=== PATIENT | male | born 1960 | race Caucasian/White ===

== ENCOUNTER 2020-09-29 11:00 | Outpatient (RCR) | payer OTHER, SELFPAY ==
--- NOTE | 2020-08-01 13:35 | HP.PTEVAL_ITS ---
Patient's Visit Information MARY LUCAS is a 60 year old M referred to Physical Therapy by Dr. Behzad Valencia MD with a diagnosis of UNILTAERLA PRIMARY OSTEOARTHRITIS LEFT HIP,BURSITIS,LOW BACK PAIN. Date of Evaluation: 08/01/20 Physical Therapist: Jose Antonio Pak, PT, Cert MDT, OCS - Visit Plan Frequency: 2x /Week Duration: 4 Weeks Plan: PT INTERVENTIONS TO INCLUDE AQUATIC THERAPY WITH LUMBAR AND HIP ROM DLS AND LE FLEXABLITY AND STRENGTHENING - Subjective This 60 y/o male presents to physical therapy with hip bursitis,OA and back pain. Patient has has hip an back pain many years. Patient seen orthopedic DR x- rays showed DJD . Patient tried PT on land for IT BAND . Location bilateral hip pain L> R nad symmtrical lumbar. Aggraveting standing ,siting . Alleviating rest for hips. Aggraveting factors for back is the same sitting and lifting/bending. No MEDS. Denies paratheisa/tingling .Coughing/sneezing-. Patient pain affect sleeping. Patient has some pain pain with stairs ,squatting ,kneeling . Patient pain affects ADLS and housework tasks. Symptoms affects QOL.Patient return in September possible injection. SOCAIL: . VOCATION: retired - Pain Bilateral Hip Pain Intensity (Out of 10): 7 Pain Intensity Range: 10 Bilateral Back Pain Intensity (Out of 10): 7 Pain Intensity Range: 10 - Objective POSTURE: mild posture. GAIT: reciprocal pattern. PALAPTION: Bilateral I -T Band. NEURO: intact. PROM HIP: ER 20 degrees,IR 45 degrees ,hip flexion 110 degrres. MMT: Quads/hams/hip flexion 4/5,abduction 4-/5,ankle 4/5. LUMBAR ROM: flexion min loss ,extension mod loss with pain,side glide s min/mod loss. FLEXABILITY: HAMS MOD TIGHT - Goals Goal 1:: Patient to be I with Aquatic Therapy Goal Time Frame: 4-6 Weeks Goal 2:: Patient to decrease pain bilateral lateral hip and LBP by 50% or > to improve function Goal Time Frame: 4-6 Weeks Goal 3:: Patient to improve hip and lumbar ROM for function of recovery Goal Time Frame: 4-6 Weeks Goal 4:: Patient to improve LFES score by 5 points or > to improve function. Goal Time Frame: 4-6 Weeks - Rehabilitation Potential Physical Therapy Diagnosis: This patient has symmtrical low back pain and lateral upper hip pain with decrease lumbar ROM especially hip along with hip ROM deficits with pain with functional activities difficulty with sitting ,squatting and stairs Rehabilitation Potential: Good - Anticipated Interventions Patient/Client Instruction: Educate patient on: Condition, Plan of Care For the Purpose of:: To decrease pain, To increase ROM, To improve muscle performance and motor function, To improve ability to perform ADL's, To increase tolerance to activity/condition/position, To improve performance and independence with ADL's, To improve ability of physical actions for home/community/work/leisure, To improve gait and locomotor functions, To improve health of tissue, To decrease soft tissue restriction, To increase flexibility/ROM, To improve health and function, To improve ability to perform tasks related to life management Therapeutic Exercise to Include: Strength training, Body mechanics, Postural training, Flexibilty training, In an aquatic setting, Dynamic Lumbar Stabilization For the Purpose of:: To decrease pain, To increase ROM, To improve muscle performance and motor function, To increase tolerance to activity/condition/position, To improve ability of physical actions for home/community/work/leisure, To improve health of tissue, To decrease soft tissue restriction, To reduce risk of recurrence, To improve health and function, To improve ability to perform tasks related to life management Thank you for the opportunity to evaluate your patient. For Medicare and Medicare HMO plans, please review the plan of care and approve it. It will need to be FAXED BACK to us at [phone] for Medicare purposes. For Medicare only, by signing this I certify the plan of care. Please let me know if there are questions or concerns regarding this plan of care. Physician Signature: Date:
--- NOTE | 2020-09-29 11:20 | HP.PTDCSUM ---
It has been my pleasure to treat MARY LUCAS referred by Dr. Behzad Valencia MD, with the diagnosis of UNILTAERLA PRIMARY OSTEOARTHRITIS LEFT HIP,BURSITIS,LOW BACK PAIN for a total of 15 visit(s). Discharge Date: 09/29/20 Please see the following information for a summary of their discharge status. Subjective: Patient is ready to be d/c able to sleep and perform most functional activities, Bilateral Hip Pain Intensity (Out of 10): 2 Bilateral Back Pain Intensity (Out of 10): 0 % Improvement: 60 Objective/Function: POSTURE: mild foward posture. GAIT: reciprocal pattern. FLEXBLITY: HAMS /PIRIFORMIS MILD TIGHT. LUMBAR ROM: flexion WFL ,extension min loss. MMT: quads/hams 4/5,hip flexion 4-/5,ankle 4/5 Goal 1:: Patient to be I with Aquatic Therapy Goal Progress: Goal Met Goal 2:: Patient to decrease pain bilateral lateral hip and LBP by 50% or > to improve function Goal Progress: Goal Met Goal 3:: Patient to improve hip and lumbar ROM for function of recovery Goal Progress: Goal Met Goal 4:: Patient to improve LFES score by 5 points or > to improve function. Goal Progress: Goal Met Goal Progress: Progressing Plan: D/C TO HEP Discharge Comments: D/C HEP If there are questions or concerns regarding this patient's physical therapy, please feel free to call me at [phone]. Thank you for the referral of this patient. Sincerely, Jose Antonio Pak, PT, Cert MDT, OCS
== END 2020-09-29 14:22 | disposition home or self-care (01) ==
LOC: PT 11:00
PROVIDERS: PCP Family Medicine; Referring Provider Specialist; Visit Provider Specialist
DX: M16.12 Unilateral primary osteoarthritis, left hip (principal); M70.62 Trochanteric bursitis, left hip; M54.5 Low back pain
CPT/HCPCS: 97113; 97162; 97530

== ENCOUNTER 2024-03-10 10:30 | Outpatient (RCR) | payer MEDICARE, OTHER, SELFPAY ==
--- NOTE | 2023-09-23 13:02 | HP.PTEVAL ---
Patient's Visit Information Visit Information Visit Information: MARY LUCAS is a 63 year old M referred to Physical Therapy by ISAÍAS HANSEN with a diagnosis of S/P BACK SURGERY PER EVAL 09/02/23. Date of Evaluation: 09/23/23 Physical Therapist: Sofi Kirk, PT, Cert MDT Visit Plan Frequency: 2-3x /Week Duration: 4-6 Weeks Plan: Brace on with PT until ok'd by surgeon. No lifting > 10 lbs. Neutral Spine Core Stability Exercises and Sarai LE Hip Flexor, Hip Rotator, Hamstring and Calf Stretching to help reduce stress to the Lumbar Spine with all Daily Activities. Sarai LE Strengthening. Instruction in Proper Posture Control, Body Mechanics, and Appropriate Activity Modifications. HEP Instruction. Re-check with PT in 3 weeks for progression to trunk ROM if ok''d by surgeon. 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 SOME LIFTING, PUSHING, PULLING AND TWISTING BUT NOT A LOT. Present symptoms: R BUTTOCK, POST THIGH AND R LATERAL LOWER LEG PAIN. SARAI FOOT/TOE NUMBNESS. NO L LE PAIN. DENIES SARAI LE NUMBNESS AND TINGLING EXCEPT NUMBENSS IN THE FEET. NO LOW BACK PAIN EXCEPT WHEN BRACE DIGS IN DURING SITTING. Present since: ABOUT A YEAR AGO Pain Scale: WORST 4/10, LEAST 1/10 Currently: 1/10 Is it getting better, worse or staying the same: STAYING THE SAME Commenced as a result of: NO APPARENT REASON Symptoms at onset: LLE NUMBNESS Worse: LEANING BACK SITTING CAUSES BRACE TO DIG INTO BACK BUT NOT IF SITTING UP STRAIGHT, LAYING DOWN TO GO TO BED AT NIGHT - FEELS TIGHTNESS IN R LEG - BACK OF THIGH, R LEG AND R FOOT. SITTING TOO LONG. STIFF IN THE MORNINGS. Better: ICE PACK ON BUTTOCK AND HAMSTRING AREA, IBUPROFEN AND acetaminophen and meloxicam. THE DAY PROGRESSES. Disturbed sleep: YES - NOT SLEEPING WELL. SLEPT FROM 10PM TO 2AM THEN UP AND DOWN LAST NIGHT. Previous history/Previous treatment: PAIN FOR ABOUT A YEAR BEFORE SURGERY. TRIED A CAUDAL INJECTION IN APR 2023 WITH TEMPORARY BENEFIT. NO PT. NO CHIROPRACTIC. CONSULT WITH DR. HOLMAN APR 2023 THEN TRIED CAUDAL. ALSO CONSULT WITH DR. ALTAMIRANO - [facility]. ALL 3 SURGEONS RECOMMENDED SURGERSY. Treatment this episode: DR. TAMRA CRAIG - 09/02/23: SARAI POST LAMINECTOMIES L2, L3, L4, L5. DIRECT EXITING AND TRAVERSING NERVE DECOMPRESSION SARAI L2, L4, L5 NERVE ROOTS. POSTEROLATERAL FUSION L3 THROUGH L5. SARAI FIXATION AND L3 THROUGH L5. Coughing/sneezing/straining: NEGATIVE FOR INCREASED PAIN. Gait: PATIENT REPORTS HE CURRENTLY JUST FEELS A LITTLE UNSTEADY BUT NOT BAD. NOT BACK TO NORMAL BUT A LOT BETTER THAN HE WAS BEFORE SURGERY. USING A CANE JUST WHEN HE GOES OUTSIDE THE HOUSE. NOT USING AD IN THE HOUSE. USING A WALKER UNTIL ABOUT A WK AGO. Bowel or Bladder Dysfunction: NO Accidents: NO RESIDUAL DEFICITS PER PATIENT. Unexplained weight loss: NO Imaging: FOLLOW UP IMAGING LAST VISIT LOOKED GOOD PER PATIENT REPORT. PMH/Recent major surgery: HTN, HIGH CHOLESTEROL. CURRENT PHYSICIAN RESTRICTIONS: NO BENDING, LIFTING (>10 LBS) OR TWISTING. BACK BRACE AT ALL TIMES UNTIL FOLLOW UP NOVEMBER 2023. BONE STIMULATOR 2 HRS A DAY. STEPS: ONE AT A TIME IN THE MORNING AND STEP OVER STEP IN THE AFTERNOON. ONE HR UP AND DOWN. Objective Objective: Sitting/Standing Posture: REDUCED LORDOSIS. PPT. INCREASED TRUNK FLEXION. NO RELEVANT Active Correction of posture: BETTER Other Observations: INDEP GAIT INTO PT WITH INCREASED TRUNK FLEXION, STRAIGHT CANE, GOOD SEQUENCING, NO LOB, SLOW CADANCE AND NOT VERY DEPENDENT ON CANE. UE DEPENDENT TO TRANSFER FROM SIT TO STAND. Sensory deficit: SARAI LE LIGHT TOUCH SENSATION GROSSLY INTACT AND SYMMETRICAL ROM deficit: VERY TIGHT SARAI LE HIP FLEXORS AND ROTATORS, HS'S AND CALVES. CURRENTLY USING AIDS FOR LE DRESSING. Motor deficit: SARAI LE'S GROSSLY 5/5 EXCEPT HIPS 4-/5 Dural Signs: NEGATIVE SARAI LE'S. Lumbar mvmt loss: NT Core strength: POOR Palpation: INCISIONS - PATIENT REPORTS JENNIFER WERE REMOVED A WK AGO AND HE HAS NOT HAD ANY TROUBLE. INCISION LOOKS GOOD WITHOUT ANY OPEN AREAS OR SIGNS OF INFECTION. Balance/Special Test Scores Oswestry Low Back Score: 19 Goals Goal 1:: PATIENT WILL BE INDEP WITH GAIT ON LEVEL SURFACES AND UP AND DOWN STEPS RECIP WITH ONE HR WITHOUT AD WITHOUT LIMITATION. Goal Time Frame: 8-12 Weeks Goal 2:: PATIENT WILL COMPLETE 10 STANDS IN 30 SECS TO WITHOUT UE ASSIST TO DEMONSTRATE GOOD FUNCTIONAL LE STRENGTH. Goal Time Frame: 8-12 Weeks Goal 3:: PATIENT WILL HAVE IMPROVED LE FUNCTIONAL ROM TO EASE ADL'S. Goal Time Frame: 8-12 Weeks Goal 4:: PATIENT WILL HAVE LUMBAR FLEXION ROM WFL TO EASE ADL'S (WHEN ALLOWED BY PHYSICIAN). Goal Time Frame: 8-12 Weeks Goal 5:: PATIENT WILL HAVE IMPROVED TRUNK FLEXIBILILTY TO ALLOW FOR NEUTRAL POSTURE AND HAVE THE STRENGTH TO MAINTAIN NEUTRAL SPINE THROUGHOUT PT SESSION. Goal Time Frame: 8-12 Weeks Goal 6:: PATIENT WILL BE INDEP WITH A HEP FOR CONTINUED IMPROVEMENT ONCE FORMAL PHYSICAL THERAPY CONCLUDES. Goal Time Frame: 8-12 Weeks Rehabilitation Potential Physical Therapy Diagnosis: THIS PATIENT PRESENTS TO PT S/P BACK SURGERY WITH HYPOMOBILITY, CORE WEAKNESS, C/O R LE PAIN AND SARAI FOOT NUMBNESS. Rehabilitation Potential: Good Anticipated Interventions Patient/Client Instruction: Educate patient on: Condition, Plan of Care and Risk Factors For the Purpose of:: To improve self management Therapeutic Exercise to Include: Strength training, Body mechanics, Postural training, Flexibilty training, Neuromotor development and Dynamic Lumbar Stabilization For the Purpose of:: To decrease pain, To improve muscle performance and motor function, To increase tolerance to activity/condition/position, To improve ability of physical actions for home/community/work/leisure, To improve gait and locomotor functions and To increase flexibility/ROM Text: Thank you for the opportunity to evaluate your patient. For Medicare and Medicare HMO plans, please review the plan of care and approve it. It will need to be FAXED BACK to us at [phone] for Medicare purposes. For Medicare only, by signing this I certify the plan of care. Please let me know if there are questions or concerns regarding this plan of care. Physician Signature: Date:
--- NOTE | 2023-10-14 18:24 | HP.PTREVAL ---
Re-Evaluation Intro: ISAÍAS HANSEN, It has been my pleasure to treat MARY LUCAS over the last 10 visits for S/P BACK SURGERY PER EVAL 09/02/23. Please see the progress note below for an update on the physical therapy plan of care! Subjective Subjective: PATIENT REPORTS NEAR FALL LAST NIGHT WHEN GETTING UP TO GO TO THE BATHROOM DURING THE NIGHT. HAD HIS CANE WITH HIM AND TWISTED. PATIENT REPORTS 20% IMPROVEMENT IN HIS CORE STRENGTH AND LEG STRENGTH SINCE STARTING PT. I WAS ABOUT 70% BETTER (10/02/22) BEFORE I HAD THAT BACKSLIDE. I DON'T KNOW WHAT HAPPEND THERE. PATIENT REPORTS HE FEELS LIKE HE IS STARTING TO RECOVER FROM THAT BACKSLIDE. STATES HE IS STILL TAKING gabapentin. STATES HE ICED HIS FEET BEFORE BED LAST NIGHT AND THAT HELPED BUT FOOT PAIN STILL WOKE HIM UP ABOUT 4 AM. I REALLY DON'T HAVE MUCH PAIN IN MY LEGS ANY MORE ITS JUST IN MY FEET SO IT SEEMS LIKE IT IS SLOWLY GETTING BETTER. Objective Objective/Function: PATIENT WAS SEEN TODAY FOR RE-ASSESSMENT OF PROGRESS TOWARD THE SET PT GOALS AND THE NEED FOR FURTHER PHYSICAL THERAPY VS READINESS FOR DISCHARGE. THIS PATIENT AMBULATES INTO PT TODAY WITH A STRAIGHT CANE WITH UNSTEADY GAIT. CONTACT GUARD GIVEN FOR SAFETY. HE IS LEANING HEAVILY ON HIS CANE AND STOPPED TO REST SEVERAL TIMES ON HIS WAY BACK TO THE TREATMENT ROOM (ABOUT [address]). [address] IN AND OUT OF PT TODAY HE CAUGHT HIS TOES DURING SWING PHASE OF GAIT A FEW TIMES BUT REGAINED BALANCE INDEP'LY. HE IS DEMO'ING INCREASED LE WEAKNESS AND SCORED WORSE ON FUNCTIONAL SCREEN DESPITE SUBJECTIVE REPORTS ABOVE. HE HAS 3-/5 DORSIFLEXION STRENGTH SARAI TODAY. THIS PT RECOMMENDS WALKER FOR SAFETY AND PATIENT REPORTS HE HAS ACTUALLY STARTED USING HIS WALKER AT NIGHT AGAIN BUT WAS NOT USING IT SATURDAY NIGHT WHEN HE HAD THE NEAR FALL. THIS PT ALSO RECOMMENDS PATIENT CALL HIS SURGEON ABOUT INCREASED DIFFICULTY WITH GAIT AND INCREASED LE WEAKNESS AND SCHEDULE FOLLOW UP VISIT PRIOR TO GOING ON VACATION. IN ADDITION THIS PT RECOMMENDS CONTINUED USE OF BACK BRACE UNTIL SEEING SURGEON. PATIENT AGREEABLE WITH ALL RECOMMENDATIONS. OTHER STRENGTH TESTING EOB: L quad: 41.3# R quad: 48.6# L hip flexion: 39.8# R hip flexion: 27.2# THIS PT WALKED PATIENT TO HOSPITAL TRANSPORTATION VAN POST SESSION. PATIENT GOT INTO VAN INDEP'LY. Plan Plan Plan: HOLD PT DUE TO PATIENT GOING ON VACATION. RECHECK BY PT UPON RETURN FROM VACATION. Balance/Gait/Functional tests Balance/Special Test Scores Oswestry Low Back Score: 23 Goals Goals Goal 1:: PATIENT WILL BE INDEP WITH GAIT ON LEVEL SURFACES AND UP AND DOWN STEPS RECIP WITH ONE HR WITHOUT AD WITHOUT LIMITATION. Goal Time Frame: 8-12 Weeks Goal Progress: Not Progressing Goal 2:: PATIENT WILL COMPLETE 10 STANDS IN 30 SECS TO WITHOUT UE ASSIST TO DEMONSTRATE GOOD FUNCTIONAL LE STRENGTH. Goal Time Frame: 8-12 Weeks Goal Progress: NT Goal 3:: PATIENT WILL HAVE IMPROVED LE FUNCTIONAL ROM TO EASE ADL'S. Goal Time Frame: 8-12 Weeks Goal Progress: Not Progressing Goal 4:: PATIENT WILL HAVE LUMBAR FLEXION ROM WFL TO EASE ADL'S (WHEN ALLOWED BY PHYSICIAN). Goal Time Frame: 8-12 Weeks Goal Progress: NT Goal 5:: PATIENT WILL HAVE IMPROVED TRUNK FLEXIBILILTY TO ALLOW FOR NEUTRAL POSTURE AND HAVE THE STRENGTH TO MAINTAIN NEUTRAL SPINE THROUGHOUT PT SESSION. Goal Time Frame: 8-12 Weeks Goal Progress: Not Progressing Goal 6:: PATIENT WILL BE INDEP WITH A HEP FOR CONTINUED IMPROVEMENT ONCE FORMAL PHYSICAL THERAPY CONCLUDES. Goal Time Frame: 8-12 Weeks Anticipated Interventions Anticipated Interventions Patient/Client Instruction: Educate patient on: Condition, Plan of Care and Risk Factors For the Purpose of:: To improve self management Therapeutic Exercise to Include: Strength training, Body mechanics, Postural training, Flexibilty training, Neuromotor development and Dynamic Lumbar Stabilization For the Purpose of:: To decrease pain, To improve muscle performance and motor function, To increase tolerance to activity/condition/position, To improve ability of physical actions for home/community/work/leisure, To improve gait and locomotor functions and To increase flexibility/ROM Re-Evaluation Ending Re-evaluation ending: Please do not hesitate to contact me at [phone] by phone or if you have questions or concerns regarding this new plan of care! Sincerely, Sofi Kirk, PT, Cert MDT
--- NOTE | 2023-10-30 14:31 | HP.PTREVAL_ITS ---
Re-Evaluation Intro: ISAÍAS HANSEN, It has been my pleasure to treat MARY LUCAS over the last 11 visits for S/P BACK SURGERY PER EVAL 09/02/23. Please see the progress note below for an update on the physical therapy plan of care! Subjective Subjective: PATIENT REPORTS HE SAW DR. CRAIG 10/16 AND HAD X-RAYS DONE. X-RAYS LOOKED GOOD. MRI ORDERED AND HE IS HAVING THAT DONE LATER TODAY. HE REPORTS THEY CHECKED HIS FEET FOR DROP FOOT AND THEY TOLD HIM HE DOES NOT HAVE IT. HE STATES THEY TOLD HIM IT COULD TAKE A YEAR FOR HIM TO RECOVER AND GET HIS FEELING BACK IN HIS FEET. HE REPORTS HIS LEFT FOOT IS BETTER THAN HIS RIGHT. PATIENT REPORTS HE TOLD DR. CRAIG HE WAS TAKING TIME OFF FROM THERAPY FOR VACATION BUT HE ENDED UP NOT GOING. HE REPORTS HIS CHILDREN ENDED UP COMING UP HERE TO SEE HE AND HIS INSTEAD. PATIENT REPORTS HE AND HIS FAMILY WERE CONCERNED ABOUT HIM BEING ABLE TO DRIVE THAT FAR SO THEY STAYED HOME. HE ALSO REPORTS DR. CRAIG TOLD HIM TO RESUME THERAPY AFTER VACATION WITHOUT THE BRACE. PATIENT REPORTS DR. CRAIG DID NOT GIVE HIM ANY RESTRICTIONS. Objective Objective/Function: STRENGTH TESTING EOB: R hip flexion: 32.3#, L 35.4# R knee ext: 33.4#, L 31.8# R knee flex: 24.7#, L 31.2# R ankle dorsiflex 3-/5, L 3/5 (dorsiflexion fatigues quickly with repetition). THIS PATIENT AMBULATES INDEP'LY INTO PT TODAY WITH A FWW. HE WALKS WITH DECREASED CADANCE, DECREASED SARAI STRIDE LENGTH AND MILD SARAI HIP HIKING DURING SWING PHASES OF GAIT. NO LOB. HE REPORTS HE FEELS SAFER WITH THE WALKER. HIS IS HAVING TKR TOMORROW AND WILL NEED THE WALKER TOMORROW SO HE WILL BE US ING A ROLLATOR. THIS WALKER IS SET TOO LOW. PATIENT WAS TAUGHT HOW TO PROPERLY SET WALKER HEIGHT SO HE CAN SET ROLLATOR PROPERLY TOO. ENCOURAGED PATIENT TO CONTINUE TO USE WALKER UNTIL HE CAN GET STRONGER AGAIN. HE REPORTS HE REALLY HASN'T FELT THE SAME SINCE GETTING HIS COVID VACCINE. Sitting/Standing Posture: REDUCED LORDOSIS. PPT. INCREASED TRUNK FLEXION. ROM deficit: VERY TIGHT SARAI LE HIP FLEXORS AND ROTATORS, HS'S AND CALVES. Dural Signs: NEGATIVE SARAI LE'S. Lumbar mvmt loss: NT Core strength: POOR PATIENT APPEARS TO BE A GOOD CANDIDATE TO RESUME PT. PATIENT IS AGREEABLE AND REPORTS DR. CRAIG KNOWS HE WAS GOING TO TAKE A BREAK FROM PT FOR VACATION BUT DOESN'T KNOW HE ENDED UP NOT GOING. MRI PENDING TODAY. Plan Plan Plan: CHECK ON MRI RESULTS RESUME PT 3X'S A WK X 8-12 WKS. FOCUS ON CORE AND LE STRENGTHENING INCLUDING ANKLES. GAIT AND BALANCE TRAINING. RESTORE TRUNK AND LE FLEXIBILITY. POSTURE TRAINING. HEP INSTRUCTION Balance/Gait/Functional tests Balance/Special Test Scores Oswestry Low Back Score: 23 Goals Goals Goal 1:: PATIENT WILL BE INDEP WITH GAIT ON LEVEL SURFACES AND UP AND DOWN STEPS RECIP WITH ONE HR WITHOUT AD WITHOUT LIMITATION. Goal Time Frame: 8-12 Weeks Goal Progress: Not Progressing Goal 2:: PATIENT WILL COMPLETE 10 STANDS IN 30 SECS WITHOUT UE ASSIST TO DEMONSTRATE GOOD FUNCTIONAL LE STRENGTH. Goal Time Frame: 8-12 Weeks Goal Progress: NT Goal 3:: PATIENT WILL HAVE IMPROVED LE FUNCTIONAL ROM TO EASE ADL'S. Goal Time Frame: 8-12 Weeks Goal Progress: Not Progressing Goal 4:: PATIENT WILL HAVE LUMBAR FLEXION ROM WFL TO EASE ADL'S (WHEN ALLOWED BY PHYSICIAN). Goal Time Frame: 8-12 Weeks Goal Progress: NT Goal 5:: PATIENT WILL HAVE IMPROVED TRUNK FLEXIBILILTY TO ALLOW FOR NEUTRAL POSTURE AND HAVE THE STRENGTH TO MAINTAIN NEUTRAL SPINE THROUGHOUT PT SESSION. Goal Time Frame: 8-12 Weeks Goal Progress: Not Progressing Goal 6:: PATIENT WILL BE INDEP WITH A HEP FOR CONTINUED IMPROVEMENT ONCE FORMAL PHYSICAL THERAPY CONCLUDES. Goal Time Frame: 8-12 Weeks Anticipated Interventions Anticipated Interventions Patient/Client Instruction: Educate patient on: Condition, Plan of Care and Risk Factors For the Purpose of:: To improve self management Therapeutic Exercise to Include: Strength training, Body mechanics, Postural training, Flexibilty training, Neuromotor development and Dynamic Lumbar Stabilization For the Purpose of:: To decrease pain, To improve muscle performance and motor function, To increase tolerance to activity/condition/position, To improve ability of physical actions for home/community/work/leisure, To improve gait and locomotor functions and To increase flexibility/ROM Re-Evaluation Ending Re-evaluation ending: Please do not hesitate to contact me at [phone] by phone or if you have questions or concerns regarding this new plan of care! Sincerely, Sofi Kirk, PT, Cert MDT
--- NOTE | 2023-11-27 14:30 | HP.PTREVAL_ITS ---
Re-Evaluation Intro: ISAÍAS HANSEN, It has been my pleasure to treat MARY LUCAS over the last 21 visits for S/P BACK SURGERY PER EVAL 09/02/23. Please see the progress note below for an update on the physical therapy plan of care! Subjective Subjective: PATIENT REPORTS HE CAN ACTUALLY TAKE SOME STEPS AT HOME NOW WITHOUT USING THE WALKER. SOMETIMES I WEAKER THAN OTHERS AND IT DOESN'T TAKE MUCH TO WEAR ME OUT THOUGH. IT IS ALL BECAUSE OF MY FEET. MY FEET ARE THE BIG PROBLEM. PATIENT REPORTS DR. CRAIG TOLD HIM IT COULD TAKE HIS FEET A YEAR TO RECOVER. HE STATES HIS FEET HURT ALL THE TIME BUT HE ALWAYS FEELS BETTER WHEN HE IS DONE WITH THERAPY - FEELS STRONGER. MOSTLY JUST PAIN IN HIS FEET BUT SOME LBP LAST NIGHT TOO. PATIENT REPORTS HE TALKED TO DR. TEMPLETON OFFICE RECENTLY ABOUT MEDICATION AND THEY TOLD HIM 12/01/23 WHEN HE IS 3 MO PO HE CAN TAKE OTC IBUPROFEN FOR INFLAMMATION. Objective Objective/Function: PATIENT WAS SEEN TODAY FOR RE-ASSESSMENT OF PROGRESS TOWARD THE SET PT GOALS AND THE NEED FOR FURTHER PHYSICAL THERAPY VS READINESS FOR DISCHARGE. This patient is making slow progress with some strengthening with PT. He has been unable to wean out of back brace or off of Rollator yet. He would like to decrease to 2x's a wk with PT and is willing to do more work at home between warren'ts. This PT is agreeable. UPON EXAM TODAY: Objective/Function: STRENGTH TESTING EOB: R hip flexion: 32.3#, L 35.4# R knee ext: 38.2#, L 38.3# R knee flex: 24.6#, L 31.1# R ankle dorsiflex 5.4 LBS, L 5.6 LBS R ankle plantarflex 15.5 lbs, L 15.4 lbs THIS PATIENT AMBULATES INDEP'LY INTO PT TODAY WITH A rollator. HE WALKS WITH DECREASED CADANCE, DECREASED SARAI STRIDE LENGTH AND MILD SARAI HIP HIKING DURING SWING PHASES OF GAIT. NO LOB. TUG TIME - 20.26 SEC WITH ROLLATOR Sitting/Standing Posture: REDUCED LORDOSIS. PPT. INCREASED TRUNK FLEXION. ROM deficit: VERY TIGHT SARAI LE HIP FLEXORS AND ROTATORS, HS'S AND CALVES. Dural Signs: NEGATIVE SARAI LE'S. Lumbar mvmt loss: NT. Still wearing back brace. Core strength: POOR 30 SEC STS: 7 WITH ONE UE ASSIST Plan Plan Plan: PT 2X'S A WK X 6-8 WKS. FOCUS ON CORE AND LE STRENGTHENING INCLUDING ANKLES. GAIT AND BALANCE TRAINING. RESTORE TRUNK AND LE FLEXIBILITY. POSTURE TRAINING. HEP INSTRUCTION Balance/Gait/Functional tests Balance/Special Test Scores Oswestry Low Back Score: 21 Goals Goals Goal 1:: PATIENT WILL BE INDEP WITH GAIT ON LEVEL SURFACES AND UP AND DOWN STEPS RECIP WITH ONE HR WITHOUT AD WITHOUT LIMITATION. Goal Time Frame: 8-12 Weeks Goal Progress: Not Progressing Goal 2:: PATIENT WILL COMPLETE 10 STANDS IN 30 SECS WITHOUT UE ASSIST TO DEMONSTRATE GOOD FUNCTIONAL LE STRENGTH. Goal Time Frame: 8-12 Weeks Goal Progress: Progressing Goal 3:: PATIENT WILL HAVE IMPROVED LE FUNCTIONAL ROM TO EASE ADL'S. Goal Time Frame: 8-12 Weeks Goal Progress: Progressing Goal 4:: PATIENT WILL HAVE LUMBAR FLEXION ROM WFL TO EASE ADL'S (WHEN ALLOWED BY PHYSICIAN). Goal Time Frame: 8-12 Weeks Goal Progress: NT Goal 5:: PATIENT WILL HAVE IMPROVED TRUNK FLEXIBILILTY TO ALLOW FOR NEUTRAL POSTURE AND HAVE THE STRENGTH TO MAINTAIN NEUTRAL SPINE THROUGHOUT PT SESSION. Goal Time Frame: 8-12 Weeks Goal Progress: Not Progressing Goal 6:: PATIENT WILL BE INDEP WITH A HEP FOR CONTINUED IMPROVEMENT ONCE FORMAL PHYSICAL THERAPY CONCLUDES. Goal Time Frame: 8-12 Weeks Goal Progress: Progressing Anticipated Interventions Anticipated Interventions Patient/Client Instruction: Educate patient on: Condition, Plan of Care and Risk Factors For the Purpose of:: To improve self management Therapeutic Exercise to Include: Strength training, Body mechanics, Postural tra ining, Flexibilty training, Neuromotor development and Dynamic Lumbar Stabilization For the Purpose of:: To decrease pain, To improve muscle performance and motor function, To increase tolerance to activity/condition/position, To improve ability of physical actions for home/community/work/leisure, To improve gait and locomotor functions and To increase flexibility/ROM Re-Evaluation Ending Re-evaluation ending: Please do not hesitate to contact me at [phone] by phone or if you have questions or concerns regarding this new plan of care! Sincerely, Sofi Kirk, PT, Cert MDT
--- NOTE | 2023-12-27 13:47 | HP.PTREVAL_ITS ---
Re-Evaluation Intro: ISAÍAS HANSEN, It has been my pleasure to treat MARY LUCAS over the last 29 visits for S/P BACK SURGERY PER EVAL 09/02/23. Please see the progress note below for an update on the physical therapy plan of care! Subjective Subjective: HAD FOLLOW UP WITH PA AT [facility] LAST Saturday12/17/23. HE REPORTS THE WARREN'T WAS ACTUALLY AN ERROR AND HIS HAD SOME QUESTIONS FOR THEM BUT HE CAN'T REMEMBER WHAT THEY WERE. HE REPORTS SHE IS BEING MORE IMPATIENT THAN HE IS WITH IS PROGRESS. HE STATES HE IS UNDER THE IMPRESSION THAT IT COULD TAKE A YEAR FOR HIS NERVES TO COME BACK SO HE IS TRYING TO BE PATIENT. PATIENT REPORTS HE FEELS LIKE HE IS MAKING SLOW PROGRESS - I CAN ACTUALLY TAKE SOME STEPS ACROSS THE ROOM WITHOUT A WALKER OR ANYTHING BUT I'M WEARY ABOUT IT. PATIENT REPORTS HE FEELS LIKE HIS STRENGTH AND COORDINATION IS IMPROVING BUT NOT HIS FOOT PAIN. RARELY WEARS BACK BRACE NOW. PATIENT DENIES HAVING ANY PHYSICIAN RESTRICTIONS. PATIENT REPORTS HE IS STILL TAKING meloxicam. REPORTS HE DECREASED HIS GABAPENTIN FROM 3 TIMES A DAY TO ONCE A DAY. PATIENT REPORTS HIS BLOOD PRESSURE WAS ELEVATED WHICH ISN'T UNUSUAL FOR HIM DUE TO ANXIETY WHEN SEEING DOCTORS BUT IT WAS UNUSUALLY HIGH. Objective Objective/Function: Patient is still showing signs of slow progress with PT with strengthening but testing was limited today due to dizziness and needing to be assessed for high blood pressure which he has an warren't for today. He has been able to wean out of the back brace almost completely since last re- check but not off of the Rollator yet. He is unsafe with gait without the rollator. He reports compliance with home exercises between therapy sessions if he has more than one day off between therapy sessions. HE AMBULATES INDEP'LY INTO PT TODAY WITH his rollator. HE WALKS WITH DECREASED CADANCE, DECREASED SARAI STRIDE LENGTH but no hip hiking and no toe catching or leg dragging as has been seen intermittently in past. TUG TIME - 20.25 SEC WITH ROLLATOR (patient with increased pause time upon rising from sitting due to dizziness). Sitting/Standing Posture: SCOLIOTIC POSTURE WITH REDUCED LORDOSIS. PPT. INCREASED TRUNK FLEXION. ROM deficit: VERY TIGHT SARAI LE HIP FLEXORS AND ROTATORS, HS'S AND CALVES. Lumbar mvmt loss: FLEX - MOD - C/O INCREASED FOOT PAIN AND PULLING IN CALVES - NW EXT - MARCO RSG - MARCO - PRODUCES LBP - NW LSG - MOD Core strength: POOR 30 SEC STS: - NT DUE TO DIZZINESS PROVOKED WITH ONE ATTEMPT. PATIENT HAS WARREN'T TO GET HIS BLOOD PRESSURE ASSESSED TODAY AFTER PT. Plan Plan Plan: CONTINUE PT 2X'S A WK X 6-8 WKS. FOCUS ON CORE AND LE STRENGTHENING INCLUDING ANKLES. GAIT AND BALANCE TRAINING. RESTORE TRUNK AND LE FLEXIBILITY. POSTURE TRAINING. HEP INSTRUCTION Balance/Gait/Functional tests Balance/Special Test Scores Oswestry Low Back Score: 21 Goals Goals Goal 1:: New Goal: PATIENT WILL BE ABLE TO ASCEND AND DESCEND STEPS ONE AT A TIME WITH TWO HR'S SAFELY. Goal Time Frame: 8-12 Weeks Goal Progress: Not Progressing Goal 2:: PATIENT WILL COMPLETE 10 STANDS IN 30 SECS WITHOUT UE ASSIST TO DEMONSTRATE GOOD FUNCTIONAL LE STRENGTH. Goal Time Frame: 8-12 Weeks Goal Progress: Not assessed Goal 3:: PATIENT WILL HAVE IMPROVED LE FUNCTIONAL ROM TO EASE ADL'S. Goal Time Frame: 8-12 Weeks Goal Progress: Not Progressing Goal 4:: PATIENT WILL HAVE LUMBAR FLEXION ROM WFL TO EASE ADL'S (WHEN ALLOWED BY PHYSICIAN). Goal Time Frame: 8-12 Weeks Goal Progress: NT Goal 5:: New Goal: PATIENT WILL COMPLETE TUG IN < 15 SECS WITH ROLLATOR TO DEMONSTRATE IMPROVED GAIT STABILITY Goal Time Frame: 8-12 Weeks Goal Progress: Not Progressing Goal 6:: PATIENT WILL BE INDEP WITH A HEP FOR CONTINUED IMPROVEMENT ONCE FORMAL PHYSICAL THERAPY CONCLUDES. Goal Time Frame: 8-12 Weeks Goal Progress: Progressing Anticipated Interventions Anticipated Interventions Patient/Client Instruction: Educate patient on: Condition, Plan of Care and Risk Factors For the Purpose of:: To improve self management Therapeutic Exercise to Include: Strength training, Body mechanics, Postural training, Flexibilty training, Neuromotor development and Dynamic Lumbar Stabilization For the Purpose of:: To decrease pain, To improve muscle performance and motor function, To increase tolerance to activity/condition/position, To improve ability of physical actions for home/community/work/leisure, To improve gait and locomotor functions and To increase flexibility/ROM Re-Evaluation Ending Re-evaluation ending: Please do not hesitate to contact me at [phone] by phone or if you have questions or concerns regarding this new plan of care! Sincerely, Sofi Kirk, PT, Cert MDT
--- NOTE | 2024-01-24 15:56 | HP.PTREVAL_ITS ---
Re-Evaluation Intro: ISAÍAS HANSEN, It has been my pleasure to treat MARY LUCAS over the last 36 visits for S/P BACK SURGERY PER EVAL 09/02/23. Please see the progress note below for an update on the physical therapy plan of care! Subjective Subjective: WENT TO SEE NEUROLOGIST YESTERDAY IN [facility]. 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 ALSO SARAI AFO'S ORDERED. FOLLOW UP PENDING APR 28 2024. BLOODWORK ORDERED TOO. CALLED DR. LEUNG (PCP) SATURDAY AFTER LAST PT VISIT ABOUT HIGH BP AND THEY DOUBLE HIS MEDICATION. UPON ARRIVAL TODAY HE REPORTS DECREASED dizziness and less dizziness over-all. HE REPORTS HE HAS TAKEN HIS BP 2 TIMES ALREADY TODAY AND IT WAS 140/94 and 170/99. GOING OUT OF TOWN FOR A WEEK. GOING TO SON'S IN [place]. PATIENT STATES THAT DESPITE HIS DIZZINESS HE IS FEELING A LITTLE STRONGER THAN LAST RE-CHECK AND STARTING TO USE HIS CANE MORE AT HOME THE LAST 2 WEEKS (THE 4 POST ONE) ESPECIALLY WITHOUT HIS SHOES ON). BUT IT SURE WOULD BE NICE TO HAVE SOME FEELING IN THE BOTTOM OF MY FEET. STATES FOR SOME REASON HE FEELS A LITTLE MORE SECURE ON CARPET WITHOUT HIS SHOES ON. DENIES ANY FALLS. STATES HE EVEN GOES OUT ON LEVEL SURFACES SOMETIMES SHORT DISTANCE WITH HIS CANE. Objective Objective/Function: BP beginning of session 143/90 mmHg BP after TUG Test 145/84 mmHg BP post session 140/83 mmHg Patient is still showing signs of slow progress with PT but progress has been limited by his high blood pressure more so recently. He reports being strong enough to ambulate more with his cane vs walker now but he is unsafe without walker/rollator. He reports compliance with HEP. HE AMBULATES INDEP'LY INTO PT TODAY WITH his rollator. HE WALKS WITH DECREASED CADANCE, DECREASED SARAI STRIDE LENGTH but no hip hiking and no toe catching or leg dragging as has been seen intermittently in past. He is wearing sandals today and reports feeling steadier in them vs shoes. TUG TIME - 17.06 SEC WITH ROLLATOR (patient with minimal pause time upon rising from sitting today vs last re-check when he was having more dizziness). Sitting/Standing Posture: SCOLIOTIC POSTURE WITH REDUCED LORDOSIS. PPT. INCREASED TRUNK FLEXION. ROM deficit: VERY TIGHT SARAI LE HIP FLEXORS AND ROTATORS, HS'S AND CALVES. Lumbar mvmt loss: FLEX - MOD - c/o hamstring tightness - NW EXT - MARCO - Produces LBP - NW RSG - MARCO - PRODUCES LBP - NW LSG - MOD - produces LBP - NW Core strength: POOR - but has weaned out of back brace. 30 SEC STS: - 7 with one UE assist. Unable to rise from sitting without UE assist and maintain balance. MMT not specifically performed today but L plantar flexion strength observed greater than R. Sarai ankle dorsiflexion weakness also evident no more than 3/5. Plan Plan Plan: HOLD PT PENDING PHYSICIAN RE-ASSESSMENT AFTER PATIENT RETURNS FROM VACATION. Balance/Gait/Functional tests Balance/Special Test Scores Oswestry Low Back Score: 12 Goals Goals Goal 1:: New Goal: PATIENT WILL BE ABLE TO ASCEND AND DESCEND STEPS ONE AT A TIME WITH TWO HR'S SAFELY. Goal Time Frame: 8-12 Weeks Goal Progress: Goal Met Goal 2:: PATIENT WILL COMPLETE 10 STANDS IN 30 SECS WITHOUT UE ASSIST TO DEMONSTRATE GOOD FUNCTIONAL LE STRENGTH. Goal Time Frame: 8-12 Weeks Goal Progress: STAYING THE SAME (11/27/23) Goal 3:: PATIENT WILL HAVE IMPROVED LE FUNCTIONAL ROM TO EASE ADL'S. Goal Time Frame: 8-12 Weeks Goal Progress: Not Progressing Goal 4:: PATIENT WILL HAVE LUMBAR FLEXION ROM WFL TO EASE ADL'S (WHEN ALLOWED BY PHYSICIAN). Goal Time Frame: 8-12 Weeks Goal Progress: Progressing Goal 5:: New Goal: PATIENT WILL COMPLETE TUG IN < 15 SECS WITH ROLLATOR TO DEMONSTRATE IMPROVED GAIT STABILITY Goal Time Frame: 8-12 Weeks Goal Progress: Progressing Goal 6:: PATIENT WILL BE INDEP WITH A HEP FOR CONTINUED IMPROVEMENT ONCE FORMAL PHYSICAL THERAPY CONCLUDES. Goal Time Frame: 8-12 Weeks Goal Progress: Progressing Anticipated Interventions Anticipated Interventions Patient/Client Instruction: Educate patient on: Condition, Plan of Care and Risk Factors For the Purpose of:: To improve self management Therapeutic Exercise to Include: Strength training, Body mechanics, Postural training, Flexibilty training, Neuromotor development and Dynamic Lumbar Stabilization For the Purpose of:: To decrease pain, To improve muscle performance and motor function, To increase tolerance to activity/condition/position, To improve ability of physical actions for home/community/work/leisure, To improve gait and locomotor functions and To increase flexibility/ROM Re-Evaluation Ending Re-evaluation ending: Please do not hesitate to contact me at [phone] by phone or if you have questions or concerns regarding this new plan of care! Sincerely, Sofi Kirk, PT, Cert MDT
--- NOTE | 2024-02-25 14:10 | HP.PTREVAL_ITS ---
Re-Evaluation Intro: ISAÍAS HANSEN, It has been my pleasure to treat MARY LUCAS over the last 38 visits for S/P BACK SURGERY PER EVAL 09/02/23. Please see the progress note below for an update on the physical therapy plan of care! Subjective Subjective: PATIENT REPORTS HIS BLOOD PRESSURE HAS BEEN BETTER. DENIES DIZZINESS. BLOOD PRESSURE BEFORE PT TODAY 130/89 AT HOME. FOLLOW UP PENDING WITH DR. LEUNG 02/26/24. WENT TO [employer] FOR AFO FITTING AND THEY RECOMMENDED SARAI AFO'S VS JUST ONE AFO SO ARE REQUESTING TO MAKE THEM OUT OF A LESS BULKY MATERIAL. PATIENT AWAITING CALL BACK FOR FITTING. PATIENT REPORTS HE HAS RESUMED HOME EX'S WITH 7 LB WEIGHTS FOR HIS LEGS IN SITTING AND STANDING. ALSO DOING STS'S AND STEP UPS. PATIENT REPORTS HIS FOOT PAIN IS ACTUALLY GETTING BETTER BUT HIS BIGGEST PROBLEM SEEMS TO BE HIS ANKLE WEAKNESS - THEY ROLL WHEN HE IS WALKING IN HIS YARD WITH HIS ROLLATOR. DENIES ANY FALLS IN THE HOUSE OR OUTSIDE. STATES HE HASN'T BEEN REAL ACTIVE TODAY AND THAT IS PROBABLY WHY HIS FEET DON'T HURT. THE MORE ACTIVE HE IS THE MORE HIS FEET HURT. DENEIS ANY FALLS. WALKING WITHOUT ANY AD IN HOUSE AND NOT HOLDING ON TO ANYTHING. USING CANE OUTSIDE OF HOME AND SOMETIMES ROLLATOR. AD AT NIGHT IN HOME THOUGH. Objective Objective/Function: THIS PATIENT PRESENTS TO PT TODAY WITH INCREASED SARAI LE STRENGTH INCLUDING HIS ANKLES, STEADIER GAIT AND MORE CONTROLLED BLOOD PRESSURE HOWEVER WE WERE NOT ABLE TO COMPLETE BALANCE TESTING DUE TO HIS BLOOD PRESSURE ELEVATING AFTER STRENGTH TESTING. HI TUG TIME DID NOT IMPROVE FROM LAST RE-CHECK BUT 30 SEC STS TEST IMPROVED FROM 7 TO 12. HE ALSO HAS GROSSLY 3+/5 SARAI ANKLE DORSIFLEXION STRENGTH NOW. Lumbar mvmt loss: FLEX - MOD - c/o hamstring tightness - NW EXT - MARCO - Produces CENTRAL LBP - NW RSG - MARCO - PRODUCES R LBP - NW LSG - MOD - NE TUG TIME - 17.15 SEC WITH ROLLATOR. 30 SEC STS: - 12 with one UE assist. Almost but able to rise from sitting without UE assist and maintain balance today. Strength: Measure in Average Peak Force Pounds: Hip Flex: R 39.5, L 24.4 Knee Ext: R 42.9, L 40.9 Knee Flex: R 33.8, L 33.7 Sarai Ankle plantar flex grossly 4-/5, inv 3+/5, eversion 2/5. BP IN CLINIC AFTER SUBJECTIVE 154/90 151/88 AFTER TUG TEST 152/91 AFTER STS TEST 158/101 AFTER STRENGTH TESTING WHICH WAS LAST THING DONE. 157/96 UPON DEPARTURE. Plan Plan Plan: *NO PT IF BP NUMBERS ARE >175/95 OR < 100/60* RESUME PT 2X'S A WK X 4-6 WKS CHECK BLOOD PRESSURE PRIOR TO BEFORE, DURING AND AFTER EA SESSION. START NEXT SESSION WORKING ON GAIT TRAINING IN CLINIC WITH GAIT BELT W/CANE IN OR OUT OF PARALLEL BARS AND ASSESS FOR SAFETY OUT OF CLINIC IF DESIRED BY PATIENT. CORE AND LE STRENGTHENING INCLUDING ANKLES. GAIT AND BALANCE TRAINING. RESTORE TRUNK AND LE FLEXIBILITY. POSTURE TRAINING. HEP INSTRUCTION Balance/Gait/Functional tests Balance/Special Test Scores Oswestry Low Back Score: 19 Goals Goals Goal 1:: New Goal: PATIENT WILL BE ABLE TO ASCEND AND DESCEND STEPS ONE AT A TIME WITH TWO HR'S SAFELY. Goal Time Frame: 8-12 Weeks Goal Progress: Goal Met Goal 2:: PATIENT WILL COMPLETE 10 STANDS IN 30 SECS WITHOUT UE ASSIST TO DEMONSTRATE GOOD FUNCTIONAL LE STRENGTH. Goal Time Frame: 8-12 Weeks Goal Progress: Progressing Goal 3:: PATIENT WILL HAVE IMPROVED LE FUNCTIONAL ROM TO EASE ADL'S. Goal Time Frame: 8-12 Weeks Goal Progress: Progressing Goal 4:: PATIENT WILL HAVE LUMBAR FLEXION ROM WFL TO EASE ADL'S (WHEN ALLOWED BY PHYSICIAN). Goal Time Frame: 8-12 Weeks Goal Progress: Progressing Goal 5:: New Goal: PATIENT WILL COMPLETE TUG IN < 15 SECS WITH ROLLATOR TO DEMONSTRATE IMPROVED GAIT STABILITY Goal Time Frame: 8-12 Weeks Goal Progress: Progressing Goal 6:: PATIENT WILL BE INDEP WITH A HEP FOR CONTINUED IMPROVEMENT ONCE FORMAL PHYSICAL THERAPY CONCLUDES. Goal Time Frame: 8-12 Weeks Goal Progress: Progressing Anticipated Interventions Anticipated Interventions Patient/Client Instruction: Educate patient on: Condition, Plan of Care and Risk Factors For the Purpose of:: To improve self management Therapeutic Exercise to Include: Strength training, Body mechanics, Postural training, Flexibilty training, Neuromotor development and Dynamic Lumbar Stabilization For the Purpose of:: To decrease pain, To improve muscle performance and motor function, To increase tolerance to activity/condition/position, To improve ability of physical actions for home/community/work/leisure, To improve gait and locomotor functions and To increase flexibility/ROM Re-Evaluation Ending Re-evaluation ending: Please do not hesitate to contact me at [phone] by phone or if you have questions or concerns regarding this new plan of care! Sincerely, Sofi Kirk, PT, Cert MDT
== END 2024-03-10 19:00 | disposition home or self-care (01) ==
LOC: PT 10:30
PROVIDERS: PCP Family Medicine
DX: M48.00 Spinal stenosis, site unspecified (principal)
CPT/HCPCS: 97110; 97162; 97164; 97530

== ENCOUNTER 2024-04-21 10:00 | Outpatient (RCR) | payer MEDICARE, OTHER, SELFPAY ==
--- NOTE | 2024-03-26 10:34 | HP.PTREVAL_ITS ---
Re-Evaluation Intro: Alyse Carlos, MIGUELINA-C, It has been my pleasure to treat MARY LUCAS over the last 47 visits for S/P Back surgery Per [facility] 09/02/23. Please see the progress note below for an update on the physical therapy plan of care! Subjective Subjective: PATIENT REPORTS HE IS DEFINATELY GETTING STRONGER. PATIENT REPORTS HIS BLOOD PRESSURE HAS BEEN GOOD. FOLLOW UP WITH PCP PENDING IN ABOUT A WEEK. DENIES HAVING ANY FALLS SINCE ABOUT SEPTEMBER 2023 (CAN'T REMEMBER WHEN LAST FALL WAS FOR SURE). ONLY USING ROLLATOR IN GRASS NOW. NO AD IN HOUSE WHEN DOESN'T HAVE TO WEAR SHOES. CANE IN COMMUNITY. ONLY USING ROLLATOR IF IN HIS GR[place]. STATES HE IS ANSWERING THE QUESTIONNAIRE FOR FOOT PAIN - STATES HE DOESN'T REALLY HAVE MUCH BACK PAIN AND BACK PAIN IS NOT LIMITING HIM. STILL HAS NOT HAD FITTING FOR AFO'S BECAUSE ANNIE SAID THEY ARE WAITING ON MED [employer] APPROVAL. PATIENT REPORTS THE PAIN IN HIS FEET IS DIFFERENT NOW. STATES HE THINKS IT IS BECAUSE THEY ARE WAKING UP AND GETTING STRONGER/SORE AND HE HAS SOME LOWER LEG SORENESS TOO. THE LEG AND FOOT SORENESS COMES AND GOES WITH ACTIVITY. ICING HELPS. FEELS THERAPY IS HELPING HIM GET STRONGER AND WOULD LIKE TO CONTINUE. PATIENTS GOAL IS TO BE ABLE TO WALK WITHOUT AD. Objective Objective/Function: PATIENT HAS MET SEVERAL GOALS BUT CONTINUES TO HAVE ABNORMAL GAIT. HIS GAIT IS LIMITED IN TIME/DISTANCE BY C/O FOOT PAIN. HE CONTINUES TO HAVE ANKLE WEAKNESS AND HAS NOT RECEIVED AFO'S YET. FGA SCORE INDICATES HE IS STILL UNSAFE WITHOUT AD AND HIS GOAL IS TO BE ABLE TO WALK WITHOUT AD. HE IS A GOOD CANDIDATE TO CONTINUE PT BASED ON PROGRESS MADE AND ROOM FOR FURHTER IMPROVEMENT AND HE WOULD LIKE TO CONTINUE. HIS BLOOD PRESSUE HAS BEEN LESS OF A LIMITING FACTOR LATELY BUT TODAY IT BECAME ELEVATED AFTER THE FGA AND WE STOPPED PT AT THIS POINT. BP prior to session: 131/71 BP after FGA: 167/99 BP post-session: 141/81 Stairs: 1 flight reciprocal with single handrail on 03/20/24 (1 at a time goal with 2 HR) 30s STS: 20 reps - no hands/standard chair on 03/18/24 (10 rep goal) TU.57 standard cane, CGA on 03/18/24 (<15s goal) 6 MWT: 268 meters with SPC on 03/20/24 (47% normative range) FGA: 17 (New Goal - 22) Plan Plan Plan: *NO PT IF BP NUMBERS ARE >175/95 OR < 100/60 (PER PCP)* CONT PT 2X'S A WK X 4-6 WKS CHECK BLOOD PRESSURE PRIOR TO BEFORE, DURING AND AFTER EA SESSION. CORE AND LE STRENGTHENING INCLUDING ANKLES. GAIT AND BALANCE TRAINING WITH GAIT BELT WITH CONTACT GUARD AND/OR ASSISTIVE DEVICE. ADD GAIT TRAINING WITH VERTICAL AND HORIZONTAL HEAD TURNS, STEPPING OVER OBJECTS, PIVOTING AND NARROW BASE OF SUPPORT/tandem WALKING. RESTORE TRUNK AND LE FLEXIBILITY. POSTURE TRAINING. HEP INSTRUCTION Balance/Gait/Functional tests Balance/Special Test Scores Functional Gait Assessment Score: 17 % Disability: 43.3400 Oswestry Low Back Score: 13 TUG Test Time Seconds: 8.57 Tug Test: <10 sec.=free mobile 30 Second Chair Rise Test Seconds: 20 6 Minute Walk Test: 268 meters / 881 feet =47% of normative range Goals Goals Goal 1:: PATIENT WILL BE ABLE TO ASCEND AND DESCEND STEPS ONE AT A TIME WITH TWO HR'S SAFELY. Goal Time Frame: Goal Time Frame: 8- Wee Goal Progress: Goal Met Goal 2:: PATIENT WILL COMPLETE 10 STANDS IN 30 SECS WITHOUT UE ASSIST TO DEMONSTRATE GOOD FUNCTIONAL LE STRENGTH. Goal Time Frame: Goal Time Frame: 8-12 Wee Goal Progress: Goal Met Goal 3:: PATIENT WILL HAVE IMPROVED LE FUNCTIONAL ROM TO EASE ADL'S. Goal Time Frame: Goal Time Frame: 8-12 Wee Goal Progress: Progressing Goal 4:: PATIENT WILL HAVE LUMBAR FLEXION ROM WFL TO EASE ADL'S (WHEN ALLOWED BY PHYSICIAN). Goal Time Frame: Goal Time Frame: 8- Wee Goal Progress: NT this date Goal 5:: PATIENT WILL COMPLETE TUG IN < 15 SECS WITH ROLLATOR TO DEMONSTRATE IMPROVED GAIT STABILITY - Goal Met New Goal - FGA score of 22 or higher Goal Time Frame: Goal Time Frame: 8-12 Wee Goal Progress: Goal Met Goal 6:: PATIENT WILL BE INDEP WITH A HEP FOR CONTINUED IMPROVEMENT ONCE FORMAL PHYSICAL THERAPY CONCLUDES. Goal Time Frame: Goal Time Frame: 8-12 Wee Goal Progress: Progressing Anticipated Interventions Re-Evaluation Ending Re-evaluation ending: Please do not hesitate to contact me at [phone] by phone or if you have questions or concerns regarding this new plan of care! Sincerely, Sofi Kirk, PT, Cert MDT
== END 2024-04-21 19:00 | disposition home or self-care (01) ==
LOC: PT 10:00
PROVIDERS: PCP Family Medicine; Referring Provider Nurse Practitioner; Visit Provider Nurse Practitioner
DX: M48.00 Spinal stenosis, site unspecified (principal)
CPT/HCPCS: 97110; 97530

== ENCOUNTER 2024-05-01 08:30 | Outpatient (RCR) | payer MEDICARE, OTHER, SELFPAY | END 2024-05-01 19:00 | disposition home or self-care (01) | LOC: PT 08:30 | PROVIDERS: PCP Family Medicine; Referring Provider Nurse Practitioner; Visit Provider Nurse Practitioner | DX: M48.00 Spinal stenosis, site unspecified (principal) | CPT/HCPCS: 97110 ==

== ENCOUNTER 2025-07-20 05:39 | Emergency (ER) | payer MEDICARE, OTHER, SELFPAY ==
[2025-07-20 05:40] VITALS: BP 155/88; PULSE 101; RESP 17; TEMP 36.6; O2SAT 97; BMI 30.7
--- NOTE | 2025-07-20 05:56 | EKG12_ITS ---
Test Reason : DYSRHYTHMIA Blood Pressure : */* mmHG Vent. Rate : 98 BPM Atrial Rate : 98 BPM P-R Int : 178 ms QRS Dur : 98 ms QT Int : 346 ms P-R-T Axes : 60 -4 20 degrees QTcB Int : 441 ms Normal sinus rhythm Normal ECG Confirmed by Koko Hernandes ([id number]), senior editor PATRICA SELF ([id number]) on 07/23/2025 8:21:03 AM Referred By: MANUEL Confirmed By: Koko Hernandes
--- NOTE | 2025-07-20 05:58 | EDS_ITS ---
HPI History of Present Illness Chief Complaint: Palpitations Informant: patient Narrative Narrative: Patient is a 65-year-old male presenting with palpitations. - Reports palpitations off and on for approximately one week, with episodes being brief until last night when they were constant throughout the night. - Describes the sensation as a racing heart, with a pulse of 120 bpm noted on his watch this morning. - Denies chest pain or dyspnea. - Experiences lightheadedness at times but denies syncope. - No known cardiac or pulmonary issues other than abdominal aortic aneurysm. - Reports a mild left frontal headache currently, with similar headaches over t he past few days. - Onset of sore throat yesterday morning; took Cold-Eeze. - Denies significant congestion. - Describes intermittent sharp pains in bilateral mid-abdomen, which are brief and resolve quickly. - Denies leg swelling or pain or hx of DVT. - Suspects inadequate hydration during a long car trip yesterday (8 hours driving, 12 hours total on the road). PFSH [facility] Home Medications ?Medication ?Instructions ?Recorded ?Last Taken ?Type atorvastatin 40 mg tablet 40 mg PO QODAY cholesterol 1 09/20/24 Unknown History epinephrine 0.3 mg/0.3 mL 0.3 ml subcut PRN PRN anaphy laxis 07/20/25 Unknown History injection, auto-injector hydrochlorothiazide 12.5 mg capsule 12.5 mg PO DAILY 1 09/20/24 Unknown History lisinopril 20 mg tablet 40 mg PO DAILY 07/20/25 Unkn own History multivitamin (Daily Multi-Vitamin 1 tab PO DAILY 07/20 Unknown History tablet) tumeric 07/20/25 Unknown History Allergy/AdvReac Type Severity Reaction Status Date / Time bee venom protein (honey AdvReac Intermediate Anaphylaxis Verified 07/20/25 05:44 bee) (bees) Social History Smoking Status: Never smoker ROS ROS ED Constitutional Constitutional ED: Denies chills or fever(s) Eyes Eyes: Denies change in vision or diplopia ENT ENT ED: Reports sinus pressure and sore throat; Denies ear pain or rhinorrhea Cardiovascular Cardiovascular: Reports lightheadedness, palpitations and racing heartbeat; Denies chest pain, orthopnea or syncope Respiratory/Chest Respiratory/Chest: Reports cough; Denies dyspnea or orthopnea Gastrointestinal Gastrointestinal: Reports abdominal pain; Denies diarrhea, nausea or vomiting Genitourinary Genitourinary ED: Denies dysuria or hematuria Musculoskeletal Musculoskeletal: Denies back pain or neck pain Integumentary Denies abscess or rash Neurologic Neurologic: Reports headache(s); Denies paresthesias or weakness Psychiatric Psychiatric: Denies anxiety or suicidal thoughts EXAM Physical Exam Const Vital Signs: 07/20/25 05:40 07/20/25 05:46 07/20/25 05:59 Temperature 97.9 F Temperature Source Temporal Pulse Rate 101 H Respiratory Rate 17 Respiratory Effort Normal Blood Pressure 155/88 H Blood Pressure Mean 110 Pulse Ox 97 Oxygen Delivery Method Room Air 07/20/25 06:39 07/20/25 07:00 07/20/25 08:07 Temperature Temperature Source Pulse Rate 88 84 82 Respiratory Rate 16 18 19 H Respiratory Effort Blood Pressure 87/69 L 102/73 126/80 H Blood Pressure Mean 75 82 95 Pulse Ox 98 95 98 Oxygen Delivery Method Room Air Room Air Room Air Positive well nourished and well developed General Appearance ED: well developed and NAD HEENT Reports moist mucous membranes normocephalic and atraumatic Eyes PERRL and EOMs intact bilaterally Neck full ROM and supple Resp normal respiratory effort and clear to auscultation bilaterally Cardio regular rate, regular rhythm and no murmurs Rate: Negative for tachycardic GI non-tender and non-distended Auscultation: normoactive bowel sounds Palpation: soft Back/Spine no CVA tenderness General Back: other FROM Extremity normal to inspection Extremity Narrative: No calf tenderness no palpable cords General Extremety ED: Negative for edema, pulses abnormal or tenderness General Extremity: Negative for edema or pulses abnormal Neuro oriented x3, CN's II-XII intact bilaterally and no sensory deficits noted Sensorium / Orientation: awake and alert Motor Exam: strength 5/5 throughout Psych Psych Narrative: A little anxious otherwise normal mental status Skin no rashes or lesions noted and no wounds MDM MDM MDM Narrative Medical decision making narrative: Assessment: The patient is a 65-year-old male with PMH of aortic aneurysm presenting for one week of intermittent palpitations that became persistent overnight, associated with mild frontal headache and occasional light-headedness without chest pain or dyspnea. Initial ED vitals are normal and he is now asymptomatic with heart rate in the 70s. EKG is completely normal. D-dimer is normal, making pulmonary embolism unlikely. Initial troponin is 51; repeat level is pending to rule out acute coronary syndrome. One-view chest X-ray is normal. Creatinine is mildly elevated at 1.25, consistent with baseline renal insufficiency. Given normal rhythm strip, normal EKG, and absence of dysrh ythmias on monitor thus far, anxiety or paroxysmal supraventricular dysrhythmia (SVT/AFib) remains possible; ACS less likely given flat cardiac enzymes. Plan: - Continuous cardiac telemetry while in ED - Patient and significant other counseled on results, possible anxiety etiology, and need for outpatient rhythm evaluation - Anticipate discharge home with outpatient follow-up if serial troponins remain negative Diagnostics: - EKG: normal sinus rhythm, no ectopy or ischemic changes. Independently interpreted by me, Jasper Alexander. - Labs: D-dimer normal; CBC normal; Creatinine 1.25 mg/dL; Troponin 51 ng/L initial, 2nd is 57 -- flat, likely elevated due to renal insufficiency - Imagin-view chest X-ray ? normal; radiology concurred Reevaluations: - Re-evaluation: patient comfortable, heart rate 70s, denies palpitations; discussing possibility of anxiety as trigger per pt Portions of this note were generated using voice recognition software ([employer]). I have reviewed the contents and every effort has been made to ensure accuracy; however, inadvertent errors in grammar, spelling, punctuation, or word choice may occur, that were not noted before signing the document and should not alter the intended clinical meaning. Lab Data Attestation: I reviewed the patient's lab results. Labs: Laboratory Results - last 24 hr 07/20/25 05:49 WBC 6.0 RBC 4.75 Hgb 14.2 Hct 42.1 MCV 88.6 MCH 29.9 MCHC 33.7 RDW Std Deviation 42.5 RDW Coeff of Shaquille 13.0 Plt Count 291 MPV 9.1 Immature Gran % (Auto) 0.300 Neut % (Auto) 74.7 H Lymph % (Auto) 11.2 L [place] % (Auto) 12.6 H Eos % (Auto) 0.5 Baso % (Auto) 0.7 Absolute Neuts (auto) 4.5 Absolute Lymphs (auto) 0.67 L Nucleated RBC % 0 D-Dimer Quant (PE/DVT) 0.33 Sodium 136 Potassium 3.8 Chloride 98 Carbon Dioxide 25.1 Anion Gap 13 BUN 12 Creatinine 1.25 H Estim Creat Clear Calc 73.08 Est GFR (MDRD) Non-Af 63 BUN/Creatinine Ratio 9.4 L Glucose 157 H Calcium 9.5 Troponin T High Sens 51 H Radiography Diagnostic Testing: Clinical Impression(s) from Imaging Studies Chest X-Ray 07/20/25 06:18 IMPRESSION: No evidence of acute cardiopulmonary abnormality. Reading Location: [facility] Rhythm Strip Rhythm Strip: Sinus Rhythm Rate: 95 Ectopy: None EKG Initial EKG: Attestation: I personally reviewed and interpreted this EKG as follows: Interpretation: Sinus Rhythm and No Acute Injury Pattern Comments: Nml axis & intervals; nml EKG Discharge Plan Triage Chief Complaint: Palpitations ED Provider: Jasper Alexander Dx/Rx/DC Orders Clinical Impression: Intermittent palpitations, Renal insufficiency Instructions: ED Heart Palpitations Prescriptions: No Action lisinopril 20 mg tablet 40 mg PO DAILY atorvastatin 40 mg tablet 40 mg PO QODAY hydrochlorothiazide 12.5 mg capsule 12.5 mg PO DAILY epinephrine 0.3 mg/0.3 mL auto-injector 0.3 ml subcut PRN PRN (Reason: anaphylaxis) tumeric multivitamin [Daily Multi-Vitamin] Tablet 1 tab PO DAILY Primary Care Provider: Prabhjot Calloway Referrals: Prabhjot Calloway MD [Primary Care Provider, Family Practice] - As soon as possible Print Language: Cymraes Disposition Disposition: Home, Self Care
[2025-07-20 06:03] LABS: Hematocrit 42.1 % (40-54); Hemoglobin 14.2 g/dL (13.0-16.5); Immature Granulocytes Count 0.020 X10^3/uL (0.0-0.0); Mean Corp Hgb Conc 33.7 g/dL (32-36); Mean Corpuscular Volume 88.6 fL (80-94); Mean Platelet Vol. 9.1 fl (6.2-12.0); NRBC Flagged by Analyzer 0 % (0-5); Platelet Count 291 K/mm3 (150-450); RBC Distribution Width CV 13.0 % (11.6-14.6); RBC Distribution Width SD 42.5 fl (35.1-43.9); Red Blood Count 4.75 M/mm3 (4.6-6.2); White Blood Count 6.0 K/mm3 (4.4-11.0)
--- NOTE | 2025-07-20 06:18 | RAD_ITS ---
PROCEDURE: CHEST 1 VIEW (PORTABLE) 07/20/2025 REASON FOR EXAM: COUGH TECHNIQUE: Frontal view of the chest. COMPARISON: None. FINDINGS: The lungs are adequately aerated bilaterally without pleural effusion, pneumothorax, or focal airspace disease. Atheromatous changes of the aorta without cardiomegaly. Degenerative changes of bilateral shoulders. RAD/Chest 1 View (Portable) IMPRESSION: No evidence of acute cardiopulmonary abnormality. Reading Location: [id number]
[2025-07-20 06:21] LABS: D-Dimer Quantitative (DVT/PE) 0.33 FEU/ug/m (0.27-0.49)
--- OUTSIDE RECORDS SUMMARY | 2025-07-20 06:36 | XMS RPT_ITS | CCD ---
Author Organization [facility] Care Team Providers Care Retail Advertising Executive Name Role Phone Shaheen QUALITY SPECIALIST.PAINT MIXER, GENESIS, Uday Primary Care Provider Prabhjot Leung MD Primary Care Provider Prabhjot Leung MD Primary Care Provider Prabhjot Leung MD Primary Care Provider Prabhjot Leung MD Primary Care Provider Prabhjot Leung Primary Care Unavailable SANDRA CASTLE Attending Unavailable SANDRA CASTLE Referring Unavailable Alyse Carlos Attending Unavailable Alyse Carlos Referring Unavailable Prabhjot Leung Primary Care Unavailable Terrance, Alyse Referring Unavailable Prabhjot Leung Primary Care Unavailable Alyse Carlos Attending Unavailable Ladarius QUALITY SPECIALIST.Aundrea SAVAGE Unavailable Micaela Martin PA-C Unavailable Prabhjot Leung MD Primary Care Provider Ladarius QUALITY SPECIALIST.Aundrea SAVAGE Unavailable Micaela Martin PA-C Unavailable Knoble QUALITY SPECIALIST.Aundrea SAVAGE Unavailable Micaela Martin PA-C Unavailable PRABHJOT LEUNG Referring Unavailable PRABHJOT LEUNG Primary Care Unavailable PRABHJOT LEUNG Referring Unavailable PRABHJOT LEUNG Primary Care Unavailable GUILHERME SHERWOOD Attending Unavailable PRABHJOT LEUNG Primary Care Unavailable MICAELA MARTIN Referring Unavailable PRABHJOT LEUNG Primary Care Unavailable MICAELA MARTIN Referring Unavailable PRABHJOT LEUNG Primary Care Unavailable MADHU, PRABHJOT A Attending Unavailable MADHU, PRABHJOT A Referring Unavailable MADHU, PRABHJOT A Primary Care Unavailable WALE MCKEON Attending Unavailable MADHU, PRABHJOT A Primary Care Unavailable WALE MCKEON Attending Unavailable MADHU, PRABHJOT A Referring Unavailable MADHU, PRABHJOT A Primary Care Unavailable MADHU, PRABHJOT A Referring Unavailable MADHU, PRABHJOT A Primary Care Unavailable MADHU, PRABHJOT A Referring Unavailable MADHU, PRABHJOT A Primary Care Unavailable WALE MCKEON Attending Unavailable MADHU, PRABHJOT A Referring Unavailable MADHU, PRABHJOT A Primary Care Unavailable MADHU, PRABHJOT A Referring Unavailable MADHU, PRABHJOT A Primary Care Unavailable MADHU, PRABHJOT A Referring Unavailable MADHU, PRABHJOT A Primary Care Unavailable MADHU, PRABHJOT A Attending Unavailable MADHU, PRABHJOT A Primary Care Unavailable MADHU, PRABHJOT A Referring Unavailable MADHU, PRABHJOT A Primary Care Unavailable MICAELA MARTIN Attending Unavailable Allergies Allergy Classification Reported Allergen(s) Allergy Type Date of Onset Reaction(s) Facility (7 sources) bee [Other] Propensity to adverse reactions 6 Anaphylaxis [facility] Work Phone: (20 sources) Venom-Honey Bee; Translations: [VENOM-HONEY BEE] Drug Allergy 4 Anaphylaxis [facility] Work Phone: (20 sources) Covid Url38-87(12up)( Raxt)(Pf); Translations: [COVID JGV13-67(12UP)( RAXT)(PF)] Drug Intolerance 4 Other: See Comments [facility] Work Phone: (20 sources) Influenza Virus Vaccines; Translations: [INFLUENZA VIRUS VACCINES] Propensity to adverse reactions to drug 4 Other: See Comments [facility] Medications Current Medications Medication Drug Class(es) Dates Sig (Normalized) Sig (Original) atorvastatin 40 mg oral tablet (20 sources) HMG-CoA Reductase Inhibitor Start: 11-29-2021 End: 10-12-2025 take 1 tablet by mouth every other day for hyperlipidemia atorvastatin (LIPITOR) 40 mg tablet Take 1 tablet by mouth every other day. For cholesterol. 90 tablet 1 10/12/2024 10/12/2025 Active Start: 09-17-2020 End: 11-29-2021 take 1 tablet by mouth once daily for hyperlipidemia atorvastatin (LIPITOR) 40 mg tablet Indications: Hyperlipidemia LDL goal Take 1 tablet by mouth once daily. For cholesterol. 90 tablet 3 09/17/2020 11/29/2021 Discontinued Comment on above: Take 1 tablet by mago th once daily. For cholesterol. Take 1 tablet by mago th every other day. For cholesterol. [id number] 0.3 ml EPINEPHrine 1 mg/ml auto-injector (20 sources) alpha-Adrenergic Agonist, beta-Adrenergic Agonist, Catecholamine Start : 11-29 End: 10-12 EPINEPHrine (EPIPEN) 0.3 mg/0.3 mL auto-injector Inject 0.3 mL subcutaneously as needed. 2 Each 1 10/12/2024 Active Comment on above: Inject 0.3 mL subcut aneously as needed. hydroCHLOROthiazide 12.5 mg oral capsule (20 sources) Thiazide Diuretic Start : 04-29 End: 04-10 take 1 capsule by mouth once daily hydroCHLOROthiazide 12.5 mg capsule Take 1 capsule by mouth once daily. 90 capsule 1 10/12/2024 04/10/2025 Active Start: 02-10-2024 End: 04-29-2024 take 1 tablet by mouth once daily hydroCHLOROthiazide 25 mg tablet Take 1 tablet by mouth once daily. 90 tablet 1 02/10/2024 04/29/2024 Discontinued (Changing Therapy/Dosage Form) lisinopril 20 mg oral tablet (20 sources) Angiotensin Converting Enzyme Inhibitor Start: 04-29-2024 End: 04-10-2025 take 1 tablet by mouth once daily lisinopril (ZESTRIL) 20 mg tablet Take 1 tablet by mouth once daily. 90 tablet 1 10/12/2024 04/10/2025 Active Start: 01-22-2024 End: 04-29-2024 take 1 tablet by mouth twice daily lisinopril (ZESTRIL) 40 mg tablet Indications: Essential hypertension, benign Take 1 tablet by mouth two times a day. 180 tablet 1 01/22/2024 04/29/2024 Discontinued (Changing Therapy/Dosage Form) Start: 12-27-2023 End: 01-22-2024 take 1 tablet by mouth once daily lisinopril (ZESTRIL) 40 mg tablet Indications: Essential hypertension, benign Take 1 tablet by mouth once daily. 90 tablet 1 12/27/2023 01/22/2024 Discontinued Start: 08-16-2023 End: 12-27-2023 take 1 tablet by mouth once daily lisinopril (ZESTRIL) 20 mg tablet Indications: Essential hypertension, benign Take 1 tablet by mouth once daily. 90 tablet 1 08/16/2023 12/27/2023 Discontinued Start: 04-02-2023 take 1 tablet by mago th once daily lisinopril (ZESTRIL) 10 mg tablet Indications: Essential hypertension, benign Take 1 tablet by mouth once daily. 90 tablet 1 04/02/2023 Active Start: 09-17-2020 End: 04-02-2023 take 1 tablet by mouth once daily lisinopril (ZESTRIL) 10 mg tablet Indications: Essential hypertension, benign Take 1 tablet by mouth once daily. 90 tablet 1 10/11/2022 04/02/2023 Discontinued Comment on above: Take 1 tablet by mago th once daily. meloxicam 7.5 mg oral tablet (20 sources) Nonsteroidal Anti-inflammatory Drug Start : 09-17 End: 10-12 meloxicam (MOBIC) 7.5 mg tablet Take 7.5 mg by mouth as needed. 09/17/2023 10/12/2024 Discontinued (Discontinued by Patient) Comment on above: Take 7.5 mg by mouth as needed. methylPREDNISolone (4 sources) Corticosteroid Start : 12-26 End: 01-01 methylPREDNISolone (MEDROL, AKASH,) 4 mg Dose-Pack Follow dosing instructions, take with food. 21 tablet 0 12/27/2023 01/02/2024 Active oxyCODONE hydrochloride 5 mg oral tablet (9 sources) Opioid Agonist Start : 09-02 End: 01-19 take 1 tablet by mouth every six hours as needed for pain oxyCODONE IR (ROXICODONE) 5 mg immediate release tablet TAKE 1 TABLET BY MOUTH EVERY 6 HOURS NEEDED FOR PAIN. FOR 7 DAYS 0 09/02/2023 01/20/2024 Discontinued (Course of therapy completed) Comment on above: TAKE 1 TABLET BY MAGO TH EVERY 6 HOURS NEEDED FOR PAIN. FOR 7 DAYS sildenafil 50 mg oral tablet (7 sources) Phosphodiesterase 5 Inhibitor Start : 11-25 End: 04-02 take 1 tablet by mouth every hour, then take 1 tablet by mouth every twenty-four hours sildenafil (VIAGRA) 50 mg tablet Indications: ED (erectile dysfunction) of organic origin Take 1 tablet by mouth 1 hour prior to sexual activity. No more than 1 tablet per 24 hours 12 tablet 1 11/25/2020 04/02/2023 Discontinued Comment on above: [facility]. No more than 1 tablet per 24 hours turmeric root extract 500 mg cap (7 sources) End: 04-02 take 1 capsule by mouth once daily turmeric root extract 500 mg cap Take 500 mg by mouth once daily. 0 04/02/2023 Discontinued take 1 capsule by mouth once sheyla ly turmeric root extract 500 mg cap Take 500 mg by mouth once daily. 0 Active Comment on above: Take 500 mg by mouth once daily. Completed/Discontinued Medications Medication Drug Class(es) Dates Sig (Normalized) Sig (Original) enteric contrast (will be provided with radiology test) (1 source) Start: 03-11-2025 End: 03-11-2025 take 1 dose by mouth once, then take 1 dose by mouth once enteric contrast (will be provided with radiology test) Take 1 each by mouth one time only for [address] ABD/PEL WO Routine order Administer, As Directed One Time Only, via Oral, Rectal, both Oral and Rectal, Enteric Tube, Stoma or Indwelling Catheter, Enteric Contrast as designated per enteric contrast guidelines 1 each 03/11/2025 03/11/2025 gabapentin 300 mg oral capsule (16 sources) Anti-epileptic Agent Start: 10-02-2023 End: 02-26-2024 take 1 capsule by mouth once daily gabapentin (NEURONTIN) 300 mg capsule Take 300 mg by mouth once daily. 0 10/02/2023 02/26/2024 Discontinued (Discontinued by Patient) Start: 10-02-2023 take 1 capsule by mo [facility] twice daily gabapentin (NEURONTIN) 300 mg capsule Take 300 mg by mouth two times a day. 0 10/02/2023 Active Comment on above: Take 300 mg by mouth two times a day. ibuprofen 200 mg oral tablet (10 sources) Nonsteroidal Anti-inflammatory Drug End: 03-07-202 4 take 1 tablet by mouth every six hours as needed ibuprofen 200 mg tablet Take 200 mg by mouth every 6 hours as needed. 0 10/03/2023 Discontinued Comment on above: Take 200 mg by mouth every 6 hours as needed. Magnesium (20 sources) End: 4 take 1 tablet by mouth once daily Magnesium 250 mg tab Take 250 mg by mouth. Take one tablet daily 0 02/26/2024 Discontinued take 1 tablet by mouth once kvng y Magnesium 250 mg tab Take 250 mg by mouth. Take one tablet daily 0 Active Comment on above: Take 250 mg by mouth . Take one tablet daily meclizine hydrochloride 25 mg oral tablet (5 sources) Antiemetic Start: 11-30-19 End: 10-12-19 take 1 tablet by mouth three times daily as needed for dizziness meclizine (ANTIVERT) 25 mg tab Indications: BPPV (benign paroxysmal positional vertigo), unspecified laterality Take 1 tablet by mouth three times daily as needed (dizziness). 30 tablet 1 11/29/2021 10/11/2022 Discontinued (Course of therapy completed) Comment on above: Take 1 tablet by mago th three times daily as needed (dizziness). Problems Active Problems Problem Classification Problem Date Documented Date Episodic/Chronic Abdominal pain (11 sources) Right lower quadrant pain; Translations: [Left flank pain] Onset: 03-11-2025 03-12-2025 Episodic Aortic; peripheral; and visceral artery aneurysms (20 sources) Abdominal aortic ectasia; Translations: [Abdominal aortic ectasia] Onset: 11-18-2023 11-18-2023 Chronic Disorders of lipid metabolism (20 sources) Hyperlipidemia; Translations: [Hyperlipidemia, unspecified] Onset: 11-28-2015 Chronic Essential hypertension (20 sources) Benign essential hypertension; Translations: [Essential (primary) hypertension] Onset: 06-01-2013 Chronic Genitourinary congenital anomalies (2 sources) Multiple renal cysts; Translations: [Congenital multiple renal cysts] Onset: 08-16-2023 08-30-2023 Chronic Genitourinary symptoms and ill-defined conditions (3 sources) Increased frequency of urination; Translations: [Frequency of micturition] Onset: 03-11-2025 03-11-2025 Episodic Hyperplasia of prostate (20 sources) Benign prostatic hyperplasia; Translations: [Benign prostatic hyperplasia without lower urinary tract symptoms] Onset: 02-15-2010 Chronic Malaise and fatigue (1 source) Asthenia; Translations: [Weakness] 12-30-2023 Episodic Occlusion or stenosis of precerebral arteries (20 sources) Bilateral stenosis of carotid arteries; Translations: [Occlusion and stenosis of bilateral carotid arteries] Onset: 04-19-2022 Chronic Other male genital disorders (20 sources) Secondary erectile dysfunction; Translations: [Male erectile dysfunction, unspecified] Onset: 02-24-2021 Chronic Other nervous system disorders (20 sources) Bilateral peripheral neuropathy of lower limbs; Translations: [Unspecified mononeuropathy of bilateral lower limbs] Onset: 01-17-2024 12-27-2023 Chronic Other nervous system disorders (1 source) Other chronic pain; Translations: [Chronic pain of left ankle] Onset: 10-27-2024 Chronic Other nervous system disorders (1 source) Skin sensation disturbance; Translations: [Other disturbances of skin sensation] 12-30-2023 Episodic Other nervous system disorders (1 source) Finding related to ability to move; Translations: [Other abnormalities of gait and mobility] 12-30-2023 Episodic Other non-traumatic joint disorders (3 sources) Acute ankle pain; Translations: [Pain in left ankle and joints of left foot] 10-12-2024 Episodic Other screening for suspected conditions (not mental disorders or infectious disease) (20 sources) Patient encounter status; Translations: [Encounter for screening for malignant neoplasm of colon] Onset: 04-13-2010 04-13-2010 Episodic Past or Other Problems Problem Classification Problem Date Documented Da te Episodic/Chronic Acquired foot deformities (20 sources) Bilateral foot drop; Translations: [Foot drop, right foot] Onset: 01-17-2024 12-27-2023 Episodic Administrative/social admission (20 sources) Advance directive discussed with patient; Translations: [Other specified counseling] Onset: 10-03-2023 10-03-2023 Episodic Conditions associated with dizziness or vertigo (20 sources) Benign paroxysmal positional vertigo; Translations: [Benign paroxysmal vertigo, unspecified ear] Onset: 04-05-2022 Episodic Hemorrhoids (20 sources) Internal hemorrhoids; Translations: [Other hemorrhoids] Onset: 04-13-2010 Resolved: 01-31-2015 01-31-2015 Episodic Immunizations and screening for infectious disease (1 source) Encounter for immunization; Translations: [Encounter for immunization] Onset: 10-12-2024 Episodic Other and unspecified benign neoplasm (20 sources) Benign neoplasm of rectum and anal canal; Translations: [Benign neoplasm of rectum] Onset: 04-13-2010 04-13-2010 Episodic Other diseases of kidney and ureters (20 sources) Cyst of kidney; Translations: [Cyst of kidney, acquired] Onset: 08-16-2023 09-01-2023 Episodic Other male genital disorders (20 sources) Disorder of prostate; Translations: [Disorder of prostate, unspecified] Onset: 04-05-2022 Episodic Other male genital disorders (1 source) Disorder of prostate, unspecified; Translations: [Prostate disorder] Onset: 04-05-2022 Episodic Other non-traumatic joint disorders (16 sources) Chronic ankle pain; Translations: [Pain in left ankle and joints of left foot] Onset: 10-27-2024 10-27-2024 Episodic Other non-traumatic joint disorders (2 sources) Pain in left ankle and joints of left foot; Translations: [Chronic pain of left ankle] Onset: 10-27-2024 Episodic Residual codes; unclassified (20 sources) Active living will ; Translations: [Other specified health status] Onset: 10-03-2023 10-03-2023 Episodic Screening and history of mental health and substance abuse codes (20 sources) Ex-smoker; Translations: [Personal history of nicotine dependence] Onset: 04-05-2022 04-05-2022 Episodic Spondylosis; intervertebral disc disorders; other back problems (20 sources) Chronic low back pain; Translations: [Chronic midline low back pain without sciatica] Onset: 08-16-2023 08-16-2023 Episodic Results Test Name Value Interpretation Reference Range Facility [facility] 04-15-2025 CNOV Office Visit (FAMPWS ) -- MARY LUCAS ([id number]) 1960 M Date Time Provider Department 04/15/25 8:00 AM MICAELA MARTIN During your visit today, we recorded the following information about you: Temperature Pulse Respiration Blood pressure 97.8 degrees 79/minute 18/minute 100/68 Weight 105.2 kg Micaela Martin PA-C 04/15/2025 10:23 AM Signed Chief Complaint Patient presents with: 6 Month Exam HPI Mary Lucas is a 65 year old male who presents here today for Chronic Medical Conditions.. Patient with hx of HTN, hyperlipidemia, and those as below. Cough: - Acute onset cough x2 days. - Ruthann reports improvement today compared to initial onset. - Cough is worse in the morning, with associated phlegm production and mild sore throat. - Denies nocturnal cough. - Denies associated dyspnea, wheezing, or chest pain. Elevated Liver Enzymes: - Recent labs showed slightly elevated liver enzyme, which has been borderline in the past. - Recent abdominal CT for kidney evaluation showed no liver abnormalities. 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 - Symptoms included inability to walk and fluctuating blood pressure. - Neurologist Dr. Lopez evaluated and released Ruthann after symptoms improved. - Denies undergoing a spinal tap for definitive diagnosis. - Reports ongoing foot pain, worse with overexertion, and improved when walking without shoes. Hyperlipidemia: - Recent labs show well-controlled cholesterol levels. Hypertension: - History of elevated blood pressure, previously managed with Lisinopril 80 mg. - Currently taking Lisinopril 20 mg. Past medical history, appointments, medications, allergies reviewed. Previous Medical History PAST MEDICAL HISTORY Diagnosis Date Advance directive discussed with patient 10/03/2023 Discussed 09/2023: Needs to bring in copies. 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 Benign prostatic hyperplasia with urinary frequency 02/15/2010 Benign prostatic hyperplasia without lower urinary tract symptoms 02/15/2010 Bilateral carotid artery stenosis 04/19/2022 US 03/2022: 20-40 b/l Bilateral renal cysts 08/16/2023 US 08/2023: benign BPV (benign positional vertigo) Chronic midline low back pain without sciatica 08/16/2023 Ectatic abdominal aorta 11/18/2023 US 10/2023: Repeat in a year ED (erectile dysfunction) of organic origin 02/24/2021 Essential hypertension, benign 06/01/2013 Ex-smoker 04/05/2022 Hyperlipidemia, mixed 11/28/2015 Lumbar radiculopathy 08/16/2023 Neuropathy of both feet 01/17/2024 Spinal stenosis of lumbar region with neurogenic claudication 08/16/2023 Well adult exam 10/11/2022 Last done 10/11/2022 Previous Surgical History PAST SURGICAL HISTORY Procedure Laterality Date COLONOSCOPY FLX DX W/COLLJ SPEC WHEN PFRMD 04/13/2010 Colonoscopy COLONOSCOPY FLX DX W/COLLJ SPEC WHEN PFRMD 01/01/2020 Colonoscopy EGD 11/2004 removal FB (apple aspiration) EXCISION HYDROCELE UNILATERAL 08/2003 left PAST SURGICAL HISTORY OF 09/02/2023 bilateral laminectomy L2-L5 with decompression fusion with autogenous graft and fixation. per Dr. 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 Influenza Virus Vac* Other: See Comments Has a Hx Meg Morrellpatricia withCOVID Venom-Honey Bee Anaphylaxis Current Medications Current Outpatient Medications on File Prior to Visit Medication Sig atorvastatin (LIPITOR) 40 mg tablet Take 1 tablet by mouth every other day. For cholesterol. EPINEPHrine (EPIPEN) 0.3 mg/0.3 mL auto-injector Inject 0.3 mL subcutaneously as needed. hydroCHLOROthiazide 12.5 mg capsule Take 1 capsule by mouth once daily. lisinopril (ZESTRIL) 20 mg tablet Take 1 tablet by mouth once daily. No current facility-administered medications on file prior to visit. Social History SOCIAL HISTORY[1] Review of Symptoms REVIEW OF SYSTEMS Constitutional: (-) weight loss, (-) fever, (-) fatigue, (-) weakness Ears/Nose/Mouth/Throat: (+) sore throat Neck: (-) neck mass Cardiovascular: (-) chest pain, (-) leg swelling Respiratory: (+) cough, (+) sputum production, (-) wheezing, (-) shortness of breath Musculoskeletal: (+) foot pain SEE HPI EXAM: BP 100/68 (BP Site: Left Arm, BP Position: Sitting, BP Cuff Size: Large Adult) Pulse 79 Temp 36.6 ?C (97.8 ?F) Resp 18 (more content not included)... Normal [facility] Hepatic function 2000 panelo n 04-09-2025 Albumin [Mass/Vol] 4.3 g/dL Normal 3.9-4.9 [facility] Comment on above: Order Comment: Speci men Type: BLOOD SPECIMENOrdering Facility: [facility] Address: [address] [place] [address] Performed By: #### 2 4331-1, 09678-8 ####[facility] LABCLIA [id number] [place] [address] [place] ALP [Catalytic activity/Vol] 57 U/L Normal 38-113 [facility] Comment on above: Order Comment: Speci men Type: BLOOD SPECIMENOrdering Facility: [facility] Address: [address] [place] [address] Performed By: #### 2 4331-1, 09705-5 ####[facility] LABCLIA [id number] [address] [place] ALT [Catalytic activity/Vol] 32 U/L Normal 10-54 [facility] Comment on above: Order Comment: Speci men Type: BLOOD SPECIMENOrdering Facility: [facility] Address: [address] [place] [address] Performed By: #### 2 4331-1, 11812-9 ####[facility] LABCLIA [id number] [place] [address] [place] AST [Catalytic activity/Vol] 45 U/L High 14-40 [facility] Comment on above: Order Comment: Speci men Type: BLOOD SPECIMENOrdering Facility: [facility] Address: [address] [place] [address] Performed By: #### 2 4331-1, 24772-6 ####[facility] LABCLIA [id number] [address] [address] [place] Bilirubin [Mass/Vol] 0.6 mg/dL Normal 0.2-1.3 [facility] Comment on above: Order Comment: Speci men Type: BLOOD SPECIMENOrdering Facility: [facility] Address: [address] [place] [address] Performed By: #### 2 4331-1, 05934-5 ####[facility] LABCLIA [id number] [address] [address] [place] Bilirubin.conjugate d [Mass/Vol] 0.2 mg/dL Normal <0.3 [facility] Comment on above: Order Comment: Speci men Type: BLOOD SPECIMENOrdering Facility: [facility] Address: [address] [place] [address] Performed By: #### 2 4331-1, 68556-0 ####[facility] LABCLIA [id number] [place] [id number] [place] Protein [Mass/Vol] 7.0 g/dL Normal 6.3-8.0 [facility] Comment on above: Order Comment: Speci men Type: BLOOD SPECIMENOrdering Facility: [facility] Address: [address] [place] [address] Performed By: #### 2 4331-1, 97755-0 ####[facility] LABCLIA [id number] [address] [address] [place] Lipid 1996 panelon 5 Cholesterol [Mass/Vol] 144 mg/dL Normal <200 [facility] Comment on above: Order Comment: Speci men Type: BLOOD SPECIMENOrdering Facility: [facility] Address: [address] [place] [address] Result Comment: <200 mg/dL, Desirable 200-239 mg/dL, Borderline high >239 mg/dL, High Performed By: #### 2 433-1, 04489-0 ####[facility] LABCLIA [id number] [address] Cholesterol in HDL [Mass/Vol] 42 mg/dL Normal >39 [facility] Comment on above: Order Comment: Speci men Type: BLOOD SPECIMENOrdering Facility: [facility] Address: [address] [place] [address] Result Comment: 40-5 9 mg/dL, Acceptable >59 mg/dL, High: Negative risk factor for coronary heart disease <40 mg/dL, Low: Positive risk factor for coronary heart disease Performed By: #### 2 4331-1, 22992-3 ####[facility] LABCLIA [id number] [address] Cholesterol in LDL [Mass/Vol] 86 mg/dL Normal <100 [facility] Comment on above: Order Comment: Speci men Type: BLOOD SPECIMENOrdering Facility: [facility] Address: [address] [place] [address] Result Comment: <100 mg/dL, Optimal 100-129 mg/dL, Near optimal/above optimal 130-159 mg/dL, Borderline high 160-189 mg/dL, High >189 mg/dL, Very high Secondary prevention optimal LDL Cholesterol levels are recommended to be <70 mg/dL LDL cholesterol is calculated using the Barreto-NIH equation. Performed By: #### 2 4331-1, 91451-2 ####[facility] LABIA [id number] [address] Cholesterol in LDL/Cholesterol in HDL [Mass ratio] 2.05 {ratio} Normal <2.54 [facility] Comment on above: Order Comment: Speci men Type: BLOOD SPECIMENOrdering Facility: [facility] Address: [address] [place] [address] Result Comment: Jennifer kumari: 1. National Cholesterol Education Program ATP III Guideline At-A-Glance Quick Desk Reference: National Heart, Lung, and Blood [place]. National Institutes of Health. 2001: NIH Publication No. 01-3305. 2. An International Atherosclerosis Society position paper: global recommendations for the management of dyslipidemia: executive summary, Atherosclerosis. 2014: 232(2):410-413. Performed By: #### 2 4331-1, 33375-4 ####[facility] LABCLIA [id number] [facility] [address] [place] [address] [place] Cholesterol in VLDL [Mass/Vol] 13 mg/dL Normal <30 [facility] Comment on above: Order Comment: Alyi men Type: BLOOD SPECIMENOrdering Facility: [facility] Address: [address] [place] [address] Performed By: #### 2 4331-1, 61735-4 ####[facility] LABCLIA [id number] [address] [place] [address] [place] Cholesterol non HDL [Mass/Vol] 102 mg/dL Normal <130 [facility] Comment on above: Order Comment: Jenaro miller Type: BLOOD SPECIMENOrdering Facility: [facility] Address: [address] [place] [address] Result Comment: <130 mg/dL, Optimal 130-159 mg/dL, Near optimal/above optimal 160-189 mg/dL, Borderline high 190-219 mg/dL, High >219 mg/dL, Very high Secondary prevention optimal non HDL Cholesterol levels are recommended to be <100 mg/dL Performed By: #### 2 4331-1, 39025-8 ####[facility] LABCLIA [id number] [facility] [address] [place] [address] [place] Cholesterol.total/C holesterol in HDL [Mass ratio] 3.43 {ratio} Normal <5.10 [facility] Comment on above: Order Comment: Alyi men Type: BLOOD SPECIMENOrdering Facility: [facility] Address: [address] [id number] Performed By: #### 2 4331-1, 18455-4 ####[facility] LABCLIA [id number] [facility] [address] [place] [address] [place] FASTING TIME 11 hrs Normal [facility] Comment on above: Order Comment: Speci men Type: BLOOD SPECIMENOrdering Facility: [facility] Address: [address] [place] [address] Performed By: #### 2 4331-1, 27473-3 ####[facility] LABCLIA [id number] [place] [address] [place] Triglyceride [Mass/Vol] 86 mg/dL Normal <150 [facility] Comment on above: Order Comment: Speci men Type: BLOOD SPECIMENOrdering Facility: [facility] Address: [address] [place] [address] Result Comment: <150 mg/dL, Normal 150-199 mg/dL, Borderline high 200-499 mg/dL, High >499 mg/dL, Very high Performed By: #### 2 4331-1, 76416-9 ####[facility] LABCLIA [id number] [address] [place] ABD/PEL WO IVCONon 2024 CT ABD/PEL WO IVCON * * *Final Report* * * DATE OF EXAM: Mar 12 2025 2:39PM [facility] 0531 - CT ABD/PEL WO IVCON / PROCEDURE REASON: Right lower quadrant abdominal pain * * * * Physician Interpretation * * * * EXAMINATION: CT ABDOMEN AND PELVIS WITHOUT IV CONTRAST CLINICAL HISTORY: Right lower quadrant and left flank pain. TECHNIQUE: Non-IV contrast imaging of the abdomen and pelvis was performed using standard technique, scanning from just above the dome of the diaphragm to the symphysis pubis. Unenhanced imaging is limited for the evaluation of some intra-abdominal and pelvic pathology. MQ: CTAPWO_3 Contrast: IV: None Oral: 25 ml of Omnipaque 240 CT Radiation dose: Integrated Dose-length product (DLP) for this visit = 834.98 mGy*cm. CT Dose Reduction Employed: Automated exposure control(AEC) and iterative recon COMPARISON: 11/15/2017. RESULT: Abdomen / Pelvis: Liver: Unremarkable unenhanced liver. Biliary: No biliary ductal dilation. No obvious cholelithiasis. The gallbladder is decompressed. Spleen: No splenomegaly. Pancreas: Unremarkable. Adrenals: No mass. Kidneys: No renal calculus identified. No hydronephrosis or hydroureter. Probable small hyperdense cyst in the lateral midportion of the right kidney. Additional isodense 1 cm cortical lesion in the midportion of the left kidney. GI Tract: Mild gastric distention without obstructing lesion identified. No small bowel or colonic distention. No bowel wall thickening. The appendix is located in the right lateral abdomen. No obvious evidence of appendicitis is appreciated. Lymph Nodes: No lymphadenopathy. Mesentery/peritoneum: No ascites. Retroperitoneum: No mass. Vasculature: Relatively mild generalized atherosclerosis. Pelvis: No mass or ascites. Mild, nonfocal wall thickening of the urinary bladder with mildly enlarged prostate. Bones/Soft Tissues: Postoperative and degenerative changes in the lumbar spine. Degenerative changes of sacroiliac joints. Lower thorax: Lung bases are largely clear. Localizer images: No additional findings. IMPRESSION: No clear evidence of appendicitis. No urinary tract calculus identified. No evidence of urinary tract obstruction. Other findings as noted in the body of the report. Rn Care Manager: RETA Transcribe Date/Time: Mar 12 2025 3:06P Dictated by : LOWELL MARTINEZ MD This examination was interpreted and the report reviewed and electronically signed by: LOWELL MARTINEZ MD on Mar 12 2025 3:12PM EST [id number] Normal [facility] CT Abdomen and Pelvis WO con traston 03-12-2025 IMPRESSION: No clear evidence of appendicitis. No urinary tract calculus identified. No evidence of urinary tract obstruction. Other findings as noted in the body of the report. Rn Care Manager: Wedding Spot Transcribe Date/Time: Mar 12 2025 3:06P Dictated by : LOWELL MARTINEZ MD This examination was interpreted and the report reviewed and electronically signed by: LOWELL MARTINEZ MD on Mar 12 2025 3:12PM EST [facility] * * *Final Report* * * DATE OF EXAM: Mar 12 2025 2:39PM [facility] 0531 - CT ABD/PEL WO IVCON / PROCEDURE REASON: Right lower quadrant abdominal pain * * * * Physician Interpretation * * * * EXAMINATION: CT ABDOMEN AND PELVIS WITHOUT IV CONTRAST CLINICAL HISTORY: Right lower quadrant and left flank pain. TECHNIQUE: Non-IV contrast imaging of the abdomen and pelvis was performed using standard technique, scanning from just above the dome of the diaphragm to the symphysis pubis. Unenhanced imaging is limited for the evaluation of some intra-abdominal and pelvic pathology. MQ: CTAPWO_3 Contrast: IV: None Oral: 25 ml of Omnipaque 240 CT Radiation dose: Integrated Dose-length product (DLP) for this visit = 834.98 mGy*cm. CT Dose Reduction Employed: Automated exposure control(AEC) and iterative recon COMPARISON: 11/15/2017. RESULT: Abdomen / Pelvis: Liver: Unremarkable unenhanced liver. Biliary: No biliary ductal dilation. No obvious cholelithiasis. The gallbladder is decompressed. Spleen: No splenomegaly. Pancreas: Unremarkable. Adrenals: No mass. Kidneys: No renal calculus identified. No hydronephrosis or hydroureter. Probable small hyperdense cyst in the lateral midportion of the right kidney. Additional isodense 1 cm cortical lesion in the midportion of the left kidney. GI Tract: Mild gastric distention without obstructing lesion identified. No small bowel or colonic distention. No bowel wall thickening. The appendix is located in the right lateral abdomen. No obvious evidence of appendicitis is appreciated. Lymph Nodes: No lymphadenopathy. Mesentery/peritoneum: No ascites. Retroperitoneum: No mass. Vasculature: Relatively mild generalized atherosclerosis. Pelvis: No mass or ascites. Mild, nonfocal wall thickening of the urinary bladder with mildly enlarged prostate. Bones/Soft Tissues: Postoperative and degenerative changes in the lumbar spine. Degenerative changes of sacroiliac joints. Lower thorax: Lung bases are largely clear. Localizer images: No additional findings. [facility] Provider, [facility] - 03/12/2025 * * *Final Report* * * DATE OF EXAM: Mar 12 2025 2:39PM [facility] 0531 - CT ABD/PEL WO IVCON / PROCEDURE REASON: Right lower quadrant abdominal pain * * * * Physician Interpretation * * * * EXAMINATION: CT ABDOMEN AND PELVIS WITHOUT IV CONTRAST CLINICAL HISTORY: Right lower quadrant and left flank pain. TECHNIQUE: Non-IV contrast imaging of the abdomen and pelvis was performed using standard technique, scanning from just above the dome of the diaphragm to the symphysis pubis. Unenhanced imaging is limited for the evaluation of some intra-abdominal and pelvic pathology. MQ: CTAPWO_3 Contrast: IV: None Oral: 25 ml of Omnipaque 240 CT Radiation dose: Integrated Dose-length product (DLP) for this visit = 834.98 mGy*cm. CT Dose Reduction Employed: Automated exposure control(AEC) and iterative recon COMPARISON: 11/15/2017. RESULT: Abdomen / Pelvis: Liver: Unremarkable unenhanced liver. Biliary: No biliary ductal dilation. No obvious cholelithiasis. The gallbladder is decompressed. Spleen: No splenomegaly. Pancreas: Unremarkable. Adrenals: No mass. Kidneys: No renal calculus identified. No hydronephrosis or hydroureter. Probable small hyperdense cyst in the lateral midportion of the right kidney. Additional isodense 1 cm cortical lesion in the midportion of the left kidney. GI Tract: Mild gastric distention without obstructing lesion identified. No small bowel or colonic distention. No bowel wall thickening. The appendix is located in the right lateral abdomen. No obvious evidence of appendicitis is appreciated. Lymph Nodes: No lymphadenopathy. Mesentery/peritoneum: No ascites. Retroperitoneum: No mass. Vasculature: Relatively mild generalized atherosclerosis. Pelvis: No mass or ascites. Mild, nonfocal wall thickening of the urinary bladder with mildly enlarged prostate. Bones/Soft Tissues: Postoperative and degenerative changes in the lumbar spine. Degenerative changes of sacroiliac joints. Lower thorax: Lung bases are largely clear. Localizer images: No additional findings. IMPRESSION IMPRESSION: No clear evidence of appendicitis. No urinary tract calculus identified. No evidence of urinary tract obstruction. Other findings as noted in the body of the report. Rn Care Manager: PSCB Transcribe Date/Time: Mar 12 2025 3:06P Dictated by : LOWELL MARTINEZ MD This examination was interpreted and the report reviewed and electronically signed by: LOWELL MARTINEZ MD on Mar 12 2025 3:12PM EST [facility] Radiology Study observation (narrative) [facility] CT Abdomen and Pelvis WO con trastOrdered By: Ccf Provider on 03-12-2025 [facility] CNOVon 03-11-2025 CNOV Office Visit (FAMPWS ) -- MARY LUCAS ([id number]) 1960 M Date Time Provider Department 03/11/25 8:40 AM PRABHJOT LEUNG During your visit today, we recorded the following information about you: Pulse Respiration Blood pressure Weight 64/minute 16/minute 114/78 104.8 kg Prabhjot Leung MD 03/12/2025 12:47 PM Signed Chief Complaint Patient presents with: Low Back Pain Abdominal Pain HPI Mary Lucas is a 65 year old male who presents here today for an acute visit. Patient here today with c/o intermittent left low sided back pain for the past 3-4 days. Pain rated a 3-4/10 and described as sharp. Today pt reports back is fine at this time. Intermittent abdominal pain that moves around, but located currently around his navel area but radiates to his back and RLQ. Initially pain was in the left lower back and into the LLQ. The pain in the LLQ has resolved. Now mainly having what he calls spasms of to the right of th umbilicus. Today pt states pain has not been too bad, mainly having muscle spasms. Pain rated a 0/10, when worse a 2/10 and described as aching, spasms, twitching, and cramping. Occasional nausea with laying down at times. Patient denies any nausea, vomiting, diarrhea, fever, shortness of breath, or chest pain. Patient believes this could have something to do with his prostate, may need to see Urology. Hx of enlarged prostate, has frequency, and sometimes a weak flow. Ruthann Lucas is a 65-year-old male presenting with left lower abdominal pain and muscle spasms. Ruthann reports experiencing left lower abdominal pain and muscle spasms since Saturday, following lawn work performed in the mid-morning on a warm day. The pain was initially localized to the left lower abdomen but has since subsided and is now described as muscle spasms in the right abdomen near the umbilicus. He denies current left lower back pain. He has not tried any treatments for the pain. He denies a history of nephrolithiasis and reports adequate hydration, noting that his urine is usually light-colored. He denies nausea, emesis, diarrhea, fever, dyspnea, or chest pain. He has noticed a slight decrease in appetite but denies weight loss. He has not been diagnosed with diverticulosis and still has his appendix. Ruthann also reports increased urinary frequency and a slightly weakened urinary stream, particularly at night, waking 2-3 times to urinate. He denies dysuria or hematuria. He is not currently on any medications for prostate symptoms and has not tried any wdyz-man-fcmvbfz treatments. His prostate labs have been within normal limits. Past medical history, appointments, medications, allergies reviewed. Previous Medical History PAST MEDICAL HISTORY Diagnosis Date Advance directive discussed with patient 10/03/2023 Discussed 09/2023: Needs to bring in copies. 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 Benign prostatic hyperplasia with urinary frequency 02/15/2010 Benign prostatic hyperplasia without lower urinary tract symptoms 02/15/2010 Bilateral carotid artery stenosis 04/19/2022 US 03/2022: 20-40 b/l Bilateral renal cysts 08/16/2023 US 08/2023: benign BPV (benign positional vertigo) Chronic midline low back pain without sciatica 08/16/2023 Ectatic abdominal aorta 11/18/2023 US 10/2023: Repeat in a year ED (erectile dysfunction) of organic origin 02/24/2021 Essential hypertension, benign 06/01/2013 Ex-smoker 04/05/2022 Hyperlipidemia, mixed 11/28/2015 Lumbar radiculopathy 08/16/2023 Neuropathy of both feet 01/17/2024 Spinal stenosis of lumbar region with neurogenic claudication 08/16/2023 Well adult exam 10/11/2022 Last done 10/11/2022 Previous Surgical History PAST SURGICAL HISTORY Procedure Laterality Date COLONOSCOPY FLX DX W/COLLJ SPEC WHEN PFRMD 04/13/2010 Colonoscopy COLONOSCOPY FLX DX W/COLLJ SPEC WHEN PFRMD 01/01/2020 Colonoscopy EGD 11/2004 removal FB (apple aspiration) EXCISION HYDROCELE UNILATERAL 08/2003 left PAST SURGICAL HISTORY OF 09/02/2023 bilateral laminectomy L2-L5 with decompression fusion with autogenous graft and fixation. per Dr. 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 Influenza Virus Vac* Other: See Comments Has a Hx Meg Peterson withCOVID Venom-Honey Bee Anaphylaxis Current Medications Current Outpatient Medications on File Prior to Visit Medication Sig atorvastat (more content not included)... Normal [facility] UA DIP, URINE (POC)on 2024 BILIRUBIN UA (POCT) Negative Negative [facility] CLARITY UA (POCT) Clear [facility] COLOR UA (POCT) Yellow [facility] GLUCOSE UA (POCT) Negative Negative mg/dL [facility] Hemoglobin Ql (U) Negative Negative [facility] KETONE UA (POCT) Negative Negative mg/dL [facility] LEUKOCYTES UA (POCT) Negative Negative [facility] NITRITE UA (POCT) Negative Negative [facility] PH UA (POCT) 6.0 4.5 - 8.0 [facility] Protein Ql (U) Negative Negative mg/dL [facility] SPECIFIC GRAVITY UA (POCT) 1.010 1.005 - 1.030 [facility] UROBILINOGEN UA (POCT) 0.2 Normal E.U./dL [facility] Location:[address], [place], [place], [id number] [place] [address] POINT OF CARE [facility] Medardo 03-08-2025 CNPN Telephone (MIRZAWS) -- MARY LUCAS ([id number]) 1960 M Date Time Provider Department 03/08/25 PRABHJOT LEUNG During your visit today, we recorded the following information about you: Kathie Valderrama, GAYLE 03/08/2025 3:59 PM Signed Pt called in and reports he has been having low left back pain that a 3-4/10 sharp pain that comes and goes. Pt reports abdominal pain that moves right now it's around his belly button and maybe a little above and radiates to his back, 4/10 aching that comes and goes. Pt states he will get spasms and twitching along with cramping in his stomach at times. Pt reports he has been having these issues the last 3-4 days. Pt denies N/V/D, fever, Shortness of Breath, or chest pain. Pt reports sometimes when he lays down he may get a little nausea sometimes. Pt was thinking it may have have something to do with his prostate and he may need to see Urology. He states he has had an enlarged prostate, he has frequency and sometimes has a weak flow. Pt scheduled with Dr Leung on 03/11/25. Could you please moved his labs up so he can get them before he sees Dr Leung. Please call Pt once labs have been released earlier. GAYLE Benson Jeffrey A, MD 03/08/2025 8:05 PM Signed Kathie in the future do not move a patient's routine follow up to address a new issue. Leave the routine appt where it is. To do a routine appt and a new issue in 20 min is impossible. Also I'm not convinced this is a prostate issue. It may be his appendix. I will wait to see him to see what labs are needed. Kathie I want you to call him and make him aware that you need to reschedule the routine appt in Mar with Micaela since it will still be needed. Kathie Valderrama RN 03/09/2025 8:30 AM Signed Pt rescheduled for 6 month f/u with Micaela. 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 INFLUENZA VIRUS VACCINES 02/26/2024 14 - Other: See Comments Comments: Has a Hx Meg Peterson withCOVID VENOM-HONEY BEE 08/16/2023 10 - Anaphylaxis Date Reviewed: 10/12/2024 Reviewed by: Prabhjot Leung MD - Fully Assessed Reason for Visit: Patient Update [1234] Appointment [186] Orders [681] Prescriptions as of 03/09/2025 - atorvastatin (LIPITOR) 40 mg tablet Take 1 tablet by mouth every other day. For cholesterol. - EPINEPHrine (EPIPEN) 0.3 mg/0.3 mL auto-injector Inject 0.3 mL subcutaneously as needed. - hydroCHLOROthiazide 12.5 mg capsule Take 1 capsule by mouth once daily. - lisinopril (ZESTRIL) 20 mg tablet Take 1 tablet by mouth once daily. Problem List As Of Date 03/08/2025 Noted Resolved Benign prostatic hyperplasia without lower urin*02/15/2010 Special Screening for Malignant Neoplasms, [place]*04/13/2010 Internal hemorrhoids without mention of complic*04/13/2010 01/31/2015 Benign neoplasm of rectum and anal canal [D12.8*04/13/2010 Essential hypertension, benign [I10] 06/01/2013 Hyperlipidemia, mixed [E78.2] 11/28/2015 ED (erectile dysfunction) of organic origin [N5*02/24/2021 BPV (benign positional vertigo) [H81.10] 04/05/2022 Ex-smoker [Z87.891] 04/05/2022 Prostate disorder [N42.9] 04/05/2022 Bilateral carotid artery stenosis [I65.23] 04/19/2022 Encounter for Medicare annual wellness exam [Z0*10/11/2022 Chronic midline low back pain without sciatica *08/16/2023 Lumbar radiculopathy [M54.16] 08/16/2023 Spinal stenosis of lumbar region with neurogeni*08/16/2023 Bilateral renal cysts [N28.1] 08/16/[address] [Z78.9] 10/03/2023 Advance directive discussed with patient [Z71.8*10/03/2023 Ectatic abdominal aorta [I77.811] 11/18/2023 Bilateral foot-drop [M21.371, M21.372] 01/17/2024 Neuropathy of both feet [G57.93] 01/17/2024 Chronic pain of left ankle [M25.572, G89.29] 10/27/2024 Encounter Status:Closed by KATHIE VALDERRAMA on 03/09/25 Normal [facility] US ABD AORTAon 11-27-2024 US ABD AORTA * * *Final Report* * * DATE OF EXAM: Nov 27 2024 10:30AM U 1075 - US ABD AORTA / PROCEDURE REASON: Ectatic abdominal aorta (HCC) * * * * Physician Interpretation * * * * EXAM TITLE: US ABD AORTA DATE: 11/27/2024 COMPARISON: 11/18/2023 CLINICAL INDICATION/HISTORY: Ectatic aorta TECHNIQUE: Sonographic interrogation of the abdominal aorta. Grayscale and Doppler evaluation performed. Images stored in a permanent archive. FINDINGS: No significant change when comparing to the study of one year ago. The proximal abdominal aorta measures 3.1 x 2.9 cm in AP and transverse dimensions. The midportion of the aorta measure 2.4 x 2.6 cm. The distal aorta measures 2.1 x 2.2 cm. The right common iliac artery measures 1.6 x 1.4 cm while the left common iliac artery measures 1.8 x 1.7 cm. Mild atherosclerotic changes. IMPRESSION: No change from prior. Proximal aortic ectasia. No focal aneurysm. Rn Care Manager: PSCMarjorie Transcribe Date/Time: Nov 29 2024 7:58A Dictated by : CRISSY BENOIT MD This examination was interpreted and the report reviewed and electronically signed by: CRISSY BENOIT MD on Nov 29 2024 8:00AM EST [id number] Normal [facility] US CAROTID ARTERIES SAAD VAS LABon 11-27-2024 US CAROTID ARTERIES SAAD VAS LAB Non-Invasive Vascular Laboratory [facility] Carotid Duplex Bilateral/Complete Date of service/time: 11/27/2024 10:29:04 AM Name: MR. RUTHANN Hoffman NOLT Date of : 1960 Age: 64 years Gender: M Clinical Indication Dizziness. TECHNIQUE -------- A carotid duplex ultrasound examination was performed, including grayscale imaging and color Doppler and spectral Doppler examination of the below mentioned arteries. FINDINGS -------- RIGHT SIDE Common carotid artery: Proximal: PSV: 84 cm/s. EDV: 16 cm/s. Mid: PSV: 94 cm/s. EDV: 28 cm/s. Distal: PSV: 106 cm/s. EDV: 35 cm/s. Internal carotid artery: Origin: PSV: 96 cm/s. EDV: 23 cm/s. Proximal: PSV: 60 cm/s. EDV: 20 cm/s. Mid: PSV: 72 cm/s. EDV: 33 cm/s. Distal: PSV: 77 cm/s. EDV: 36 cm/s. Mild heterogeneous plaque from origin to proximal. ICA/CCA Ratio: 0.9 External carotid artery: Proximal: PSV: 73 cm/s. EDV: 15 cm/s. Subclavian artery: Proximal: PSV: 111 cm/s. EDV: 0 cm/s. Vertebral artery: PSV: 32 cm/s. EDV: 12 cm/s. LEFT SIDE Common carotid artery: Proximal: PSV: 105 cm/s. EDV: 24 cm/s. Mid: PSV: 108 cm/s. EDV: 33 cm/s. Distal: PSV: 83 cm/s. EDV: 20 cm/s. Internal carotid artery: Origin: PSV: 85 cm/s. EDV: 21 cm/s. Proximal: PSV: 85 cm/s. EDV: 25 cm/s. Mid: PSV: 84 cm/s. EDV: 31 cm/s. Distal: PSV: 91 cm/s. EDV: 36 cm/s. Mild heterogeneous plaque at origin. ICA/CCA Ratio: 1.0 External carotid artery: Proximal: PSV: 92 cm/s. EDV: 15 cm/s. Subclavian artery: Proximal: PSV: 85 cm/s. EDV: 0 cm/s. Vertebral artery: PSV: 35 cm/s. EDV: 14 cm/s. IMPRESSION Please note: the new carotid interpretation criteria are used as recommended by [employer]. RIGHT SIDE Common carotid artery: Patent. Internal carotid artery: <50% stenosis consistent with mild carotid artery disease. External carotid artery: Patent. Vertebral artery: Patent and antegrade flow noted. Innominate artery: Not visualized. LEFT SIDE Common carotid artery: Patent. Internal carotid artery: <50% stenosis consistent with mild carotid artery disease. External carotid artery: Patent. Vertebral artery: Patent and antegrade flow noted. Technologist: Yarelis Calderon BA, RVT Ordering physician: PRABHJOT LEUNG Interpreting physician: Zayra Harrington MD Final CC [facility] [facility] Image : [id number] See Link below for Image Normal [facility] CNTHERAPYon 11-24-2024 CNTHERAPY OT/PT/Speech Visit ( PTWS) -- MARY LUCAS ([id number]) 1960 M Date Time Provider Department 11/24/24 10:45 AM WALE MCKEON Date Time Provider Department Center 11/24/2024 10:45 AM [id number], BRENT PTAMARIS Krause Reason for Visit: Physical Therapy [503] PT Discharge [752] Primary Visit Diagnosis:Chronic pain of left ankle [M25.572, G89.29] Allergies As of Date: 11/24/2024 Noted Allergy Reaction COVID TWP41-23(12UP)(RAXT)(PF) 02/06/2024 14 - Other: See Comments Comments: 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 INFLUENZA VIRUS VACCINES 02/26/2024 14 - Other: See Comments Comments: Has a Hx Meg Peterson withCOVID VENOM-HONEY BEE 08/16/2023 10 - Anaphylaxis Date Reviewed: 10/12/2024 Reviewed by: Prabhjot Leung MD - Fully Assessed Prescriptions as of 11/24/2024 - atorvastatin (LIPITOR) 40 mg tablet Take 1 tablet by mouth every other day. For cholesterol. - EPINEPHrine (EPIPEN) 0.3 mg/0.3 mL auto-injector Inject 0.3 mL subcutaneously as needed. - hydroCHLOROthiazide 12.5 mg capsule Take 1 capsule by mouth once daily. - lisinopril (ZESTRIL) 20 mg tablet Take 1 tablet by mouth once daily. 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 INFLUENZA VIRUS VACCINES 02/26/2024 14 - Other: See Comments Comments: Has a Hx Meg Peterson withCOVID VENOM-HONEY BEE 08/16/2023 10 - Anaphylaxis Date Reviewed: 10/12/2024 Reviewed by: Prabhjot Leung MD - Fully Assessed Prescriptions as of 11/20/2024 - atorvastatin (LIPITOR) 40 mg tablet Take 1 tablet by mouth every other day. For cholesterol. - EPINEPHrine (EPIPEN) 0.3 mg/0.3 mL auto-injector Inject 0.3 mL subcutaneously as needed. - hydroCHLOROthiazide 12.5 mg capsule Take 1 capsule by mouth once daily. - lisinopril (ZESTRIL) 20 mg tablet Take 1 tablet by mouth once daily. 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 INFLUENZA VIRUS VACCINES 02/26/2024 14 - Other: See Comments Comments: Has a Hx Meg Peterson withCOVID VENOM-HONEY BEE 08/16/2023 10 - Anaphylaxis Date Reviewed: 10/12/2024 Reviewed by: Prabhjot Leung MD - Fully Assessed Prescriptions as of 11/13/2024 - atorvastatin (LIPITOR) 40 mg tablet Take 1 tablet by mouth every other day. For cholesterol. - EPINEPHrine (EPIPEN) 0.3 mg/0.3 mL auto-injector Inject 0.3 mL subcutaneously as needed. - hydroCHLOROthiazide 12.5 mg capsule Take 1 capsule by mouth once daily. - lisinopril (ZESTRIL) 20 mg tablet Take 1 tablet by mouth once daily. 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 INFLUENZA VIRUS VACCINES 02/26/2024 14 - Other: See Comments Comments: Has a Hx Meg Peterson withCOVID VENOM-HONEY BEE 08/16/2023 10 - Anaphylaxis Date Reviewed: 10/12/2024 Reviewed by: Prabhjot Leung MD - Fully Assessed Prescriptions as of 11/06/2024 - atorvastatin (LIPITOR) 40 mg tablet Take 1 tablet by mouth every other day. For cholesterol. - EPINEPHrine (EPIPEN) 0.3 mg/0.3 mL auto-injector Inject 0.3 mL subcutaneously as needed. - hydroCHLOROthiazide 12.5 mg capsule Take 1 capsule by mouth once daily. - lisinopril (ZESTRIL) 20 mg tablet Take 1 tablet by mouth once daily. Supervisor Wet Room: Addendum Therapy (PT/OT/Speech/Resp) ID: [id number] 11/06/2024 2:50 PM Author: WALE MCKEON Signed by WALE MCKEON PT on 11/06/2024 at 2:50 PM * * * This document replaces document [id number] * * * Document text: Program_ID:[id number] Access Code: [email or web address] URL: [email or web address]://[employer]/ Date: 11-06-2024 Prepared By: Wale Mckeon Program Notes Exercises - Long Sitting Calf Stretch with Strap - 2-3 x daily - 7 x weekly - sets - 3 reps - Seated Ankle Alphabet - 2-3 x daily - 7 x weekly - sets - 1 reps - Standing Single Leg Stance with Counter Support - 2-3 x daily - 7 x weekly - sets - 3 reps - Long Sitting Ankle Plantar Flexion with Resistance - 2 x daily - 7 x weekly - 2 sets - 10 reps - Long Sitting Ankle Dorsiflexion with Anchored Resistance - 2 x daily - 7 x weekly - 2 sets - 10 reps - Long Sitting Ankle Eversion with Resistance - 2 x daily - 7 x weekly - 2 sets - 10 reps - Long Sitting Ankle Inversion with Resistance - 2 x daily - 7 x weekly - 2 sets - 10 reps Normal [facility] THERAPY NTon 11-06-2024 THERAPY NT HNO ID: [id number] Author: WALE MCKEON, PT Service: ? Author Type: Physical Therapist Type: Therapy (PT/OT/Speech/Resp) Filed: 11/06/2024 14:50 Note Text: Program_ID:[id number] Access Code: [email or web address] URL: [email or web address]/ Date: 11-06-2024 Prepared By: Wale Mckeon Program Notes Exercises - Long Sitting Calf Stretch with Strap - 2-3 x daily - 7 x weekly - sets - 3 reps - Seated Ankle Alphabet - 2-3 x daily - 7 x weekly - sets - 1 reps - Standing Single Leg Stance with Counter Support - 2-3 x daily - 7 x weekly - sets - 3 reps - Long Sitting Ankle Plantar Flexion with Resistance - 2 x daily - 7 x weekly - 2 sets - 10 reps - Long Sitting Ankle Dorsiflexion with Anchored Resistance - 2 x daily - 7 x weekly - 2 sets - 10 reps - Long Sitting Ankle Eversion with Resistance - 2 x daily - 7 x weekly - 2 sets - 10 reps - Long Sitting Ankle Inversion with Resistance - 2 x daily - 7 x weekly - 2 sets - 10 reps Normal [facility] [id number] 10-27-2024 [id number] HNO ID: [id number] Author: WALE MCKEON PT Service: ? Author Type: Physical Therapist Type: [id number] Filed: 10/27/2024 14:17 Note Text: [facility] Physical Therapy Plan of Care Certification Patient Name: Mary Lucas : 1960 [facility] #: [id number] Date: 10/27/2024 To: Prabhjot Leung MD From Therapist: Wale Mckeon PT RE: Patient Certification/ Recertification Your review, approval and electronic signature are required in order to comply with Payor: MEDICARE / Plan: MEDICARE A AND B / Product Type: Medicare / regulations. The identified Physical Therapy PLAN OF CARE for the patient is as follows: M25.572, G89.29 Chronic pain of left ankle (primary encounter diagnosis) M25.572 Acute left ankle pain PLAN OF CARE: Assessment: Mary Lucas presents with chief complaint of L ankle weakness and resulting functional limitations that interferes with walking in the community (walking on uneven surfaces, lateral movements) . The patient presents with impairments in ADL's, balance, coordination, independence in exercise, overall function, range of motion, strength, and symptom management. PROMIS? (Patient-Reported Outcomes Measurement Information System) scores were reviewed and identified as within normal limits. Prognosis for therapy is Excellent due to: current objective clinical presentation, good overall health status, good support system/ coping skills, positive past response to therapy. The patient will benefit from skilled therapy services to meet the goals established for this plan of care as noted below. Goals for Episode of Care: established 10/27/24 [place] in home exercise program. Patient will decrease pain to 0/10 with functional activities to allow patient to improve ambulation on uneven surfaces. Patient will increase active ROM of L ankle to WFL, symmetrical and symptom-free to allow pt to to improve performance of ADLs. Patient will demonstrate increase in L LE/ankle strength to 5/5 during manual muscle testing in order to improve function for outdoor ambulation on uneven surfaces. Perform all walking and lateral movements with decreased report of symptoms/pain in 6 weeks. Patient Goals: strengthen L ankle, walk on uneven surfaces for vacation in November 2024 Time Frame for Goals and Treatment : 12/08/24 Planned Interventions, Frequency, and Duration: Current Frequency: 2x/week Duration: 6 weeks Total Number of Visits Planned: 12 Planned Treatment Interventions: Therapeutic exercise (84963), Neuromuscular re-education (44736), Manual therapy (23861), Therapeutic activities (46462), Self-detention management (97922), Patient/Family/Caregiver Education PLAN FOR NEXT VISIT: Review, correct and progress HEP to tolerance. Continue with therex with emphasis on ROM, strength, proprioception and function of L ankle. 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 Patient demonstrates good understanding of plan of care and treatment. The above goals and plan of care were discussed and agreed upon by patient/family. For further details regarding this patient refer to the Physical Therapy electronically documented visit dated 10/27/2024. Provider Attestation I have reviewed the treatment plan for Mary Lucas, [facility]# [id number] for the period of 10/27/24 -- 12/08/24, established on 10/27/2024. Signature certifies the need for therapy services. Normal [facility] CNTHERAPYon 10-27-2024 CNTHERAPY OT/PT/Speech Visit ( PTWS) -- MARY LUCAS ([id number]) 1960 M Date Time Provider Department 10/27/24 10:00 AM WALE MCKEON PTWS Date Time Provider Department Center 10/27/2024 10:00 AM [id number], BRENT PTWS Jakob Krause Reason for Visit: PT Eval [747] Physical Therapy [503] Primary Visit Diagnosis:Chronic pain of left ankle [M25.572, G89.29] Other Visit Diagnosis:Acute left ankle pain [M25.572] Allergies As of Date: 10/27/2024 Noted Allergy Reaction COVID YUZ35-56(12UP)(RAXT)(PF) 02/06/2024 14 - Other: See Comments Comments: 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 INFLUENZA VIRUS VACCINES 02/26/2024 14 - Other: See Comments Comments: Has a Hx Meg Peterson withCOVID VENOM-HONEY BEE 08/16/2023 10 - Anaphylaxis Date Reviewed: 10/12/2024 Reviewed by: Prabhjot Leung MD - Fully Assessed Prescriptions as of 10/27/2024 - atorvastatin (LIPITOR) 40 mg tablet Take 1 tablet by mouth every other day. For cholesterol. - EPINEPHrine (EPIPEN) 0.3 mg/0.3 mL auto-injector Inject 0.3 mL subcutaneously as needed. - hydroCHLOROthiazide 12.5 mg capsule Take 1 capsule by mouth once daily. - lisinopril (ZESTRIL) 20 mg tablet Take 1 tablet by mouth once daily. Supervisor Wet Room: Addendum Therapy (PT/OT/Speech/Resp) ID: [id number] 10/27/2024 10:45 AM Author: WALE MCKEON Signed by WALE MCKEON PT on 10/27/2024 at 10:45 AM * * * This document replaces document [id number] * * * Document text: Program_ID:[id number] Access Code: [email or web address] URL: [email or web address] [employer]/ Date: 10-27-2024 Prepared By: Wale Mckeon Program Notes Exercises - Long Sitting Calf Stretch with Strap - 2-3 x daily - 7 x weekly - sets - 3 reps - Seated Ankle Alphabet - 2-3 x daily - 7 x weekly - sets - 1 reps - Standing Single Leg Stance with Counter Support - 2-3 x daily - 7 x weekly - sets - 3 reps Normal [facility] THERAPY NTon 10-27-2024 THERAPY NT HNO ID: [id number] Author: WALE MCKEON PT Service: ? Author Type: Physical Therapist Type: Therapy (PT/OT/Speech/Resp) Filed: 10/27/2024 10:45 Note Text: Program_ID:[id number] Access Code: [email or web address] URL: [email or web address] [employer]/ Date: 10-27-2024 Prepared By: Wale Mckeon Program Notes Exercises - Long Sitting Calf Stretch with Strap - 2-3 x daily - 7 x weekly - sets - 3 reps - Seated Ankle Alphabet - 2-3 x daily - 7 x weekly - sets - 1 reps - Standing Single Leg Stance with Counter Support - 2-3 x daily - 7 x weekly - sets - 3 reps Normal [facility] CNOVon 10-12-2024 CNOV Office Visit (FAMPWS ) -- MARY LUCAS ([id number]) 1960 M Date Time Provider Department 10/12/24 8:00 AM PRABHJOT LEUNG FAMPWS During your visit today, we recorded the following information about you: Pulse Respiration Blood pressure Weight 76/minute 18/minute 118/76 107.5 kg Height 1.854 m Prabhjot Leung MD 10/12/2024 2:08 PM Addendum Mary Lucas is a 64 year old male here for a Medicare wellness visit. Medicare Health Risk Assessment General Health Very good Exercise: Minutes/Day 30 min Exercise: Days/Week 5 days Alcohol: Daily Use 2-3 times a week Alcohol: Drinks/Day 1 or 2 Alcohol: 6 or more drinks Never Feel off balance No Concerns: Teeth/Dentures No Concerns: Sexual function No Troubled by feelings None of the above Frequency: Eating healthy diet Nearly every day ADLs requiring help None of the above Safety precautions in home/vehicle Yes Smoke, vape, chews tobacco No Difficulty hearing No Difficulty seeing No Current Providers Specialists: I have reviewed specialist-related care of the patient in the medical record. Current care team: Patient Care Team: Prabhjot Leung MD as PCP - General (Family Medicine) Aundrea Durand APRN.PAINT MIXER as [employer] (Family Medicine) Micaela Martin PA-C as [employer] (Family Medicine) optho Medical/Family history review Reviewed and updated problem list, medical/surgical/family/so cial history, medications, and allergies. Opioid use review Opioid Medications (last 90 days) No data to display Anxiety/Depression screening PHQ-2 Score: 0 (Lower risk for depression) YON-2 Score: 0 (Lower risk for anxiety) Recommendation: no further intervention at this time Cognitive screening Cognitive screening reviewed and No further action needed (score 3-5). Functional Observation Was the patient's Timed Up AND Go test unsteady or >= 12 seconds? No Advance Care Planning Surrogate decision maker and/or advance care plan documented Measurements BP 118/76 Pulse 76 Resp 18 Ht 185.4 cm (6' 1) Wt 107.5 kg (237 lb) BMI 31.27 kg/m? Vision Screening: Follows with optometry/ophthalmology Assessment/Plan Medicare annual wellness visit, subsequent (Z00.00) - Counseled on healthy diet and regular exercise - Fall avoidance information provided - Personalized prevention plan provided See below Chief Complaint Patient presents with: Medicare Wellness Exam HPI Mary Lucas is a 64 year old male who presents here today for Chronic Medical Conditions. and Medicare Annual Visit. Patient with hx of HTN, hyperlipidemia, and those as below. Last 6 Encounter Wt Readings: Date: Wt: 04/06/2024 106.6 kg (235 lb) 02/26/2024 106.1 kg (234 lb) 01/23/2024 107.1 kg (236 lb 1.8 oz) 01/17/2024 106.6 kg (235 lb) 12/27/2023 106.1 kg (234 lb) 10/03/2023 105.2 kg (232 lb) Patient sees Neurology for bilateral foot drop last visit 04/2024 Past medical history, appointments, medications, allergies reviewed. Previous Medical History PAST MEDICAL HISTORY Diagnosis Date Advance directive discussed with patient 10/03/2023 Discussed 09/2023: Needs to bring in copies. 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 Benign prostatic hyperplasia without lower urinary tract symptoms 02/15/2010 Bilateral carotid artery stenosis 04/19/2022 US 03/2022: 20-40 b/l Bilateral renal cysts 08/16/2023 US 08/2023: benign BPV (benign positional vertigo) Chronic midline low back pain without sciatica 08/16/2023 Ectatic abdominal aorta (HCC) 11/18/2023 US 10/2023: Repeat in a year ED (erectile dysfunction) of organic origin 02/24/2021 Essential hypertension, benign 06/01/2013 Ex-smoker 04/05/2022 Hyperlipidemia, mixed 11/28/2015 Lumbar radiculopathy 08/16/2023 Spinal stenosis of lumbar region with neurogenic claudication 08/16/2023 Well adult exam 10/11/2022 Last done 10/11/2022 Previous Surgical History PAST SURGICAL HISTORY Procedure Laterality Date COLONOSCOPY FLX DX W/COLLJ SPEC WHEN PFRMD 04/13/2010 Colonoscopy COLONOSCOPY FLX DX W/COLLJ SPEC WHEN PFRMD 01/01/2020 Colonoscopy EGD 11/2004 removal FB (apple aspiration) EXCISION HYDROCELE UNILATERAL 08/2003 left PAST SURGICAL HISTORY OF 09/02/2023 bilateral laminectomy L2-L5 with decompression fusion with autogenous graft and fixation. per Dr. 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 Influen (more content not included)... Normal [facility] CBC W Auto Differential pane l (Bld)on 10-05-2024 Basophils (Bld) [#/Vol] 0.05 10*3/uL Normal <0.11 [facility] Comment on above: Order Comment: Speci men Type: BLOOD SPECIMENOrdering Facility: [facility] Address: [address] [place] [address] Performed By: #### 5 7021-8 ####[facility] LABCLIA [id number] [place] [address] [place] Basophils/100 WBC (Bld) 0.9 % Normal [facility] Comment on above: Order Comment: Speci men Type: BLOOD SPECIMENOrdering Facility: [facility] Address: [address] [place] [address] Performed By: #### 5 7021-8 ####[facility] LABCLIA [id number] [place] [address] [place] Differential cell count method Nom (Bld) Auto Normal [facility] Comment on above: Order Comment: Speci men Type: BLOOD SPECIMENOrdering Facility: [facility] Address: [address] [place] [address] Performed By: #### 5 7021-8 ####[facility] LABCLIA [id number] [place] [address] [place] Eosinophils (Bld) [#/Vol] 0.16 10*3/uL Normal <0.46 [facility] Comment on above: Order Comment: Speci men Type: BLOOD SPECIMENOrdering Facility: [facility] Address: [address] [place] [address] Performed By: #### 5 7021-8 ####[facility] LABCLIA [id number] [address] [place] [address] [place] Eosinophils/100 WBC (Bld) 2.9 % Normal [facility] Comment on above: Order Comment: Speci men Type: BLOOD SPECIMENOrdering Facility: [facility] Address: [address] [place] [address] Performed By: #### 5 7021-8 ####[facility] LABCLIA [id number] [address], [place] [address] [place] Erythrocyte distribution width (RBC) [Ratio] 13.8 % Normal 11.5-15.0 [facility] Comment on above: Order Comment: Speci men Type: BLOOD SPECIMENOrdering Facility: [facility] Address: [address] [place] [address] Performed By: #### 5 7021-8 ####[facility] LABCLIA [id number] [address], [place] [address] [place] Hematocrit (Bld) [Volume fraction] 39.9 % Normal 39.0-51.0 [facility] Comment on above: Order Comment: Speci men Type: BLOOD SPECIMENOrdering Facility: [facility] Address: [address] [place] [address] Performed By: #### 5 7021-8 ####[facility] LABCLIA [id number] [address], [facility] [place] Hemoglobin (Bld) [Mass/Vol] 13.4 g/dL Normal 13.0-17.0 [facility] Comment on above: Order Comment: Speci men Type: BLOOD SPECIMENOrdering Facility: [facility] Address: [address] [place] [address] Performed By: #### 5 7021-8 ####[facility] LABCLIA [id number] [facility] [address], [facility]95 [place] Immature granulocytes (Bld) [#/Vol] 10*3/uL Normal <0.10 [facility] Comment on above: Order Comment: Speci men Type: BLOOD SPECIMENOrdering Facility: [facility] Address: [address] [place] [address] Performed By: #### 5 7021-8 ####[facility] LABCLIA [id number] [place] [address] [place] Immature granulocytes/100 WBC (Bld) 0.2 % Normal [facility] Comment on above: Order Comment: Speci men Type: BLOOD SPECIMENOrdering Facility: [facility] Address: [address] [place] [address] Performed By: #### 5 7021-8 ####[facility] LABCLIA [id number] [place] [address] [place] Lymphocytes (Bld) [#/Vol] 1.91 10*3/uL Normal 1.00-4.00 [facility] Comment on above: Order Comment: Speci men Type: BLOOD SPECIMENOrdering Facility: [facility] Address: [address] [place] [address] Performed By: #### 5 7021-8 ####[facility] LABCLIA [id number] [place] [address] [place] Lymphocytes/100 WBC (Bld) 34.4 % Normal [facility] Comment on above: Order Comment: Speci men Type: BLOOD SPECIMENOrdering Facility: [facility] Address: [address] [place] [address] Performed By: #### 5 7021-8 ####[facility] LABCLIA [id number] [place] [id number] [place] MCH (RBC) [Entitic mass] 30.5 pg Normal 26.0-34.0 [facility] Comment on above: Order Comment: Speci men Type: BLOOD SPECIMENOrdering Facility: [facility] Address: [address] [place] [address] Performed By: #### 5 7021-8 ####[facility] LABCLIA [id number] [place] [address] [place] MCHC (RBC) [Mass/Vol] 33.6 g/dL Normal 30.5-36.0 [facility] Comment on above: Order Comment: Speci men Type: BLOOD SPECIMENOrdering Facility: [facility] [facility] Address: [address] [place] [address] Performed By: #### 5 7021-8 ####[facility] LABIA [id number] [place] [address] [place] MCV (RBC) [Entitic vol] 90.7 fL Normal 80.0-100.0 [facility] Comment on above: Order Comment: Speci men Type: BLOOD SPECIMENOrdering Facility: [facility] Address: [address] [place] [address] Performed By: #### 5 7021-8 ####[facility] LABIA [id number] [place] [address] [place] Monocytes (Bld) [#/Vol] 0.67 10*3/uL Normal <0.87 [facility] Comment on above: Order Comment: Speci men Type: BLOOD SPECIMENOrdering Facility: [facility] Address: [address] [place] [address] Performed By: #### 5 7021-8 ####[facility] LABIA [id number] [place] [address] [place] Monocytes/100 WBC (Bld) 12.1 % Normal [facility] Comment on above: Order Comment: Speci men Type: BLOOD SPECIMENOrdering Facility: [facility] Address: [address] [place] [address] Performed By: #### 5 7021-8 ####[facility] LABCLIA [id number] [place] [address] [place] Neutrophils (Bld) [#/Vol] 2.75 10*3/uL Normal 1.45-7.50 [facility] Comment on above: Order Comment: Speci men Type: BLOOD SPECIMENOrdering Facility: [facility] Address: [address] [place] [address] Performed By: #### 5 7021-8 ####[facility] LABCLIA [id number] [place] [id number] [place] Neutrophils/100 WBC (Bld) 49.5 % Normal [facility] Comment on above: Order Comment: Speci men Type: BLOOD SPECIMENOrdering Facility: [facility] Address: [address] [place] [address] Performed By: #### 5 7021-8 ####[facility] LABCLIA [id number] [place] [address] [place] Nucleated RBC (Bld) [#/Vol] 10*3/uL Normal <0.01 [facility] Comment on above: Order Comment: Speci men Type: BLOOD SPECIMENOrdering Facility: [facility] Address: [address] [place] [address] Performed By: #### 5 7021-8 ####[facility] LABCLIA [id number] [place] [address] [place] Nucleated RBC/100 WBC (Bld) [Ratio] 0.0 /100 WBC Normal [facility] Comment on above: Order Comment: Speci men Type: BLOOD SPECIMENOrdering Facility: [facility] Address: [address] [place] [address] Performed By: #### 5 7021-8 ####[facility] LABCLIA [id number] [place] [id number] [place] Platelet mean volume (Bld) [Entitic vol] 9.7 fL Normal 9.0-12.7 [facility] Comment on above: Order Comment: Speci men Type: BLOOD SPECIMENOrdering Facility: [facility] Address: [address] [place] [address] Performed By: #### 5 7021-8 ####[facility] LABCLIA [id number] [address] [address] [place] Platelets (Bld) [#/Vol] 342 10*3/uL Normal 150-400 [facility] Comment on above: Order Comment: Speci men Type: BLOOD SPECIMENOrdering Facility: [facility] Address: [address] [place] [address] Performed By: #### 5 7021-8 ####[facility] LABIA [id number] [place] [address] [place] RBC (Bld) [#/Vol] 4.40 10*6/uL Normal 4.20-6.00 [facility] Comment on above: Order Comment: Speci men Type: BLOOD SPECIMENOrdering Facility: [facility] Address: [address] [place] [address] Performed By: #### 5 7021-8 ####[facility] [id number] [place] [address] [place] WBC (Bld) [#/Vol] 5.55 10*3/uL Normal 3.70-11.00 [facility] Comment on above: Order Comment: Speci men Type: BLOOD SPECIMENOrdering Facility: [facility] Address: [address] [place] [address] Performed By: #### 5 7021-8 ####[facility] LABIA [id number] [place] [id number] [place] Comprehensive metabolic 2000 panelon 10-05-2024 Albumin [Mass/Vol] 4.5 g/dL Normal 3.9-4.9 [facility] Comment on above: Order Comment: Speci men Type: BLOOD SPECIMENOrdering Facility: [facility] Address: [address] [place] [address] Performed By: #### L IPNF, 22219-9 ####[facility] LABCLIA [id number] [id number] [address] [place] ALP [Catalytic activity/Vol] 61 U/L Normal 38-113 [facility] Comment on above: Order Comment: Speci men Type: BLOOD SPECIMENOrdering Facility: [facility] Address: [address] [place] [address] Performed By: #### L IPNF, ####[facility] LABCLIA [id number] [place] [address] [place] ALT [Catalytic activity/Vol] 33 U/L Normal 10-54 [facility] Comment on above: Order Comment: Speci men Type: BLOOD SPECIMENOrdering Facility: [facility] Address: [address] [place] [address] Performed By: #### L IPNF, 45967-8 ####[facility] LABCLIA [id number] [place] [address] [place] Anion gap [Moles/Vol] 8 mmol/L Normal 8-15 [facility] Comment on above: Order Comment: Speci men Type: BLOOD SPECIMENOrdering Facility: [facility] Address: [address] [place] [address] Performed By: #### L IPNF, ####[facility] LABCLIA [id number] [place] [address] [place] AST [Catalytic activity/Vol] 38 U/L Normal 14-40 [facility] Comment on above: Order Comment: Speci men Type: BLOOD SPECIMENOrdering Facility: [facility] Address: [address] [place] [address] Performed By: #### L IPNF, 68637-7 ####[facility] LABCLIA [id number] [place] [address] [place] Bilirubin [Mass/Vol] 0.8 mg/dL Normal 0.2-1.3 [facility] Comment on above: Order Comment: Speci men Type: BLOOD SPECIMENOrdering Facility: [facility] Address: [address] [place] [address] Performed By: #### L IPNF, 44294-4 ####[facility] LABCLIA [id number] [address] [address] [place] Calcium [Mass/Vol] 9.8 mg/dL Normal 8.5-10.2 [facility] Comment on above: Order Comment: Speci men Type: BLOOD SPECIMENOrdering Facility: [facility] Address: [address] [place] [address] Performed By: #### L IPNF, 67097-1 ####[facility] LABCLIA [id number] [place] [address] [place] Chloride [Moles/Vol] 104 mmol/L Normal 98-107 [facility] Comment on above: Order Comment: Speci men Type: BLOOD SPECIMENOrdering Facility: [facility] Address: [address] [place] [address] Performed By: #### L IPNF, 61216-6 ####[facility] LABCLIA [id number] [place] [address] [place] CO2 [Moles/Vol] 28 mmol/L Normal 22-30 [facility] Comment on above: Order Comment: Speci men Type: BLOOD SPECIMENOrdering Facility: [facility] Address: [address] [place] [address] Performed By: #### L IPNF, ####[facility] LABCLIA [id number] [place] [id number] [place] Creatinine [Mass/Vol] 1.20 mg/dL Normal 0.73-1.22 [facility] Comment on above: Order Comment: Speci men Type: BLOOD SPECIMENOrdering Facility: [facility] Address: [address] [place] [address] Performed By: #### L IPNF, 14381-7 ####[facility] LABCLIA [id number] [place] [address] [place] Creatinine and Glomerular filtration rate.predicted panel (S/P/Bld) 67 mL/min/1.73m??? Normal >=60 [facility] Comment on above: Order Comment: Jenaro miller Type: BLOOD SPECIMENOrdering Facility: [facility] Address: [address] [place] [address] Result Comment: Cheryl mated Glomerular Filtration Rate (eGFR) is calculated using the 2020 CKD-EPI creatinine equation. This equation utilizes serum creatinine, sex, and age as parameters. The creatinine assay has traceable calibration to isotope dilution-mass spectrometry. Refer to KDIGO guidelines for clinical interpretation. In patients with unstable renal function, e.g. those with acute kidney injury, the eGFR may not accurately reflect actual GFR. Performed By: #### L ABIMAEL, 93990-1 ####[facility] LABCLIA [id number] [place] [address] [place] Glucose [Mass/Vol] 91 mg/dL Normal 74-99 [facility] Comment on above: Order Comment: Jenaro miller Type: BLOOD SPECIMENOrdering Facility: [facility] Address: [address] [place] [address] Result Comment: The [place] Diabetes Association (ADA) provides guidance for cutoff values for fasting glucose and random glucose. The ADA defines fasting as no caloric intake for at least 8 hours. Fasting plasma glucose results between 100 to 125 mg/dL indicate increased risk for diabetes (prediabetes). Fasting plasma glucose results greater than or equal to 126 mg/dL meet the criteria for diagnosis of diabetes. In the absence of unequivocal hyperglycemia, results should be confirmed by repeat testing. In a patient with classic symptoms of hyperglycemia or hyperglycemic crisis, random plasma glucose results greater than or equal to 200 mg/dL meet the criteria for diagnosis of diabetes. Reference: Standards of Medical Care in Diabetes 2016, [place] Diabetes Association. Diabetes Care. 2016.39(Suppl 1). Performed By: #### L ABIMAEL, 36842-4 ####[facility] LABIA [id number] [place] [id number] [place] Potassium [Moles/Vol] 4.9 mmol/L Normal 3.7-5.1 [facility] Comment on above: Order Comment: Speci men Type: BLOOD SPECIMENOrdering Facility: [facility] Address: [address] [place], [place] [address] Performed By: #### L IPNF, 75094-0 ####[facility] LABCLIA [id number] [address] [address] [place] Protein [Mass/Vol] 7.2 g/dL Normal 6.3-8.0 [facility] Comment on above: Order Comment: Speci men Type: BLOOD SPECIMENOrdering Facility: [facility] Address: [address] [place] [address] Performed By: #### L IPNF, 59882-1 ####[facility] LABCLIA [id number] [address] [address] [place] Sodium [Moles/Vol] 140 mmol/L Normal 136-144 [facility] Comment on above: Order Comment: Speci men Type: BLOOD SPECIMENOrdering Facility: [facility] Address: [address] [place] [address] Performed By: #### L IPNF, 39238-6 ####[facility] LABCLIA [id number] [address], [facility] [place] Urea nitrogen [Mass/Vol] 18 mg/dL Normal 9-24 [facility] Comment on above: Order Comment: Speci men Type: BLOOD SPECIMENOrdering Facility: [facility] Address: [address] [place] [address] Performed By: #### L IPNF, 73468-5 ####[facility] LABCLIA [id number] [address] [address] [place] LIPID PANEL, NONFASTINGon Cholesterol [Mass/Vol] 137 mg/dL Normal <200 [facility] Comment on above: Order Comment: Speci men Type: BLOOD SPECIMENOrdering Facility: [facility] Address: [address] [place] [address] Result Comment: <200 mg/dL, Desirable 200-239 mg/dL, Borderline high >239 mg/dL, High Performed By: #### L ABIMAEL, 07818-4 ####[facility] LABCLIA [id number] [place] [address] [place] HDL CHOLESTEROL, NF 39 mg/dL Low >39 [facility] Comment on above: Order Comment: Speci men Type: BLOOD SPECIMENOrdering Facility: [facility] Address: [address] [place] [address] Result Comment: 40-5 9 mg/dL, Acceptable >59 mg/dL, High: Negative risk factor for coronary heart disease <40 mg/dL, Low: Positive risk factor for coronary heart disease Performed By: #### L ABIMAEL, ####[facility] LABCLIA [id number] [address] [place] LDL CHOLESTEROL, NF 79 mg/dL Normal <100 [facility] Comment on above: Order Comment: Speci men Type: BLOOD SPECIMENOrdering Facility: [facility] Address: [address] [place] [address] Result Comment: <100 mg/dL, Optimal 100-129 mg/dL, Near optimal/above optimal 130-159 mg/dL, Borderline high 160-189 mg/dL, High >189 mg/dL, Very high Secondary prevention optimal LDL Cholesterol levels are recommended to be < 70 mg/dL Performed By: #### L ABIMAEL, ####[facility] LABCLIA [id number] [address] [place] LDL/HDL RATIO, NF 2.03 mg/dL Normal <2.54 [facility] Comment on above: Order Comment: Alyi men Type: BLOOD SPECIMENOrdering Facility: [facility] Address: [address] [place] [address] Result Comment: Refe rence: 1. National Cholesterol Education Program ATP III Guideline At-A-Glance Quick Desk Reference: National Heart, Lung, and Blood [place]. National Institutes of Health. 2001: NIH Publication No. 01-3305. 2. An International Atherosclerosis Society position paper: global recommendations for the management of dyslipidemia: executive summary, Atherosclerosis. 2014: 232(2):410-413. Performed By: #### L ABIMAEL, ####[facility] LABCLIA [id number] [address] STATES OF [facility] NON HDL CHOL, NF 98 mg/dL Normal <130 [facility] Comment on above: Order Comment: Speci men Type: BLOOD SPECIMENOrdering Facility: [facility] Address: [address] [place] [address] Result Comment: <130 mg/dL, Optimal 130-159 mg/dL, Near optimal/above optimal 160-189 mg/dL, Borderline high 190-219 mg/dL, High >219 mg/dL, Very high Secondary prevention optimal non HDL Cholesterol levels are recommended to be <100 mg/dL Performed By: #### L IPSHELLI, ####[facility] LABIA [id number] [address] [place] T CHOL/HDL RATIO NF 3.51 mg/dL Normal <5.10 [facility] Comment on above: Order Comment: Alyi men Type: BLOOD SPECIMENOrdering Facility: [facility] Address: [address] [place] [address] Performed By: #### L IPSHELLI, ####[facility] LABIA [id number] [place] [id number] [place] TRIGLYCERIDES, NF 96 mg/dL Normal <150 [facility] Comment on above: Order Comment: Alyi men Type: BLOOD SPECIMENOrdering Facility: [facility] Address: [address] [place] [address] Result Comment: <150 mg/dL, Normal 150-199 mg/dL, Borderline high 200-499 mg/dL, High >499 mg/dL, Very high Performed By: #### L IPNF, ####[facility] LABCLIA [id number] [place] [id number] [place] VLDL CHOLESTEROL, NF 19 mg/dL Normal <30 [facility] Comment on above: Order Comment: Speci men Type: BLOOD SPECIMENOrdering Facility: [facility] Address: [address] [place] [address] Performed By: #### L IP, 85318-6 ####[facility] LABIA [id number] [place] [address] [place] PSA SerPl-mCncon 10-05-2024 Prostate specific Ag [Mass/Vol] 0.34 ng/mL Normal <2.60 [facility] Comment on above: Order Comment: Speci men Type: BLOOD SPECIMENOrdering Facility: [facility] Address: [address] [place] [address] Result Comment: Tota l PSA test methodology used is the Electrochemiluminescence Immunoassay by [employer]. Total PSA values by differing methodologies cannot be interchanged. Performed By: #### 2 857-1 ####[facility] LABIA [id number] [place] [address] [place] CNPEmma [facility]-29-20[facility] SHAYYMARY ([id number]) 1960 M Date Time Provider Department 04/29/24 [facility] During your visit today, we recorded the following information about you: Lela Guan, GAYLE 04/29/2024 9:08 AM Signed Patient calls with BP readings for the past two weeks. Patient denies any symptoms with any readings. Patient reports that he is taking lisinopril 20 mg daily only as he was before his surgery and HCTZ 12.5 mg daily. 04/15/2024 730 am 115/67 1215 pm 115/70 7 pm 94/62 840 pm 109/71 04/16/2024 750 am 111/70 330 pm 97/68 545 pm 99/67 9 pm 125/66 04/17/2024 8 am 109/59 1030 am 138/76 420 pm 120/80 950 pm 107/58 04/18/2024 730 am 111/69 3 pm 145/81 910 pm 138/80 04/19/2024 830 am 110/65 220 pm 113/73 910 pm 128/75 04/20/2024 730 am 113/69 330 pm 116/74 950 pm 114/75 04/21/2024 715 am 131/78 215 pm 109/72 04/22/2024 750 am 100/67 830 pm 86/62 04/23/2024 7 am 114/73 430 pm 106/71 1015 pm 109/69 04/24/2024 840 am 124/74 04/25/2024 1045 am 113/67 04/28/2024 810 am 129/75 810 pm 99/71 04/29/2024 815 am 113/70 GAYLE Schaefer Jeffrey A, MD 04/29/2024 2:48 PM Signed Let patient know I I'm ok with his readings with the meds the way they are as long as he is not dizzy on the days it's 90's/60's. , Please verify if the lisinopril 20 mg is once a day or twice a day so I can update his chart. Lela Guan RN 04/29/2024 3:01 PM Signed Patient called and notified of below. Reports no dizziness. Taking lisinopril 20 mg once daily. Asking if prescriptions can be sent for the correct doses so he doesn't have to keep cutting them in half. Pended for review. GAYLE Schaefer Jeffrey A, MD 04/29/2024 3:11 PM Signed The following approved medication requests have been transmitted electronically. Requested Prescriptions Signed Prescriptions Disp Refills lisinopril (ZESTRIL) 20 mg tablet 90 tablet 1 Sig: Take 1 tablet by mouth once daily. Authorizing Provider: PRABHJOT ELUNG hydroCHLOROthiazide 12.5 mg capsule 90 capsule 1 Sig: Take 1 capsule by mouth once daily. 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 INFLUENZA VIRUS VACCINES 02/26/2024 14 - Other: See Comments Comments: Has a Hx Meg Peterson withCOVID VENOM-HONEY BEE 08/16/2023 10 - Anaphylaxis Date Reviewed: 04/28/2024 Reviewed by: Mima Pierre LPN - Fully Assessed Reason for Visit: Patient Update [1234] Order(s):lisinopril (ZESTRIL) 20 mg tabletTake 1 tablet by mouth once daily.Disp: 90 tabletRfl: 1 hydroCHLOROthiazide 12.5 mg capsuleTake 1 capsule by mouth once daily.Disp: 90 capsuleRfl: 1 Prescriptions as of 04/29/2024 - lisinopril (ZESTRIL) 20 mg tablet Take 1 tablet by mouth once daily. - hydroCHLOROthiazide 12.5 mg capsule Take 1 capsule by mouth once daily. - meloxicam (MOBIC) 7.5 mg tablet Take 7.5 mg by mouth as needed. - atorvastatin (LIPITOR) 40 mg tablet Take 1 tablet by mouth every other day. For cholesterol. - EPINEPHrine (EPIPEN) 0.3 mg/0.3 mL auto-injector Inject 0.3 mL subcutaneously as needed. Problem List As Of Date 04/29/2024 Noted Resolved Benign prostatic hyperplasia without lower urin*02/15/2010 Special Screening for Malignant Neoplasms, [place]*04/13/2010 Internal hemorrhoids without mention of complic*04/13/2010 01/31/2015 Benign neoplasm of rectum and anal canal [D12.8*04/13/2010 Essential hypertension, benign [I10] 06/01/2013 Hyperlipidemia, mixed [E78.2] 11/28/2015 ED (erectile dysfunction) of organic origin [N5*02/24/2021 BPV (benign positional vertigo) [H81.10] 04/05/2022 Ex-smoker [Z87.891] 04/05/2022 Prostate disorder [N42.9] 04/05/2022 Bilateral carotid artery stenosis [I65.23] 04/19/2022 Encounter for Medicare annual wellness exam [Z0*10/11/2022 Chronic midline low back pain without sciatica *08/16/2023 Lumbar radiculopathy [M54.16] 08/16/2023 Spinal stenosis of lumbar region with neurogeni*08/16/2023 Bilateral renal cysts [N28.1] 08/16/[address] [Z78.9] 10/03/2023 Advance directive discussed with patient [Z71.8*10/03/2023 Ectatic abdominal aorta (HCC) [I77.811] 11/18/2023 Bilateral foot-drop [M21.371, M21.372] 01/17/2024 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 HYDROCHLOROTHIAZIDE 12.5 MG CAPSULE 90 c* 1 04/29/2024 10/26/2024 Route: ORAL Sig: Take 1 capsule by mouth once daily. Medications Discontinued During This Encounter Prescriptions - (more content not included)... Normal [facility] CNOVon 04-28-2024 CNOV Office Visit ([facility] ) -- MRAY LUCAS ([id number]) 1960 M Date Time Provider Department 04/28/24 11:30 AM GUILHERME SHERWOOD [facility] During your visit today, we recorded the following information about you: Pulse Blood pressure Weight Height 72/minute 126/76 107.5 kg 1.875 m Guilherme Sherwood MD 04/28/2024 2:52 PM Signed CC: neuropathy fu S: He is slowly improving Got AFOs last week BP is improved recently. Medications: Current Outpatient Medications on File Prior to Visit Medication Sig hydroCHLOROthiazide 25 mg tablet Take 1 tablet by mouth once daily. lisinopril (ZESTRIL) 40 mg tablet Take 1 tablet by mouth two times a day. atorvastatin (LIPITOR) 40 mg tablet Take 1 tablet by mouth every other day. For cholesterol. EPINEPHrine (EPIPEN) 0.3 mg/0.3 mL auto-injector Inject 0.3 mL subcutaneously as needed. meloxicam (MOBIC) 7.5 mg tablet Take 7.5 mg by mouth as needed. (Patient not taking: Reported on 04/28/2024) No current facility-administered medications on file prior to visit. Exam: Vitals: BP 126/76 Pulse 72 Ht 187.5 cm (6' 1.82) Wt 107.5 kg (236 lb 15.9 oz) SpO2 98% BMI 30.58 kg/m? MSK: Normal bulk and tone throughout. Deltoid Triceps Biceps Wrist ext. Hand intrinsic Hip flexion Knee flexion Knee Ext. Brannon. Flex Pl. 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 Overall, the close clinical presentation is most consistent with acute onset radiculo-neuropathy. 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 Last visit, I advised continued participation in physical therapy, and provided prescription for ankle flexion orthotics for his foot drop. He is experiencing significant improvement since onset of symptoms and if this is GBS continued improvement is expected. He got AFOs last week He will follow up with me as needed. 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 INFLUENZA VIRUS VACCINES 02/26/2024 14 - Other: See Comments Comments: Has a Hx Meg Peterson withCOVID VENOM-HONEY BEE 08/16/2023 10 - Anaphylaxis Date Reviewed: 04/28/2024 Reviewed by: Mima Pierre LPN - Fully Assessed Reason for Visit: Follow Up [171] Cmt: Patient states doing better since last visit. Primary Visit Diagnosis:Bilateral foot-drop [M21.371, M21.372] Other Visit Diagnosis:Neuropathy of both feet [G57.93] Prescriptions as of 04/28/2024 - hydroCHLOROthiazide 25 mg tablet Take 1 tablet by mouth once daily. - lisinopril (ZESTRIL) 40 mg tablet Take 1 tablet by mouth two times a day. - meloxicam (MOBIC) 7.5 mg tablet Take 7.5 mg by mouth as needed. - atorvastatin (LIPITOR) 40 mg tablet Take 1 tablet by mouth every other day. For cholesterol. - EPINEPHrine (EPIPEN) 0.3 mg/0.3 mL auto-injector Inject 0.3 mL subcutaneously as needed. Problem List As Of Date 04/28/2024 Noted Resolved Benign prostatic hyperplasia without lower urin*02/15/2010 Special Screening for Malignant Neoplasms, [place]*04/13/2010 Internal hemorrhoids without mention of complic*04/13/2010 01/31/2015 Benign neoplasm of rectum and anal canal [D12.8*04/13/2010 Essential hypertension, benign [I10] 06/01/2013 Hyperlipidemia, mixed [E78.2] 11/28/2015 ED (erectile dysfunction) of organic origin [N5*02/24/2021 BPV (benign positional vertigo) [H81.10] 04/05/2022 Ex-smoker [Z87.891] 04/05/2022 Prostate disorder [N42.9] 04/05/2022 Bilateral carotid artery stenosis [I65.23] 04/19/2022 Encounter for Medicare annual wellness exam [Z0*10/11/2022 Chronic midline low back pain without sciatica *08/16/2023 Lumbar radiculopathy [M54.16] 08/16/2023 Spinal stenosis of lumbar region with neurogeni*08/16/2023 Bilateral renal cysts [N28.1] 08/16/[address] [Z78.9] 10/03/2023 Advance directive discussed with patient [Z71.8*10/03/2023 Ectatic abdominal aorta (HCC) [I77.811] 11/18/2023 Bilateral foot-drop [M21.371, M21.372] 01/17/2024 Neuropathy of both feet [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 Follow-up and Disposition History for Encounter Date Provider Department Center (more content not included)... Normal [facility] Re-Evaluation - PT (1)on Re-Evaluation - PT (1) [facility] [address] [place] [address]. [address] [place] [address] / REEVALUATION / MEDICARE RECERTIFICATION PHYSICAL THERAPY MR#: [id number] Acct: [id number] Name: MARY LUACS Rep #: [id number] : 1960 64 From: Sofi Kirk PT, Cert. MDT Referring Dr.: LAMINE Carlos Status:REG RC R Insurance: MEDICARE PART A B AAR Re-Evaluation Intro: LAMINE Montiel, It has been my pleasure to treat MARY LUCAS over the last 47 visits for S/P Back surgery Per Eval 09/02/23. Please see the progress note below for an update on the physical therapy plan of care! Subjective Subjective: PATIENT REPORTS HE IS DEFINATELY GETTING STRONGER. PATIENT REPORTS HIS BLOOD PRESSURE HAS BEEN GOOD. FOLLOW UP WITH PCP PENDING IN ABOUT A WEEK. DENIES HAVING ANY FALLS SINCE ABOUT SEPTEMBER 2023 (CAN'T REMEMBER WHEN LAST FALL WAS FOR SURE). ONLY USING ROLLATOR IN GRASS NOW. NO AD IN HOUSE WHEN DOESN'T HAVE TO WEAR SHOES. CANE IN COMMUNITY. ONLY USING ROLLATOR IF IN HIS GRASS. STATES HE IS ANSWERING THE QUESTIONNAIRE FOR FOOT PAIN - STATES HE DOESN'T REALLY HAVE MUCH BACK PAIN AND BACK PAIN IS NOT LIMITING HIM. STILL HAS NOT HAD FITTING FOR AFO'S BECAUSE ANNIE SAID THEY ARE WAITING ON MEDICARE APPROVAL. PATIENT REPORTS THE PAIN IN HIS FEET IS DIFFERENT NOW. STATES HE THINKS IT IS BECAUSE THEY ARE WAKING UP AND GETTING STRONGER/SORE AND HE HAS SOME LOWER LEG SORENESS TOO. THE LEG AND FOOT SORENESS COMES AND GOES WITH ACTIVITY. ICING HELPS. FEELS THERAPY IS HELPING HIM GET STRONGER AND WOULD LIKE TO CONTINUE. PATIENTS GOAL IS TO BE ABLE TO WALK WITHOUT AD. Objective Objective/Function: PATIENT HAS MET SEVERAL GOALS BUT CONTINUES TO HAVE ABNORMAL GAIT. HIS GAIT IS LIMITED IN TIME/DISTANCE BY C/O FOOT PAIN. HE CONTINUES TO HAVE ANKLE WEAKNESS AND HAS NOT RECEIVED AFO'S YET. FGA SCORE INDICATES HE IS STILL UNSAFE WITHOUT AD AND HIS GOAL IS TO BE ABLE TO WALK WITHOUT AD. HE IS A GOOD CANDIDATE TO CONTINUE PT BASED ON PROGRESS MADE AND ROOM FOR FURHTER IMPROVEMENT AND HE WOULD LIKE TO CONTINUE. HIS BLOOD PRESSUE HAS BEEN LESS OF A LIMITING FACTOR LATELY BUT TODAY IT BECAME ELEVATED AFTER THE FGA AND WE STOPPED PT AT THIS POINT. BP prior to session: 131/71 BP after FGA: 167/99 BP post-session: 141/81 Stairs: 1 flight reciprocal with single handrail on 03/20/24 (1 at a time goal with 2 HR) 30s STS: 20 reps - no hands/standard chair on 03/18/24 (10 rep goal) TU.57 standard cane, CGA on 03/18/24 (<15s goal) 6 MWT: 268 meters with SPC on 03/20/24 (47% normative range) FGA: 17 (New Goal - 22) Plan Plan Plan: *NO PT IF BP NUMBERS ARE >175/95 OR < 100/60 (PER PCP)* CONT PT 2X'S A WK X 4-6 WKS CHECK BLOOD PRESSURE PRIOR TO BEFORE, DURING AND AFTER EA SESSION. CORE AND LE STRENGTHENING INCLUDING ANKLES. GAIT AND BALANCE TRAINING WITH GAIT BELT WITH CONTACT GUARD AND/OR ASSISTIVE DEVICE. ADD GAIT TRAINING WITH VERTICAL AND HORIZONTAL HEAD TURNS, STEPPING OVER OBJECTS, PIVOTING AND NARROW BASE OF SUPPORT/tandem WALKING. RESTORE TRUNK AND LE FLEXIBILITY. POSTURE TRAINING. HEP INSTRUCTION Balance/Gait/Functional tests Balance/Special Test Scores Functional Gait Assessment Score: 17 % Disability: 43.3400 Oswestry Low Back Score: 13 TUG Test Time Seconds: 8.57 Tug Test: <10 sec.=free mobile 30 Second Chair Rise Test Seconds: 20 6 Minute Walk Test: 268 meters / 881 feet =47% of normative range Goals Goals Goal 1:: PATIENT WILL BE ABLE TO ASCEND AND DESCEND STEPS ONE AT A TIME WITH TWO HR'S SAFELY. Goal Time Frame: Goal Time Frame: 03-09 We Goal Progress: Goal Met Goal 2:: PATIENT WILL COMPLETE 10 STANDS IN 30 SECS WITHOUT UE ASSIST TO DEMONSTRATE GOOD FUNCTIONAL LE STRENGTH. Goal Time Frame: Goal Time Frame: - We Goal Progress: Goal Met Goal 3:: PATIENT WILL HAVE IMPROVED LE FUNCTIONAL ROM TO EASE ADL'S. Goal Time Frame: Goal Time Frame: - We Goal Progress: Progressing Goal 4:: PATIENT WILL HAVE LUMBAR FLEXION ROM WFL TO EASE ADL'S (WHEN ALLOWED BY PHYSICIAN). Goal Time Frame: Goal Time Frame: 03-09 We Goal Progress: NT this date Goal 5:: PATIENT WILL COMPLETE TUG IN < 15 SECS WITH ROLLATOR TO DEMONSTRATE IMPROVED GAIT STABILITY - Goal Met New Goal - FGA score of 22 or higher Goal Time Frame: Goal Time Frame: 03-09 We Goal Progress: Goal Met Goal 6:: PATIENT WILL BE INDEP WITH A HEP FOR CONTINUED IMPROVEMENT ONCE FORMAL PHYSICAL THERAPY CONCLUDES. Goal Time Frame: Goal Time Frame: 03-09 We Goal Progress: Progressing Anticipated Interventions Re-Evaluation Ending Re-evaluation ending: Please do not hesitate to contact me at [phone] by phone or if you have questions or concerns regarding this new plan of care! Sincerely, Sofi Kirk, PT, Cert MDT 03/26/24 1034 CC: GLAZE [employer]ER-C Alyse (more content not included)... Normal [facility] Re-Evaluation - PT (1)on Re-Evaluation - PT (1) [facility] [address] [place] [address] / REEVALUATION / MEDICARE RECERTIFICATION PHYSICAL THERAPY MR#: [id number] Acct: [id number] Name: MARY LUCAS Rep #: [id number] : 1960 64 From: Sofi Kirk PT, Cert. MDT Referring : OUT OF TOWN DOCTOR Status:REG RCR Insurance: MEDICARE PART A B AAR Re-Evaluation Intro: ALYSE EILEDONNIE, It has been my pleasure to treat MARY LUCAS over the last 38 visits for S/P BACK SURGERY PER EVAL 09/02/23. Please see the progress note below for an update on the physical therapy plan of care! Subjective Subjective: PATIENT REPORTS HIS BLOOD PRESSURE HAS BEEN BETTER. DENIES DIZZINESS. BLOOD PRESSURE BEFORE PT TODAY 130/89 AT HOME. FOLLOW UP PENDING WITH DR. LEUNG 02/26/24. WENT TO [employer] FOR AFO FITTING AND THEY RECOMMENDED SAAD AFO'S VS JUST ONE AFO SO ARE REQUESTING TO MAKE THEM OUT OF A LESS BULKY MATERIAL. PATIENT AWAITING CALL BACK FOR FITTING. PATIENT REPORTS HE HAS RESUMED HOME EX'S WITH 7 LB WEIGHTS FOR HIS LEGS IN SITTING AND STANDING. ALSO DOING STS'S AND STEP UPS. PATIENT REPORTS HIS FOOT PAIN IS ACTUALLY GETTING BETTER BUT HIS BIGGEST PROBLEM SEEMS TO BE HIS ANKLE WEAKNESS - THEY ROLL WHEN HE IS WALKING IN HIS YARD WITH HIS ROLLATOR. DENIES ANY FALLS IN THE HOUSE OR OUTSIDE. STATES HE HASN'T BEEN REAL ACTIVE TODAY AND THAT IS PROBABLY WHY HIS FEET DON'T HURT. THE MORE ACTIVE HE IS THE MORE HIS FEET HURT. DENEIS ANY FALLS. WALKING WITHOUT ANY AD IN HOUSE AND NOT HOLDING ON TO ANYTHING. USING CANE OUTSIDE OF HOME AND SOMETIMES ROLLATOR. AD AT NIGHT IN HOME THOUGH. Objective Objective/Function: THIS PATIENT PRESENTS TO PT TODAY WITH INCREASED SAAD LE STRENGTH INCLUDING HIS ANKLES, STEADIER GAIT AND MORE CONTROLLED BLOOD PRESSURE HOWEVER WE WERE NOT ABLE TO COMPLETE BALANCE TESTING DUE TO HIS BLOOD PRESSURE ELEVATING AFTER STRENGTH TESTING. HI TUG TIME DID NOT IMPROVE FROM LAST RE-CHECK BUT 30 SEC STS TEST IMPROVED FROM 7 TO 12. HE ALSO HAS GROSSLY 3+/5 ASAD ANKLE DORSIFLEXION STRENGTH NOW. Lumbar mvmt loss: FLEX - MOD - c/o hamstring tightness - NW EXT - MARCO - Produces CENTRAL LBP - NW RSG - MARCO - PRODUCES R LBP - NW LSG - MOD - NE TUG TIME - 17.15 SEC WITH ROLLATOR. 30 SEC STS: - 12 with one UE assist. Almost but able to rise from sitting without UE assist and maintain balance today. Strength: Measure in Average Peak Force Pounds: Hip Flex: R 39.5, L 24.4 Knee Ext: R 42.9, L 40.9 Knee Flex: R 33.8, L 33.7 Saad Ankle plantar flex grossly 4-/5, inv 3+/5, eversion 2/5. BP IN CLINIC AFTER SUBJECTIVE 154/90 151/88 AFTER TUG TEST 152/91 AFTER STS TEST 158/101 AFTER STRENGTH TESTING WHICH WAS LAST THING DONE. 157/96 UPON DEPARTURE. Plan Plan Plan: *NO PT IF BP NUMBERS ARE >175/95 OR < 100/60* RESUME PT 2X'S A WK X 4-6 WKS CHECK BLOOD PRESSURE PRIOR TO BEFORE, DURING AND AFTER EA SESSION. START NEXT SESSION WORKING ON GAIT TRAINING IN CLINIC WITH GAIT BELT W/CANE IN OR OUT OF PARALLEL BARS AND ASSESS FOR SAFETY OUT OF CLINIC IF DESIRED BY PATIENT. CORE AND LE STRENGTHENING INCLUDING ANKLES. GAIT AND BALANCE TRAINING. RESTORE TRUNK AND LE FLEXIBILITY. POSTURE TRAINING. HEP INSTRUCTION Balance/Gait/Functional tests Balance/Special Test Scores Oswestry Low Back Score: 19 Goals Goals Goal 1:: New Goal: PATIENT WILL BE ABLE TO ASCEND AND DESCEND STEPS ONE AT A TIME WITH TWO HR'S SAFELY. Goal Time Frame: 8-12 Weeks Goal Progress: Goal Met Goal 2:: PATIENT WILL COMPLETE 10 STANDS IN 30 SECS WITHOUT UE ASSIST TO DEMONSTRATE GOOD FUNCTIONAL LE STRENGTH. Goal Time Frame: 8-12 Weeks Goal Progress: Progressing Goal 3:: PATIENT WILL HAVE IMPROVED LE FUNCTIONAL ROM TO EASE ADL'S. Goal Time Frame: 8-12 Weeks Goal Progress: Progressing Goal 4:: PATIENT WILL HAVE LUMBAR FLEXION ROM WFL TO EASE ADL'S (WHEN ALLOWED BY PHYSICIAN). Goal Time Frame: 8-12 Weeks Goal Progress: Progressing Goal 5:: New Goal: PATIENT WILL COMPLETE TUG IN < 15 SECS WITH ROLLATOR TO DEMONSTRATE IMPROVED GAIT STABILITY Goal Time Frame: 8-12 Weeks Goal Progress: Progressing Goal 6:: PATIENT WILL BE INDEP WITH A HEP FOR CONTINUED IMPROVEMENT ONCE FORMAL PHYSICAL THERAPY CONCLUDES. Goal Time Frame: 8-12 Weeks Goal Progress: Progressing Anticipated Interventions Anticipated Interventions Patient/Client Instruction: Educate patient on: Condition, Plan of Care and Risk Factors For the Purpose of:: To improve self management Therapeutic Exercise to Include: Strength training, Body mechanics, Postural training, Flexibilty training, Neuromotor development and Dynamic Lumbar Stabilization For the Purpose of:: To decrease pain, To improve muscle performance and motor function, To increase tolerance to activity/condition/positio n, To improve ability of physical actions for home/ (more content not included)... Normal [facility] Re-Evaluation - PT (1)on Re-Evaluation - PT (1) [facility] [address] [place] [address] / REEVALUATION / MEDICARE RECERTIFICATION PHYSICAL THERAPY MR#: [id number] Acct: [id number] Name: MARY LUCAS Rep #: [id number] : 1960 64 From: Sofi Kirk PT, Cert. MDT Referring Dr.: OUT OF TOWN DOCTOR Status:REG RCR Insurance: MEDICARE PART A B AAR Re-Evaluation Intro: ALYSE CARLOS, It has been my pleasure to treat MARY LUCAS over the last 36 visits for S/P BACK SURGERY PER EVAL 09/02/23. Please see the progress note below for an update on the physical therapy plan of care! Subjective Subjective: WENT TO SEE NEUROLOGIST YESTERDAY IN [facility]. 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 ALSO SAAD AFO'S ORDERED. FOLLOW UP PENDING APR 28 2024. BLOODWORK ORDERED TOO. CALLED DR. LEUNG (PCP) SATURDAY AFTER LAST PT VISIT ABOUT HIGH BP AND THEY DOUBLE HIS MEDICATION. UPON ARRIVAL TODAY HE REPORTS DECREASED dizziness and less dizziness over-all. HE REPORTS HE HAS TAKEN HIS BP 2 TIMES ALREADY TODAY AND IT WAS 140/94 and 170/99. GOING OUT OF TOWN FOR A WEEK. GOING TO SON'S IN [place]. PATIENT STATES THAT DESPITE HIS DIZZINESS HE IS FEELING A LITTLE STRONGER THAN LAST RE-CHECK AND STARTING TO USE HIS CANE MORE AT HOME THE LAST 2 WEEKS (THE 4 POST ONE) ESPECIALLY WITHOUT HIS SHOES ON). BUT IT SURE WOULD BE NICE TO HAVE SOME FEELING IN THE BOTTOM OF MY FEET. STATES FOR SOME REASON HE FEELS A LITTLE MORE SECURE ON CARPET WITHOUT HIS SHOES ON. DENIES ANY FALLS. STATES HE EVEN GOES OUT ON LEVEL SURFACES SOMETIMES SHORT DISTANCE WITH HIS CANE. Objective Objective/Function: BP beginning of session 143/90 mmHg BP after TUG Test 145/84 mmHg BP post session 140/83 mmHg Patient is still showing signs of slow progress with PT but progress has been limited by his high blood pressure more so recently. He reports being strong enough to ambulate more with his cane vs walker now but he is unsafe without walker/rollator. He reports compliance with HEP. HE AMBULATES INDEP'LY INTO PT TODAY WITH his rollator. HE WALKS WITH DECREASED CADANCE, DECREASED SAAD STRIDE LENGTH but no hip hiking and no toe catching or leg dragging as has been seen intermittently in past. He is wearing sandals today and reports feeling steadier in them vs shoes. TUG TIME - 17.06 SEC WITH ROLLATOR (patient with minimal pause time upon rising from sitting today vs last re-check when he was having more dizziness). Sitting/Standing Posture: SCOLIOTIC POSTURE WITH REDUCED LORDOSIS. PPT. INCREASED TRUNK FLEXION. ROM deficit: VERY TIGHT SAAD LE HIP FLEXORS AND ROTATORS, HS'S AND CALVES. Lumbar mvmt loss: FLEX - MOD - c/o hamstring tightness - NW EXT - MARCO - Produces LBP - NW RSG - MARCO - PRODUCES LBP - NW LSG - MOD - produces LBP - NW Core strength: POOR - but has weaned out of back brace. 30 SEC STS: - 7 with one UE assist. Unable to rise from sitting without UE assist and maintain balance. MMT not specifically performed today but L plantar flexion strength observed greater than R. Saad ankle dorsiflexion weakness also evident no more than 3/5. Plan Plan Plan: HOLD PT PENDING PHYSICIAN RE-ASSESSMENT AFTER PATIENT RETURNS FROM VACATION. Balance/Gait/Functional tests Balance/Special Test Scores Oswestry Low Back Score: 12 Goals Goals Goal 1:: New Goal: PATIENT WILL BE ABLE TO ASCEND AND DESCEND STEPS ONE AT A TIME WITH TWO HR'S SAFELY. Goal Time Frame: 8-12 Weeks Goal Progress: Goal Met Goal 2:: PATIENT WILL COMPLETE 10 STANDS IN 30 SECS WITHOUT UE ASSIST TO DEMONSTRATE GOOD FUNCTIONAL LE STRENGTH. Goal Time Frame: 8-12 Weeks Goal Progress: STAYING THE SAME (11/27/23) Goal 3:: PATIENT WILL HAVE IMPROVED LE FUNCTIONAL ROM TO EASE ADL'S. Goal Time Frame: 8-12 Weeks Goal Progress: Not Progressing Goal 4:: PATIENT WILL HAVE LUMBAR FLEXION ROM WFL TO EASE ADL'S (WHEN ALLOWED BY PHYSICIAN). Goal Time Frame: 8-12 Weeks Goal Progress: Progressing Goal 5:: New Goal: PATIENT WILL COMPLETE TUG IN < 15 SECS WITH ROLLATOR TO DEMONSTRATE IMPROVED GAIT STABILITY Goal Time Frame: 8-12 Weeks Goal Progress: Progressing Goal 6:: PATIENT WILL BE INDEP WITH A HEP FOR CONTINUED IMPROVEMENT ONCE FORMAL PHYSICAL THERAPY CONCLUDES. Goal Time Frame: 8-12 Weeks Goal Progress: Progressing Anticipated Interventions Anticipated Interventions Patient/Client Instruction: Educate patient on: Condition, Plan of Care and Risk Factors For the Purpose of:: To improve self management Therapeutic Exercise to Include: Strength training, Body mechanics, Postural training, Flexibilty training, Neuromotor development and Dynamic Lumbar Stabilization For the Purpose of:: To decrease pain, To improve muscle performance and motor function, To increase tolerance to activity/condition/positio n, To improve ability (more content not included)... Normal [facility] No Panel Informationon 12-29 Results can be seen in attached scanned documents. If you are a patient reviewing this test result, call the doctor who ordered the test with any questions. [facility] Re-Evaluation - PT (1)on Re-Evaluation - PT (1) [facility] [address] [place] [address]. [address] [place] [address] / REEVALUATION / MEDICARE RECERTIFICATION PHYSICAL THERAPY MR#: [id number] Acct: [id number] Name: MARY LUCAS Rep #: [id number] : 1960 63 From: Sofi Kirk PT, Cert. MDT Referring : OUT OF TOWN DOCTOR Status:REG RCR Insurance: MEDICARE PART A B AARP Re-Evaluation Intro: ALYSE CARLOS, It has been my pleasure to treat MARY LUCAS over the last 29 visits for S/P BACK SURGERY PER EVAL 09/02/23. Please see the progress note below for an update on the physical therapy plan of care! Subjective Subjective: HAD FOLLOW UP WITH PA AT [facility] LAST Saturday12/17/23. HE REPORTS THE LD'T WAS ACTUALLY AN ERROR AND HIS HAD SOME QUESTIONS FOR THEM BUT HE CAN'T REMEMBER WHAT THEY WERE. HE REPORTS SHE IS BEING MORE IMPATIENT THAN HE IS WITH IS PROGRESS. HE STATES HE IS UNDER THE IMPRESSION THAT IT COULD TAKE A YEAR FOR HIS NERVES TO COME BACK SO HE IS TRYING TO BE PATIENT. PATIENT REPORTS HE FEELS LIKE HE IS MAKING SLOW PROGRESS - I CAN ACTUALLY TAKE SOME STEPS ACROSS THE ROOM WITHOUT A WALKER OR ANYTHING BUT I'M WEARY ABOUT IT. PATIENT REPORTS HE FEELS LIKE HIS STRENGTH AND COORDINATION IS IMPROVING BUT NOT HIS FOOT PAIN. RARELY WEARS BACK BRACE NOW. PATIENT DENIES HAVING ANY PHYSICIAN RESTRICTIONS. PATIENT REPORTS HE IS STILL TAKING meloxicam. REPORTS HE DECREASED HIS GABAPENTIN FROM 3 TIMES A DAY TO ONCE A DAY. PATIENT REPORTS HIS BLOOD PRESSURE WAS ELEVATED WHICH ISN'T UNUSUAL FOR HIM DUE TO ANXIETY WHEN SEEING DOCTORS BUT IT WAS UNUSUALLY HIGH. Objective Objective/Function: Patient is still showing signs of slow progress with PT with strengthening but testing was limited today due to dizziness and needing to be assessed for high blood pressure which he has an ld't for today. He has been able to wean out of the back brace almost completely since last re-check but not off of the Rollator yet. He is unsafe with gait without the rollator. He reports compliance with home exercises between therapy sessions if he has more than one day off between therapy sessions. HE AMBULATES INDEP'LY INTO PT TODAY WITH his rollator. HE WALKS WITH DECREASED CADANCE, DECREASED SAAD STRIDE LENGTH but no hip hiking and no toe catching or leg dragging as has been seen intermittently in past. TUG TIME - 20.25 SEC WITH ROLLATOR (patient with increased pause time upon rising from sitting due to dizziness). Sitting/Standing Posture: SCOLIOTIC POSTURE WITH REDUCED LORDOSIS. PPT. INCREASED TRUNK FLEXION. ROM deficit: VERY TIGHT SAAD LE HIP FLEXORS AND ROTATORS, HS'S AND CALVES. Lumbar mvmt loss: FLEX - MOD - C/O INCREASED FOOT PAIN AND PULLING IN CALVES - NW EXT - MARCO RSG - MARCO - PRODUCES LBP - NW LSG - MOD Core strength: POOR 30 SEC STS: - NT DUE TO DIZZINESS PROVOKED WITH ONE ATTEMPT. PATIENT HAS LD'T TO GET HIS BLOOD PRESSURE ASSESSED TODAY AFTER PT. Plan Plan Plan: CONTINUE PT 2X'S A WK X 6-8 WKS. FOCUS ON CORE AND LE STRENGTHENING INCLUDING ANKLES. GAIT AND BALANCE TRAINING. RESTORE TRUNK AND LE FLEXIBILITY. POSTURE TRAINING. HEP INSTRUCTION Balance/Gait/Functional tests Balance/Special Test Scores Oswestry Low Back Score: 21 Goals Goals Goal 1:: New Goal: PATIENT WILL BE ABLE TO ASCEND AND DESCEND STEPS ONE AT A TIME WITH TWO HR'S SAFELY. Goal Time Frame: 8-12 Weeks Goal Progress: Not Progressing Goal 2:: PATIENT WILL COMPLETE 10 STANDS IN 30 SECS WITHOUT UE ASSIST TO DEMONSTRATE GOOD FUNCTIONAL LE STRENGTH. Goal Time Frame: 8-12 Weeks Goal Progress: Not assessed Goal 3:: PATIENT WILL HAVE IMPROVED LE FUNCTIONAL ROM TO EASE ADL'S. Goal Time Frame: 8-12 Weeks Goal Progress: Not Progressing Goal 4:: PATIENT WILL HAVE LUMBAR FLEXION ROM WFL TO EASE ADL'S (WHEN ALLOWED BY PHYSICIAN). Goal Time Frame: 8-12 Weeks Goal Progress: NT Goal 5:: New Goal: PATIENT WILL COMPLETE TUG IN < 15 SECS WITH ROLLATOR TO DEMONSTRATE IMPROVED GAIT STABILITY Goal Time Frame: 8-12 Weeks Goal Progress: Not Progressing Goal 6:: PATIENT WILL BE INDEP WITH A HEP FOR CONTINUED IMPROVEMENT ONCE FORMAL PHYSICAL THERAPY CONCLUDES. Goal Time Frame: 8-12 Weeks Goal Progress: Progressing Anticipated Interventions Anticipated Interventions Patient/Client Instruction: Educate patient on: Condition, Plan of Care and Risk Factors For the Purpose of:: To improve self management Therapeutic Exercise to Include: Strength training, Body mechanics, Postural training, Flexibilty training, Neuromotor development and Dynamic Lumbar Stabilization For the Purpose of:: To decrease pain, To improve muscle performance and motor function, To increase tolerance to activity/condition/positio n, To improve ability of physical actions for home/community/work/leisur e, To improve gait and locomotor functions a (more content not included)... Normal [facility] Re-Evaluation - PT (1)on Re-Evaluation - PT (1) [facility] [address] [place] [address]. [address] [place] [address] / REEVALUATION / MEDICARE RECERTIFICATION PHYSICAL THERAPY MR#: [id number] Acct: [id number] Name: MARY LUCAS Rep #: [id number] : 1960 63 From: Sofi Kirk PT, Cert. MDT Referring : Status:REG RCR Insurance: MEDICARE PART A B [facility] Re-Evaluation Intro: ALYSE CARLOS, It has been my pleasure to treat MARY LUCAS over the last 21 visits for S/P BACK SURGERY PER EVAL 09/02/23. Please see the progress note below for an update on the physical therapy plan of care! Subjective Subjective: PATIENT REPORTS HE CAN ACTUALLY TAKE SOME STEPS AT HOME NOW WITHOUT USING THE WALKER. SOMETIMES I WEAKER THAN OTHERS AND IT DOESN'T TAKE MUCH TO WEAR ME OUT THOUGH. IT IS ALL BECAUSE OF MY FEET. MY FEET ARE THE BIG PROBLEM. PATIENT REPORTS DR. CRAIG TOLD HIM IT COULD TAKE HIS FEET A YEAR TO RECOVER. HE STATES HIS FEET HURT ALL THE TIME BUT HE ALWAYS FEELS BETTER WHEN HE IS DONE WITH THERAPY - FEELS STRONGER. MOSTLY JUST PAIN IN HIS FEET BUT SOME LBP LAST NIGHT TOO. PATIENT REPORTS HE TALKED TO DR. TEMPLETON OFFICE RECENTLY ABOUT MEDICATION AND THEY TOLD HIM 12/01/23 WHEN HE IS 3 MO PO HE CAN TAKE OTC IBUPROFEN FOR INFLAMMATION. Objective Objective/Function: PATIENT WAS SEEN TODAY FOR RE-ASSESSMENT OF PROGRESS TOWARD THE SET PT GOALS AND THE NEED FOR FURTHER PHYSICAL THERAPY VS READINESS FOR DISCHARGE. This patient is making slow progress with some strengthening with PT. He has been unable to wean out of back brace or off of Rollator yet. He would like to decrease to 2x's a wk with PT and is willing to do more work at home between ld'ts. This PT is agreeable. UPON EXAM TODAY: Objective/Function: STRENGTH TESTING EOB: R hip flexion: 32.3#, L 35.4# R knee ext: 38.2#, L 38.3# R knee flex: 24.6#, L 31.1# R ankle dorsiflex 5.4 LBS, L 5.6 LBS R ankle plantarflex 15.5 lbs, L 15.4 lbs THIS PATIENT AMBULATES INDEP'LY INTO PT TODAY WITH A rollator. HE WALKS WITH DECREASED CADANCE, DECREASED SAAD STRIDE LENGTH AND MILD SAAD HIP HIKING DURING SWING PHASES OF GAIT. NO LOB. TUG TIME - 20.26 SEC WITH ROLLATOR Sitting/Standing Posture: REDUCED LORDOSIS. PPT. INCREASED TRUNK FLEXION. ROM deficit: VERY TIGHT SAAD LE HIP FLEXORS AND ROTATORS, HS'S AND CALVES. Dural Signs: NEGATIVE SAAD LE'S. Lumbar mvmt loss: NT. Still wearing back brace. Core strength: POOR 30 SEC STS: 7 WITH ONE UE ASSIST Plan Plan Plan: PT 2X'S A WK X 6-8 WKS. FOCUS ON CORE AND LE STRENGTHENING INCLUDING ANKLES. GAIT AND BALANCE TRAINING. RESTORE TRUNK AND LE FLEXIBILITY. POSTURE TRAINING. HEP INSTRUCTION Balance/Gait/Functional tests Balance/Special Test Scores Oswestry Low Back Score: 21 Goals Goals Goal 1:: PATIENT WILL BE INDEP WITH GAIT ON LEVEL SURFACES AND UP AND DOWN STEPS RECIP WITH ONE HR WITHOUT AD WITHOUT LIMITATION. Goal Time Frame: 8-12 Weeks Goal Progress: Not Progressing Goal 2:: PATIENT WILL COMPLETE 10 STANDS IN 30 SECS WITHOUT UE ASSIST TO DEMONSTRATE GOOD FUNCTIONAL LE STRENGTH. Goal Time Frame: 8-12 Weeks Goal Progress: Progressing Goal 3:: PATIENT WILL HAVE IMPROVED LE FUNCTIONAL ROM TO EASE ADL'S. Goal Time Frame: 8-12 Weeks Goal Progress: Progressing Goal 4:: PATIENT WILL HAVE LUMBAR FLEXION ROM WFL TO EASE ADL'S (WHEN ALLOWED BY PHYSICIAN). Goal Time Frame: 8-12 Weeks Goal Progress: NT Goal 5:: PATIENT WILL HAVE IMPROVED TRUNK FLEXIBILILTY TO ALLOW FOR NEUTRAL POSTURE AND HAVE THE STRENGTH TO MAINTAIN NEUTRAL SPINE THROUGHOUT PT SESSION. Goal Time Frame: 8-12 Weeks Goal Progress: Not Progressing Goal 6:: PATIENT WILL BE INDEP WITH A HEP FOR CONTINUED IMPROVEMENT ONCE FORMAL PHYSICAL THERAPY CONCLUDES. Goal Time Frame: 8-12 Weeks Goal Progress: Progressing Anticipated Interventions Anticipated Interventions Patient/Client Instruction: Educate patient on: Condition, Plan of Care and Risk Factors For the Purpose of:: To improve self management Therapeutic Exercise to Include: Strength training, Body mechanics, Postural training, Flexibilty training, Neuromotor development and Dynamic Lumbar Stabilization For the Purpose of:: To decrease pain, To improve muscle performance and motor function, To increase tolerance to activity/condition/positio n, To improve ability of physical actions for home/c ommunity/work/leisure, To improve gait and locomotor functions and To increase flexibility/ROM Re-Evaluation Ending Re-evaluation ending: Please do not hesitate to contact me at [phone] by phone or if you have questions or concerns regarding this new plan of care! Sincerely, Sofi Kirk, PT, Cert MDT 11/27/23 7226 CC: Dr. Prabhjot Leung MD; ALYSE CARLOS GLENNA Signed For Medicare only, by signing this I cer (more content not included)... Normal [facility] US Abdominal Aorta for cele grace 11-18-2023 IMPRESSION: The abdominal aorta is ectatic, without focal aneurysmal dilatation. Rn Care Manager: PSCB Transcribe Date/Time: Nov 18 2023 1:42P Dictated by : JET PUENTES MD This examination was interpreted and the report reviewed and electronically signed by: JET PUENTES MD on Nov 18 2023 1:44PM [facility] DIVISION OF RADIOLOGY * * *Final Report* * * DATE OF EXAM: Nov 18 2023 9:07AM [facility] 1028 - US SCREENING AAA / PROCEDURE REASON: multiple diagnoses * * * * Physician Interpretation * * * * EXAMINATION: SCREENING ABDOMINAL AORTA ULTRASOUND HISTORY: Screening evaluation for abdominal aortic aneurysm. Risk factor for aortic aneurysm. TECHNIQUE: Sonography of the abdominal aorta was performed. Images were obtained and stored in a permanent archive. MQ: USAOS_1 COMPARISON: CT scans of 11/15/2017 RESULT: AORTA (AP x TV): Proximal: 3 cm x 3.1 cm Mid (level of renal arteries): 2.5 cm x 2.8 cm Distal: 1.9 cm x 2.1 cm Common Iliac Arteries (AP x TV): Right: 1.3 cm x 1.3 cm Left: 1.3 cm x 1.4 cm Atherosclerotic plaque: present DIVISION [facility] RADIOLOGY [facility] * * *Final Report* * * DATE OF EXAM: Nov 18 2023 9:07AM [facility] 1028 - US SCREENING AAA / PROCEDURE REASON: multiple diagnoses * * * * Physician Interpretation * * * * EXAMINATION: SCREENING ABDOMINAL AORTA ULTRASOUND HISTORY: Screening evaluation for abdominal aortic aneurysm. Risk factor for aortic aneurysm. TECHNIQUE: Sonography of the abdominal aorta was performed. Images were obtained and stored in a permanent archive. MQ: USAOS_1 COMPARISON: CT scans of 11/15/2017 RESULT: AORTA (AP x TV): Proximal: 3 cm x 3.1 cm Mid (level of renal arteries): 2.5 cm x 2.8 cm Distal: 1.9 cm x 2.1 cm Common Iliac Arteries (AP x TV): Right: 1.3 cm x 1.3 cm Left: 1.3 cm x 1.4 cm Atherosclerotic plaque: present IMPRESSION IMPRESSION: The abdominal aorta is ectatic, without focal aneurysmal dilatation. Rn Care Manager: PSCB Transcribe Date/Time: Nov 18 2023 1:42P Dictated by : JET PUENTES MD This examination was interpreted and the report reviewed and electronically signed by: JET PUENTES MD on Nov 18 2023 1:44PM EST [facility] Radiology Study observation (narrative) [facility] US Abdominal Aorta for cele Zavalaered By: Ccf Provider on 11-18-2023 [facility] Re-Evaluation - PT (1)on Re-Evaluation - PT (1) [facility] [address] [place] [address]. [address] [place] [address] / REEVALUATION / MEDICARE RECERTIFICATION PHYSICAL THERAPY MR#: [id number] Acct: [id number] Name: MARY LUCAS Rep #: [id number] : 1960 63 From: Sofi Kirk PT, Cert. MDT Referring DrRaymon: Status:REG RCR Insurance: MEDICARE PART A B AARP Re-Evaluation Intro: ALYSE CARLOS, It has been my pleasure to treat MARY LUCAS over the last 11 visits for S/P BACK SURGERY PER EVAL 09/02/23. Please see the progress note below for an update on the physical therapy plan of care! Subjective Subjective: PATIENT REPORTS HE SAW DR. CRAIG 10/16 AND HAD X-RAYS DONE. X-RAYS LOOKED GOOD. MRI ORDERED AND HE IS HAVING THAT DONE LATER TODAY. HE REPORTS THEY CHECKED HIS FEET FOR DROP FOOT AND THEY TOLD HIM HE DOES NOT HAVE IT. HE STATES THEY TOLD HIM IT COULD TAKE A YEAR FOR HIM TO RECOVER AND GET HIS FEELING BACK IN HIS FEET. HE REPORTS HIS LEFT FOOT IS BETTER THAN HIS RIGHT. PATIENT REPORTS HE TOLD DR. CRAIG HE WAS TAKING TIME OFF FROM THERAPY FOR VACATION BUT HE ENDED UP NOT GOING. HE REPORTS HIS CHILDREN ENDED UP COMING UP HERE TO SEE HE AND HIS INSTEAD. PATIENT REPORTS HE AND HIS FAMILY WERE CONCERNED ABOUT HIM BEING ABLE TO DRIVE THAT FAR SO THEY STAYED HOME. HE ALSO REPORTS DR. CRAIG TOLD HIM TO RESUME THERAPY AFTER VACATION WITHOUT THE BRACE. PATIENT REPORTS DR. CRAIG DID NOT GIVE HIM ANY RESTRICTIONS. Objective Objective/Function: STRENGTH TESTING EOB: R hip flexion: 32.3#, L 35.4# R knee ext: 33.4#, L 31.8# R knee flex: 24.7#, L 31.2# R ankle dorsiflex 3-/5, L 3/5 (dorsiflexion fatigues quickly with repetition). THIS PATIENT AMBULATES INDEP'LY INTO PT TODAY WITH A FWW. HE WALKS WITH DECREASED CADANCE, DECREASED SAAD STRIDE LENGTH AND MILD SAAD HIP HIKING DURING SWING PHASES OF GAIT. NO LOB. HE REPORTS HE FEELS SAFER WITH THE WALKER. HIS IS HAVING TKR TOMORROW AND WILL NEED THE WALKER TOMORROW SO HE WILL BE USING A ROLLATOR. THIS WALKER IS SET TOO LOW. PATIENT WAS TAUGHT HOW TO PROPERLY SET WALKER HEIGHT SO HE CAN SET ROLLATOR PROPERLY TOO. ENCOURAGED PATIENT TO CONTINUE TO USE WALKER UNTIL HE CAN GET STRONGER AGAIN. HE REPORTS HE REALLY HASN'T FELT THE SAME SINCE GETTING HIS COVID VACCINE. Sitting/Standing Posture: REDUCED LORDOSIS. PPT. INCREASED TRUNK FLEXION. ROM deficit: VERY TIGHT SAAD LE HIP FLEXORS AND ROTATORS, HS'S AND CALVES. Dural Signs: NEGATIVE SAAD LE'S. Lumbar mvmt loss: NT Core strength: POOR PATIENT APPEARS TO BE A GOOD CANDIDATE TO RESUME PT. PATIENT IS AGREEABLE AND REPORTS DR. CRAIG KNOWS HE WAS GOING TO TAKE A BREAK FROM PT FOR VACATION BUT DOESN'T KNOW HE ENDED UP NOT GOING. MRI PENDING TODAY. Plan Plan Plan: CHECK ON MRI RESULTS RESUME PT 3X'S A WK X 8-12 WKS. FOCUS ON CORE AND LE STRENGTHENING INCLUDING ANKLES. GAIT AND BALANCE TRAINING. RESTORE TRUNK AND LE FLEXIBILITY. POSTURE TRAINING. HEP INSTRUCTION Balance/Gait/Functional tests Balance/Special Test Scores Oswestry Low Back Score: 23 Goals Goals Goal 1:: PATIENT WILL BE INDEP WITH GAIT ON LEVEL SURFACES AND UP AND DOWN STEPS RECIP WITH ONE HR WITHOUT AD WITHOUT LIMITATION. Goal Time Frame: 8-12 Weeks Goal Progress: Not Progressing Goal 2:: PATIENT WILL COMPLETE 10 STANDS IN 30 SECS WITHOUT UE ASSIST TO DEMONSTRATE GOOD FUNCTIONAL LE STRENGTH. Goal Time Frame: 8-12 Weeks Goal Progress: NT Goal 3:: PATIENT WILL HAVE IMPROVED LE FUNCTIONAL ROM TO EASE ADL'S. Goal Time Frame: 8-12 Weeks Goal Progress: Not Progressing Goal 4:: PATIENT WILL HAVE LUMBAR FLEXION ROM WFL TO EASE ADL'S (WHEN ALLOWED BY PHYSICIAN). Goal Time Frame: 8-12 Weeks Goal Progress: NT Goal 5:: PATIENT WILL HAVE IMPROVED TRUNK FLEXIBILILTY TO ALLOW FOR NEUTRAL POSTURE AND HAVE THE STRENGTH TO MAINTAIN NEUTRAL SPINE THROUGHOUT PT SESSION. Goal Time Frame: 8-12 Weeks Goal Progress: Not Progressing Goal 6:: PATIENT WILL BE INDEP WITH A HEP FOR CONTINUED IMPROVEMENT ONCE FORMAL PHYSICAL THERAPY CONCLUDES. Goal Time Frame: 8-12 Weeks Anticipated Interventions Anticipated Interventions Patient/Client Instruction: Educate patient on: Condition, Plan of Care and Risk Factors For the Purpose of:: To improve self management Therapeutic Exercise to Include: Strength training, Body mechanics, Postural training, Flexibilty training, Neuromotor development and Dynamic Lumbar Stabilization For the Purpose of:: To decrease pain, To improve muscle performance and motor function, To increase tolerance to activity/condition/positio n, To improve ability of physical actions for home/community/work/leisur e, To improve gait and locomotor functions and To increase flexibility/ROM Re-Evaluation Ending Re-evaluation ending: Please do not hesitate to contact me at [phone] by phone or if you have quest (more content not included)... Normal [facility] Re-Evaluation - PT (1)on Re-Evaluation - PT (1) [facility] [address] [place] [address] / REEVALUATION / MEDICARE RECERTIFICATION PHYSICAL THERAPY MR#: [id number] Acct: [id number] Name: MARY LUCAS Rep #: [id number] : 1960 63 From: Sofi Kirk PT, Cert. MDT Referring : Status:REG RCR Insurance: MEDICARE PART A B AARP Re-Evaluation Intro: ALYSE TERRANCE, It has been my pleasure to treat MARY LUCAS over the last 10 visits for S/P BACK SURGERY PER EVADEN 09/02/23. Please see the progress note below for an update on the physical therapy plan of care! Subjective Subjective: PATIENT REPORTS NEAR FALL LAST NIGHT WHEN GETTING UP TO GO TO THE BATHROOM DURING THE NIGHT. HAD HIS CANE WITH HIM AND TWISTED. PATIENT REPORTS 20% IMPROVEMENT IN HIS CORE STRENGTH AND LEG STRENGTH SINCE STARTING PT. I WAS ABOUT 70% BETTER (10/02/22) BEFORE I HAD THAT BACKSLIDE. I DON'T KNOW WHAT HAPPEND THERE. PATIENT REPORTS HE FEELS LIKE HE IS STARTING TO RECOVER FROM THAT BACKSLIDE. STATES HE IS STILL TAKING gabapentin. STATES HE ICED HIS FEET BEFORE BED LAST NIGHT AND THAT HELPED BUT FOOT PAIN STILL WOKE HIM UP ABOUT 4 AM. I REALLY DON'T HAVE MUCH PAIN IN MY LEGS ANY MORE ITS JUST IN MY FEET SO IT SEEMS LIKE IT IS SLOWLY GETTING BETTER. Objective Objective/Function: PATIENT WAS SEEN TODAY FOR RE-ASSESSMENT OF PROGRESS TOWARD THE SET PT GOALS AND THE NEED FOR FURTHER PHYSICAL THERAPY VS READINESS FOR DISCHARGE. THIS PATIENT AMBULATES INTO PT TODAY WITH A STRAIGHT CANE WITH UNSTEADY GAIT. CONTACT GUARD GIVEN FOR SAFETY. HE IS LEANING HEAVILY ON HIS CANE AND STOPPED TO REST SEVERAL TIMES ON HIS WAY BACK TO THE TREATMENT ROOM (ABOUT [address] IN AND OUT OF PT TODAY HE CAUGHT HIS TOES DURING SWING PHASE OF GAIT A FEW TIMES BUT REGAINED BALANCE INDEP'LY. HE IS DEMO'ING INCREASED LE WEAKNESS AND SCORED WORSE ON FUNCTIONAL SCREEN DESPITE SUBJECTIVE REPORTS ABOVE. HE HAS 3-/5 DORSIFLEXION STRENGTH SAAD TODAY. THIS PT RECOMMENDS WALKER FOR SAFETY AND PATIENT REPORTS HE HAS ACTUALLY STARTED USING HIS WALKER AT NIGHT AGAIN BUT WAS NOT USING IT SATURDAY NIGHT WHEN HE HAD THE NEAR FALL. THIS PT ALSO RECOMMENDS PATIENT CALL HIS SURGEON ABOUT INCREASED DIFFICULTY WITH GAIT AND INCREASED LE WEAKNESS AND SCHEDULE FOLLOW UP VISIT PRIOR TO GOING ON VACATION. IN ADDITION THIS PT RECOMMENDS CONTINUED USE OF BACK BRACE UNTIL SEEING SURGEON. PATIENT AGREEABLE WITH ALL RECOMMENDATIONS. OTHER STRENGTH TESTING EOB: L quad: 41.3# R quad: 48.6# L hip flexion: 39.8# R hip flexion: 27.2# THIS PT WALKED PATIENT TO HOSPITAL TRANSPORTATION VAN POST SESSION. PATIENT GOT INTO VAN INDEP'LY. Plan Plan Plan: HOLD PT DUE TO PATIENT GOING ON VACATION. RECHECK BY PT UPON RETURN FROM VACATION. Balance/Gait/Functional tests Balance/Special Test Scores Oswestry Low Back Score: 23 Goals Goals Goal 1:: PATIENT WILL BE INDEP WITH GAIT ON LEVEL SURFACES AND UP AND DOWN STEPS RECIP WITH ONE HR WITHOUT AD WITHOUT LIMITATION. Goal Time Frame: 8-12 Weeks Goal Progress: Not Progressing Goal 2:: PATIENT WILL COMPLETE 10 STANDS IN 30 SECS TO WITHOUT UE ASSIST TO DEMONSTRATE GOOD FUNCTIONAL LE STRENGTH. Goal Time Frame: 8-12 Weeks Goal Progress: NT Goal 3:: PATIENT WILL HAVE IMPROVED LE FUNCTIONAL ROM TO EASE ADL'S. Goal Time Frame: 8-12 Weeks Goal Progress: Not Progressing Goal 4:: PATIENT WILL HAVE LUMBAR FLEXION ROM WFL TO EASE ADL'S (WHEN ALLOWED BY PHYSICIAN). Goal Time Frame: 8-12 Weeks Goal Progress: NT Goal 5:: PATIENT WILL HAVE IMPROVED TRUNK FLEXIBILILTY TO ALLOW FOR NEUTRAL POSTURE AND HAVE THE STRENGTH TO MAINTAIN NEUTRAL SPINE THROUGHOUT PT SESSION. Goal Time Frame: 8-12 Weeks Goal Progress: Not Progressing Goal 6:: PATIENT WILL BE INDEP WITH A HEP FOR CONTINUED IMPROVEMENT ONCE FORMAL PHYSICAL THERAPY CONCLUDES. Goal Time Frame: 8-12 Weeks Anticipated Interventions Anticipated Interventions Patient/Client Instruction: Educate patient on: Condition, Plan of Care and Risk Factors For the Purpose of:: To improve self management Therapeutic Exercise to Include: Strength training, Body mechanics, Postural training, Flexibilty training, Neuromotor development and Dynamic Lumbar Stabilization For the Purpose of:: To decrease pain, To improve muscle performance and motor function, To increase tolerance to activity/condition/positio n, To improve ability of physical actions for home/community/work/leisur e, To improve gait and locomotor functions and To increase flexibility/ROM Re-Evaluation Ending Re-evaluation ending: Please do not hesitate to contact me at [phone] by phone or if you have questions or concerns regarding this new plan of care! Sincerely, Sofi Kirk, PT, Cert MDT 10/14/23 6415 CC: Dr. Prabhjot Leung MD; ALYSE CARLOS (more content not included)... [facility] Inital Evaluation (1) - PTon 09-23-2023 Inital Evaluation (1) - PT [facility] [address] [place] [address] / REHABILITATION SERVICES INITIAL EVALUATION MR#: [id number] Acct: [id number] Name: MARY LUCAS Rep #: [id number] : 1960 63 From: Hemant Suggs PT. MDT Referring DrRaymon: Status: REG RCR Insurance: MEDICARE PART A B [facility] Patient's Visit Information Visit Information Visit Information: MARY LUCAS is a 63 year old M referred to Physical Therapy by ALYSE CARLOS with a diagnosis of S/P BACK SURGERY PER EVAL 09/02/23. Date of Evaluation: 09/23/23 Physical Therapist: Sofi Kirk PT, Cert MDT Visit Plan Frequency: 2-3x /Week Duration: 4-6 Weeks Plan: Brace on with PT until ok'd by surgeon. No lifting > 10 lbs. Neutral Spine Core Stability Exercises and Saad LE Hip Flexor, Hip Rotator, Hamstring and Calf Stretching to help reduce stress to the Lumbar Spine with all Daily Activities. Saad LE Strengthening. Instruction in Proper Posture Control, Body Mechanics, and Appropriate Activity Modifications. HEP Instruction. Re-check with PT in 3 weeks for progression to trunk ROM if ok''d by surgeon. 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 SOME LIFTING, PUSHING, PULLING AND TWISTING BUT NOT A LOT. Present symptoms: R BUTTOCK, POST THIGH AND R LATERAL LOWER LEG PAIN. SAAD FOOT/TOE NUMBNESS. NO L LE PAIN. DENIES SAAD LE NUMBNESS AND TINGLING EXCEPT NUMBENSS IN THE FEET. NO LOW BACK PAIN EXCEPT WHEN BRACE DIGS IN DURING SITTING. Present since: ABOUT A YEAR AGO Pain Scale: WORST 4/10, LEAST 1/10 Currently: 1/10 Is it getting better, worse or staying the same: STAYING THE SAME Commenced as a result of: NO APPARENT REASON Symptoms at onset: LLE NUMBNESS Worse: LEANING BACK SITTING CAUSES BRACE TO DIG INTO BACK BUT NOT IF SITTING UP STRAIGHT, LAYING DOWN TO GO TO BED AT NIGHT - FEELS TIGHTNESS IN R LEG - BACK OF THIGH, R LEG AND R FOOT. SITTING TOO LONG. STIFF IN THE MORNINGS. Better: ICE PACK ON BUTTOCK AND HAMSTRING AREA, IBUPROFEN AND acetaminophen and meloxicam. THE DAY PROGRESSES. Disturbed sleep: YES - NOT SLEEPING WELL. SLEPT FROM 10PM TO 2AM THEN UP AND DOWN LAST NIGHT. Previous history/Previous treatment: PAIN FOR ABOUT A YEAR BEFORE SURGERY. TRIED A CAUDAL INJECTION IN APR 2023 WITH TEMPORARY BENEFIT. NO PT. NO CHIROPRACTIC. CONSULT WITH DR. HOLMAN APR 2023 THEN TRIED CAUDAL. ALSO CONSULT WITH DR. ALTAMIRANO - [facility]. ALL 3 SURGEONS RECOMMENDED SURGERSY. Treatment this episode: DR. DAWOOD CRAIG - 09/02/23: SAAD POST LAMINECTOMIES L2, L3, L4, L5. DIRECT EXITING AND TRAVERSING NERVE DECOMPRESSION SAAD L2, L4, L5 NERVE ROOTS. POSTEROLATERAL FUSION L3 THROUGH L5. SAAD FIXATION AND L3 THROUGH L5. Coughing/sneezing/strainin g: NEGATIVE FOR INCREASED PAIN. Gait: PATIENT REPORTS HE CURRENTLY JUST FEELS A LITTLE UNSTEADY BUT NOT BAD. NOT BACK TO NORMAL BUT A LOT BETTER THAN HE WAS BEFORE SURGERY. USING A CANE JUST WHEN HE GOES OUTSIDE THE HOUSE. NOT USING AD IN THE HOUSE. USING A WALKER UNTIL ABOUT A WK AGO. Bowel or Bladder Dysfunction: NO Accidents: NO RESIDUAL DEFICITS PER PATIENT. Unexplained weight loss: NO Imaging: FOLLOW UP IMAGING LAST VISIT LOOKED GOOD PER PATIENT REPORT. PMH/Recent major surgery: HTN, HIGH CHOLESTEROL. CURRENT PHYSICIAN RESTRICTIONS: NO BENDING, LIFTING (>10 LBS) OR TWISTING. BACK BRACE AT ALL TIMES UNTIL FOLLOW UP NOVEMBER 2023. BONE STIMULATOR 2 HRS A DAY. STEPS: ONE AT A TIME IN THE MORNING AND STEP OVER STEP IN THE AFTERNOON. ONE HR UP AND DOWN. Objective Objective: Sitting/Standing Posture: REDUCED LORDOSIS. PPT. INCREASED TRUNK FLEXION. NO RELEVANT Active Correction of posture: BETTER Other Observations: INDEP GAIT INTO PT WITH INCREASED TRUNK FLEXION, STRAIGHT CANE, GOOD SEQUENCING, NO LOB, SLOW CADANCE AND NOT VERY DEPENDENT ON CANE. UE DEPENDENT TO TRANSFER FROM SIT TO STAND. Sensory deficit: SAAD LE LIGHT TOUCH SENSATION GROSSLY INTACT AND SYMMETRICAL ROM deficit: VERY TIGHT SAAD LE HIP FLEXORS AND ROTATORS, HS'S AND CALVES. CURRENTLY USING AIDS FOR LE DRESSING. Motor deficit: SAAD LE'S GROSSLY 5/5 EXCEPT HIPS 4-/5 Dural Signs: NEGATIVE SAAD LE'S. Lumbar mvmt loss: NT Core strength: POOR Palpation: INCISIONS - PATIENT REPORTS JENNIFER WERE REMOVED A WK AGO AND HE HAS NOT HAD ANY TROUBLE. INCISION LOOKS GOOD WITHOUT ANY OPEN AREAS OR SIGNS OF INFECTION. Balance/Special Test Scores Oswestry Low Back Score: 19 Goals Goal 1:: PATIENT WILL BE INDEP WITH GAIT ON LEVEL SURFACES AND UP AND DOWN STEPS RECIP WITH ONE HR WITHOUT AD WITHOUT LIMITATION. Goal Time Frame: 8-12 Weeks Goal 2:: PATIENT WILL COMPLETE 10 STANDS IN 30 SECS TO WITHOUT UE ASSIST TO DEMONSTRATE GOOD FUNCTIONAL LE STRENGTH. Goal Time Frame: 8-12 Weeks Goal 3:: PATIENT WILL HAVE IMPROVED LE FUNCTIONAL ROM TO EASE ADL'S. Goal Time Frame: 8-12 Weeks Goal 4:: SLIM (more content not included)... Normal [facility] KIDNEY/BLADDERon 08-30-19 [facility] Vital Signs Date Time Vital Sign Value Performing Clinician Faci bettey 03-11-2025 08:28-0400 Body mass index (BMI) [Ratio] 30.48 kg/m2 Prabhjot Leung MD Work Phone: [facility] 03-11-2025 08:28-0400 Body weight 104.78 kg Prabhjot Leung MD Work Phone: [facility] 03-11-2025 08:28-0400 Diastolic blood pressure 78 mm[Hg] Prabhjot Leung MD Work Phone: [facility] 03-11-2025 08:28-0400 Heart rate 64 /min Prabhjot Leung MD Work Phone: [facility] 03-11-2025 08:28-0400 Respiratory rate 16 /min Prabhjot Leung MD Work Phone: [facility] 03-11-2025 08:28-0400 Systolic blood pressure 114 mm[Hg] Prabhjot Leung MD Work Phone: [facility] 10-27-2024 10:00-0400 Diastolic blood pressure 78 mm[Hg] Wale Golyissel PT Work Phone: [facility] 10-27-2024 10:00-0400 Heart rate 72 /min Wale Golias PT Work Phone: [facility] 10-27-2024 10:00-0400 Systolic blood pressure 128 mm[Hg] Wale Golias PT Work Phone: [facility] 10-12-2024 07:57-0400 Body height 185.4 cm Prabhjot Leung MD Work Phone: [facility] 10-12-2024 07:57-0400 Body mass index (BMI) [Ratio] 31.27 kg/m2 Prabhjot Leung MD Work Phone: [facility] 10-12-2024 07:57-0400 Body weight 107.5 kg Prabhjot Leung MD Work Phone: [facility] 10-12-2024 07:57-0400 Diastolic blood pressure 76 mm[Hg] Prabhjot Leung MD Work Phone: [facility] 10-12-2024 07:57-0400 Heart rate 76 /min Prabhjot Leung MD Work Phone: [facility] 10-12-2024 07:57-0400 Respiratory rate 18 /min Prabhjot Leung MD Work Phone: [facility] 10-12-2024 07:57-0400 Systolic blood pressure 118 mm[Hg] Prabhjot Leung MD Work Phone: [facility] 04-28-2024 11:09-0400 Body height 187.5 cm Guilherme Sherwood MD Work Phone: [facility] 04-28-2024 11:09-0400 Body mass index (BMI) [Ratio] 30.58 kg/m2 Guilherme Sherwood MD Work Phone: [facility] 04-28-2024 11:09-0400 Body weight 107.5 kg Guilherme Sherwood MD Work Phone: [facility] 04-28-2024 11:09-0400 Diastolic blood pressure 76 mm[Hg] Guilherme Sherwood MD Work Phone: [facility] 04-28-2024 11:09-0400 Heart rate 72 /min Guilherme Sherwood MD Work Phone: [facility] 04-28-2024 11:09-0400 SaO2% (BldA) [Mass fraction] 98 % Guilherme Sherwood MD Work Phone: [facility] 04-28-2024 11:09-0400 Systolic blood pressure 126 mm[Hg] Guilherme Sherwood MD Work Phone: [facility] 04-06-2024 07:58-0400 Body height 187.5 cm Micaela Martin PA-C Work Phone: [facility] 04-06-2024 07:58-0400 Body mass index (BMI) [Ratio] 30.32 kg/m2 Micaela Martin PA-C Work Phone: [facility] 04-06-2024 07:58-0400 Body temperature 97.7 [degF] Micaela Martin PA-C Work Phone: [facility] 04-06-2024 07:58-0400 Body weight 106.59 kg Micaela Martin PA-C Work Phone: [facility] 04-06-2024 07:58-0400 Diastolic blood pressure 84 mm[Hg] Micaela Martin PA-C Work Phone: [facility] 04-06-2024 07:58-0400 Heart rate 90 /min Micaela Martin PA-C Work Phone: [facility] 04-06-2024 07:58-0400 Respiratory rate 16 /min Micaela Martin PA-C Work Phone: [facility] 04-06-2024 07:58-0400 SaO2% (BldA) [Mass fraction] 95 % Micaela Martin PA-C Work Phone: [facility] 04-06-2024 07:58-0400 Systolic blood pressure 117 mm[Hg] Micaela Martin PA-C Work Phone: [facility] 02-26-2024 10:54-0400 Diastolic blood pressure 88 mm[Hg] Prabhjot Leung MD Work Phone: [facility] 02-26-2024 10:54-0400 Systolic blood pressure 148 mm[Hg] Prabhjot Leung MD Work Phone: [facility] 02-26-2024 10:37-0400 Body mass index (BMI) [Ratio] 30.87 kg/m2 Prabhjot Leung MD Work Phone: [facility] 02-26-2024 10:37-0400 Body weight 106.14 kg Prabhjot Leung MD Work Phone: [facility] 02-26-2024 10:37-0400 Heart rate 80 /min Prabhjot Leung MD Work Phone: [facility] 02-26-2024 10:37-0400 Respiratory rate 16 /min Prabhjot Leung MD Work Phone: [facility] 01-23-2024 13:01-0400 Body height 185.4 cm Guilherme Sherwood MD Work Phone: [facility] 01-23-2024 13:01-0400 Body mass index (BMI) [Ratio] 31.15 kg/m2 Guilherme Sherwood MD Work Phone: [facility] 01-23-2024 13:01-0400 Body weight 107.1 kg Guilherme Sherwood MD Work Phone: [facility] 01-23-2024 13:01-0400 Diastolic blood pressure 64 mm[Hg] Guilherme Sherwood MD Work Phone: [facility] 01-23-2024 13:01-0400 Heart rate 85 /min Guilherme Sherwood MD Work Phone: [facility] 01-23-2024 13:01-0400 SaO2% (BldA) [Mass fraction] 96 % Guilherme Sherwood MD Work Phone: [facility] 01-23-2024 13:01-0400 Systolic blood pressure 166 mm[Hg] Guilherme Sherwood MD Work Phone: [facility] 01-17-2024 11:27-0400 Body mass index (BMI) [Ratio] 31 kg/m2 Prabhjot Leung MD Work Phone: [facility] 01-17-2024 11:27-0400 Body weight 106.59 kg Prabhjot Leung MD Work Phone: [facility] 01-17-2024 11:27-0400 Diastolic blood pressure 96 mm[Hg] Prabhjot Leung MD Work Phone: [facility] 01-17-2024 11:27-0400 Heart rate 80 /min Prabhjot Leung MD Work Phone: [facility] 01-17-2024 11:27-0400 Respiratory rate 16 /min Prabhjot Leung MD Work Phone: [facility] 01-17-2024 11:27-0400 Systolic blood pressure 160 mm[Hg] Prabhjot Leung MD Work Phone: [facility] 12-27-2023 15:12-0400 Diastolic blood pressure 88 mm[Hg] Prabhjot Leung MD Work Phone: [facility] 12-27-2023 15:12-0400 Systolic blood pressure 170 mm[Hg] Prabhjot Leung MD Work Phone: [facility] 12-27-2023 14:40-0400 Body mass index (BMI) [Ratio] 30.87 kg/m2 Prabhjot Leung MD Work Phone: [facility] 12-27-2023 14:40-0400 Body weight 106.14 kg Prabhjot Leung MD Work Phone: [facility] 12-27-2023 14:40-0400 Heart rate 80 /min Prabhjot Leung MD Work Phone: [facility] 12-27-2023 14:40-0400 Respiratory rate 16 /min Prabhjot Leung MD Work Phone: [facility] 10-03-2023 08:16-0500 Body height 185.4 cm Prabhjot Leung MD Work Phone: [facility] 10-03-2023 08:16-0500 Body weight 105.23 kg Prabhjot Leung MD Work Phone: [facility] 10-03-2023 08:16-0500 Diastolic blood pressure 84 mm[Hg] Prabhjot Leung MD Work Phone: [facility] 10-03-2023 08:16-0500 Heart rate 79 /min Prabhjot Leung MD Work Phone: [facility] 10-03-2023 08:16-0500 SaO2% (BldA) [Mass fraction] 98 % Prabhjot Leung MD Work Phone: [facility] 10-03-2023 08:16-0500 Systolic blood pressure 126 mm[Hg] Prabhjot Leung MD Work Phone: [facility] 04-02-2023 07:36-0400 Body temperature 97.9 [degF] Micaela Martin PA-C Work Phone: [facility] 04-02-2023 07:36-0400 Body weight 103.42 kg Micaela Martin PA-C Work Phone: [facility] 04-02-2023 07:36-0400 Diastolic blood pressure 86 mm[Hg] Micaela Martin PA-C Work Phone: [facility] 04-02-2023 07:36-0400 Heart rate 74 /min Micaelarj Martin PA-C Work Phone: [facility] 04-02-2023 07:36-0400 Respiratory rate 18 /min Micaelarj Martin PA-C Work Phone: [facility] 04-02-2023 07:36-0400 Systolic blood pressure 118 mm[Hg] Micaela Martin PA-C Work Phone: [facility] 10-11-2022 09:09-0400 Diastolic blood pressure 88 mm[Hg] Parbhjot Leung MD Work Phone: [facility] 10-11-2022 09:09-0400 Systolic blood pressure 148 mm[Hg] Prabhjot Leung MD Work Phone: [facility] 10-11-2022 08:45-0400 Body height 182.9 cm Prabhjot Leung MD Work Phone: [facility] 10-11-2022 08:45-0400 Body weight 101.61 kg Prabhjot Leung MD Work Phone: [facility] 10-11-2022 08:45-0400 Heart rate 76 /min Prabhjot Leung MD Work Phone: [facility] 10-11-2022 08:45-0400 Respiratory rate 16 /min Prabhjot Leung MD Work Phone: [facility] 04-10-2022 10:00-0400 Diastolic blood pressure 65 mm[Hg] Dayna Hollis PT Work Phone: [facility] 04-10-2022 10:00-0400 Heart rate 65 /min Dayna Hollis PT Work Phone: [facility] 04-10-2022 10:00-0400 SaO2% (BldA) [Mass fraction] 98 % Dayna Hollis PT Work Phone: [facility] 04-10-2022 10:00-0400 Systolic blood pressure 110 mm[Hg] Dayna Hollis PT Work Phone: [facility] 04-05-2022 08:53-0400 Body weight 100.7 kg Parbhjot Leung MD Work Phone: [facility] 04-05-2022 08:53-0400 Diastolic blood pressure 78 mm[Hg] Prabhjot Leung MD Work Phone: [facility] 04-05-2022 08:53-0400 Heart rate 76 /min Prabhojt Leung MD Work Phone: [facility] 04-05-2022 08:53-0400 Respiratory rate 14 /min Prabhjot Leung MD Work Phone: [facility] 04-05-2022 08:53-0400 Systolic blood pressure 118 mm[Hg] Prabhjot Leung MD Work Phone: [facility] 11-29-2021 09:05-0400 Body height 185.4 cm Uday Jamison APRN.PAINT MIXER, DNP Work Phone: [facility] 11-29-2021 09:05-0400 Body weight 102.06 kg Uday Jamison APRN.PAINT MIXER, DNP Work Phone: [facility] 11-29-2021 09:05-0400 Diastolic blood pressure 76 mm[Hg] Uday Jamison APRN.PAINT MIXER, DNP Work Phone: [facility] 11-29-2021 09:05-0400 Heart rate 80 /min Uday Jamison APRN.PAINT MIXER, DNP Work Phone: [facility] 11-29-2021 09:05-0400 Respiratory rate 16 /min Uday Jamison APRN.PAINT MIXER, DNP Work Phone: [facility] 11-29-2021 09:05-0400 SaO2% (BldA) [Mass fraction] 99 % Uday Jamison APRN.PAINT MIXER, DNP Work Phone: [facility] 11-29-2021 09:05-0400 Systolic blood pressure 124 mm[Hg] Uday Jamison APRN.PAINT MIXER, [facility] Work Phone: [facility] Encounters Encounter Date Encounter Type Care Provider Facility Start: 04-15-2025 End: 04-15-2025 ambulatory PRABHJOT LEUNG Facility:[facility] Start: 04-09-2025 End: 04-09-2025 ambulatory PRABHJOT LEUNG Facility:[facility] Start: 03-13-2025 End: 03-15-2025 Follow-up encounter Prabhjot Leung MD Work Phone: [facility] Start: 03-12-2025 ambulatory [facility]OT LEUNG [facility] Start: 03-12-2025 End: 03-12-2025 Subsequent hospital visit by physician [facility] Work Phone: [facility] Comment on above: Right lower quadrant abdominal pain [R10.31] Right lower quadrant pain [R10.31] Start: 03-11-2025 End: 03-11-2025 Patient encounter procedure Prabhjot Leung MD Work Phone: [facility] [place] Comment on above: Urinary frequency (P rimary Dx); Left flank pain; Right lateral abdominal pain; Right lower quadrant abdominal pain; Benign prostatic hyperplasia with urinary frequency Start: 03-11-2025 End: 03-11-2025 ambulatory PRABHJOT LEUNG Facility:[facility] Start: 03-08-2025 End: 03-09-2025 Telephone encounter Prabhjot Leung MD Work Phone: [facility] [place] Comment on above: Patient Update; Appo intment; Orders Start: 11-29-2024 End: 11-30-2024 Follow-up encounter Prabhjot Leung MD Work Phone: [facility] [place] Comment on above: Results Start: 11-27-2024 End: 01-27-2025 Follow-up encounter Micaela Martin PA-C Work Phone: [facility] [place] Start: 11-27-2024 End: 11-27-2024 ambulatory PRABHJOT LEUNG Facility:[facility] Start: 11-27-2024 End: 11-27-2024 Subsequent hospital visit by physician [facility] Work Phone: Radiology Comment on above: Ectatic abdominal ao rta [I77.811] Start: 11-24-2024 End: 11-24-2024 ambulatory Wale Mckeon PT Work Phone: [facility] Comment on above: Chronic pain of left ankle (Primary Dx) Start: 11-20-2024 End: 11-20-2024 ambulatory PRABHJOT LEUNG Facility:[facility] Start: 11-13-2024 End: 11-13-2024 ambulatory Lotus Damon BOAT REPAIRER Work Phone: [facility] Comment on above: Chronic pain of left ankle (Primary Dx) Start: 11-06-2024 End: 11-06-2024 ambulatory Wale Golias PT Work Phone: [facility] Comment on above: Chronic pain of left ankle (Primary Dx) Start: 10-27-2024 End: 10-27-2024 ambulatory Wale Golias PT Work Phone: [facility] Comment on above: Chronic pain of left ankle (Primary Dx); Acute left ankle pain Start: 10-12-2024 End: 10-12-2024 [facility] Start: 10-12-2024 End: 10-12-2024 Patient encounter procedure Prabhjot Leung MD Work Phone: [facility] Comment on above: Encounter for Medica re annual wellness exam (Primary Dx); Essential hypertension, benign; Hyperlipidemia, mixed; Ectatic abdominal aorta (HCC); Bilateral carotid artery stenosis; Neuropathy of both feet; Benign prostatic hyperplasia without lower urinary tract symptoms; ED (erectile dysfunction) of organic origin; Advance directive discussed with patient; Screening for depression; Encounter for screening examination for other mental health and behavioral disorders; Acute left ankle pain Start: 10-05-2024 End: 10-05-2024 ambulatory [facility] Facility:[facility] Start: 05-01-2024 End: 05-01-2024 ambulatory [facility] Facility:[facility] Start: 04-29-2024 End: 04-29-2024 Telephone encounter Prabhjot Leung MD Work Phone: [facility] Comment on above: Patient Update Start: 04-28-2024 End: 04-28-2024 ambulatory GUILHERME SHERWOOD Facility:[facility] Start: 04-28-2024 End: 04-28-2024 Patient encounter procedure Guilherme Sherwood MD Work Phone: Neurology Comment on above: Bilateral foot-drop (Primary Dx); Neuropathy of both feet Start: 04-21-2024 End: 04-21-2024 ambulatory [facility] Facility:[facility] Start: 04-13-2024 End: 04-14-2024 Telephone encounter Prabhjot Leung MD Work Phone: [facility] Comment on above: bp readings Start: 04-10-2024 End: 04-10-2024 Telephone encounter Prabhjot Leung MD Work Phone: [facility] Comment on above: Patient Update Start: 04-06-2024 End: 04-06-2024 Patient encounter procedure Micaela Martin PA-C Work Phone: [facility] Comment on above: Essential hypertensi on, benign (Primary Dx); Screening for depression; Encounter for screening examination for other mental health and behavioral disorders; Hyperlipidemia, mixed; Prostate disorder Start: 03-26-2024 End: 03-26-2024 Chart abstracting Prabhjot Leung MD Work Phone: [facility] Comment on above: Outside PT Start: 03-19-2024 End: 03-23-2024 Telephone encounter Guilherme Sherwood MD Work Phone: Neurology Comment on above: Release Of Medical R ecords ([employer]) Start: 03-10-2024 End: 03-10-2024 ambulatory Prabhjot Leung Facility:[facility] Start: 02-26-2024 End: 02-26-2024 Patient encounter procedure Prabhjot Leung MD Work Phone: [facility] Comment on above: Essential hypertensi on, benign (Primary Dx) Start: 02-18-2024 Telephone encounter Guilherme Sherwood MD Work Phone: Cerebrovascular Start: 02-11-2024 Telephone encounter Prabhjot Leung MD Work Phone: [facility] Comment on above: parametes for patien t blood pressure Start: 02-10-2024 Telephone encounter Prabhjot Leung MD Work Phone: [facility] Comment on above: Patient Update Start: 01-27-2024 Chart abstracting Cinda Brady MA [facility] Comment on above: Physical Therapy Start: 01-23-2024 End: 01-23-2024 Patient encounter procedure Guilherme Sherwood MD Work Phone: Neurology Comment on above: Bilateral foot-drop (Primary Dx); Neuropathy of both feet Start: 01-22-2024 Telephone encounter Prabhjot Leung MD Work Phone: [facility] [place] Comment on above: Blood Pressure Start: 01-17-2024 End: 01-17-2024 Patient encounter procedure Prabhjot Leung MD Work Phone: [facility] [place] Comment on above: Bilateral foot-drop (Primary Dx); Neuropathy of both feet; Essential hypertension, benign Start: 12-31-2023 Telephone encounter Prabhjot Leung MD Work Phone: [facility] [place] Comment on above: Results Start: 12-28-2023 End: 12-28-2023 ambulatory Emg 300) Work Phone: Neurology Comment on above: EMG Start: 12-28-2023 End: 12-28-2023 Patient encounter procedure Emg 2 [facility] (Max Weight: 300) Work Phone: Neurology Start: 12-27-2023 End: 12-27-2023 Patient encounter procedure Prabhjot Leung MD Work Phone: [facility] [place] Comment on above: Bilateral foot-drop (Primary Dx); Neuropathy of both feet; Essential hypertension, benign Start: 12-27-2023 Telephone encounter Cinda Brady MA [facility] [place] Comment on above: Patient Update Start: 11-18-2023 Telephone encounter Prabhjot Leung MD Work Phone: [facility] [place] Comment on above: Results Start: 11-18-2023 End: 11-18-2023 Subsequent hospital visit by physician [facility] Work Phone: Radiology Comment on above: Ex-smoker [Z87.891] Start: 10-31-2023 Chart abstracting Prabhjot delcid MD Work Phone: [facility] [place] Comment on above: Outgoing PT Start: 10-03-2023 End: 10-03-2023 Patient encounter procedure Prabhjot Leung MD Work Phone: [facility] Comment on above: Encounter for Medica re annual wellness exam (Primary Dx); Essential hypertension, benign; Hyperlipidemia, mixed; Bilateral carotid artery stenosis; Benign paroxysmal positional vertigo of right ear; Benign prostatic hyperplasia without lower urinary tract symptoms; Ex-smoker; Screening for AAA (abdominal aortic aneurysm); Chronic midline low back pain without sciatica; Advance directive discussed with patient; Encounter for immunization Start: 09-01-2023 Telephone encounter Prabhjot Leung MD Work Phone: [facility] [place] Comment on above: Results Start: 08-30-2023 End: 08-30-2023 Subsequent hospital visit by physician [facility] Work Phone: Radiology Comment on above: Multiple renal cysts [Q61.02] Start: 04-02-2023 End: 04-02-2023 Patient encounter procedure Micaela Martin PA-C Work Phone: [facility] Comment on above: Essential hypertensi on, benign (Primary Dx); Hyperlipidemia, mixed; Bilateral carotid artery stenosis; Benign prostatic hyperplasia without lower urinary tract symptoms; Prostate disorder; Ex-smoker; Encounter for immunization Start: 10-11-2022 End: 10-11-2022 Patient encounter procedure Prabhjot Leung MD Work Phone: [facility] Comment on above: Well adult exam (Myrtle dax Dx); Essential hypertension, benign; Hyperlipidemia, mixed; Bilateral carotid artery stenosis; Benign paroxysmal positional vertigo of right ear; Benign prostatic hyperplasia without lower urinary tract symptoms; Encounter for immunization Start: 10-11-2022 End: 10-11-2022 Patient encounter status Prabhjot Leung MD Work Phone: [facility] [place] Start: 04-10-2022 End: 04-10-2022 ambulatory Dayna Hollis PT Work Phone: [facility] Comment on above: Benign paroxysmal po sitional vertigo of right ear Start: 04-05-2022 End: 04-05-2022 Patient encounter procedure Prabhjot Leung MD Work Phone: [facility] Comment on above: Essential hypertensi on, benign (Primary Dx); Hyperlipidemia, mixed; Benign paroxysmal positional vertigo of right ear; Benign prostatic hyperplasia without lower urinary tract symptoms; Dizziness; Encounter for screening for diabetes mellitus; Prostate disorder Start: 03-07-2022 Telephone encounter Uday marie APRN.CNP, DNP Work Phone: Urology Comment on above: Results Start: 11-29-2021 End: 11-29-2021 Patient encounter status Uday Jamison APRN.CNP, DNP Work Phone: [facility] [place] Start: 11-29-2021 End: 11-29-2021 Periodic preventive med est patient 40-64yrs Uday Jamison APRN.CNP, DNP Work Phone: [facility] Comment on above: Well adult exam ([facility] Dx); Essential hypertension, benign; Hyperlipidemia LDL goal <130; ED (erectile dysfunction) of organic origin; Benign prostatic hyperplasia without lower urinary tract symptoms; BPPV (benign paroxysmal positional vertigo), unspecified laterality Start: 11-24-2021 Telephone encounter Uday marie APRN.CNP, DNP Work Phone: [facility] Comment on above: Results Procedures Date Procedure Procedure Detail Performing Clinician Start: 03-12-2025 Ct abdomen & pelvis w/o contrast material Prabhjot Leung MD Work Phone: Start: 03-11-2025 Urnls dip stick/tabl et rgnt auto w/o microscopy [facility] Provider Start: 10-12-2024 Adult depression scr eening assessment Prabhjot Leung MD Work Phone: Start: 10-05-2024 Lipid 1996 panel - S vidya or Plasma Prabhjot Leung MD Work Phone: Start: 04-06-2024 Adult depression scr eening assessment Micaela Martin PA-C Work Phone: Start: 03-20-2024 Lipid 1996 panel - S vidya or Plasma Guilherme Sherwood MD Work Phone: Start: 12-28-2023 Nerve conduction param dies 5-6 studies Prabhjot Leung MD Work Phone: Start: 11-18-2023 Us abdominal aorta r eal time screen study aaa Prabhjot Leung MD Work Phone: Start: 10-03-2023 PFIZER-BIONTECH COVI D-19 VACCINE ( SEASON) AGE 12+ YR Prabhjot Leung MD Work Phone: Start: 10-01-2023 Lipid 1996 panel - S vidya or Plasma Prabhjot Leung MD Work Phone: Start: 08-30-2023 Us retroperitoneal r eal time w/image complete Prabhjot Leung MD Work Phone: Start: 04-02-2023 INFLUENZA VACCINE, P RSV FREE, AGE 65+ YR, HIGH DOSE, QUADRIVALENT (FLUZONE HIGH-DOSE) Micaela Martin PA-C Work Phone: Start: 03-28-2023 Lipid 1996 panel - S vidya or Plasma 2 Work Phone: Start: 10-11-2022 PFIZER-BIONTECH COVI D-19 BIVALENT BOOSTER VACCINE, AGE 12+ YR Prabhjot Leung MD Work Phone: Start: 04-05-2022 Adult depression scr eening assessment Prabhjot Leung MD Work Phone: Start: 11-29-2021 Adult depression scr eening assessment Uday Jamison APRN.JANETTE, GENESIS Work Phone: Start: 01-01-2020 Colonoscopy Uday marie APRN.GENESIS SAVAGE Work Phone: Plan of Treatment Date Care Activity Detail Author Start: 12-31-2029 Colonoscopy COLONOSCOPY [facility] Start: 12-31-2029 COLORECTAL CANCER SCREENING COLORECTAL CANCER SCREENING [facility] Start: 12-31-2029 Screening for malign ant neoplasm of colon [facility] Start: 12-10-2029 Urine microalbumin profile [facility] Start: 10-12-2029 Prostate specific an tigen measurement Prostate Cancer Screening Discussion [facility] Start: 10-05-2029 Lipid panel Lipid Screening [facility] Start: 03-20-2029 Lipid panel Lipid Screening [facility] Start: 10-02-2028 Prostate specific an tigen measurement Prostate Cancer Screening Discussion [facility] Start: 09-30-2028 [facility] Start: 03-28-2028 [facility] Start: 03-28-2028 LIPID SCREEN LIPID SCREEN [facility] Start: 10-06-2027 Diabetes Screening Diabetes Screenin g [facility] Start: 10-04-2027 LIPID SCREEN LIPID SCREEN [facility] Start: 10-04-2027 PROSTATE CANCER SCRE ENING DISCUSSION PROSTATE CANCER SCREENING DISCUSSION [facility] Start: 10-04-2027 Prostate specific an tigen measurement Prostate Cancer Screening Discussion [facility] Start: 03-05-2027 LIPID SCREEN LIPID SCREEN [facility] Start: 11-22-2026 LIPID SCREEN LIPID SCREEN [facility] Start: 09-30-2026 Diabetes Screening Diabetes Screenin g [facility] Start: 08-16-2026 Diabetes Screening Diabetes Screenin g [facility] Start: 03-12-2026 Urine microalbumin profile DTAP,TDAP,TD (2 - Td or Tdap) [facility] Start: 03-11-2026 Annual PCP Team Newsagent ailyn Disease Visit Annual PCP Team Chronic Disease Visit [facility] Start: 11-28-2025 PROSTATE CANCER SCRE ENING DISCUSSION PROSTATE CANCER SCREENING DISCUSSION [facility] Start: 10-27-2025 BP Controlled (<130/80) BP Controlle d (<130/80) [facility] Start: 10-12-2025 Annual PCP Team Newsagent ailyn Disease Visit Annual PCP Team Chronic Disease Visit [facility] Start: 10-12-2025 Anxiety Screening Anxiety Screening [facility] Start: 10-12-2025 BP Controlled (<130/80) BP Controlle d (<130/80) [facility] Start: 10-12-2025 Depression Screening Depression Scre ening [facility] Start: 10-12-2025 Medicare Annual Well ness Visit Medicare Annual Wellness Visit [facility] Start: 10-03-2025 DIABETES SCREEN [facility] Start: 04-28-2025 BP Controlled (<130/80) BP Controlle d (<130/80) [facility] Start: 04-15-2025 End: 04-15-2025 Patient encounter procedure 04/15/2025 8:00 AM EDT Office Visit [facility] [place] [address] [facility] [place] [id number] Micaela Martin PA-C [address] [place] [id number] 6 month follow up Family An [place] Comment on above: 6 month follow up Start: 04-06-2025 Annual PCP Team Newsagent ailyn Disease Visit Annual PCP Team Chronic Disease Visit [facility] Start: 04-06-2025 Anxiety Screening Anxiety Screening [facility] Start: 04-06-2025 Depression Screening Depression Scre ening [facility] Start: 04-02-2025 End: 07-02-2025 Hepatic function 2000 panel - Serum or Plasma HEPATIC FUNCTION PNL Lab Routine Essential hypertension, benign Hyperlipidemia, mixed Expected: 04/02/2025, Expires: 07/02/2025 [facility] Comment on above: Expected: 04/02/2025 , Expires: 07/02/2025 Start: 04-02-2025 End: 07-02-2025 Lipid 1996 panel - Serum or Plasma LIPID PANEL BASIC Lab Routine Essential hypertension, benign Hyperlipidemia, mixed Ectatic abdominal aorta (HCC) Bilateral carotid artery stenosis Expected: 04/02/2025, Expires: 07/02/2025 [facility] Comment on above: Expected: 04/02/2025 , Expires: 07/02/2025 Start: 03-11-2025 End: 03-11-2025 Patient encounter procedure 03/11/2025 8:40 AM EDT Office Visit Family [facility] [place] [address] [facility] [place] [address] Prabhjot Leung MD [address] [place] [address] Low left sided back pain and abdominal pain that moves around. See TE 03/08/25. Family An [place] Comment on above: Low left sided back pain and abdominal pain that moves around. See TE 03/08/25. Start: 02-25-2025 Annual PCP Team Newsagent ailyn Disease Visit Annual PCP Team Chronic Disease Visit [facility] Start: 01-16-2025 Annual PCP Team Newsagent ailyn Disease Visit Annual PCP Team Chronic Disease Visit [facility] Start: 12-26-2024 Annual PCP Team Newsagent ailyn Disease Visit Annual PCP Team Chronic Disease Visit [facility] Start: 11-27-2024 End: 11-27-2024 Patient encounter procedure Radiology Comment on above: Ectatic abdominal ao rta (HCC) [I77.811] Bilateral carotid ar loki stenosis [I65.23] Start: 11-24-2024 End: 11-24-2024 ambulatory 11/24/2024 10:45 AM EDT OT/PT/Speech Visit [facility] [address] [place] [address] Wale Mckeon, PT [address] [place] [address] M25.572 (ICD-10-CM) - Acute left ankle pain [facility] Comment on above: M25.572 (ICD-10-CM) - Acute left ankle pain Start: 11-22-2024 DIABETES SCREEN [facility] Start: 11-20-2024 End: 11-20-2024 ambulatory 11/20/2024 9:30 AM EDT OT/PT/Speech Visit [facility] [address] [place] [address] Lotus Damon, BOAT REPAIRER [address] [place] [address] M25.572 (ICD-10-CM) - Acute left ankle pain [facility] Comment on above: M25.572 (ICD-10-CM) - Acute left ankle pain Start: 11-13-2024 End: 11-13-2024 ambulatory 11/13/2024 8:45 AM EDT OT/PT/Speech Visit [facility] [address] [place] [address] Lotus Damon, BOAT REPAIRER [address] [place] [address] M25.572 (ICD-10-CM) - Acute left ankle pain [facility] Comment on above: M25.572 (ICD-10-CM) - Acute left ankle pain Start: 11-06-2024 End: 11-06-2024 ambulatory 11/06/2024 2:00 PM EDT OT/PT/Speech Visit [facility] [address] [place] [address] Wale Mckeon, PT [address] [place] [address] M25.572 (ICD-10-CM) - Acute left ankle pain [facility] Comment on above: M25.572 (ICD-10-CM) - Acute left ankle pain Start: 10-12-2024 End: 10-12-2024 Patient encounter procedure 10/12/2024 8:00 AM EDT Office Visit [facility] [place] [address] [place] [address] Prabhjot Leung MD [address] [place] [address] Medicare Wellness [facility] [place] Comment on above: Medicare Wellness Start: 10-05-2024 End: 10-05-2024 ambulatory 10/05/2024 7:30 AM EDT Results Only [facility] Station [address] [place] [address] [facility] Start: 10-04-2024 End: 01-03-2025 CBC W Auto Differential panel - Blood COMPLETE BLOOD COUNT AND DIFFERENTIAL Lab Routine Essential hypertension, benign Hyperlipidemia, mixed Expected: 10/04/2024, Expires: 01/03/2025 [facility] Comment on above: Expected: 10/04/2024 , Expires: 01/03/2025 Start: 10-04-2024 End: 01-03-2025 Comprehensive metabolic 2000 panel - Serum or Plasma COMPREHENSIVE METABOLIC PANEL Lab Routine Essential hypertension, benign Hyperlipidemia, mixed Expected: 10/04/2024, Expires: 01/03/2025 [facility] Work Phone: Comment on above: Expected: 10/04/2024 , Expires: 01/03/2025 Start: 10-04-2024 End: 01-03-2025 LIPID PANEL, NONFASTING LIPID PANEL, NONFASTING Lab Routine Hyperlipidemia, mixed Expected: 10/04/2024, Expires: 01/03/2025 [facility] Comment on above: Expected: 10/04/2024 , Expires: 01/03/2025 Start: 10-04-2024 End: 01-03-2025 Prostate specific Ag [Mass/volume] in Serum or Plasma PROSTATE-SPECIFIC ANTIGEN DIAGNOSTIC Lab Routine Prostate disorder Expected: 10/04/2024, Expires: 01/03/2025 [facility] Comment on above: Expected: 10/04/2024 , Expires: 01/03/2025 Start: 10-02-2024 Annual PCP Team Newsagent ailyn Disease Visit Annual PCP Team Chronic Disease Visit [facility] Start: 10-02-2024 BP Controlled (<130/80) BP Controlle d (<130/80) [facility] Start: 08-16-2024 Annual PCP Team Newsagent ailyn Disease Visit Annual PCP Team Chronic Disease Visit [facility] Start: 04-28-2024 End: 04-28-2024 Patient encounter procedure 04/28/2024 11:30 AM EDT Office Visit Neurology [address] [facility] [address] [place] [address] Guilherme Sherwood MD [address] [facility] [address] [place] [address] 3 month F/U Neurology Comment on above: 3 month F/U Start: 04-06-2024 End: 04-06-2024 Patient encounter procedure 04/06/2024 8:00 AM EDT Office Visit [facility] [place] [address] [place], [place] [id number] Micaela Martin PA-C [address] [place], [place] [address] routine physical [facility] [place] Comment on above: routine physical Start: 04-02-2024 ANNUAL PCP TEAM MATH SPECIALIST AILYN DISEASE VISIT ANNUAL PCP TEAM CHRONIC DISEASE VISIT [facility] Start: 03-29-2024 Covid-19 Vaccine () Covid-19 Vaccine () [facility] Start: 03-29-2024 Covid-19 Vaccine () Covid-19 Vaccine () [facility] Start: 03-29-2024 Influenza vaccination Influenza Vacc ine (#1) [facility] Start: 03-20-2024 End: 06-19-2024 Hepatic function 2000 panel - Serum or Plasma HEPATIC FUNCTION PNL Lab Routine Essential hypertension, benign Hyperlipidemia, mixed Expected: 03/20/2024, Expires: 06/19/2024 [facility] Work Phone: Comment on above: Expected: 03/20/2024 , Expires: 06/19/2024 Start: 03-20-2024 End: 06-19-2024 LIPID PANEL, NONFASTING LIPID PANEL, NONFASTING Lab Routine Essential hypertension, benign Hyperlipidemia, mixed Bilateral carotid artery stenosis Expected: 03/20/2024, Expires: 06/19/2024 [facility] Work Phone: Comment on above: Expected: 03/20/2024 , Expires: 06/19/2024 Start: 03-20-2024 End: 03-20-2024 ambulatory 03/20/2024 8:00 AM EDT Results Only [facility] [address] [place] [address] [place] [facility] Draw Station Start: 02-26-2024 End: 02-26-2024 Patient encounter procedure 02/26/2024 10:40 AM EDT Office Visit [facility] [place] [address] [place] [address] Prabhjot Leung MD [address] [place] [address] 1 month follow up HTN [facility] [place] Comment on above: 1 month follow up HT N Start: 02-02-2024 Covid-19 Vaccine () Covid-19 Vaccine () [facility] Start: 01-23-2024 End: 04-23-2024 Borrelia burgdorferi IgG and IgM panel - Serum [facility] Comment on above: Expected: 01/23/2024 , Expires: 04/23/2024 Start: 01-23-2024 End: 03-23-2024 Cobalamin (Vitamin B12) [Mass/volume] in Serum or Plasma [facility] Work Phone: Comment on above: Expected: 01/23/2024 , Expires: 03/23/2024 Start: 01-23-2024 End: 03-23-2024 COPPER BLOOD [facility] Comment on above: Expected: 01/23/2024 , Expires: 03/23/2024 Start: 01-23-2024 End: 03-23-2024 Folate [Mass/volume] in Serum or Plasma [facility] Comment on above: Expected: 01/23/2024 , Expires: 03/23/2024 Start: 01-23-2024 End: 03-23-2024 IMMUNOFIXATION SCREEN, SERUM [facility] Comment on above: Expected: 01/23/2024 , Expires: 03/23/2024 Start: 01-23-2024 End: 03-23-2024 PROTEIN ELECTROPHORESIS SERUM W/INTERP [facility] Comment on above: Expected: 01/23/2024 , Expires: 03/23/2024 Start: 01-23-2024 End: 03-23-2024 VITAMIN B1 (THIAMINE), WHOLE BLOOD [facility] Comment on above: Expected: 01/23/2024 , Expires: 03/23/2024 Start: 01-23-2024 End: 01-23-2024 Patient encounter procedure 01/23/2024 1:00 PM EDT Office Visit Neurology [address] [facility] [address] [place] [address] Guilherme Sherwood MD [address] [facility] [address] [place] [address] Bilateral foot-drop [M21.371, M21.372]; Neuropathy of both feet [G57.93] Neurology Comment on above: Bilateral foot-drop [M21.371, M21.372]; Neuropathy of both feet [G57.93] Start: 01-17-2024 End: 01-17-2024 Patient encounter procedure 01/17/2024 11:20 AM EDT Office Visit Family [facility] [place] [address] [place] [address] Prabhjot Leung MD [address] [place] [address] follow up on BP Family [facility] Comment on above: follow up on BP Start: 01-07-2024 End: 01-07-2024 Patient encounter procedure 01/07/2024 7:00 AM EDT Office Visit Neurology [address] [place], [place] [address] Ana Cavazos PA-C [address] [place] [address] Bilateral foot-drop [M21.371, M21.372]; Neuropathy of both feet [G57.93] Neurology Comment on above: Bilateral foot-drop [M21.371, M21.372]; Neuropathy of both feet [G57.93] Start: 12-28-2023 End: 12-28-2023 ambulatory 12/28/2023 10:40 AM EDT Procedure Neurology [address] [place] [address] Bilateral foot-drop [M21.371, M21.372]; Neuropathy of both feet [G57.93] Neurology Comment on above: Bilateral foot-drop [M21.371, M21.372]; Neuropathy of both feet [G57.93] Start: 10-12-2023 ANNUAL PCP TEAM MATH SPECIALIST AILYN DISEASE VISIT ANNUAL PCP TEAM CHRONIC DISEASE VISIT [facility] Start: 10-01-2023 End: 12-01-2023 Comprehensive metabolic 2000 panel - Serum or Plasma COMP METABOLIC PANEL Lab Routine Encounter for immunization Essential hypertension, benign Expected: 10/01/2023, Expires: 12/01/2023 [facility] Work Phone: Comment on above: Expected: 10/01/2023 , Expires: 12/01/2023 Start: 10-01-2023 End: 12-01-2023 LIPID PANEL, NONFASTING LIPID PANEL, NONFASTING Lab Routine Hyperlipidemia, mixed Expected: 10/01/2023, Expires: 12/01/2023 [facility] Work Phone: Comment on above: Expected: 10/01/2023 , Expires: 12/01/2023 Start: 10-01-2023 End: 12-01-2023 Prostate specific Ag [Mass/volume] in Serum or Plasma PSA/PROSTSPECAG DIAG Lab Routine Benign prostatic hyperplasia without lower urinary tract symptoms Prostate disorder Expected: 10/01/2023, Expires: 12/01/2023 [facility] Work Phone: Comment on above: Expected: 10/01/2023 , Expires: 12/01/2023 Start: 10-01-2023 End: 12-01-2023 Urinalysis complete panel - Urine URINALYSIS, WITH MICROSCOPIC Lab Routine Essential hypertension, benign Expected: 10/01/2023, Expires: 12/01/2023 [facility] Work Phone: Comment on above: Expected: 10/01/2023 , Expires: 12/01/2023 Start: 07-29-2023 Advance Directive Discussion Advance Directive Discussion [facility] Start: 07-29-2023 Behavioral Health Screening Behavioral Health Screening [facility] Start: 07-29-2023 Depression Assessment Depression Ass essment [facility] Start: 04-10-2023 BP CONTROLLED (<130/80) BP CONTROLLE D (<130/80) [facility] Start: 04-05-2023 Adult depression screening assessment DEPRESSION SCREENING [facility] Start: 04-05-2023 ANNUAL PCP TEAM MATH SPECIALIST AILYN DISEASE VISIT ANNUAL PCP TEAM CHRONIC DISEASE VISIT [facility] Start: 04-05-2023 BP CONTROLLED (<130/80) BP CONTROLLE D (<130/80) [facility] Start: 03-29-2023 Covid-19 Vaccine () Covid-19 Vaccine () [facility] Start: 03-29-2023 End: 05-29-2023 Hepatic function 2000 panel - Serum or Plasma HEPATIC FUNCTION PNL Lab Routine Essential hypertension, benign Hyperlipidemia, mixed Expected: 03/29/2023, Expires: 05/29/2023 [facility] Work Phone: Comment on above: Expected: 03/29/2023 , Expires: 05/29/2023 Start: 03-29-2023 End: 05-29-2023 LIPID PANEL, NONFASTING LIPID PANEL, NONFASTING Lab Routine Essential hypertension, benign Hyperlipidemia, mixed Expected: 03/29/2023, Expires: 05/29/2023 [facility] Work Phone: Comment on above: Expected: 03/29/2023 , Expires: 05/29/2023 Start: 02-10-2023 COVID-19 VACCINE (7 - Pfizer series) COVID-19 VACCINE (7 - Pfizer series) [facility] Start: 2023 ADVANCE DIRECTIVE DISCUSSION ADVANCE DIRECTIVE DISCUSSION [facility] Start: 11-29-2022 Adult depression screening assessment DEPRESSION SCREENING [facility] Start: 11-29-2022 ANNUAL PCP TEAM MATH SPECIALIST AILYN DISEASE VISIT ANNUAL PCP TEAM CHRONIC DISEASE VISIT [facility] Start: 11-29-2022 BP CONTROLLED (<130/80) BP CONTROLLE D (<130/80) [facility] Start: 09-21-2022 End: 11-21-2022 Comprehensive metabolic 2000 panel - Serum or Plasma COMP METABOLIC PANEL Lab Routine Essential hypertension, benign Hyperlipidemia, mixed Expected: 09/21/2022, Expires: 11/21/2022 [facility] Work Phone: Comment on above: Expected: 09/21/2022 , Expires: 11/21/2022 Start: 09-21-2022 End: 11-21-2022 Hemoglobin A1c in Blood HGB A1C Lab Routine Encounter for screening for diabetes mellitus Expected: 09/21/2022, Expires: 11/21/2022 [facility] Work Phone: Comment on above: Expected: 09/21/2022 , Expires: 11/21/2022 Start: 09-21-2022 End: 11-21-2022 LIPID PANEL, NONFASTING LIPID PANEL, NONFASTING Lab Routine Essential hypertension, benign Hyperlipidemia, mixed Expected: 09/21/2022, Expires: 11/21/2022 [facility] Work Phone: Comment on above: Expected: 09/21/2022 , Expires: 11/21/2022 Start: 09-21-2022 End: 11-21-2022 Prostate specific Ag [Mass/volume] in Serum or Plasma PSA/PROSTSPECAG DIAG Lab Routine Prostate disorder Expected: 09/21/2022, Expires: 11/21/2022 [facility] Work Phone: Comment on above: Expected: 09/21/2022 , Expires: 11/21/2022 Start: 09-21-2022 End: 11-21-2022 Urinalysis complete panel - Urine URINALYSIS, WITH MICROSCOPIC Lab Routine Essential hypertension, benign Hyperlipidemia, mixed Expected: 09/21/2022, Expires: 11/21/2022 [facility] Work Phone: Comment on above: Expected: 09/21/2022 , Expires: 11/21/2022 Start: 03-29-2022 Influenza vaccination C [facility] Start: 03-01-2022 End: 05-01-2022 LIPID PANEL BASIC LIPID PANEL BASIC Lab Routine Hyperlipidemia LDL goal <130 Expected: 03/01/2022, Expires: 05/01/2022 [facility] Work Phone: Comment on above: Expected: 03/01/2022 , Expires: 05/01/2022 Start: 10-15-2021 COVID-19 VACCINE (4 - Booster for Pfizer series) COVID-19 VACCINE (4 - Booster for Pfizer series) [facility] Start: 09-01-2020 BP CONTROLLED (<130/80) BP CONTROLLE D (<130/80) [facility] Start: 2003 COLOGUARD (FIT-DNA) COLOGUARD (FIT-D NA) [facility] Start: [address] [facility] Start: 2003 FECAL OCCULT BLOOD FECAL OCCULT BLOO D [facility] Start: 2003 Screening for malign ant neoplasm of colon [facility] Start: 2003 SIGMOIDOSCOPY SIGMOIDOSCOPY [facility] Start: 01-10-1976 Anxiety Screening Anxiety Screening [facility] Start: 01-10-1976 Depression Screening Depression Scre ening [facility] Start: 1960 ABDOMINAL AORTIC ANE URYSM SCREENING ABDOMINAL AORTIC ANEURYSM SCREENING [facility] Start: 1960 Abdominal aortic ane urysm screening Abdominal Aortic Aneurysm Screening [facility] PT PLAN OF CARE CERTIFICATION PT PLAN OF CARE CERTIFICATION Procedures Routine Benign paroxysmal positional vertigo of right ear Ordered: 04/10/2022 [facility] Work Phone: Comment on above: Ordered: 04/10/2022 UA DIP B/O UA DIP B/O Lab R outine Urinary frequency Ordered: 03/11/2025 [facility] Work Phone: Comment on above: Ordered: 03/11/2025 End: 11-11-2025 US Abdominal Aorta US ABD AORTA Radiology Routine Ectatic abdominal aorta (HCC) 1 Occurrences starting 10/12/2024 until 11/11/2025 [facility] Comment on above: 1 Occurrences starti ng 10/12/2024 until 11/11/2025 US Abdominal Aorta US ABD AORTA Radiology Routine Ectatic abdominal aorta 11/27/2024 10:30 AM EDT [facility] Work Phone: End: 11-01-2024 US Abdominal Aorta for screening US SCREENING FOR AAA Radiology Routine Ex-smoker Screening for AAA (abdominal aortic aneurysm) 1 Occurrences starting 10/03/2023 until 11/01/2024 [facility] Work Phone: Comment on above: 1 Occurrences starti ng 10/03/2023 until 11/01/2024 End: 10-12-2025 US Carotid arteries - bilateral US CAROTID ARTERIES [facility] V[facility] Lab Routine Bilateral carotid artery stenosis 1 Occurrences starting 10/12/2024 until 10/12/2025 [facility] Work Phone: Comment on above: 1 Occurrences starti ng 10/12/2024 until 10/12/2025 End: 04-05-2023 US CAROTID ARTERIES [facility] US CAROTID ARTERIES [facility] Lab Routine Dizziness 1 Occurrences starting 04/05/2022 until 04/05/2023 [facility] Work Phone: Comment on above: 1 Occurrences starti ng 04/05/2022 until 04/05/2023 [facility] Immunizations Immunization Date Immunization Notes Care Provider Brando mccall 10-03-2023 COVID-19 vaccine, ag e 12+ yr, 2022- season (PFIZER-BIONTECH) Prabhjot Leung MD Work Phone: [facility] 06-12-2023 respiratory syncytia l virus (RSV) vaccine, adjuvanted (AREXVY) Prabhjot Leung MD Work Phone: [facility] 06-12-2023 respiratory syncytia l virus (RSV) vaccine, unspecified formulation [facility] Work Phone: [facility] 04-02-2023 influenza (HD-IIV4) vaccine, age 65+ yr, high dose, quadrivalent, PF (FLUZONE HIGH-DOSE) Micaela Martin PA-C Work Phone: [facility] 04-02-2023 pneumococcal (PCV20) vaccine, 20 valent (PREVNAR 20) Micaela Martin PA-C Work Phone: [facility] 04-02-2023 pneumococcal Conjuga te, unspecified formulation Micaela Martin PA-C Work Phone: [facility] Work Phone: 04-02-2023 influenza virus vaccine, unspecified formulation Cinda Brady MA [facility] 10-11-2022 COVID-19 booster vaccine, age 12+ yr, bivalent (PFIZER-BIONTECH) Prabhjot Leung MD Work Phone: [facility] 05-29-2022 influenza, seasonal, injectable Prabhjot Leung MD Work Phone: [facility] 03-05-2022 COVID-19 original vaccine, age 12+ yr, monovalent (PFIZER-BIONTECH - CASTLE TOP) Micaela Martin PA-C Work Phone: [facility] 03-05-2022 COVID-19 vaccine, ag e 12+ yr (PFIZER-BIONTECH - PURPLE TOP) Prabhjot Leung MD Work Phone: [facility] 12-11-2019 tetanus toxoid, redu gautam diphtheria toxoid, and acellular pertussis vaccine, adsorbed Micaela Martin PA-C Work Phone: [facility] 05-20-2019 influenza, seasonal, injectable Uday Jamison APRN.[facility] Work Phone: [facility] 04-07-2019 zoster vaccine recombinant Uday Jamison APRN.[facility] Work Phone: [facility] 01-05-2019 zoster vaccine recombinant Uday Jamison APRN.[facility] Work Phone: [facility] 03-12-2016 tetanus toxoid, redu gautam diphtheria toxoid, and acellular pertussis vaccine, adsorbed Uday Jamison APRN.[facility] Work Phone: [facility] 09-21-2005 tetanus and diphther ia toxoids, adsorbed, preservative free, for adult use (2 Lf of tetanus toxoid and 2 Lf of diphtheria toxoid) Uday Jamison APRN.[facility] Work Phone: [facility] Work Phone: Payers Date Payer Category Payer Self-pay 2023 Unknown [id number] 2022 Medicare [id number] 2022 Medicare [id number] 2011 Private Health Insurance [employer] A ETNA CHOICE POS II [id number] 2011-Present [phone] [address] [place] [address] POS [id number] 2011 Private Health Insurance [id number] Unknown [id number] Unknown [id number] 60 Unknown [id number] Social History Date Type Detail Facility Start: 11-06-2011 End: 03-11-2025 Tobacco smoking status NHIS Ex-smoker [facility] Work Phone: History of tobacco use Cigar Smoker [facility] Work Phone: Start: 11-06-2011 End: 04-05-2022 Tobacco use and exposure User of smokeless tobacco [facility] Work Phone: End: 07-29-2018 History of tobacco use Chews Tobacco [facility] Work Phone: Start: 11-29-2021 End: 03-11-2025 Alcohol intake Current drinker of alcohol (finding) [facility] Start: 1960 Sex Assigned At Male [facility] History of tobacco use Current smoker [facility] Start: 04-02-2022 End: 10-04-2022 History SDOH Alcohol Frequency 4 [facility] Start: 04-02-2022 End: 10-04-2022 History SDOH Alcohol Std Drinks 1 [facility] Start: 04-02-2022 End: 10-04-2022 History SDOH Social Connections Phone 2 [facility] Start: 04-02-2022 End: 10-04-2022 History SDOH Social Connections Get Together 3 [facility] Start: 04-02-2022 History SDOH Financial 5 [facility] Start: 04-05-2022 Tobacco Comment occasionally [facility] Start: 03-26-2022 End: 04-05-2022 Exposure to SARS-CoV-2 (event) Not sure [facility] Start: 04-02-2023 End: 03-11-2025 Tobacco use and exposure Former smokeless tobacco user [facility] Start: 10-04-2022 End: 04-02-2023 History of Social function [facility] Start: 10-04-2022 End: 04-02-2023 Social connection and isolation panel [facility] Start: 06-29-2012 Active Member of Clubs or Organizations Not on file [facility] Work Phone: Are you now , , , , never or living with a partner? [facility] How often to you hav e a drink containing alcohol? 2-3 time sa week [facility] How many standard dr inks containing alcohol do you have on a typical day? 1 or 2 [facility] How often do you hav e 6 or more drinks on 1 occasion? Never [facility] How hard is it for y ou to pay for the very basics like food, housing, medical care, and heating Not very hard [facility] Do you feel stress - tense, restless, nervous, or anxious, or unable to sleep at night because your mind is troubled all the time - these days [OSQ] Only a little [facility] (I/We) worried muriel er (my/our) food would run out before (I/we) got money to buy more. Never true [facility] In the past 12 month s, was there a time when you were not able to pay the mortgage or rent on time? No [facility] Start: 11-28-2020 Gender identity Identifies as male gender (finding) [facility] Start: 11-28-2020 Sexual orientation Heterosexual (finding) [facility] Do you belong to any clubs or organizations such as religion groups, unions, fraternal or athletic groups, or school groups? Yes [facility] History of tobacco use Cigarette Smoker C [facility] Functional Status Date Assessment Result Facility 01-31-2015 Are you deaf, or do you have serious difficulty hearing No 01/31/2015 7:11 PM Cinda Renteria MA No [facility] 01-31-2015 Are you blind, or do you have serious difficulty seeing, even when wearing glasses No 01/31/2015 7:11 PM Cinda Renteria MA No [facility] 01-31-2015 Do you have serious difficulty walking or climbing stairs No 01/31/2015 7:11 PM Cinda Renteria MA No [facility] 01-31-2015 Do you have difficul ty dressing or bathing No 01/31/2015 7:11 PM Cinda Renteria MA No [facility] 01-31-2015 Because of a physica l, mental, or emotional condition, do you have difficulty doing errands alone such as visiting a physician's office or shopping No 01/31/2015 7:11 PM EDT Cinda Brady MA No [facility] Mental Status Date Assessment Result Facility 01-31-2015 Because of a physica l, mental, or emotional condition, do you have serious difficulty concentrating, remembering, or making decisions No 01/31/2015 7:11 PM EDT Cinda Brady MA No [facility] Clinical Notes 04-13-2010 to 04-15-2025 Telephone Encounter - Patience Mendoza RN - 03/15/2025 9:45 AM EDTTelephone Encounter - Patience Mendoza RN - 03/15/2025 9:[address] - 03/12/2025 3:00 PM EDT Note Date & Type Note Facility 04-15-2025 Note HNO ID: [id number] Author: MICAELA MARTIN PA-C Service: ? Author Type: Physician Supervisor Coremaker Type: Progress Notes Filed: 04/15/2025 10:23 Note Text: Chief Complaint Patient presents with: 6 Month Exam HPI Mary Lucas is a 65 year old male who presents here today for Chronic Medical Conditions.. Patient with hx of HTN, hyperlipidemia, and those as below. Cough: - Acute onset cough x2 days. - Ruthann reports improvement today compared to initial onset. - Cough is worse in the morning, with associated phlegm production and mild sore throat. - Denies nocturnal cough. - Denies associated dyspnea, wheezing, or chest pain. Elevated Liver Enzymes: - Recent labs showed slightly elevated liver enzyme, which has been borderline in the past. - Recent abdominal CT for kidney evaluation showed no liver abnormalities. 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 - Symptoms included inability to walk and fluctuating blood pressure. - Neurologist Dr. Lopez evaluated and released Ruthann after symptoms improved. - Denies undergoing a spinal tap for definitive diagnosis. - Reports ongoing foot pain, worse with overexertion, and improved when walking without shoes. Hyperlipidemia: - Recent labs show well-controlled cholesterol levels. Hypertension: - History of elevated blood pressure, previously managed with Lisinopril 80 mg. - Currently taking Lisinopril 20 mg. Past medical history, appointments, medications, allergies reviewed. Previous Medical History PAST MEDICAL HISTORY Diagnosis Date Advance directive discussed with patient 10/03/2023 Discussed 09/2023: Needs to bring in copies. 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 Benign prostatic hyperplasia with urinary frequency 02/15/2010 Benign prostatic hyperplasia without lower urinary tract symptoms 02/15/2010 Bilateral carotid artery stenosis 04/19/2022 US 03/2022: 20-40 b/l Bilateral renal cysts 08/16/2023 US 08/2023: benign BPV (benign positional vertigo) Chronic midline low back pain without sciatica 08/16/2023 Ectatic abdominal aorta 11/18/2023 US 10/2023: Repeat in a year ED (erectile dysfunction) of organic origin 02/24/2021 Essential hypertension, benign 06/01/2013 Ex-smoker 04/05/2022 Hyperlipidemia, mixed 11/28/2015 Lumbar radiculopathy 08/16/2023 Neuropathy of both feet 01/17/2024 Spinal stenosis of lumbar region with neurogenic claudication 08/16/2023 Well adult exam 10/11/2022 Last done 10/11/2022 Previous Surgical History PAST SURGICAL HISTORY Procedure Laterality Date COLONOSCOPY FLX DX W/COLLJ SPEC WHEN PFRMD 04/13/2010 Colonoscopy COLONOSCOPY FLX DX W/COLLJ SPEC WHEN PFRMD 01/01/2020 Colonoscopy EGD 11/2004 removal FB (apple aspiration) EXCISION HYDROCELE UNILATERAL 08/2003 left PAST SURGICAL HISTORY OF 09/02/2023 bilateral laminectomy L2-L5 with decompression fusion with autogenous graft and fixation. per Dr. Dawood Craig VASECTOMY UNI/BI SPX W/POSTOP SEMEN EXAMS 1994 Family History FAMILY HISTORY Problem Relation Age of Onset Hypertension Mother Heart Father age 80, CHF Diabetes Father Heart disease Sister No Known Problems Sister other (Soft tissue cancer) Sister Breast Cancer Sister Diabetes Sister Patient Allergies ALLERGIES Allergen Reactions Covid [id number](12up* Other: See Comments 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 Influenza Virus Vac* Other: See Comments Has a Hx Meg Berre withCOVID Venom-Honey Bee Anaphylaxis Current Medications Current Outpatient Medications on File Prior to Visit Medication Sig atorvastatin (LIPITOR) 40 mg tablet Take 1 tablet by mouth every other day. For cholesterol. EPINEPHrine (EPIPEN) 0.3 mg/0.3 mL auto-injector Inject 0.3 mL subcutaneously as needed. hydroCHLOROthiazide 12.5 mg capsule Take 1 capsule by mouth once daily. lisinopril (ZESTRIL) 20 mg tablet Take 1 tablet by mouth once daily. No current facility-administered medications on file prior to visit. Social History SOCIAL HISTORY[1] Review of Symptoms REVIEW OF SYSTEMS Constitutional: (-) weight loss, (-) fever, (-) fatigue, (-) weakness Ears/Nose/Mouth/Throat: (+) sore throat Neck: (-) neck mass Cardiovascular: (-) chest pain, (-) leg swelling Respiratory: (+) cough, (+) sputum production, (-) wheezing, (-) shortness of breath Musculoskeletal: (+) foot pain SEE HPI EXAM: BP 100/68 (BP Site: Left Arm, BP Position: Sitting, BP Cuff Size: Large Adult) Pulse 79 Temp 36.6 ?C (97.8 ?F) Resp 18 Wt 105.2 kg (232 lb) SpO2 96% BMI 30.61 kg/m? General Appearance: Well appearing, alert, in no acute distress, well-hydrated, well nourished.. Neck: Supple, no adenopathy; thyroid symmetric, normal size, no bruits. Lungs: Lungs clear to auscultation. No wheezing, rhonchi, ra (more content not included)... [facility] 03-15-2025 Telephone encounter Note PATIENT NOTIFIED OF INFORMATION [facility] 03-15-2025 Miscellaneous Notes PATIENT NOTIFIED OF INFORMATION Called patient and left voice mail to call office go over his Abd CT results. CT was normal so suspect the pain may of just been related to strain of his abdominal muscles. documented in this encounter [facility] 03-13-2025 Telephone encounter Note Called patient and left voice mail to call office go over his Abd CT results. CT was normal so suspect the pain may of just been related to strain of his abdominal muscles. [facility] 03-12-2025 History of Present illness Narrative Radiology Service Progress Note PATIENT NAME: Mary Lucas DATE OF SERVICE: March 12, 2025 TIME: 2:36 PM PATIENT IDENTITY VERIFICATION COMPLETED USING TWO (2) IDENTIFIERS: Name and Date of confirmed by patient verbally. FALL SCREENING: Has the patient had 2 falls in the last year or 1 fall with injury or currently using an Ambulatory Assistive Device (Walker, Cane, Wheelchair, Crutches, etc.)? No PATIENT GENDER DATA: Assigned male at PATIENT RELEVANT IMPLANT DATA REVIEWED: Not Applicable PATIENT PRESENTS WITH AN IMPLANTABLE OR ATTACHED SENIOR PASTOR: No RADIOLOGY DEPARTMENT: CT; Exam(s) Completed: Abdomen/Pelvis PERIPHERAL IV DATA: Not applicable SIGNED BY: SHANA Kay March 12, 2025 2:36 PM documented in this encounter [facility] 03-12-2025 Note HNO ID: [id number] Author: PAVEL BYNUM CT Service: Radiology Author Type: Technologist Type: Progress Notes Filed: 03/12/2025 14:36 Note Text: Radiology Service Progress Note PATIENT NAME: Mary Lucas DATE OF SERVICE: March 12, 2025 TIME: 2:36 PM PATIENT IDENTITY VERIFICATION COMPLETED USING TWO (2) IDENTIFIERS: Name and Date of confirmed by patient verbally. FALL SCREENING: Has the patient had 2 falls in the last year or 1 fall with injury or currently using an Ambulatory Assistive Device (Walker, Cane, Wheelchair, Crutches, etc.)? No PATIENT GENDER DATA: Assigned male at PATIENT RELEVANT IMPLANT DATA REVIEWED: Not Applicable PATIENT PRESENTS WITH AN IMPLANTABLE OR ATTACHED SENIOR PASTOR: No RADIOLOGY DEPARTMENT: CT; Exam(s) Completed: Abdomen/Pelvis PERIPHERAL IV DATA: Not applicable SIGNED BY: SHANA Kay March 12, 2025 2:36 PM [facility] 03-11-2025 Instructions Prabhjot Leung MD - 03/11/2025 9:24 AM EDT We discussed your abdominal pain and urinary symptoms: - You reported that your abdominal pain has improved over the last few days and is now mild. You also noted some muscle spasms in the area, which you believe may have been related to recent yard work in warm weather. - I performed an abdominal exam, which showed no significant findings. Your abdomen is soft, not distended, and your bowel sounds are normal. There is no indication of a surgical emergency at this time. - I ordered a CT scan of your abdomen and pelvis to evaluate your kidneys and appendix. This will help determine if you may have passed a kidney stone, if there are any stones present, or if your appendix is causing intermittent symptoms. Please schedule this test as soon as possible. - If your pain becomes severe, please go to the emergency room. If your symptoms remain mild but worsen, contact our office to schedule a follow-up visit. - If the CT scan is negative, your symptoms may be due to an abdominal wall strain. In that case, avoid activities that could exacerbate the strain, such as heavy lifting, pushing, or pulling. We discussed your urinary frequency and weakened stream: - You are experiencing urinary frequency, including waking 2-3 times per night to urinate, and a slightly weakened urinary stream. You have not noticed any burning, blood in your urine, or other concerning symptoms. - We discussed treatment options for your prostate symptoms, including prescription medications and ozhk-pbn-xhgkpwn options. You decided to try saw palmetto, an pmbv-ics-rlpknhz supplement, to see if it helps reduce your symptoms. There is no specific brand recommendation, and you can find this at most pharmacies or stores like [employer]. - If your symptoms do not improve or worsen, please let us know, and we can discuss other treatment options, including prescription medications. Next steps: - Schedule your CT scan of the abdomen and pelvis as soon as possible. The desk officer should assist you with scheduling before you leave. - Begin taking saw palmetto as directed on the packaging. - Monitor your symptoms. If your abdominal pain becomes severe, go to the emergency room. For mild but worsening symptoms, contact our office for a follow-up appointment. - Avoid activities that may strain your abdominal muscles, such as heavy lifting or yard work, until your symptoms improve. Please let us know if you have any questions or concerns. documented in this encounter [facility] 03-11-2025 History of Present illness Narrative Chief Complaint Patient presents with: Low Back Pain Abdominal Pain HPI Mary Lucas is a 65 year old male who presents here today for an acute visit. Patient here today with c/o intermittent left low sided back pain for the past 3-4 days. Pain rated a 3-4/10 and described as sharp. Today pt reports back is fine at this time. Intermittent abdominal pain that moves around, but located currently around his navel area but radiates to his back and RLQ. Initially pain was in the left lower back and into the LLQ. The pain in the LLQ has resolved. Now mainly having what he calls spasms of to the right of th umbilicus. Today pt states pain has not been too bad, mainly having muscle spasms. Pain rated a 0/10, when worse a 2/10 and described as aching, spasms, twitching, and cramping. Occasional nausea with laying down at times. Patient denies any nausea, vomiting, diarrhea, fever, shortness of breath, or chest pain. Patient believes this could have something to do with his prostate, may need to see Urology. Hx of enlarged prostate, has frequency, and sometimes a weak flow. Ruthann Lucas is a 65-year-old male presenting with left lower abdominal pain and muscle spasms. Ruthann reports experiencing left lower abdominal pain and muscle spasms since Saturday, following lawn work performed in the mid-morning on a warm day. The pain was initially localized to the left lower abdomen but has since subsided and is now described as muscle spasms in the right abdomen near the umbilicus. He denies current left lower back pain. He has not tried any treatments for the pain. He denies a history of nephrolithiasis and reports adequate hydration, noting that his urine is usually light-colored. He denies nausea, emesis, diarrhea, fever, dyspnea, or chest pain. He has noticed a slight decrease in appetite but denies weight loss. He has not been diagnosed with diverticulosis and still has his appendix. Ruthann also reports increased urinary frequency and a slightly weakened urinary stream, particularly at night, waking 2-3 times to urinate. He denies dysuria or hematuria. He is not currently on any medications for prostate symptoms and has not tried any vmrl-pju-chjexdd treatments. His prostate labs have been within normal limits. Past medical history, appointments, medications, allergies reviewed. Previous Medical History PAST MEDICAL HISTORY Diagnosis Date Advance directive discussed with patient 10/03/2023 Discussed 09/2023: Needs to bring in copies. 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 Benign prostatic hyperplasia with urinary frequency 02/15/2010 Benign prostatic hyperplasia without lower urinary tract symptoms 02/15/2010 Bilateral carotid artery stenosis 04/19/2022 US 03/2022: 20-40 b/l Bilateral renal cysts 08/16/2023 US 08/2023: benign BPV (benign positional vertigo) Chronic midline low back pain without sciatica 08/16/2023 Ectatic abdominal aorta 11/18/2023 US 10/2023: Repeat in a year ED (erectile dysfunction) of organic origin 02/24/2021 Essential hypertension, benign 06/01/2013 Ex-smoker 04/05/2022 Hyperlipidemia, mixed 11/28/2015 Lumbar radiculopathy 08/16/2023 Neuropathy of both feet 01/17/2024 Spinal stenosis of lumbar region with neurogenic claudication 08/16/2023 Well adult exam 10/11/2022 Last done 10/11/2022 Previous Surgical History PAST SURGICAL HISTORY Procedure Laterality Date COLONOSCOPY FLX DX W/COLLJ SPEC WHEN PFRMD 04/13/2010 Colonoscopy COLONOSCOPY FLX DX W/COLLJ SPEC WHEN PFRMD 01/01/2020 Colonoscopy EGD 11/2004 removal FB (apple aspiration) EXCISION HYDROCELE UNILATERAL 08/2003 left PAST SURGICAL HISTORY OF 09/02/2023 bilateral laminectomy L2-L5 with decompression fusion with autogenous graft and fixation. per Dr. 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 Influenza Virus Vac* Other: See Comments Has a Hx Meg Peterson withCOVID Venom-Honey Bee Anaphylaxis Current Medications Current Outpatient Medications on File Prior to Visit Medication Sig atorvastatin (LIPITOR) 40 mg tablet Take 1 tablet by mouth every other day. For cholesterol. EPINEPHrine (EPIPEN) 0.3 mg/0.3 mL auto-injector Inject 0.3 mL subcutaneously as needed. hydroCHLOROthiazide 12.5 mg capsule Take 1 capsule by mouth once daily. lisinopril (ZESTRIL) 20 mg tablet Take 1 tablet by mouth once daily. No current facility-administered medications on file prior to visit. Social History SOCIAL HISTORY[1] Review of Symptoms REVIEW OF SYSTEMS SEE HPI EXAM: BP 114/78 (BP Site: Right Arm, BP Position: Sitting, BP Cuff Size: Regular Adult) Pulse 64 Resp 16 Wt 104.8 kg (231 lb) BMI 30.48 kg/m General Appearance: Well appearing, alert, in no acute distress, well-hydrated, well nourished.. Back:mild CVA tenderness on the left Abdomen: Abdomen soft, non-distended. Mild tenderness in the right abdomen over McBurney's point. No guarding or rebound pain.Bowel sounds normal. No masses, organomegaly. Health Maintenance List Depression Screening due on 10/12/2025 Anxiety Screening due on 10/12/2025 Medicare Annual Wellness Visit due on 10/12/2025 Annual PCP Team Chronic Disease Visit due on 03/11/2026 Diabetes Screening due on 10/06/2027 Lipid Screening due on 10/05/2029 Prostate Cancer Screening Discussion due on 10/12/2029 DTaP,Tdap,Td Vaccine(3 - Td or Tdap) due on 12/10/2029 Colorectal Cancer Screening due on 12/31/2029 Abdominal Aortic Aneurysm Screening Completed Advance Directive Discussion Completed RSV Vaccine Completed Hepatitis C Screening Completed Shingrix Vaccine Completed Pneumococcal Vaccine: 50+ Completed Influenza Vaccine Discontinued Data reviewed Latest Ref Rng 03/11/2025 GLUCOSE UA (POCT) Negative mg/dL Negative BILIRUBIN UA (POCT) Negative Negative KETONE UA (POCT) Negative mg/dL Negative SPECIFIC GRAVITY UA (POCT) 1.005 - 1.030 1.010 HEMOGLOBIN/BLOOD UA (POCT) Negative Negative PH UA (POCT) 4.5 - 8.0 6.0 PROTEIN UA (POCT) Negative mg/dL Negative UROBILINOGEN UA (POCT) Normal E.U./dL 0.2 NITRITE UA (POCT) Negative Negative LEUKOCYTES UA (POCT) Negative Negative COLOR UA (POCT) Yellow CLARITY UA (POCT) Clear Assessment and Plan 1. Urinary frequency (R35.0) Benign prostatic hyperplasia with urinary frequency (N40.1) Experiencing urinary frequency and nocturia 2-3 times per night with slightly weakened urinary stream. No dysuria or hematuria reported. Prostate labs have been within normal limits. - Discussed treatment options including ajtr-umx-genpsxe saw palmetto and prescription finasteride. - Patient opted to try saw palmetto. - Advised patient to monitor symptoms and report any changes. 2. Left flank pain (R10.9) Right lateral abdominal pain (R10.9) Right lower quadrant abdominal pain (R10.31) Intermittent pain in the left flank, right lateral abdomen, and right lower quadrant. No history of nephrolithiasis. No associated nausea, vomiting, diarrhea, fever, dyspnea, or chest pain. Mild tenderness noted on physical exam. Differential diagnoses include appendicitis, nephrolithiasis, and abdominal wall strain. - undiagnosised issue and treatment at this time - Ordered CT scan of the abdomen and pelvis to evaluate for appendicitis, nephrolithiasis, or other intra-abdominal pathology. - Advised patient to avoid activities that may exacerbate pain, such as heavy lifting and strenuous exercise. - Instructed patient to seek immediate medical attention if pain becomes severe or if new symptoms develop. Prabhjot Leung MD Recording using [employer] software for draft documentation of the visit was discussed with the patient/authorized patient intake representative; all questions welcomed and answered. Patient/authorized patient intake representative agreed to proceed [1] Social History Tobacco Use Smoking status: Former Types: Cigarettes Smokeless tobacco: Former Types: Chew Quit date: 2018 Tobacco comments: occasionally Vaping Use Vaping status: Never Used Substance Use Topics Alcohol use: Yes Comment: 1-2 per day Drug use: Not Currently documented in this encounter [facility] 03-11-2025 Note HNO ID: [id number] Author: PRABHJOT LEUNG MD Service: ? Author Type: Physician Type: Progress Notes Filed: 03/12/2025 12:47 Note Text: Chief Complaint Patient presents with: Low Back Pain Abdominal Pain HPI Mary Lucas is a 65 year old male who presents here today for an acute visit. Patient here today with c/o intermittent left low sided back pain for the past 3-4 days. Pain rated a 3-4/10 and described as sharp. Today pt reports back is fine at this time. Intermittent abdominal pain that moves around, but located currently around his navel area but radiates to his back and RLQ. Initially pain was in the left lower back and into the LLQ. The pain in the LLQ has resolved. Now mainly having what he calls spasms of to the right of th umbilicus. Today pt states pain has not been too bad, mainly having muscle spasms. Pain rated a 0/10, when worse a 2/10 and described as aching, spasms, twitching, and cramping. Occasional nausea with laying down at times. Patient denies any nausea, vomiting, diarrhea, fever, shortness of breath, or chest pain. Patient believes this could have something to do with his prostate, may need to see Urology. Hx of enlarged prostate, has frequency, and sometimes a weak flow. Ruthann Lucas is a 65-year-old male presenting with left lower abdominal pain and muscle spasms. Ruthann reports experiencing left lower abdominal pain and muscle spasms since Saturday, following lawn work performed in the mid-morning on a warm day. The pain was initially localized to the left lower abdomen but has since subsided and is now described as muscle spasms in the right abdomen near the umbilicus. He denies current left lower back pain. He has not tried any treatments for the pain. He denies a history of nephrolithiasis and reports adequate hydration, noting that his urine is usually light-colored. He denies nausea, emesis, diarrhea, fever, dyspnea, or chest pain. He has noticed a slight decrease in appetite but denies weight loss. He has not been diagnosed with diverticulosis and still has his appendix. Ruthann also reports increased urinary frequency and a slightly weakened urinary stream, particularly at night, waking 2-3 times to urinate. He denies dysuria or hematuria. He is not currently on any medications for prostate symptoms and has not tried any lkhf-bsq-icfoivm treatments. His prostate labs have been within normal limits. Past medical history, appointments, medications, allergies reviewed. Previous Medical History PAST MEDICAL HISTORY Diagnosis Date Advance directive discussed with patient 10/03/2023 Discussed 09/2023: Needs to bring in copies. 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 Benign prostatic hyperplasia with urinary frequency 02/15/2010 Benign prostatic hyperplasia without lower urinary tract symptoms 02/15/2010 Bilateral carotid artery stenosis 04/19/2022 US 03/2022: 20-40 b/l Bilateral renal cysts 08/16/2023 US 08/2023: benign BPV (benign positional vertigo) Chronic midline low back pain without sciatica 08/16/2023 Ectatic abdominal aorta 11/18/2023 US 10/2023: Repeat in a year ED (erectile dysfunction) of organic origin 02/24/2021 Essential hypertension, benign 06/01/2013 Ex-smoker 04/05/2022 Hyperlipidemia, mixed 11/28/2015 Lumbar radiculopathy 08/16/2023 Neuropathy of both feet 01/17/2024 Spinal stenosis of lumbar region with neurogenic claudication 08/16/2023 Well adult exam 10/11/2022 Last done 10/11/2022 Previous Surgical History PAST SURGICAL HISTORY Procedure Laterality Date COLONOSCOPY FLX DX W/COLLJ SPEC WHEN PFRMD 04/13/2010 Colonoscopy COLONOSCOPY FLX DX W/COLLJ SPEC WHEN PFRMD 01/01/2020 Colonoscopy EGD 11/2004 removal FB (apple aspiration) EXCISION HYDROCELE UNILATERAL 08/2003 left PAST SURGICAL HISTORY OF 09/02/2023 bilateral laminectomy L2-L5 with decompression fusion with autogenous graft and fixation. per Dr. 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 Influenza Virus Vac* Other: See Comments Has a Hx Meg Berre withCOVID Venom-Honey Bee Anaphylaxis Current Medications Current Outpatient Medications on File Prior to Visit Medication Sig atorvastatin (LIPITOR) 40 mg tablet Take 1 tablet by mouth every other day. For cholesterol. EPINEPHrine (EPIPEN) 0.3 mg/0.3 mL auto-injector Inject 0.3 mL subcutaneously as needed. hydroCHLOROthiazide 12.5 mg capsule Take 1 capsule by mouth once daily. lisinopril (ZESTRIL) (more content not included)... [facility] 03-09-2025 Telephone encounter Note Pt rescheduled for 6 month f/u with Micaela. Kathie Valderrama RN [facility] 03-09-2025 Miscellaneous Notes Pt rescheduled for 6 month f/u with Micaela. Kathie Valderrama RN Kathie in the future do not move a patient's routine follow up to address a new issue. Leave the routine appt where it is. To do a routine appt and a new issue in 20 min is impossible. Also I'm not convinced this is a prostate issue. It may be his appendix. I will wait to see him to see what labs are needed. Kathie I want you to call him and make him aware that you need to reschedule the routine appt in Mar with Micaela since it will still be needed. Pt called in and reports he has been having low left back pain that a 3-4/10 sharp pain that comes and goes. Pt reports abdominal pain that moves right now it's around his belly button and maybe a little above and radiates to his back, 4/10 aching that comes and goes. Pt states he will get spasms and twitching along with cramping in his stomach at times. Pt reports he has been having these issues the last 3-4 days. Pt denies N/V/D, fever, Shortness of Breath, or chest pain. Pt reports sometimes when he lays down he may get a little nausea sometimes. Pt was thinking it may have have something to do with his prostate and he may need to see Urology. He states he has had an enlarged prostate, he has frequency and sometimes has a weak flow. Pt scheduled with Dr Leung on 03/11/25. Could you please moved his labs up so he can get them before he sees Dr Leung. Please call Pt once labs have been released earlier. Kathie Valderrama, RN documented in this encounter [facility] 03-08-2025 Telephone encounter Note Kathie in the future do not move a patient's routine follow up to address a new issue. Leave the routine appt where it is. To do a routine appt and a new issue in 20 min is impossible. Also I'm not convinced this is a prostate issue. It may be his appendix. I will wait to see him to see what labs are needed. Kathie I want you to call him and make him aware that you need to reschedule the routine appt in Mar with Micaela since it will still be needed. [facility] 03-08-2025 Telephone encounter Note Pt called in and reports he has been having low left back pain that a 3-4/10 sharp pain that comes and goes. Pt reports abdominal pain that moves right now it's around his belly button and maybe a little above and radiates to his back, 4/10 aching that comes and goes. Pt states he will get spasms and twitching along with cramping in his stomach at times. Pt reports he has been having these issues the last 3-4 days. Pt denies N/V/D, fever, Shortness of Breath, or chest pain. Pt reports sometimes when he lays down he may get a little nausea sometimes. Pt was thinking it may have have something to do with his prostate and he may need to see Urology. He states he has had an enlarged prostate, he has frequency and sometimes has a weak flow. Pt scheduled with Dr Leung on 03/11/25. Could you please moved his labs up so he can get them before he sees Dr Leung. Please call Pt once labs have been released earlier. Kathie Valderrama, RN [facility] 11-30-2024 Telephone encounter Note Patient notified and voiced understanding. Cinda Brady MA [facility] 11-30-2024 Miscellaneous Notes Patient notified and voiced understanding. Cinda Brady MA Let patient know Us of abdominal aorta shows no increase in size from last year. Would repeat US in 11/2026 documented in this encounter [facility] 11-29-2024 Telephone encounter Note Let patient know Us of abdominal aorta shows no increase in size from last year. Would repeat US in 11/2026 [facility] 11-27-2024 Telephone encounter Note Let patient know that carotid US is stable. Abdominal US still in process. [facility] 11-27-2024 Miscellaneous Notes Let patient know that carotid US is stable. Abdominal US still in process. documented in this encounter [facility] 11-27-2024 History of Present illness Narrative Radiology Service Progress Note PATIENT NAME: Mary Lucas DATE OF SERVICE: November 27, 2024 TIME: 3:15 PM PATIENT IDENTITY VERIFICATION COMPLETED USING TWO (2) IDENTIFIERS: Name and Date of confirmed by patient verbally. FALL SCREENING: Has the patient had 2 falls in the last year or 1 fall with injury or currently using an Ambulatory Assistive Device (Walker, Cane, Wheelchair, Crutches, etc.)? No PATIENT GENDER DATA: Assigned male at PATIENT RELEVANT IMPLANT DATA REVIEWED: Not Applicable PATIENT PRESENTS WITH AN IMPLANTABLE OR ATTACHED SENIOR PASTOR: No RADIOLOGY DEPARTMENT: Ultrasound PERIPHERAL IV DATA: Not applicable SIGNED BY: Ava Pena RDMS RVT November 27, 2024 3:15 PM documented in this encounter [facility] 11-27-2024 Note HNO ID: [id number] Author: AVA PENA RDMS Service: ? Author Type: Telecommunication Systems Designer Type: Progress Notes Filed: 11/27/2024 15:15 Note Text: Radiology Service Progress Note PATIENT NAME: Mary Lucas DATE OF SERVICE: November 27, 2024 TIME: 3:15 PM PATIENT IDENTITY VERIFICATION COMPLETED USING TWO (2) IDENTIFIERS: Name and Date of confirmed by patient verbally. FALL SCREENING: Has the patient had 2 falls in the last year or 1 fall with injury or currently using an Ambulatory Assistive Device (Walker, Cane, Wheelchair, Crutches, etc.)? No PATIENT GENDER DATA: Assigned male at PATIENT RELEVANT IMPLANT DATA REVIEWED: Not Applicable PATIENT PRESENTS WITH AN IMPLANTABLE OR ATTACHED SENIOR PASTOR: No RADIOLOGY DEPARTMENT: Ultrasound PERIPHERAL IV DATA: Not applicable SIGNED BY: Ava Pena RDMS RVT November 27, 2024 3:15 PM [facility] 11-24-2024 Note HNO ID: [id number] Author: WALE MCKEON PT Service: ? Author Type: Physical Therapist Type: Progress Notes Filed: 11/24/2024 17:28 Note Text: Episode Visit Count: 5 Therapist That Will Accept/Oversee The Plan Of Care: Wale Mckeon PT Start of Care Date: 10/27/24 Onset Date: 09/27/23 Plan of Care Certification Date: 10/27/24 Next Certification Due Date: 12/08/24 Patient Identified by Name and Date of : Yes REHABILITATION AND SPORTS THERAPY PHYSICAL THERAPY DISCONTINUANCE OF CARE PLAN OF CARE UPDATE: Assessment: Mary Lucas is discontinued from Physical Therapy services due to goal achievement and maximal benefit. and Patient/Clinician mutual decision to discontinue current plan of care.. Patient was seen for 5 visits from Start of Care Date: 10/27/24 to 11/24/2024 and treatment included: Therapeutic exercise, Neuromuscular re-education, and Patient/Family/Caregiver Education. Updated: 11/24/24 Goals for Episode of Care: established 10/27/24 [place] in home exercise program. - MET Patient will decrease pain to 0/10 with functional activities to allow patient to improve ambulation on uneven surfaces. - Partially MET Patient will increase active ROM of L ankle to WFL, symmetrical and symptom-free to allow pt to to improve performance of ADLs. - MET Patient will demonstrate increase in L LE/ankle strength to 5/5 during manual muscle testing in order to improve function for outdoor ambulation on uneven surfaces. - Partially MET Perform all walking and lateral movements with decreased report of symptoms/pain in 6 weeks. - Partially MET Patient Goals: strengthen L ankle, walk on uneven surfaces for vacation in November 2024 - Partially MET SUBJECTIVE: Pt reports that overall he is doing much better but not quite 100%. He reports increased strength in L ankle but that some weakness and instability persists. He reports a recent increase in activity tolerance that would have caused him problems previously. He feels confident in his ability to continue HEP and that he is also traveling in the future and unable to attend PT regularly. Pain: Pain Pain Level: 0 Pain Location: Ankle - Left Frequency: Intermittent Post Treatment Pain Post Treatment Pain Level: No Change Post Treatment Pain Location: Ankle - Left PROMIS Scales 11/13/2024 10/20/2024 Higher is Better Phys Func - T Score 51 (within normal limits) 49 (within normal limits) Phys Func - Percentile 54 46 Self-Eff Symptom - T Score 56 (Average) 50 (Average) Self-Eff Symptom - Percentile 73 50 T-scores: mean of general population = 50. 5 points is clinically meaningfully difference Percentiles provide an indication of how the patient's score ranks in relation to the general population. Higher percentile rankings indicate better function/quality of life. 50th percentile is the average of the general population and indicates half of respondents had a worse score. OBJECTIVE MEASURES WITH LEVEL OF FUNCTION: LE AROM L Ankle Dorsiflexion: 5 Degrees L Ankle Plantar Flexion: 58 Degrees L Ankle Inversion: 25 L Ankle Eversion: 19 LE Strength L Ankle Dorsiflexion (L4): 4+/5 L Ankle Plantar Flexion: 5/5 L Ankle Inversion: 5/5 L Ankle Eversion: 4+/5 Gait Gait Observation: normal TREATMENT: Therapeutic Exercise: 1: Upright bike seat #7 x6 minutes, level 5 2: long sitting L calf stretch with strap 3x30 seconds 3: Standing PWB left BAPS hemisphere #4 2x10 CW, CCW, PF/DF, INV/EV. 4: long sitting blue t-band L ankle strengthening for DF, PF, Inv and green for Ev 2x10 each (blue band provided for progression of HEP.) 5: seated L ankle alphabet A-Z x2 with 2# ankle weight on forefoot. 6: HEP was thoroughly reviewed and continuation encouraged to tolerance. He was educated on how and when to progress strengthening HEP. Skilled Intervention: Patient was educated in proper exercise technique and purpose for exercises. Reviewed and educated patient on additions/changes for home exercise program as above (*). Skilled judgment was used in selection of appropriate interventions. Provided written instruction for home exercise program to facilitate proper performance and compliance. Correct performance of therapeutic exercises was facilitated with verbal, visual, and tactile cuing. Patient education as noted. Billing Therapeutic Exercise Treatment Minutes: 41 Skilled Treatment Time Minutes (timed and untimed codes): 41 Total Session Time (minutes): 41 Session Start Time : 1050 Session Stop Time : 1131 Wale Mckeon PT [facility] 11-24-2024 History of Present illness Narrative Episode Visit Count: 5 Therapist That Will Accept/Oversee The Plan Of Care: Wale Mckeon PT Start of Care Date: 10/27/24 Onset Date: 09/27/23 Plan of Care Certification Date: 10/27/24 Next Certification Due Date: 12/08/24 Patient Identified by Name and Date of : Yes REHABILITATION AND SPORTS THERAPY PHYSICAL THERAPY DISCONTINUANCE OF CARE PLAN OF CARE UPDATE: Assessment: Mary Lucas is discontinued from Physical Therapy services due to goal achievement and maximal benefit. and Patient/Clinician mutual decision to discontinue current plan of care.. Patient was seen for 5 visits from Start of Care Date: 10/27/24 to 11/24/2024 and treatment included: Therapeutic exercise, Neuromuscular re-education, and Patient/Family/Caregiver Education. Updated: 11/24/24 Goals for Episode of Care: established 10/27/24 [place] in home exercise program. - MET Patient will decrease pain to 0/10 with functional activities to allow patient to improve ambulation on uneven surfaces. - Partially MET Patient will increase active ROM of L ankle to WFL, symmetrical and symptom-free to allow pt to to improve performance of ADLs. - MET Patient will demonstrate increase in L LE/ankle strength to 5/5 during manual muscle testing in order to improve function for outdoor ambulation on uneven surfaces. - Partially MET Perform all walking and lateral movements with decreased report of symptoms/pain in 6 weeks. - Partially MET Patient Goals: strengthen L ankle, walk on uneven surfaces for vacation in November 2024 - Partially MET SUBJECTIVE: Pt reports that overall he is doing much better but not quite 100%. He reports increased strength in L ankle but that some weakness and instability persists. He reports a recent increase in activity tolerance that would have caused him problems previously. He feels confident in his ability to continue HEP and that he is also traveling in the future and unable to attend PT regularly. Pain: Pain Pain Level: 0 Pain Location: Ankle - Left Frequency: Intermittent Post Treatment Pain Post Treatment Pain Level: No Change Post Treatment Pain Location: Ankle - Left PROMIS Scales 11/13/2024 10/20/2024 Higher is Better Phys Func - T Score 51 (within normal limits) 49 (within normal limits) Phys Func - Percentile 54 46 Self-Eff Symptom - T Score 56 (Average) 50 (Average) Self-Eff Symptom - Percentile 73 50 T-scores: mean of general population = 50. 5 points is clinically meaningfully difference Percentiles provide an indication of how the patient's score ranks in relation to the general population. Higher percentile rankings indicate better function/quality of life. 50th percentile is the average of the general population and indicates half of respondents had a worse score. OBJECTIVE MEASURES WITH LEVEL OF FUNCTION: LE AROM L Ankle Dorsiflexion: 5 Degrees L Ankle Plantar Flexion: 58 Degrees L Ankle Inversion: 25 L Ankle Eversion: 19 LE Strength L Ankle Dorsiflexion (L4): 4+/5 L Ankle Plantar Flexion: 5/5 L Ankle Inversion: 5/5 L Ankle Eversion: 4+/5 Gait Gait Observation: normal TREATMENT: Therapeutic Exercise: 1: Upright bike seat #7 x6 minutes, level 5 2: long sitting L calf stretch with strap 3x30 seconds 3: Standing PWB left BAPS hemisphere #4 2x10 CW, CCW, PF/DF, INV/EV. 4: long sitting blue t-band L ankle strengthening for DF, PF, Inv and green for Ev 2x10 each (blue band provided for progression of HEP.) 5: seated L ankle alphabet A-Z x2 with 2# ankle weight on forefoot. 6: HEP was thoroughly reviewed and continuation encouraged to tolerance. He was educated on how and when to progress strengthening HEP. Skilled Intervention: Patient was educated in proper exercise technique and purpose for exercises. Reviewed and educated patient on additions/changes for home exercise program as above (*). Skilled judgment was used in selection of appropriate interventions. Provided written instruction for home exercise program to facilitate proper performance and compliance. Correct performance of therapeutic exercises was facilitated with verbal, visual, and tactile cuing. Patient education as noted. Billing Therapeutic Exercise Treatment Minutes: 41 Skilled Treatment Time Minutes (timed and untimed codes): 41 Total Session Time (minutes): 41 Session Start Time : 1050 Session Stop Time : 1131 Wale Mckeon PT documented in this encounter [facility] 11-20-2024 Note HNO ID: [id number] Author: WALE MCKEON PT Service: ? Author Type: Physical Therapist Type: Progress Notes Filed: 11/20/2024 10:26 Note Text: Episode Visit Count: 4 Therapist That Will Accept/Oversee The Plan Of Care: Wale Mckeon PT Start of Care Date: 10/27/24 Onset Date: 09/27/23 Plan of Care Certification Date: 10/27/24 Next Certification Due Date: 12/08/24 Patient Identified by Name and Date of : Yes REHABILITATION AND SPORTS THERAPY PHYSICAL THERAPY TREATMENT NOTE ASSESSMENT: Mary Lucas tolerated the session with fatigue and expected muscle soreness. He demonstrated improvements in tolerance to standing ankle strengthening. The patient will continue to benefit from ongoing skilled physical therapy to progress toward set goals. PLAN FOR NEXT VISIT: Consider use of rocker board or foam beam. SUBJECTIVE: Pt reports that he does not have any pain in his L ankle but does have some pain in his L low back and L hip. Worse when he bends to the L , feels like a sharp, pinching pain. Pt states that he went to the [employer] and played [employer] ball yesterday and felt okay. Pain: Pain Pain Level: 0 Pain Location: Ankle - Left Additional Pain Information : Location 2 Pain Level 2: 3 Pain Location 2: Low Back/Lumbar Spine - Left, Hip - Left Post Treatment Pain Post Treatment Pain Location: Ankle - Left Post Treatment Symptoms: Fatigue OBJECTIVE MEASURES WITH LEVEL OF FUNCTION: Difficulty with eversion and inversion with GTB this visit without compensation at knee. TREATMENT: Therapeutic Exercise: 1: Upright bike seat #7 x5 minutes, level 5.2 (1:1 throughout. Pt provided an update on his condition and discussed current HEP.) 2: long sitting L calf stretch with towel 3x30 seconds 3: Standing PWB BAPS L 3 2x10 CW, CCW, PF/DF, INV/EV. 4: long sitting green t-band L ankle strengthening for DF, PF, Inv and Ev 2x10 each 5: seated L ankle alphabet A-Z x2 with 1.5 # ankle weight on forefoot. 7: forward lunges onto dome side of BOSU 2x10 B at // bars Skilled Intervention: Patient was educated in proper exercise technique and purpose for exercises. Skilled judgment was used in selection of appropriate interventions. Correct performance of therapeutic exercises was facilitated with verbal and visual cuing. Neuromuscular Re-Education: 1: lateral step ups on and over dome side of BOSU 2x10 at // bars. 2: Step ups on blue foam airex pad 3x10 LLE without UE support Skilled Intervention: Skilled judgment used to assess appropriate program for balance and coordination activity. Billing Therapeutic Exercise Treatment Minutes: 30 Neuromuscular Re-Education Treatment Minutes: 10 Skilled Treatment Time Minutes (timed and untimed codes): 40 Total Session Time (minutes): 40 Session Start Time : 924 Session Stop Time : 1005 Lotus Damon, BOAT REPAIRER Wale Mckeon PT [facility] 11-13-2024 Note HNO ID: [id number] Author: WALE MCKEON PT Service: ? Author Type: Physical Therapist Type: Progress Notes Filed: 11/13/2024 11:53 Note Text: Episode Visit Count: 3 Therapist That Will Accept/Oversee The Plan Of Care: Wale Mckeon PT Start of Care Date: 10/27/24 Onset Date: 09/27/23 Plan of Care Certification Date: 10/27/24 Next Certification Due Date: 12/08/24 Patient Identified by Name and Date of : Yes REHABILITATION AND SPORTS THERAPY PHYSICAL THERAPY TREATMENT NOTE ASSESSMENT: Mary Lucas tolerated the session with fatigue and expected muscle soreness. He demonstrated difficulty with fluid motion with BAPS board this visit. The patient will continue to benefit from ongoing skilled physical therapy to progress toward set goals. PLAN FOR NEXT VISIT: Continue with L ankle strengthening and ROM. Continue wit proprioception. SUBJECTIVE: Pt reports that his ankle is fine, does not give him a lot of pain, just feels weak, especially on uneven surfaces. Pain: Pain Pain Level: 0 Post Treatment Pain Post Treatment Pain Location: Ankle - Left OBJECTIVE MEASURES WITH LEVEL OF FUNCTION: Increased difficulty with eversion vs. Inversion with GTB TREATMENT: Therapeutic Exercise: 1: Upright bike seat #7 x5 minutes, level 5.2 (1:1 throughout. Pt provided an update on his condition and discussed current HEP.) 2: long sitting L calf stretch with towel 3x30 seconds 3: long sitting green t-band L ankle strengthening for DF, PF, Inv and Ev 2x10 each 4: seated L ankle alphabet A-Z x2 5: seated L BAPS hemisphere #3 front to back, side to side, CW and CCW 2x10 each (standing was not well tolerated) (tactile cueing for correct movement and to not let knee do the motion) 6: lateral step ups on and over dome side of BOSU 2x10 at // bars. Skilled Intervention: Patient was educated in proper exercise technique and purpose for exercises. Skilled judgment was used in selection of appropriate interventions. Correct performance of therapeutic exercises was facilitated with verbal, visual, and tactile cuing. Billing Therapeutic Exercise Treatment Minutes: 41 Skilled Treatment Time Minutes (timed and untimed codes): 41 Total Session Time (minutes): 41 Session Start Time : 0845 Session Stop Time : 925 Lotus Damon, BOAT REPAIRER Wale Mckeon PT [facility] 11-13-2024 History of Present illness Narrative Episode Visit Count: 3 Therapist That Will Accept/Oversee The Plan Of Care: Wale Mckeon PT Start of Care Date: 10/27/24 Onset Date: 09/27/23 Plan of Care Certification Date: 10/27/24 Next Certification Due Date: 12/08/24 Patient Identified by Name and Date of : Yes REHABILITATION AND SPORTS THERAPY PHYSICAL THERAPY TREATMENT NOTE ASSESSMENT: Mary Lucas tolerated the session with fatigue and expected muscle soreness. He demonstrated difficulty with fluid motion with BAPS board this visit. The patient will continue to benefit from ongoing skilled physical therapy to progress toward set goals. PLAN FOR NEXT VISIT: Continue with L ankle strengthening and ROM. Continue wit proprioception. SUBJECTIVE: Pt reports that his ankle is fine, does not give him a lot of pain, just feels weak, especially on uneven surfaces. Pain: Pain Pain Level: 0 Post Treatment Pain Post Treatment Pain Location: Ankle - Left OBJECTIVE MEASURES WITH LEVEL OF FUNCTION: Increased difficulty with eversion vs. Inversion with GTB TREATMENT: Therapeutic Exercise: 1: Upright bike seat #7 x5 minutes, level 5.2 (1:1 throughout. Pt provided an update on his condition and discussed current HEP.) 2: long sitting L calf stretch with towel 3x30 seconds 3: long sitting green t-band L ankle strengthening for DF, PF, Inv and Ev 2x10 each 4: seated L ankle alphabet A-Z x2 5: seated L BAPS hemisphere #3 front to back, side to side, CW and CCW 2x10 each (standing was not well tolerated) (tactile cueing for correct movement and to not let knee do the motion) 6: lateral step ups on and over dome side of BOSU 2x10 at // bars. Skilled Intervention: Patient was educated in proper exercise technique and purpose for exercises. Skilled judgment was used in selection of appropriate interventions. Correct performance of therapeutic exercises was facilitated with verbal, visual, and tactile cuing. Billing Therapeutic Exercise Treatment Minutes: 41 Skilled Treatment Time Minutes (timed and untimed codes): 41 Total Session Time (minutes): 41 Session Start Time : 844 Session Stop Time : 925 Lotus Damon BOAT REPAIRER Wale Mckeon PT documented in this encounter [facility] 11-06-2024 History of Present illness Narrative Program_ID:[id number] Access Code: [email or web address] URL: [email or web address] Date: 11-06-2024 Prepared By: Wale Mckeon Program Notes Exercises - Long Sitting Calf Stretch with Strap - 2-3 x daily - 7 x weekly - sets - 3 reps - Seated Ankle Alphabet - 2-3 x daily - 7 x weekly - sets - 1 reps - Standing Single Leg Stance with Counter Support - 2-3 x daily - 7 x weekly - sets - 3 reps - Long Sitting Ankle Plantar Flexion with Resistance - 2 x daily - 7 x weekly - 2 sets - 10 reps - Long Sitting Ankle Dorsiflexion with Anchored Resistance - 2 x daily - 7 x weekly - 2 sets - 10 reps - Long Sitting Ankle Eversion with Resistance - 2 x daily - 7 x weekly - 2 sets - 10 reps - Long Sitting Ankle Inversion with Resistance - 2 x daily - 7 x weekly - 2 sets - 10 reps Episode Visit Count: 2 Therapist That Will Accept/Oversee The Plan Of Care: Wale Mckeon PT Start of Care Date: 10/27/24 Onset Date: 09/27/23 Plan of Care Certification Date: 10/27/24 Next Certification Due Date: 12/08/24 Patient Identified by Name and Date of : Yes REHABILITATION AND SPORTS THERAPY PHYSICAL THERAPY TREATMENT NOTE ASSESSMENT: Mary Lucas tolerated the session with fatigue, expected muscle soreness, and no issues. He demonstrated improvements in exercise tolerance without increased pain. The patient will continue to benefit from ongoing skilled physical therapy to progress toward set goals. PLAN FOR NEXT VISIT: Review, correct and progress HEP to tolerance. Continue with therex with emphasis on ROM, strength, proprioception and function of L ankle. 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 SUBJECTIVE: Pt reports that overall his strength is slightly better since evaluation. He reports that his functional strength and balance are both improved. He reports compliance with HEP 2x day without problems for difficulty. Pt denies any pain to start today. Pain: Pain Pain Level: 0 Post Treatment Pain Post Treatment Pain Level: No Change Post Treatment Pain Location: Ankle - Left Post Treatment Symptoms: After session, pt reported fatigue from a good workout but he denied any increase in pain. OBJECTIVE MEASURES WITH LEVEL OF FUNCTION: TREATMENT: Therapeutic Exercise: 1: Upright bike seat #7 x5 minutes (1:1 throughout. Pt provided an update on his condition and plan of care reviewed.) 2: seated L ankle alphabet A-Z x2 3: long sitting L calf stretch with towel 3x30 seconds 4: L SLS with UE support from counter top 3x30 seconds 5: *long sitting green t-band L ankle strengthening for DF, PF, Inv and Ev 2x10 each 6: seated L BAPS hemisphere #3 front to back, side to side, CW and CCW 2x10 each (standing was not well tolerated) 7: L prostretch 3x30 seconds 8: lateral step ups on and over dome side of BOSU 2x10 at // bars. 9: L forward lunges onto dome side of BOSU 2x10 at // bars Skilled Intervention: Patient was educated in proper exercise technique and purpose for exercises. Reviewed and educated patient on additions/changes for home exercise program as above (*). Skilled judgment was used in selection of appropriate interventions. Provided written instruction for home exercise program to facilitate proper performance and compliance. Correct performance of therapeutic exercises was facilitated with verbal, visual, and tactile cuing. Patient education as noted. Billing Therapeutic Exercise Treatment Minutes: 42 Skilled Treatment Time Minutes (timed and untimed codes): 42 Total Session Time (minutes): 42 Session Start Time : 1400 Session Stop Time : 1442 Wale Mckeon PT documented in this encounter [facility] 11-06-2024 Note HNO ID: [id number] Author: WALE MCKEON PT Service: ? Author Type: Physical Therapist Type: Progress Notes Filed: 11/06/2024 14:50 Note Text: Episode Visit Count: 2 Therapist That Will Accept/Oversee The Plan Of Care: Wale Mckeon PT Start of Care Date: 10/27/24 Onset Date: 09/27/23 Plan of Care Certification Date: 10/27/24 Next Certification Due Date: 12/08/24 Patient Identified by Name and Date of : Yes REHABILITATION AND SPORTS THERAPY PHYSICAL THERAPY TREATMENT NOTE ASSESSMENT: Mary Lucas tolerated the session with fatigue, expected muscle soreness, and no issues. He demonstrated improvements in exercise tolerance without increased pain. The patient will continue to benefit from ongoing skilled physical therapy to progress toward set goals. PLAN FOR NEXT VISIT: Review, correct and progress HEP to tolerance. Continue with therex with emphasis on ROM, strength, proprioception and function of L ankle. Pt's nursing home goals include traveling in 6 weeks and this may require some walking on uneven surfaces. SUBJECTIVE: Pt reports that overall his strength is slightly better since evaluation. He reports that his functional strength and balance are both improved. He reports compliance with HEP 2x day without problems for difficulty. Pt denies any pain to start today. Pain: Pain Pain Level: 0 Post Treatment Pain Post Treatment Pain Level: No Change Post Treatment Pain Location: Ankle - Left Post Treatment Symptoms: After session, pt reported fatigue from a good workout but he denied any increase in pain. OBJECTIVE MEASURES WITH LEVEL OF FUNCTION: TREATMENT: Therapeutic Exercise: 1: Upright bike seat #7 x5 minutes (1:1 throughout. Pt provided an update on his condition and plan of care reviewed.) 2: seated L ankle alphabet A-Z x2 3: long sitting L calf stretch with towel 3x30 seconds 4: L SLS with UE support from counter top 3x30 seconds 5: *long sitting green t-band L ankle strengthening for DF, PF, Inv and Ev 2x10 each 6: seated L BAPS hemisphere #3 front to back, side to side, CW and CCW 2x10 each (standing was not well tolerated) 7: L prostretch 3x30 seconds 8: lateral step ups on and over dome side of BOSU 2x10 at // bars. 9: L forward lunges onto dome side of BOSU 2x10 at // bars Skilled Intervention: Patient was educated in proper exercise technique and purpose for exercises. Reviewed and educated patient on additions/changes for home exercise program as above (*). Skilled judgment was used in selection of appropriate interventions. Provided written instruction for home exercise program to facilitate proper performance and compliance. Correct performance of therapeutic exercises was facilitated with verbal, visual, and tactile cuing. Patient education as noted. Billing Therapeutic Exercise Treatment Minutes: 42 Skilled Treatment Time Minutes (timed and untimed codes): 42 Total Session Time (minutes): 42 Session Start Time : 1400 Session Stop Time : 1442 Wale Mckeon PT [facility] 10-27-2024 Note HNO ID: [id number] Author: WALE MCKEON PT Service: ? Author Type: Physical Therapist Type: Progress Notes Filed: 10/27/2024 14:17 Note Text: Episode Visit Count: 1 Therapist That Will Accept/Oversee The Plan Of Care: Wale Mckeon PT Start of Care Date: 10/27/24 Onset Date: 09/27/23 Plan of Care Certification Date: 10/27/24 Next Certification Due Date: 12/08/24 Patient Identified by Name and Date of : Yes REHABILITATION AND SPORTS THERAPY PHYSICAL THERAPY EVALUATION PLAN OF CARE: Assessment: Mary Lucas presents with chief complaint of L ankle weakness and resulting functional limitations that interferes with walking in the community (walking on uneven surfaces, lateral movements) . The patient presents with impairments in ADL's, balance, coordination, independence in exercise, overall function, range of motion, strength, and symptom management. PROMIS? (Patient-Reported Outcomes Measurement Information System) scores were reviewed and identified as within normal limits. Prognosis for therapy is Excellent due to: current objective clinical presentation, good overall health status, good support system/ coping skills, positive past response to therapy. The patient will benefit from skilled therapy services to meet the goals established for this plan of care as noted below. Goals for Episode of Care: established 10/27/24 [place] in home exercise program. Patient will decrease pain to 0/10 with functional activities to allow patient to improve ambulation on uneven surfaces. Patient will increase active ROM of L ankle to WFL, symmetrical and symptom-free to allow pt to to improve performance of ADLs. Patient will demonstrate increase in L LE/ankle strength to 5/5 during manual muscle testing in order to improve function for outdoor ambulation on uneven surfaces. Perform all walking and lateral movements with decreased report of symptoms/pain in 6 weeks. Patient Goals: strengthen L ankle, walk on uneven surfaces for vacation in November 2024 Time Frame for Goals and Treatment : 12/08/24 Planned Interventions, Frequency, and Duration: Current Frequency: 2x/week Duration: 6 weeks Total Number of Visits Planned: 12 Planned Treatment Interventions: Therapeutic exercise (88438), Neuromuscular re-education (44540), Manual therapy (64648), Therapeutic activities (18900), Self-detention management (55234), Patient/Family/Caregiver Education PLAN FOR NEXT VISIT: Review, correct and progress HEP to tolerance. Continue with therex with emphasis on ROM, strength, proprioception and function of L ankle. 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 Patient demonstrates good understanding of plan of care and treatment. The above goals and plan of care were discussed and agreed upon by patient/family. SUBJECTIVE: Pt reports that he had lumbar fusion surgery 09/02/2023 and 1 month after surgery, he developed unexplained weakness in his left ankle. He reports that a definitive diagnosis for L ankle weakness was never determined. He reports that his back surgery has been thoroughly evaluated and determined not to be the cause of weakness. Everything with low back is stable. He denies any L ankle weakness prior to surgery but that he did have numbness. He reports that the numbness has resolved since surgery. He reports that he was told he had GBS at one time but this has not been confirmed. He reports that his weakness is improving slowly. 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 5 points is clinically meaningfully difference Percentiles provide an indication of how the patient's score ranks in relation to the general population. Higher percentile rankings indicate better function/quality of life. 50th percentile is the average of the general population and indicates half of respondents had a worse score. OBJECTIVE MEASURES WITH LEVEL OF FUNCTION: LE AROM R Ankle Dorsiflexion: 7 Degrees R Ankle Plantar Flexion: 55 Degrees R Ankle Inversion: 29 R Ankle Eversion: 16 L Ankl (more content not included)... [facility] 10-27-2024 History of Present illness Narrative Episode Visit Count: 1 Therapist That Will Accept/Oversee The Plan Of Care: Wale Mckeon PT Start of Care Date: 10/27/24 Onset Date: 09/27/23 Plan of Care Certification Date: 10/27/24 Next Certification Due Date: 12/08/24 Patient Identified by Name and Date of : Yes REHABILITATION AND SPORTS THERAPY PHYSICAL THERAPY EVALUATION PLAN OF CARE: Assessment: Mary Lucas presents with chief complaint of L ankle weakness and resulting functional limitations that interferes with walking in the community (walking on uneven surfaces, lateral movements) . The patient presents with impairments in ADL's, balance, coordination, independence in exercise, overall function, range of motion, strength, and symptom management. PROMIS (Patient-Reported Outcomes Measurement Information System) scores were reviewed and identified as within normal limits. Prognosis for therapy is Excellent due to: current objective clinical presentation, good overall health status, good support system/ coping skills, positive past response to therapy. The patient will benefit from skilled therapy services to meet the goals established for this plan of care as noted below. Goals for Episode of Care: established 10/27/24 [place] in home exercise program. Patient will decrease pain to 0/10 with functional activities to allow patient to improve ambulation on uneven surfaces. Patient will increase active ROM of L ankle to WFL, symmetrical and symptom-free to allow pt to to improve performance of ADLs. Patient will demonstrate increase in L LE/ankle strength to 5/5 during manual muscle testing in order to improve function for outdoor ambulation on uneven surfaces. Perform all walking and lateral movements with decreased report of symptoms/pain in 6 weeks. Patient Goals: strengthen L ankle, walk on uneven surfaces for vacation in November 2024 Time Frame for Goals and Treatment : 12/08/24 Planned Interventions, Frequency, and Duration: Current Frequency: 2x/week Duration: 6 weeks Total Number of Visits Planned: 12 Planned Treatment Interventions: Therapeutic exercise (87307), Neuromuscular re-education (70743), Manual therapy (56105), Therapeutic activities (90586), Self-detention management (05407), Patient/Family/Caregiver Education PLAN FOR NEXT VISIT: Review, correct and progress HEP to tolerance. Continue with therex with emphasis on ROM, strength, proprioception and function of L ankle. 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 Patient demonstrates good understanding of plan of care and treatment. The above goals and plan of care were discussed and agreed upon by patient/family. SUBJECTIVE: Pt reports that he had lumbar fusion surgery 09/02/2023 and 1 month after surgery, he developed unexplained weakness in his left ankle. He reports that a definitive diagnosis for L ankle weakness was never determined. He reports that his back surgery has been thoroughly evaluated and determined not to be the cause of weakness. Everything with low back is stable. He denies any L ankle weakness prior to surgery but that he did have numbness. He reports that the numbness has resolved since surgery. He reports that he was told he had GBS at one time but this has not been confirmed. He reports that his weakness is improving slowly. 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 5 points is clinically meaningfully difference Percentiles provide an indication of how the patient's score ranks in relation to the general population. Higher percentile rankings indicate better function/quality of life. 50th percentile is the average of the general population and indicates half of respondents had a worse score. OBJECTIVE MEASURES WITH LEVEL OF FUNCTION: LE AROM R Ankle Dorsiflexion: 7 Degrees R Ankle Plantar Flexion: 55 Degrees R Ankle Inversion: 29 R Ankle Eversion: 16 L Ankle Dorsiflexion: -3 Degrees L Ankle Plantar Flexion: 48 Degrees L Ankle Inversion: 19 L Ankle Eversion: 25 LE Strength R Ankle Dorsiflexion (L4): 5/5 R Ankle Plantar Flexion: 5/5 R Ankle Inversion: 5/5 R Ankle Eversion: 4/5 L Ankle Dorsiflexion (L4): 4/5 L Ankle Plantar Flexion: 5/5 L Ankle Inversion: 4+/5 L Ankle Eversion: 4/5 Gait Gait Observation: normal (Pt reports that he previously had foot drop pre-operatively.) Vitals BP: 128/78 Pulse: 72 Education: Education Learning Preferences: Demonstration, Explanation, Performance, Printed Materials Barriers: None Learning/educational needs: Home exercise program, Plan of Care, Posture, Body Mechanics Education Provided: Yes, see treatment interventions for education provided Education Provided To: Patient Education Mode/Type: Demonstration, Explanation/Discussion, Literature/Printed Materials, Performance Response to Education/Teach Back: States/Identifies, Return Demonstration, Requires Review/Additional Education TREATMENT: PT Treatment Interventions: Therapeutic Exercise Evaluation Therapeutic Exercise: 1: Pt was educated extensively on the anatomy of his L ankle, likely etiology of symptoms and the rationale for treatment options depending on the etiology. He was educated on the proprioceptive system and the role of PT in improving the function of his L ankle through therex for ROM, strength, proprioception and balance training. He was advised to stop any exercise that causes increased pain. 2: *seated L ankle alphabet A-Z x1 3: *long sitting L calf stretch with towel 3x30 seconds 4: *L SLS with UE support from counter top 3x30 seconds Skilled Intervention: Patient was educated in proper exercise technique and purpose for exercises. Reviewed and educated patient on additions/changes for home exercise program as above (*). Skilled judgment was used in selection of appropriate interventions. Provided written instruction for home exercise program to facilitate proper performance and compliance. Correct performance of therapeutic exercises was facilitated with verbal, visual, and tactile cuing. Patient education as noted. Billing * Evaluation Low Complexity: 1 Unit Therapeutic Exercise Treatment Minutes: 29 Skilled Treatment Time Minutes (timed and untimed codes): 49 Total Session Time (minutes): 49 Session Start Time : 1001 Session Stop Time : 1050 Wale Mckeon PT Program_ID:[id number] Access Code: [email or web address] URL: [email or web address] Date: 10-27-2024 Prepared By: Wale Mckeon Program Notes Exercises - Long Sitting Calf Stretch with Strap - 2-3 x daily - 7 x weekly - sets - 3 reps - Seated Ankle Alphabet - 2-3 x daily - 7 x weekly - sets - 1 reps - Standing Single Leg Stance with Counter Support - 2-3 x daily - 7 x weekly - sets - 3 reps documented in this encounter [facility] 10-12-2024 Instructions Prabhjot Leung MD - 10/12/2024 8:05 AM EDT Screening schedule The following prevention plan is recommended: Influenza Vaccine(1) due on 03/29/2024 Covid-19 Vaccine( season) due on 03/29/2024 Advance Directive Discussion due on 07/29/2024 WHAT YOU CAN DO TO PREVENT FALLS Many falls can be prevented. By making some changes, you can lower your chances of falling. Four things YOU can do to prevent falls for you* and your caregiver 1. Begin a regular exercise program Exercise is one of the most important ways to lower your chances of falling. It makes you stronger and helps you feel better. Exercises that improve balance and coordination (like Jose Raul Chi) are the most helpful. Lack of exercise leads to weakness and increases your chances of falling. Ask your doctor or health care provider about the best type of exercise program for you. 2. Have your health care provider review your medicines Have your doctor or pharmacist review all the medicines you take, even [id number] medicines. As you get older, the way medicines work in your body can change. Some medicines, or combinations of medicines, can make you sleepy or dizzy and can cause you to fall. 3. Have your vision checked Have your eyes checked by an eye doctor at least once a year. You may be wearing the wrong glasses or have a condition like glaucoma or cataracts that limits your vision. Poor vision can increase your chances of falling. 4. Make your home safer About half of all falls happen at home. To make your home safer: Remove things you can trip over (like papers, books, clothes, and shoes) from stairs and places where you walk. Remove small throw rugs or use double-sided tape to keep the rugs from slipping. Keep items you use often in cabinets you can reach easily without using a step stool. Have grab bars put in next to your toilet and in the tub or shower. Use non-slip mats in the bathtub and on shower floors. Improve the lighting in your home. As you get older, you need brighter lights to see well. Hang light-weight curtains or shades to reduce glare. Have handrails and lights put in on all staircases. Wear shoes both inside and outside the house. Avoid going barefoot or wearing slippers. For more information, contact: Centers for Disease Control and Prevention www.cdc.gov/injury * This information may not apply if you have certain medical conditions. documented in this encounter [facility] 10-12-2024 History of Present illness Narrative Images from the original note were not included. Mary Lucas is a 64 year old male here for a Medicare wellness visit. Medicare Health Risk Assessment General Health Very good Exercise: Minutes/Day 30 min Exercise: Days/Week 5 days Alcohol: Daily Use 2-3 times a week Alcohol: Drinks/Day 1 or 2 Alcohol: 6 or more drinks Never Feel off balance No Concerns: Teeth/Dentures No Concerns: Sexual function No Troubled by feelings None of the above Frequency: Eating healthy diet Nearly every day ADLs requiring help None of the above Safety precautions in home/vehicle Yes Smoke, vape, chews tobacco No Difficulty hearing No Difficulty seeing No Current Providers Specialists: I have reviewed specialist-related care of the patient in the medical record. Current care team: Patient Care Team: Prabhjot Leung MD as PCP - General (Family Medicine) Aundrea Durand APRN.[employer] as [employer] (Family Medicine) Micaela Martin PA-C as [employer] (Family Medicine) optho Medical/Family history review Reviewed and updated problem list, medical/surgical/family/social history, medications, and allergies. Opioid use review Opioid Medications (last 90 days) No data to display Anxiety/Depression screening PHQ-2 Score: 0 (Lower risk for depression) YON-2 Score: 0 (Lower risk for anxiety) Recommendation: no further intervention at this time Cognitive screening Cognitive screening reviewed and No further action needed (score 3-5). Functional Observation Was the patient's Timed Up & Go test unsteady or >= 12 seconds? No Advance Care Planning Surrogate decision maker and/or advance care plan documented Measurements BP 118/76 Pulse 76 Resp 18 Ht 185.4 cm (6' 1) Wt 107.5 kg (237 lb) BMI 31.27 kg/m Vision Screening: Follows with optometry/ophthalmology Assessment/Plan Medicare annual wellness visit, subsequent (Z00.00) - Counseled on healthy diet and regular exercise - Fall avoidance information provided - Personalized prevention plan provided See below Chief Complaint Patient presents with: Medicare Wellness Exam HPI Mary Lucas is a 64 year old male who presents here today for Chronic Medical Conditions. and Medicare Annual Visit. Patient with hx of HTN, hyperlipidemia, and those as below. Last 6 Encounter Wt Readings: Date: Wt: 04/06/2024 106.6 kg (235 lb) 02/26/2024 106.1 kg (234 lb) 01/23/2024 107.1 kg (236 lb 1.8 oz) 01/17/2024 106.6 kg (235 lb) 12/27/2023 106.1 kg (234 lb) 10/03/2023 105.2 kg (232 lb) Patient sees Neurology for bilateral foot drop last visit 04/2024 Past medical history, appointments, medications, allergies reviewed. Previous Medical History PAST MEDICAL HISTORY Diagnosis Date Advance directive discussed with patient 10/03/2023 Discussed 09/2023: Needs to bring in copies. 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 Benign prostatic hyperplasia without lower urinary tract symptoms 02/15/2010 Bilateral carotid artery stenosis 04/19/2022 US 03/2022: 20-40 b/l Bilateral renal cysts 08/16/2023 US 08/2023: benign BPV (benign positional vertigo) Chronic midline low back pain without sciatica 08/16/2023 Ectatic abdominal aorta (HCC) 11/18/2023 US 10/2023: Repeat in a year ED (erectile dysfunction) of organic origin 02/24/2021 Essential hypertension, benign 06/01/2013 Ex-smoker 04/05/2022 Hyperlipidemia, mixed 11/28/2015 Lumbar radiculopathy 08/16/2023 Spinal stenosis of lumbar region with neurogenic claudication 08/16/2023 Well adult exam 10/11/2022 Last done 10/11/2022 Previous Surgical History PAST SURGICAL HISTORY Procedure Laterality Date COLONOSCOPY FLX DX W/COLLJ SPEC WHEN PFRMD 04/13/2010 Colonoscopy COLONOSCOPY FLX DX W/COLLJ SPEC WHEN PFRMD 01/01/2020 Colonoscopy EGD 11/2004 removal FB (apple aspiration) EXCISION HYDROCELE UNILATERAL 08/2003 left PAST SURGICAL HISTORY OF 09/02/2023 bilateral laminectomy L2-L5 with decompression fusion with autogenous graft and fixation. per Dr. 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 Influenza Virus Vac* Other: See Comments Has a Hx Meg Peterson withCOVID Venom-Honey Bee Anaphylaxis Current Medications Current Outpatient Medications on File Prior to Visit Medication Sig lisinopril (ZESTRIL) 20 mg tablet Take 1 tablet by mouth once daily. hydroCHLOROthiazide 12.5 mg capsule Take 1 capsule by mouth once daily. meloxicam (MOBIC) 7.5 mg tablet Take 7.5 mg by mouth as needed. (Patient not taking: Reported on 04/28/2024) atorvastatin (LIPITOR) 40 mg tablet Take 1 tablet by mouth every other day. For cholesterol. EPINEPHrine (EPIPEN) 0.3 mg/0.3 mL auto-injector Inject 0.3 mL subcutaneously as needed. No current facility-administered medications on file prior to visit. Social History Social History Tobacco Use Smoking status: Former Types: Cigars Smokeless tobacco: Former Types: Chew Quit date: 2018 Tobacco comments: occasionally Vaping Use Vaping status: Never Used Substance Use Topics Alcohol use: Yes Comment: 1-2 per day Drug use: Not Currently Review of Symptoms REVIEW OF SYSTEMS GENERAL: No weight loss, malaise or fevers HEENT: Negative for frequent or significant headaches, No changes in hearing or vision, no nose bleeds or other nasal problems NECK: Negative for lumps, goiter, pain and significant neck swelling RESPIRATORY: Negative for cough, hemoptysis, wheezing, COPD, dyspnea or shortness of breath CARDIOVASCULAR: Negative for chest pain, leg swelling, hypertension, CHF or palpitations GI: No nausea, vomiting, or diarrhea, No heartburn or reflux symptoms, and no blood. Has been getting a pinching sensation in his mid abdomen that will last a few hrs. Could be his GERD symptoms, says it feels slightly like that. : No history of dysuria, frequency or blood MUSCULOSKELETAL: still getting some discomfort in the left ankle and feels it will roll easier. SKIN: Negative for lesions, rash, and itching PSYCH: Negative for sleep disturbance, mood disorder and recent psychosocial stressors HEMATOLOGY/LYMPHOLOGY: Negative for prolonged bleeding, bruising easily or swollen nodes ENDOCRINE: Negative for cold or heat intolerance, polyuria, polydipsia and goiter NEURO: No history of headaches, syncope, paralysis, seizures or tremors EXAM: BP 118/76 Pulse 76 Resp 18 Ht 185.4 cm (6' 1) Wt 107.5 kg (237 lb) BMI 31.27 kg/m General Appearance: Well appearing, alert, in no acute distress, well-hydrated, well nourished.. Skin: Skin color, texture, turgor normal, no suspicious rashes or lesions. Head: Normocephalic, no masses, lesions, tenderness or abnormalities. Eyes: Anicteric sclera. Pupils are equally round and reactive to light. Extraocular movements are intact. . Ears: External ears, TM's normal, canals clear. Nose/Sinuses: Nares normal, septum midline, mucosa normal except for some small irritated vessels on the left septum., no drainage or sinus tenderness. Oropharynx: Lips, mucosa, and tongue normal, teeth and gums normal, oropharynx normal. Neck: Supple, no adenopathy; thyroid symmetric, normal size, no bruits. Lungs: Lungs clear to auscultation. No wheezing, rhonchi, rales.. Heart: RRR without murmur, gallop, or rubs. No ectopy. Abdomen: Normal abdominal exam, Abdomen soft, non-tender. Bowel sounds normal. No masses, organomegaly. Extremities: No deformities, edema, skin discoloration, clubbing or cyanosis. Good capillary refill. . Musculoskeletal: Muscular strength intact, No joint swelling, deformity, or tenderness. Peripheral Pulses: Normal. Neurologic: Gait normal. Reflexes normal and symmetric. Sensation to light touch and crainal nerves 2-12 intact.. Genitalia: Normal, Penis normal. No urethral discharge. Scrotum normal to palpation. No hernia.. Rectal: Normal exam. Prostate enlarged with smooth firm muscle. Health Maintenance List Influenza Vaccine(1) due on 03/29/2024 Covid-19 Vaccine( season) due on 03/29/2024 Advance Directive Discussion due on 07/29/2024 Annual PCP Team Chronic Disease Visit due on 04/06/2025 Depression Screening due on 04/06/2025 Anxiety Screening due on 04/06/2025 BP Controlled (<130/80) due on 04/28/2025 Diabetes Screening due on 10/06/2027 Lipid Screening due on 10/05/2029 Prostate Cancer Screening Discussion due on 10/05/2029 DTaP,Tdap,Td Vaccine(3 - Td or Tdap) due on 12/10/2029 Colorectal Cancer Screening due on 12/31/2029 Abdominal Aortic Aneurysm Screening Completed RSV Vaccine Completed Hepatitis C Screening Completed Shingrix Vaccine Completed Pneumococcal Vaccine: 50+ Completed Data reviewed Latest Ref Rng 10/01/2023 03/20/2024 10/05/2024 WBC 3.70 - 11.00 k/uL 5.55 RBC 4.20 - 6.00 m/uL 4.40 Hemoglobin 13.0 - 17.0 g/dL 13.4 Hematocrit 39.0 - 51.0 % 39.9 MCV 80.0 - 100.0 fL 90.7 MCH 26.0 - 34.0 pg 30.5 MCHC 30.5 - 36.0 g/dL 33.6 RDW-CV 11.5 - 15.0 % 13.8 Platelet Count 150 - 400 k/uL 342 MPV 9.0 - 12.7 fL 9.7 Neut% % 49.5 Abs Neut (ANC) 1.45 - 7.50 k/uL 2.75 Lymph% % 34.4 Abs Lymph 1.00 - 4.00 k/uL 1.91 Bonner% % 12.1 Abs Bonner <0.87 k/uL 0.67 Eosin% % 2.9 Abs Eosin <0.46 k/uL 0.16 Baso% % 0.9 Abs Baso <0.11 k/uL 0.05 Immature Gran % % 0.2 IMMATURE GRANS (ABS) <0.10 k/uL <0.03 NRBC /100 WBC 0.0 Absolute nRBC <0.01 k/uL <0.01 DTYPE Auto Color Yellow Yellow Clarity Clear Clear Glucose, Urine Negative Negative Bilirubin, Urine Negative Negative Ketones, Urine Negative Negative Specific [place], Ur 1.005 - 1.030 1.019 Hemoglobin/Blood,Ur Negative Negative pH, Urine <8.5 6.0 Protein, Urine Negative Negative Urobilinogen 0.2-1.0 EU/dL 0.2 EU/dL Nitrites Negative Negative Leukest Negative Negative WBC, Urine 0-5 /HPF 0-5 /HPF RBC, Urine 0-2 /HPF 0-2 /HPF Bacteria Negative /HPF Negative Epithelial Cells /HPF None Seen Hyaline Cast 0 /LPF 1-3 /LPF ! Protein, Total 6.3 - 8.0 g/dL 7.3 7.2 7.2 Albumin 3.9 - 4.9 g/dL 4.2 4.4 4.5 Calcium 8.5 - 10.2 mg/dL 10.0 9.8 Bilirubin, Total 0.2 - 1.3 mg/dL 0.5 0.9 0.8 Alkaline Phosphatase 38 - 113 U/L 99 71 61 AST 14 - 40 U/L 41 (H) 43 (H) 38 ALT 10 - 54 U/L 32 40 33 Glucose 74 - 99 mg/dL 94 91 BUN 9 - 24 mg/dL 18 18 Creatinine 0.73 - 1.22 mg/dL 1.13 1.20 Sodium 136 - 144 mmol/L 141 140 Potassium 3.7 - 5.1 mmol/L 4.4 4.9 Chloride 98 - 107 mmol/L 104 104 CO2 22 - 30 mmol/L 27 28 Anion Gap 8 - 15 mmol/L 10 8 eGFR >=60 mL/min/1.73m 72 67 Total Cholesterol, Nonfasting <200 mg/dL 153 166 137 Triglycerides, Nonfasting <150 mg/dL 86 171 (H) 96 HDL Cholesterol, Nonfasting >39 mg/dL 44 36 (L) 39 (L) LDL Cholesterol, Nonfasting <100 mg/dL 92 96 79 Non HDL Cholesterol, Nonfasting <130 mg/dL 109 130 (H) 98 VLDL Cholesterol, Nonfasting <30 mg/dL 17 34 (H) 19 Total Chol/HDL Ratio, Nonfasting <5.10 mg/dL 3.48 4.61 3.51 LDL/HDL Ratio, Nonfasting <2.54 mg/dL 2.09 2.67 (H) 2.03 Bilirubin, Direct <0.2 mg/dL <0.2 PSA <2.60 ng/mL 0.78 0.34 A/P ASSESSMENT/PLAN: 1. Encounter for Medicare annual wellness exam - ICD9: V70.0, ICD10: Z00.00 (primary diagnosis) - Counseled on healthy diet and regular exercise - Discussed need for and benefit of weight loss. BMI 31.27 kg/(m^2) - Follow up for annual exam in one year 2. Essential hypertension, benign - ICD9: 401.1, ICD10: I10 - Controlled - Continue current medications - Recommend home blood pressure monitoring, to bring results to next visit - Encouraged sodium restriction, DASH or Mediterranean diet - Recommend regular aerobic exercise - Discussed need for and benefit of weight loss. BMI 31.27 kg/(m^2) 3. Hyperlipidemia, mixed - ICD9: 272.2, ICD10: E78.2 - Controlled - Improving control - Continue current medications - Counseled on healthy diet and regular exercise - Discussed need for and benefit of weight loss. BMI 31.27 kg/(m^2) 4. Ectatic abdominal aorta (HCC) - ICD9: 447.72, ICD10: I77.811 - cont current Tx. Check - US ABD AORTA 5. Bilateral carotid artery stenosis - ICD9: 433.10, 433.30, ICD10: I65.23 - cont current Tx check - US CAROTID ARTERIES [facility] 6. Neuropathy of both feet - ICD9: 356.9, ICD10: G57.93 - stable no changes. 7. Benign prostatic hyperplasia without lower urinary tract symptoms - ICD9: 600.00, ICD10: N40.0 - no current issues. 8. ED (erectile dysfunction) of organic origin - ICD9: 607.84, ICD10: N52.9 - no changes. 9. Advance directive discussed with patient - ICD9: V65.49, ICD10: Z71.89 - needs to bring in copies. 10. Screening for depression - ICD9: V79.0, ICD10: Z13.31 - DEPRESSION SCREENING 11. Encounter for screening examination for other mental health and behavioral disorders - ICD9: V79.8, ICD10: Z13.39 - ANXIETY SCREENING 12. Acute left ankle pain - ICD9: 719.47, ICD10: M25.572 - CONSULT TO PHYSICAL THERAPY Requested Prescriptions Signed Prescriptions Disp Refills atorvastatin (LIPITOR) 40 mg tablet 90 tablet 1 Sig: Take 1 tablet by mouth every other day. For cholesterol. EPINEPHrine (EPIPEN) 0.3 mg/0.3 mL auto-injector 2 Each 1 Sig: Inject 0.3 mL subcutaneously as needed. hydroCHLOROthiazide 12.5 mg capsule 90 capsule 1 Sig: Take 1 capsule by mouth once daily. lisinopril (ZESTRIL) 20 mg tablet 90 tablet 1 Sig: Take 1 tablet by mouth once daily. F/u in 6 months routine check I spent a total of 40 minutes on the date of the service which included preparing to see the patient, [id number] patient care, completing clinical documentation, performing a medically appropriate examination, counseling and educating the patient/family/caregiver and ordering medications, tests, or procedures. Prabhjot Leung MD documented in this encounter [facility] 10-12-2024 Note HNO ID: [id number] Author: PRABHJOT LEUNG MD Service: ? Author Type: Physician Type: Progress Notes Filed: 10/12/2024 14:08 Note Text: Mary Lucas is a 64 year old male here for a Medicare wellness visit. Medicare Health Risk Assessment General Health Very good Exercise: Minutes/Day 30 min Exercise: Days/Week 5 days Alcohol: Daily Use 2-3 times a week Alcohol: Drinks/Day 1 or 2 Alcohol: 6 or more drinks Never Feel off balance No Concerns: Teeth/Dentures No Concerns: Sexual function No Troubled by feelings None of the above Frequency: Eating healthy diet Nearly every day ADLs requiring help None of the above Safety precautions in home/vehicle Yes Smoke, vape, chews tobacco No Difficulty hearing No Difficulty seeing No Current Providers Specialists: I have reviewed specialist-related care of the patient in the medical record. Current care team: Patient Care Team: Prabhjot Leung MD as PCP - General (Family Medicine) Aundrea Durand APRN.[employer] as [employer] (Family Medicine) Micaela Martin PA-C as [employer] (Family Medicine) optho Medical/Family history review Reviewed and updated problem list, medical/surgical/family/social history, medications, and allergies. Opioid use review Opioid Medications (last 90 days) No data to display Anxiety/Depression screening PHQ-2 Score: 0 (Lower risk for depression) YON-2 Score: 0 (Lower risk for anxiety) Recommendation: no further intervention at this time Cognitive screening Cognitive screening reviewed and No further action needed (score 3-5). Functional Observation Was the patient's Timed Up AND Go test unsteady or >= 12 seconds? No Advance Care Planning Surrogate decision maker and/or advance care plan documented Measurements BP 118/76 Pulse 76 Resp 18 Ht 185.4 cm (6' 1) Wt 107.5 kg (237 lb) BMI 31.27 kg/m? Vision Screening: Follows with optometry/ophthalmology Assessment/Plan Medicare annual wellness visit, subsequent (Z00.00) - Counseled on healthy diet and regular exercise - Fall avoidance information provided - Personalized prevention plan provided See below Chief Complaint Patient presents with: Medicare Wellness Exam HPI Mary Lucas is a 64 year old male who presents here today for Chronic Medical Conditions. and Medicare Annual Visit. Patient with hx of HTN, hyperlipidemia, and those as below. Last 6 Encounter Wt Readings: Date: Wt: 04/06/2024 106.6 kg (235 lb) 02/26/2024 106.1 kg (234 lb) 01/23/2024 107.1 kg (236 lb 1.8 oz) 01/17/2024 106.6 kg (235 lb) 12/27/2023 106.1 kg (234 lb) 10/03/2023 105.2 kg (232 lb) Patient sees Neurology for bilateral foot drop last visit 04/2024 Past medical history, appointments, medications, allergies reviewed. Previous Medical History PAST MEDICAL HISTORY Diagnosis Date Advance directive discussed with patient 10/03/2023 Discussed 09/2023: Needs to bring in copies. 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 Benign prostatic hyperplasia without lower urinary tract symptoms 02/15/2010 Bilateral carotid artery stenosis 04/19/2022 US 03/2022: 20-40 b/l Bilateral renal cysts 08/16/2023 US 08/2023: benign BPV (benign positional vertigo) Chronic midline low back pain without sciatica 08/16/2023 Ectatic abdominal aorta (HCC) 11/18/2023 US 10/2023: Repeat in a year ED (erectile dysfunction) of organic origin 02/24/2021 Essential hypertension, benign 06/01/2013 Ex-smoker 04/05/2022 Hyperlipidemia, mixed 11/28/2015 Lumbar radiculopathy 08/16/2023 Spinal stenosis of lumbar region with neurogenic claudication 08/16/2023 Well adult exam 10/11/2022 Last done 10/11/2022 Previous Surgical History PAST SURGICAL HISTORY Procedure Laterality Date COLONOSCOPY FLX DX W/COLLJ SPEC WHEN PFRMD 04/13/2010 Colonoscopy COLONOSCOPY FLX DX W/COLLJ SPEC WHEN PFRMD 01/01/2020 Colonoscopy EGD 11/2004 removal FB (apple aspiration) EXCISION HYDROCELE UNILATERAL 08/2003 left PAST SURGICAL HISTORY OF 09/02/2023 bilateral laminectomy L2-L5 with decompression fusion with autogenous graft and fixation. per Dr. 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 Influenza Virus Vac* Other: See Comments Has a Hx Meg Berre withCOVID Venom-Honey Bee Anaphylaxis Current Medications Current Outpatient Medications on File Prior to Visit Medication Sig lisinopril (ZESTRIL) 20 mg tablet Take 1 tablet by mouth once daily. hydroCHLOROthiazide 12.5 mg (more content not included)... [facility] 04-29-2024 Telephone encounter Note The following approved medication requests have been transmitted electronically. Requested Prescriptions Signed Prescriptions Disp Refills lisinopril (ZESTRIL) 20 mg tablet 90 tablet 1 Sig: Take 1 tablet by mouth once daily. Authorizing Provider: PRABHJOT LEUNG hydroCHLOROthiazide 12.5 mg capsule 90 capsule 1 Sig: Take 1 capsule by mouth once daily. Authorizing Provider: PRABHJOT LEUNG MD [facility] 04-29-2024 Miscellaneous Notes The following approved medication requests have been transmitted electronically. Requested Prescriptions Signed Prescriptions Disp Refills lisinopril (ZESTRIL) 20 mg tablet 90 tablet 1 Sig: Take 1 tablet by mouth once daily. Authorizing Provider: PRABHJOT LEUNG hydroCHLOROthiazide 12.5 mg capsule 90 capsule 1 Sig: Take 1 capsule by mouth once daily. Authorizing Provider: PRABHJOT LEUNG MD Patient called and notified of below. Reports no dizziness. Taking lisinopril 20 mg once daily. Asking if prescriptions can be sent for the correct doses so he doesn't have to keep cutting them in half. Pended for review. Lela Guan RN Let patient know I I'm ok with his readings with the meds the way they are as long as he is not dizzy on the days it's 90's/60's. , Please verify if the lisinopril 20 mg is once a day or twice a day so I can update his chart. Patient calls with BP readings for the past two weeks. Patient denies any symptoms with any readings. Patient reports that he is taking lisinopril 20 mg daily only as he was before his surgery and HCTZ 12.5 mg daily. 04/15/2024 730 am 115/67 1215 pm 115/70 7 pm 94/62 840 pm 109/71 04/16/2024 750 am 111/70 330 pm 97/68 545 pm 99/67 9 pm 125/66 04/17/2024 8 am 109/59 1030 am 138/76 420 pm 120/80 950 pm 107/58 04/18/2024 730 am 111/69 3 pm 145/81 910 pm 138/80 04/19/2024 830 am 110/65 220 pm 113/73 910 pm 128/75 04/20/2024 730 am 113/69 330 pm 116/74 950 pm 114/75 04/21/2024 715 am 131/78 215 pm 109/72 04/22/2024 750 am 100/67 830 pm 86/62 04/23/2024 7 am 114/73 430 pm 106/71 1015 pm 109/69 04/24/2024 840 am 124/74 04/25/2024 1045 am 113/67 04/28/2024 810 am 129/75 810 pm 99/71 04/29/2024 815 am 113/70 Lela Guan RN documented in this encounter [facility] 04-29-2024 Telephone encounter Note Patient called and notified of below. Reports no dizziness. Taking lisinopril 20 mg once daily. Asking if prescriptions can be sent for the correct doses so he doesn't have to keep cutting them in half. Pended for review. Lela Guan RN [facility] 04-29-2024 Telephone encounter Note Let patient know I I'm ok with his readings with the meds the way they are as long as he is not dizzy on the days it's 90's/60's. , Please verify if the lisinopril 20 mg is once a day or twice a day so I can update his chart. [facility] 04-29-2024 Telephone encounter Note Patient calls with BP readings for the past two weeks. Patient denies any symptoms with any readings. Patient reports that he is taking lisinopril 20 mg daily only as he was before his surgery and HCTZ 12.5 mg daily. 04/15/2024 730 am 115/67 1215 pm 115/70 7 pm 94/62 840 pm 109/71 04/16/2024 750 am 111/70 330 pm 97/68 545 pm 99/67 9 pm 125/66 04/17/2024 8 am 109/59 1030 am 138/76 420 pm 120/80 950 pm 107/58 04/18/2024 730 am 111/69 3 pm 145/81 910 pm 138/80 04/19/2024 830 am 110/65 220 pm 113/73 910 pm 128/75 04/20/2024 730 am 113/69 330 pm 116/74 950 pm 114/75 04/21/2024 715 am 131/78 215 pm 109/72 04/22/2024 750 am 100/67 830 pm 86/62 04/23/2024 7 am 114/73 430 pm 106/71 1015 pm 109/69 04/24/2024 840 am 124/74 04/25/2024 1045 am 113/67 04/28/2024 810 am 129/75 810 pm 99/71 04/29/2024 815 am 113/70 Lela Guan RN [facility] 04-28-2024 Note HNO ID: [id number] Author: SPOLTER, GUILHERME, MD Service: ? Author Type: Physician Type: Progress Notes Filed: 04/28/2024 14:52 Note Text: CC: neuropathy fu S: He is slowly improving Got AFOs last week BP is improved recently. Medications: Current Outpatient Medications on File Prior to Visit Medication Sig hydroCHLOROthiazide 25 mg tablet Take 1 tablet by mouth once daily. lisinopril (ZESTRIL) 40 mg tablet Take 1 tablet by mouth two times a day. atorvastatin (LIPITOR) 40 mg tablet Take 1 tablet by mouth every other day. For cholesterol. EPINEPHrine (EPIPEN) 0.3 mg/0.3 mL auto-injector Inject 0.3 mL subcutaneously as needed. meloxicam (MOBIC) 7.5 mg tablet Take 7.5 mg by mouth as needed. (Patient not taking: Reported on 04/28/2024) No current facility-administered medications on file prior to visit. Exam: Vitals: BP 126/76 Pulse 72 Ht 187.5 cm (6' 1.82) Wt 107.5 kg (236 lb 15.9 oz) SpO2 98% BMI 30.58 kg/m? MSK: Normal bulk and tone throughout. Deltoid Triceps Biceps Wrist ext. Hand intrinsic Hip flexion Knee flexion Knee Ext. Brannon. Flex Pl. 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 Overall, the close clinical presentation is most consistent with acute onset radiculo-neuropathy. 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 Last visit, I advised continued participation in physical therapy, and provided prescription for ankle flexion orthotics for his foot drop. He is experiencing significant improvement since onset of symptoms and if this is GBS continued improvement is expected. He got AFOs last week He will follow up with me as needed. [facility] 04-28-2024 History of Present illness Narrative CC: neuropathy fu S: He is slowly improving Got AFOs last week BP is improved recently. Medications: Current Outpatient Medications on File Prior to Visit Medication Sig hydroCHLOROthiazide 25 mg tablet Take 1 tablet by mouth once daily. lisinopril (ZESTRIL) 40 mg tablet Take 1 tablet by mouth two times a day. atorvastatin (LIPITOR) 40 mg tablet Take 1 tablet by mouth every other day. For cholesterol. EPINEPHrine (EPIPEN) 0.3 mg/0.3 mL auto-injector Inject 0.3 mL subcutaneously as needed. meloxicam (MOBIC) 7.5 mg tablet Take 7.5 mg by mouth as needed. (Patient not taking: Reported on 04/28/2024) No current facility-administered medications on file prior to visit. Exam: Vitals: BP 126/76 Pulse 72 Ht 187.5 cm (6' 1.82) Wt 107.5 kg (236 lb 15.9 oz) SpO2 98% BMI 30.58 kg/m MSK: Normal bulk and tone throughout. Deltoid Triceps Biceps Wrist ext. Hand intrinsic Hip flexion Knee flexion Knee Ext. Brannon. Flex Pl. 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 Overall, the close clinical presentation is most consistent with acute onset radiculo-neuropathy. 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 Last visit, I advised continued participation in physical therapy, and provided prescription for ankle flexion orthotics for his foot drop. He is experiencing significant improvement since onset of symptoms and if this is GBS continued improvement is expected. He got AFOs last week He will follow up with me as needed. documented in this encounter [facility] 04-14-2024 Telephone encounter Note Spoke with pt and information listed below given. Pt verbalizes understanding. Saumya Robbins LPN [facility] 04-14-2024 Miscellaneous Notes Spoke with pt and information listed below given. Pt verbalizes understanding. Saumya Robbins LPN Message left for pt to call back. Shantelle Plummer MA Let patient know his BP's are good but they are on the low side. See how he feels about cutting his hydrochlorothiazide does of 25 mg a day in half. If ok with this then I would like another set of home BP readings in 2 weeks. Pt is calling with bp readings as advised on 04/10/24. Jesus Fatima 04/10- 115/75 101/68 04/11- 107/65 102/64 119/69 04/12- 118/70 123/70 112/68 04/13- 136/62 104/62 Pt reports he does not feel any differently with fluctuation in bp readings. Trudy Shea LPN documented in this encounter [facility] 04-14-2024 Telephone encounter Note Message left for pt to call back. Shantelle Plummer MA [facility] 04-13-2024 Telephone encounter Note Let patient know his BP's are good but they are on the low side. See how he feels about cutting his hydrochlorothiazide does of 25 mg a day in half. If ok with this then I would like another set of home BP readings in 2 weeks. [facility] 04-13-2024 Telephone encounter Note Pt is calling with bp readings as advised on 04/10/24. Jesus VANESSA Even 04/10- 115/75 101/68 04/11- 107/65 102/64 119/69 04/12- 118/70 123/70 112/68 04/13- 136/62 104/62 Pt reports he does not feel any differently with fluctuation in bp readings. Trudy Shea LPN [facility] 04-10-2024 Telephone encounter Note Patient does have a machine and will check his BP's. He will call on Saturday with his results. Dayna Clarke MA April 10, 2024 4:36 PM [facility] 04-10-2024 Miscellaneous Notes Patient does have a machine and will check his BP's. He will call on Saturday with his results. Dayna Clarke MA April 10, 2024 4:36 PM Find out if patient has a BP machine at home? If so have him check his BP a few times a day and let me know on how they where. Also let him know I did not hear from [facility] though that maybe because they reached out to the provider who ordered his PHYSICAL THERAPY. Patient calls and states that he was at PT at [facility] today. Patient states that PT would not due therapy today due to patient's blood pressure. Patient reports that first reading was 118/56. Blood pressure was taken again and it was 93/52. Patient was walked to the door and blood pressure was 100s/65. Therapy then let patient leave. Patient states that he was asymptomatic but was told by PT that he needed to call PCP about blood pressures. Mavis Avery RN documented in this encounter [facility] 04-10-2024 Telephone encounter Note Find out if patient has a BP machine at home? If so have him check his BP a few times a day and let me know on Mondy how they where. Also let him know I did not hear from [facility] though that maybe because they reached out to the provider who ordered his PHYSICAL THERAPY. [facility] 04-10-2024 Telephone encounter Note Patient calls and states that he was at PT at [facility] today. Patient states that PT would not due therapy today due to patient's blood pressure. Patient reports that first reading was 118/56. Blood pressure was taken again and it was 93/52. Patient was walked to the door and blood pressure was 100s/65. Therapy then let patient leave. Patient states that he was asymptomatic but was told by PT that he needed to call PCP about blood pressures. Mavis Avery RN [facility] 04-06-2024 History of Present illness Narrative Chief Complaint Patient presents with: Medicare Wellness Exam HPI Mary Lucas is a 64 year old male who presents here today for routine visit Patient scheduled for wellness but this was done september of 2023 so not due. Patient with hx of HTN, hyperlipidemia, and those as below. Denies concerns today. Last 6 Encounter Wt Readings: Date: Wt: 04/06/2024 106.6 kg (235 lb) 02/26/2024 106.1 kg (234 lb) 01/23/2024 107.1 kg (236 lb 1.8 oz) 01/17/2024 106.6 kg (235 lb) 12/27/2023 106.1 kg (234 lb) 10/03/2023 105.2 kg (232 lb) Past medical history, appointments, medications, allergies reviewed. Previous Medical History PAST MEDICAL HISTORY 10/03/2023: Advance directive discussed with patient Comment: Discussed 09/2023: Needs to bring in copies. 04/13/2010: Benign neoplasm of rectum and anal canal 02/15/2010: Benign prostatic hyperplasia without lower urinary tract symptoms 04/19/2022: Bilateral carotid artery stenosis Comment: US 03/2022: 20-40 b/l 08/16/2023: Bilateral renal cysts Comment: US 08/2023: benign No date: BPV (benign positional vertigo) 08/16/2023: Chronic midline low back pain without sciatica 11/18/2023: Ectatic abdominal aorta (HCC) Comment: US 10/2023: Repeat in a year 02/24/2021: ED (erectile dysfunction) of organic origin 06/01/2013: Essential hypertension, benign 04/05/2022: Ex-smoker 11/28/2015: Hyperlipidemia, mixed 08/16/2023: Lumbar radiculopathy 08/16/2023: Spinal stenosis of lumbar region with neurogenic claudication 10/11/2022: Well adult exam Comment: Last done 10/11/2022 Previous Surgical History PAST SURGICAL HISTORY 04/13/2010: COLONOSCOPY FLX DX W/COLLJ SPEC WHEN PFRMD Comment: Colonoscopy 01/01/2020: COLONOSCOPY FLX DX W/COLLJ SPEC WHEN PFRMD Comment: Colonoscopy 11/2004: EGD Comment: removal FB (apple aspiration) 08/2003: EXCISION HYDROCELE UNILATERAL Comment: left 09/02/2023: PAST SURGICAL HISTORY OF Comment: bilateral laminectomy L2-L5 with decompression fusion with autogenous graft and fixation. per Dr. 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 Influenza Virus Vac* Other: See Comments Has a Hx Meg Peterson withCOVID Venom-Honey Bee Anaphylaxis Current Medications Current Outpatient Medications on File Prior to Visit Medication Sig hydroCHLOROthiazide 25 mg tablet Take 1 tablet by mouth once daily. lisinopril (ZESTRIL) 40 mg tablet Take 1 tablet by mouth two times a day. atorvastatin (LIPITOR) 40 mg tablet Take 1 tablet by mouth every other day. For cholesterol. EPINEPHrine (EPIPEN) 0.3 mg/0.3 mL auto-injector Inject 0.3 mL subcutaneously as needed. meloxicam (MOBIC) 7.5 mg tablet Take 7.5 mg by mouth as needed. (Patient not taking: Reported on 04/06/2024) No current facility-administered medications on file prior to visit. Social History Social History Tobacco Use Smoking status: Former Types: Cigars Smokeless tobacco: Former Types: Chew Quit date: 2018 Tobacco comments: occasionally Vaping Use Vaping status: Never Used Substance Use Topics Alcohol use: Yes Comment: 1-2 per day Drug use: Not Currently Review of Symptoms REVIEW OF SYSTEMS GENERAL: No weight loss, malaise or fevers HEENT: No changes in hearing or vision, no nose bleeds or other nasal problems NECK: Negative for lumps, goiter, pain and significant neck swelling RESPIRATORY: Negative for cough, hemoptysis, wheezing, COPD, dyspnea or shortness of breath CARDIOVASCULAR: Negative for chest pain, leg swelling, CHF or palpitations GI: Negative for abdominal discomfort, blood in stools or black stools, change in bowel habit, heart burn, nausea, vomiting : No history of dysuria, frequency or incontinence MUSCULOSKELETAL: Negative for joint pain or swelling, back pain or muscle pain SKIN: Negative for lesions, rash, and itching PSYCH: Negative for sleep disturbance, mood disorder and recent psychosocial stressors HEMATOLOGY/LYMPHOLOGY: Negative for prolonged bleeding, bruising easily or swollen nodes ENDOCRINE: Negative for cold or heat intolerance, polyuria, polydipsia and goiter NEURO: No history of headaches, syncope, paralysis, seizures or tremors EXAM: BP 117/84 (BP Site: Left Arm, BP Position: Sitting, BP Cuff Size: Regular Adult) Pulse 90 Temp 36.5 C (97.7 F) Resp 16 Ht 187.5 cm (6' 1.82) Wt 106.6 kg (235 lb) SpO2 95% BMI 30.32 kg/m General Appearance: Well appearing, alert, in no acute distress, well-hydrated, well nourished.. Neck: Supple, no adenopathy; thyroid symmetric, normal size, no bruits. Lungs: Lungs clear to auscultation. No wheezing, rhonchi, rales.. Heart: RRR without murmur, gallop, or rubs. No ectopy. Extremities: No deformities, edema, skin discoloration, clubbing or cyanosis. Good capillary refill. . Peripheral Pulses: Normal. Health Maintenance List Depression Screening Never done Anxiety Screening Never done Covid-19 Vaccine( season) due on 03/29/2024 Influenza Vaccine(1) due on 03/29/2024 BP Controlled (<130/80) due on 10/02/2024 Annual PCP Team Chronic Disease Visit due on 04/06/2025 Diabetes Screening due on 09/30/2026 Prostate Cancer Screening Discussion due on 10/02/2028 Lipid Screening due on 03/20/2029 DTaP,Tdap,Td Vaccine(3 - Td or Tdap) due on 12/10/2029 Colorectal Cancer Screening due on 12/31/2029 Abdominal Aortic Aneurysm Screening Completed Advance Directive Discussion Completed RSV Vaccine Completed Hepatitis C Screening Completed Shingrix Vaccine Completed Pneumococcal Vaccine: 65+ Completed Data reviewed Latest Ref Rng 03/20/2024 Total Cholesterol, Nonfasting <200 mg/dL 166 Triglycerides, Nonfasting <150 mg/dL 171 (H) HDL Cholesterol, Nonfasting >39 mg/dL 36 (L) LDL Cholesterol, Nonfasting <100 mg/dL 96 Non HDL Cholesterol, Nonfasting <130 mg/dL 130 (H) VLDL Cholesterol, Nonfasting <30 mg/dL 34 (H) Total Chol/HDL Ratio, Nonfasting <5.10 mg/dL 4.61 LDL/HDL Ratio, Nonfasting <2.54 mg/dL 2.67 (H) Albumin 3.9 - 4.9 g/dL 4.4 Bilirubin, Total 0.2 - 1.3 mg/dL 0.9 Bilirubin, Direct <0.2 mg/dL <0.2 Alkaline Phosphatase 38 - 113 U/L 71 AST 14 - 40 U/L 43 (H) ALT 10 - 54 U/L 40 Protein, Total 6.3 - 8.0 g/dL 7.2 Legend: (H) High (L) Low ASSESSMENT/PLAN: 1. Essential hypertension, benign - ICD9: 401.1, ICD10: I10 (primary diagnosis) - Controlled - Continue current medications - Recommend home blood pressure monitoring, to bring results to next visit - Encouraged sodium restriction, DASH or Mediterranean diet - Recommend regular aerobic exercise - COMPREHENSIVE METABOLIC PANEL - COMPLETE BLOOD COUNT AND DIFFERENTIAL 2. Screening for depression - ICD9: V79.0, ICD10: Z13.31 - DEPRESSION SCREENING 3. Encounter for screening examination for other mental health and behavioral disorders - ICD9: V79.8, ICD10: Z13.39 - ANXIETY SCREENING 4. Hyperlipidemia, mixed - ICD9: 272.2, ICD10: E78.2 - Controlled - Continue current medications - Counseled on healthy diet and regular exercise - COMPREHENSIVE METABOLIC PANEL - LIPID PANEL, NONFASTING - COMPLETE BLOOD COUNT AND DIFFERENTIAL 5. Prostate disorder - ICD9: 602.9, ICD10: N42.9 - PROSTATE-SPECIFIC ANTIGEN DIAGNOSTIC Micaela Martin PA-C documented in this encounter [facility] 03-26-2024 History of Present illness Narrative Scan on 03/26/2024 10:45 AM by ProviderFallon PA-C: Consultation - PT/OT/Speech documented in this encounter [facility] 03-23-2024 Telephone encounter Note Sent office notes to Ava at [email or web address]. She originally sent the wrong spelling of the last name. I called ans spoke with her. Faxed to [phone] [facility] 03-23-2024 Miscellaneous Notes Sent office notes to Ava at [email or web address]. She originally sent the wrong spelling of the last name. I called ans spoke with her. Faxed to [phone] [employer] [phone] Ava FAX [phone] Forms was sent over a few days ago to Neuro / Dr Sherwood to fill out re:Bi/Lat AFO Needing Patient office notes to get approval from insurance documented in this encounter [facility] 03-19-2024 Telephone encounter Note [employer] [phone] [employer] FAX [phone] Forms was sent over a few days ago to Neuro / Dr Sherwood to fill out re:Bi/Lat AFO Needing Patient office notes to get approval from insurance [facility] 02-26-2024 Instructions Prabhjot Leung MD - 02/26/2024 10:57 AM EDT Bring in home BP cuff to next appt. documented in this encounter [facility] 02-26-2024 History of Present illness Narrative Chief Complaint Patient presents with: Follow Up HPI Mary Lucas is a 64 year old male who presents here today for follow up BP . Patient has been taking the lisinopril 40 mg a day and the HTCZ 25 mg a day. Has been doing ok with this and noted his BP did improve. At home he has been running 108-113/62-85 with no issues. Office visit January 16. Patient was here in November for evaluated blood pressure and we increased his Lisinopril to 40 mg daily at that time. 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 Patient did have EMG completed and it appears that the issue is in his lower back. That information had been faxed to Dr Craig at [facility] Patients scheduled with Neuromuscular on 01/23/2024 Patient has continued with PHYSICAL THERAPY. The burning pain in his feet is not as bad but still has it. He does not feel the weakness in his feet has improved. When out of house still using walker. BP at home running 118-155/76-93. Past medical history, appointments, medications, allergies reviewed. Previous Medical History PAST MEDICAL HISTORY 10/03/2023: Advance directive discussed with patient Comment: Discussed 09/2023: Needs to bring in copies. 04/13/2010: Benign neoplasm of rectum and anal canal 02/15/2010: Benign prostatic hyperplasia without lower urinary tract symptoms 04/19/2022: Bilateral carotid artery stenosis Comment: US 03/2022: 20-40 b/l 08/16/2023: Bilateral renal cysts Comment: US 08/2023: benign No date: BPV (benign positional vertigo) 08/16/2023: Chronic midline low back pain without sciatica 11/18/2023: Ectatic abdominal aorta (HCC) Comment: US 10/2023: Repeat in a year 02/24/2021: ED (erectile dysfunction) of organic origin 06/01/2013: Essential hypertension, benign 04/05/2022: Ex-smoker 11/28/2015: Hyperlipidemia, mixed 08/16/2023: Lumbar radiculopathy 08/16/2023: Spinal stenosis of lumbar region with neurogenic claudication 10/11/2022: Well adult exam Comment: Last done 10/11/2022 Previous Surgical History PAST SURGICAL HISTORY 04/13/2010: COLONOSCOPY FLX DX W/COLLJ SPEC WHEN PFRMD Comment: Colonoscopy 01/01/2020: COLONOSCOPY FLX DX W/COLLJ SPEC WHEN PFRMD Comment: Colonoscopy 11/2004: EGD Comment: removal FB (apple aspiration) 08/2003: EXCISION HYDROCELE UNILATERAL Comment: left 09/02/2023: PAST SURGICAL HISTORY OF Comment: bilateral laminectomy L2-L5 with decompression fusion with autogenous graft and fixation. per Dr. 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 Venom-Honey Bee Anaphylaxis Current Medications Current Outpatient Medications on File Prior to Visit Medication Sig hydroCHLOROthiazide 25 mg tablet Take 1 tablet by mouth once daily. lisinopril (ZESTRIL) 40 mg tablet Take 1 tablet by mouth two times a day. meloxicam (MOBIC) 7.5 mg tablet Take 7.5 mg by mouth as needed. atorvastatin (LIPITOR) 40 mg tablet Take 1 tablet by mouth every other day. For cholesterol. EPINEPHrine (EPIPEN) 0.3 mg/0.3 mL auto-injector Inject 0.3 mL subcutaneously as needed. gabapentin (NEURONTIN) 300 mg capsule Take 300 mg by mouth once daily. (Patient not taking: Reported on 02/26/2024) Magnesium 250 mg tab Take 250 mg by mouth. Take one tablet daily (Patient not taking: Reported on 02/26/2024) No current facility-administered medications on file prior to visit. Social History Social History Tobacco Use Smoking status: Former Types: Cigars Smokeless tobacco: Former Types: Chew Quit date: 2018 Tobacco comments: occasionally Vaping Use Vaping Use: Never used Substance Use Topics Alcohol use: Yes Comment: 1-2 per day Drug use: Not Currently Review of Symptoms REVIEW OF SYSTEMS RESPIRATORY: Negative for wheezing, COPD, dyspnea or shortness of breath. CARDIOVASCULAR: Negative for chest pain, leg swelling, hypertension, CHF or palpitations Neuro: no headaches. EXAM: BP 151/101 (BP Site: Left Arm, BP Position: Sitting, BP Cuff Size: Regular Adult) Pulse 80 Resp 16 Wt 106.1 kg (234 lb) BMI 30.87 kg/m BP 148/88 Pulse 80 Resp 16 Wt 106.1 kg (234 lb) BMI 30.87 kg/m General Appearance: Well appearing, alert, in no acute distress, well-hydrated, well nourished.. Lungs: Lungs clear to auscultation. No wheezing, rhonchi, rales.. Heart: RRR without murmur, gallop, or rubs. No ectopy. Health Maintenance List Depression Screening Never done Anxiety Screening Never done Covid-19 Vaccine( season) due on 02/02/2024 Influenza Vaccine(1) due on 03/29/2024 BP Controlled (<130/80) due on 10/02/2024 Annual PCP Team Chronic Disease Visit due on 01/16/2025 Diabetes Screening due on 09/30/2026 Lipid Screening due on 09/30/2028 Prostate Cancer Screening Discussion due on 10/02/2028 DTaP,Tdap,Td Vaccine(3 - Td or Tdap) due on 12/10/2029 Colorectal Cancer Screening due on 12/31/2029 Abdominal Aortic Aneurysm Screening Completed Advance Directive Discussion Completed RSV Vaccine Completed Hepatitis C Screening Completed Shingrix Vaccine Completed Pneumococcal Vaccine: 65+ Completed Data reviewed A/P ASSESSMENT/PLAN: 1. Essential hypertension, benign - ICD9: 401.1, ICD10: I10 - Controlled well at home with some white coat affect in the office. - Continue current medications - Recommend home blood pressure monitoring, to bring results to next visit - Encouraged sodium restriction, DASH or Mediterranean diet - Recommend regular aerobic exercise Patient to keep appt for [facility]AE in Mar and bring in home BP cuff. Prabhjot Leung MD documented in this encounter [facility] 02-18-2024 Telephone encounter Note Per call to Annie Jiménez spoke with Not[employer] that states that patient may have carbon fiber ankle braces. Annie will call if anything further is needed. Tierra Griffin RN, BSN [facility] 02-18-2024 Miscellaneous Notes Per call to Annie Jiménez spoke with [employer] that states that patient may have carbon fiber ankle braces. Annie will call if anything further is needed. Tierra Griffin RN, BSN Yes that is fine with me Yony from [employer] [facility] called asking if Dr. Sherwood is okay with patient getting carbon fiber ankle braces. Patient preferred the carbon fiber, he states the patient was unsure if he would wear the ankle gauntlet braces. [facility] [phone] documented in this encounter [facility] 02-18-2024 Telephone encounter Note Yes that is fine with me [facility] Work Phone: 02-18-2024 Telephone encounter Note Yony from [employer] called asking if Dr. Sherwood is okay with patient getting carbon fiber ankle braces. Patient preferred the carbon fiber, he states the patient was unsure if he would wear the ankle gauntlet braces. Yony from [employer] [phone] [facility] 02-13-2024 Telephone encounter Note Spoke with [employer]. Given message from provider's office. She verbalizes understanding. Luz Lundy RN [facility] 02-13-2024 Miscellaneous Notes Spoke with [facility]i Gog[facility]. Given message from provider's office. She verbalizes understanding. Luz Lundy RN Call to [facility], placed on hold for 13 minutes and Sofi was unavailable at this time. Message left to have her return call to Dr. Leung's office regarding pt she called about. Cyndy Xiong MA Contacted Sofi. They indicated that she had already left for the day. Will be back at 8:00 tomorrow. Will try again tomorrow. Cinda Brady MA Advise no PHYSICAL THERAPY is BP is greater then 175/95 or less then 100/60 Sofi from [facility] calling she is concerned with patient high blood pressure readings. She does not want to go ahead with exercising the patient with reading of 160/99. Patient had told her he took his medications, not having pain. So she is asking for parameters for the patient blood pressure. Please advise documented in this encounter [facility] 02-13-2024 Telephone encounter Note Call to [facility], placed on hold for 13 minutes and Sofi was unavailable at this time. Message left to have her return call to Dr. Lenug's office regarding pt she called about. Cyndy Xiong MA [facility] 02-11-2024 Telephone encounter Note Contacted [facility]. They indicated that she had already left for the day. Will be back at 8:00 tomorrow. Will try again tomorrow. Cinda Brady MA [facility] 02-11-2024 Telephone encounter Note Advise no PHYSICAL THERAPY is BP is greater then 175/95 or less then 100/60 [facility] 02-11-2024 Telephone encounter Note Sofi from [facility] calling she is concerned with patient high blood pressure readings. She does not want to go ahead with exercising the patient with reading of 160/99. Patient had told her he took his medications, not having pain. So she is asking for parameters for the patient blood pressure. Please advise [facility] 02-10-2024 Telephone encounter Note Noted. The following approved medication requests have been transmitted electronically. Requested Prescriptions Signed Prescriptions Disp Refills hydroCHLOROthiazide 25 mg tablet 90 tablet 1 Sig: Take 1 tablet by mouth once daily. Authorizing Provider: MICAELA MARTIN PA-C [facility] 02-10-2024 Miscellaneous Notes Noted. The following approved medication requests have been transmitted electronically. Requested Prescriptions Signed Prescriptions Disp Refills hydroCHLOROthiazide 25 mg tablet 90 tablet 1 Sig: Take 1 tablet by mouth once daily. Authorizing Provider: MICAELA MARTIN PA-C Patient returned call and went over notes from Dr Leung with understanding. Patient is willing to do the HCTZ rx, he uses [facility] and asking for 90 day rx. He already has appt with PCP scheduled for 02/26/2024, he wants to keep that appt. Left message for pt to contact office. Alabn Ott LPN Patient brought in list of BP readings. Avg has been 154/88. Let patient know BP still running higher then goal. Would like to see him staying below 135/85 on Avg. I want to add on HCTZ 25 mg a day. If ok will send in a scrip and will need set of BP readings in 4 weeks. documented in this encounter [facility] 02-10-2024 Telephone encounter Note Patient returned call and went over notes from Dr Leung with understanding. Patient is willing to do the HCTZ rx, he uses [facility] and asking for 90 day rx. He already has appt with PCP scheduled for 02/26/2024, he wants to keep that appt. [facility] 02-10-2024 Telephone encounter Note Left message for pt to contact office. Alban Ott LPN [facility] 02-10-2024 Telephone encounter Note Patient brought in list of BP readings. Avg has been 154/88. Let patient know BP still running higher then goal. Would like to see him staying below 135/85 on Avg. I want to add on HCTZ 25 mg a day. If ok will send in a scrip and will need set of BP readings in 4 weeks. [facility] 01-27-2024 History of Present illness Narrative Scan on 01/24/2024 4:02 PM by Provider, SHYANNE Lehman: Consultation - PT/OT/Speech Cinda Brady MA documented in this encounter [facility] 01-23-2024 Instructions Guilherme Sherwood MD - 01/23/2024 1:37 PM EDT The ankle brace is called an ankle flexion orthotic (AFO) documented in this encounter [facility] 01-23-2024 History of Present illness Narrative Images from the original note were not included. HPI: This is Mr. Mary Lucas a 64 year old male from who presents to the [facility] neurology department with a chief complaint of bilateral foot drop symptoms Patient had L3-L5 fusion in Aug 2023. Had COVID vaccine in September and shortly afterwards developed numbness in the soles of his feet. On exam he has lack of knee and achillis reflexes. Referring provider: Prabhjot Leung [address] [facility] [id number] He had spinal fusion surgery 09/02 at [facility] He had not problems immediately after the surgery He had progressed from using a walker. Inside the house we was walking on his own. He got a covid booster 10/04 after the booster. He then lost strength in his feet my feet are basically He went to [facility], had xrays and MRI, was told that structurally it looked fine, there was some inflammation above the surgery site. His symptoms have improved since ; his gait has improved. He uses cane for stability, uses walker while outside. He is doing PT, having issues managing bp. Sx prior to surgery: pain radiating down L leg. Trouble with walking due to hip and leg pain. He awoke from surgery PMH: PAST MEDICAL HISTORY Diagnosis Date Advance directive discussed with patient 10/03/2023 Discussed 09/2023: Needs to bring in copies. 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 Benign prostatic hyperplasia without lower urinary tract symptoms 02/15/2010 Bilateral carotid artery stenosis 04/19/2022 US 03/2022: 20-40 b/l Bilateral renal cysts 08/16/2023 US 08/2023: benign BPV (benign positional vertigo) Chronic midline low back pain without sciatica 08/16/2023 Ectatic abdominal aorta (HCC) 11/18/2023 US 10/2023: Repeat in a year ED (erectile dysfunction) of organic origin 02/24/2021 Essential hypertension, benign 06/01/2013 Ex-smoker 04/05/2022 Hyperlipidemia, mixed 11/28/2015 Lumbar radiculopathy 08/16/2023 Spinal stenosis of lumbar region with neurogenic claudication 08/16/2023 Well adult exam 10/11/2022 Last done 10/11/2022 Medications: Current Outpatient Medications Medication Sig Dispense Refill lisinopril (ZESTRIL) 40 mg tablet Take 1 tablet by mouth once daily. 90 tablet 1 gabapentin (NEURONTIN) 300 mg capsule Take 300 mg by mouth once daily. meloxicam (MOBIC) 7.5 mg tablet Take 7.5 mg by mouth as needed. atorvastatin (LIPITOR) 40 mg tablet Take 1 tablet by mouth every other day. For cholesterol. 90 tablet 1 EPINEPHrine (EPIPEN) 0.3 mg/0.3 mL auto-injector Inject 0.3 mL subcutaneously as needed. 2 Each 1 Magnesium 250 mg tab Take 250 mg by mouth. Take one tablet daily No current facility-administered medications for this visit. Allergies: ALLERGIES Allergen Reactions Venom-Honey Bee Anaphylaxis Social History: Social History Tobacco Use Smoking status: Former Types: Cigars Smokeless tobacco: Former Types: Chew Quit date: 2018 Tobacco comments: occasionally Vaping Use Vaping Use: Never used Substance Use Topics Alcohol use: Yes Comment: 1-2 per day Drug use: Not Currently Family History: FAMILY HISTORY Problem Relation Age of Onset Hypertension Mother Heart Father age 80, CHF Diabetes Father Heart disease Sister No Known Problems Sister other (Soft tissue cancer) Sister Breast Cancer Sister Diabetes Sister ROS: A complete review of systems was performed. All systems negative other than those mentioned in HPI. Physical Exam: Vitals: BP 166/64 Pulse 85 Ht 185.4 cm (6' 1) Wt 107.1 kg (236 lb 1.8 oz) SpO2 96% BMI 31.15 kg/m General appearance: no acute distress. Neurological Exam: MSE: Alert and oriented to person, place, and time. Speech is fluent without dysarthria or aphasia. Recall is intact to recent and remote events. Attention and concentration are intact. Fund of knowledge is intact. CN: Pupils equally round and reactive to light. Extraoccular muscles intact. Visual matias full. Facial muscles symmetric. Hearing intact to voice. MSK: Normal bulk and tone throughout. Deltoid Triceps Biceps Wrist ext. Hand intrinsic Hip flexion Knee flexion Knee Ext. Brannon. Flex Pl. flex Right 5 5 5 5 5 5 5 5 4 4 Left 5 5 5 5 5 5 5 5 4 4 Sensation: Intact to light touch, pinprick, and vibration throughout. Reflexes: R L Biceps 0 0 Triceps 2 2 Brachioradialis 0 0 Patellar 1 0 Achilles 0 0 Toes downgoing bilaterally Cerebellar: Intact finger to nose bilaterally. Gait: steppage w/ cane. Labs: WBC Date Value Ref Range Status 08/16/2023 6.37 3.70 - 11.00 k/uL Final Hemoglobin Date Value Ref Range Status 08/16/2023 15.2 13.0 - 17.0 g/dL Final Hematocrit Date Value Ref Range Status 08/16/2023 46.4 39.0 - 51.0 % Final MCV Date Value Ref Range Status 08/16/2023 90.4 80.0 - 100.0 fL Final Platelet Count Date Value Ref Range Status 08/16/2023 266 150 - 400 k/uL Final BUN Date Value Ref Range Status 10/01/2023 18 9 - 24 mg/dL Final Creatinine Date Value Ref Range Status 10/01/2023 1.13 0.73 - 1.22 mg/dL Final Calcium, Total Date Value Ref Range Status 10/01/2023 10.0 8.5 - 10.2 mg/dL Final AST Date Value Ref Range Status 10/01/2023 41 (H) 14 - 40 U/L Final ALT Date Value Ref Range Status 10/01/2023 32 10 - 54 U/L Final Bilirubin, Total Date Value Ref Range Status 10/01/2023 0.5 0.2 - 1.3 mg/dL Final Hemoglobin A1C Date Value Ref Range Status 10/03/2022 5.5 4.3 - 5.6 % Final Comment: [place] [employer] guidelines indicate that patients with HgbA1c in the range 5.7-6.4% are at increased risk for development of diabetes, and intervention by lifestyle modification may be beneficial. HgbA1c greater or equal to 6.5% is considered diagnostic of diabetes. CK Date Value Ref Range Status 12/12/2013 226 (H) 30 - 220 U/L Final Imaging: outside MRI lumbar spine 11/19 (post op) Other studies: EMG 01/19 [facility] Assessment/Plan : Ruthann presents with 3-month history of bilateral lower extremity weakness and foot drop. The symptoms started roughly proximally 1 month after surgical decompression for lumbar spinal stenosis, symptom onset was fairly abrupt and occurred shortly after receiving a COVID booster vaccination Exam demonstrates weakness of bilateral foot dorsi and plantar flexion as well as toe flexion and extension. He has normal sensory exam with subjective numbness in the right greater than left foot. He has hyporeflexia of the lower extremities. Postoperative MRI after onset of the symptoms did not demonstrate significant structural cause of his symptoms. There is no report of abscess nor fluid collection. There is residual multilevel neuroforaminal stenosis. Needle EMG performed in the right lower extremity comparison studies of the left demonstrates findings consistent with subacute radiculo-neuropathy with axonal loss of the bilateral lower extremities below the knees and active denervation in bilateral L5/S1 nerve root distributions, including proximal musclese. Overall, the close clinical presentation is most consistent with acute onset radiculo-neuropathy. 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 This was not likely a surgical complication as onset of symptoms was 1 month postoperative and no structural cause was identified on subsequent MRI of the lumbar spine. While there are no demyelinating findings on nerve conduction study, this picutres (axonal loss) can be seen with axonal variants, or with studies done several months down the road if there is significant axonal loss. I have ordered labs for other possible metabolic of radiculo-neuropathy, however most inflammatory or metabolic causes tend to be subacute rather than acute onset. Additionally he does not have history of diabetes mellitus and therefore is not high risk for diabetic radicular neuropathy AKA diabetic amyotrophy. I have advised continued participation in physical therapy, and provided prescription for ankle flexion orthotics for his foot drop. He is experiencing significant improvement since onset of symptoms and if this is GBS continued improvement is expected. Follow-up in 3 months time. documented in this encounter [facility] 01-22-2024 Telephone encounter Note The following approved medication requests have been transmitted electronically. Requested Prescriptions Signed Prescriptions Disp Refills lisinopril (ZESTRIL) 40 mg tablet 180 tablet 1 Sig: Take 1 tablet by mouth two times a day. Authorizing Provider: PRABHJOT LEUNG MD [facility] 01-22-2024 Miscellaneous Notes The following approved medication requests have been transmitted electronically. Requested Prescriptions Signed Prescriptions Disp Refills lisinopril (ZESTRIL) 40 mg tablet 180 tablet 1 Sig: Take 1 tablet by mouth two times a day. Authorizing Provider: PRABHJOT LEUNG MD Patient notified and voiced understanding. Patient would like to take Lisinopril twice a day. JORDIN Robert. Instructed patient to take his BP in the morning and Evening and in 1 week send in results. Patient indicated that his BP at home first thing this morning was 144/89. Cinda Brady MA Let patient know I have two options for him: 1) increase the lisinopril to 40 mg twice a day. 2) continue lisinopril 40 mg once a day and add on hydrochlorothiazide 25 mg a day. (With making this change though he will not need his f/u with me changed since it is still 30 days away.) Patient calling, states that he went to PT today but they refused to do therapy today because his BP was 191/101. Patient asking what would be recommended. Please advise. documented in this encounter [facility] 01-22-2024 Telephone encounter Note Patient notified and voiced understanding. Patient would like to take Lisinopril twice a day. JORDIN Robert. Instructed patient to take his BP in the morning and Evening and in 1 week send in results. Patient indicated that his BP at home first thing this morning was 144/89. Cinda Brady MA [facility] 01-22-2024 Telephone encounter Note Let patient know I have two options for him: 1) increase the lisinopril to 40 mg twice a day. 2) continue lisinopril 40 mg once a day and add on hydrochlorothiazide 25 mg a day. (With making this change though he will not need his f/u with me changed since it is still 30 days away.) [facility] 01-22-2024 Telephone encounter Note Patient calling, states that he went to PT today but they refused to do therapy today because his BP was 191/101. Patient asking what would be recommended. Please advise. [facility] 01-17-2024 History of Present illness Narrative Chief Complaint Patient presents with: Follow Up HPI Mary Lucas is a 64 year old male who presents here today for follow up on Blood pressure. Patient was here in November for evaluated blood pressure and we increased his Lisinopril to 40 mg daily at that time. 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 Patient did have EMG completed and it appears that the issue is in his lower back. That information had been faxed to Dr Craig at [facility] Patients scheduled with Neuromuscular on 01/23/2024 Patient has continued with PHYSICAL THERAPY. The burning pain in his feet is not as bad but still has it. He does not feel the weakness in his feet has improved. When out of house still using walker. BP at home running 118-155/76-93. Past medical history, appointments, medications, allergies reviewed. Previous Medical History PAST MEDICAL HISTORY Diagnosis Date Advance directive discussed with patient 10/03/2023 Discussed 09/2023: Needs to bring in copies. 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 Benign prostatic hyperplasia without lower urinary tract symptoms 02/15/2010 Bilateral carotid artery stenosis 04/19/2022 US 03/2022: 20-40 b/l Bilateral renal cysts 08/16/2023 US 08/2023: benign BPV (benign positional vertigo) Chronic midline low back pain without sciatica 08/16/2023 Ectatic abdominal aorta (HCC) 11/18/2023 US 10/2023: Repeat in a year ED (erectile dysfunction) of organic origin 02/24/2021 Essential hypertension, benign 06/01/2013 Ex-smoker 04/05/2022 Hyperlipidemia, mixed 11/28/2015 Lumbar radiculopathy 08/16/2023 Spinal stenosis of lumbar region with neurogenic claudication 08/16/2023 Well adult exam 10/11/2022 Last done 10/11/2022 Previous Surgical History PAST SURGICAL HISTORY Procedure Laterality Date COLONOSCOPY FLX DX W/COLLJ SPEC WHEN PFRMD 04/13/2010 Colonoscopy COLONOSCOPY FLX DX W/COLLJ SPEC WHEN PFRMD 01/01/2020 Colonoscopy EGD 11/2004 removal FB (apple aspiration) EXCISION HYDROCELE UNILATERAL 08/2003 left PAST SURGICAL HISTORY OF 09/02/2023 bilateral laminectomy L2-L5 with decompression fusion with autogenous graft and fixation. per Dr. Dawood Craig VASECTOMY UNI/BI SPX W/POSTOP SEMEN EXAMS 1994 Family History FAMILY HISTORY Problem Relation Age of Onset Hypertension Mother Heart Father age 80, CHF Diabetes Father Heart disease Sister No Known Problems Sister other (Soft tissue cancer) Sister Breast Cancer Sister Diabetes Sister Patient Allergies ALLERGIES Allergen Reactions Venom-Honey Bee Anaphylaxis Current Medications Current Outpatient Medications on File Prior to Visit Medication Sig lisinopril (ZESTRIL) 40 mg tablet Take 1 tablet by mouth once daily. gabapentin (NEURONTIN) 300 mg capsule Take 300 mg by mouth once daily. meloxicam (MOBIC) 7.5 mg tablet Take 7.5 mg by mouth as needed. oxyCODONE IR (ROXICODONE) 5 mg immediate release tablet TAKE 1 TABLET BY MOUTH EVERY 6 HOURS NEEDED FOR PAIN. FOR 7 DAYS (Patient not taking: Reported on 12/27/2023) atorvastatin (LIPITOR) 40 mg tablet Take 1 tablet by mouth every other day. For cholesterol. EPINEPHrine (EPIPEN) 0.3 mg/0.3 mL auto-injector Inject 0.3 mL subcutaneously as needed. Magnesium 250 mg tab Take 250 mg by mouth. Take one tablet daily No current facility-administered medications on file prior to visit. Social History Social History Tobacco Use Smoking status: Former Types: Cigars Smokeless tobacco: Former Types: Chew Quit date: 2018 Tobacco comments: occasionally Vaping Use Vaping Use: Never used Substance Use Topics Alcohol use: Yes Comment: 1-2 per day Drug use: Not Currently Review of Symptoms REVIEW OF SYSTEMS See HPI Neuro: headache's or blurred vision. Occasionally dizzy Lungs: No shortness of breath. Has an occasional. Heart: no chest pain,, Palpitations or leg edema. EXAM: BP 160/96 (BP Site: Right Arm, BP Position: Sitting, BP Cuff Size: Regular Adult) Pulse 80 Resp 16 Wt 106.6 kg (235 lb) BMI 31.00 kg/m General Appearance: Well appearing, alert, in no acute distress, well-hydrated, well nourished.. Neck: Supple, no adenopathy; thyroid symmetric, normal size, no bruits. Lungs: Lungs clear to auscultation. No wheezing, rhonchi, rales.. Heart: RRR without murmur, gallop, or rubs. No ectopy. Musculoskeletal: No joint swelling, deformity, or tenderness. Dorsi flexion strength on th right is improved to 4/5 and on the left is at 3-4/5. Still can not elicit good flex at the knees or achillis on both sides. Health Maintenance List Covid-19 Vaccine() due on 02/02/2024 BP Controlled (<130/80) due on 10/02/2024 Annual PCP Team Chronic Disease Visit due on 12/26/2024 Diabetes Screening due on 09/30/2026 Lipid Screening due on 09/30/2028 Prostate Cancer Screening Discussion due on 10/02/2028 DTaP,Tdap,Td Vaccine(3 - Td or Tdap) due on 12/10/2029 Colorectal Cancer Screening due on 12/31/2029 Abdominal Aortic Aneurysm Screening Completed Influenza Vaccine Completed Advance Directive Discussion Completed Behavioral Health Screening Completed RSV Vaccine Completed Hepatitis C Screening Completed Shingrix Vaccine Completed Pneumococcal Vaccine: 65+ Completed Data reviewed A/P ASSESSMENT/PLAN: 1. Bilateral foot-drop - ICD9: 736.79, ICD10: M21.371, M21.372 (primary diagnosis) - with continued PHYSICAL THERAPY there is improvement in dorsiflexion of both feet. 2. Neuropathy of both feet - ICD9: 356.9, ICD10: G57.93 - slightly improved. Patient will be seeing Neuro in a week. NCS showed no peripheral neuropathy but that there was a lumbar radiculopathy. 3. Essential hypertension, benign - ICD9: 401.1, ICD10: I10 - Uncontrolled - Continue current medications - Recommend home blood pressure monitoring, to bring results to next visit - Encouraged sodium restriction, DASH or Mediterranean diet - Recommend regular aerobic exercise F/u HTN in a month Patient was asked at end of visit if they had any questions or input regarding the plan of care we had discussed. Prabhjot Leung MD documented in this encounter [facility] 12-31-2023 Telephone encounter Note Patient notified and voiced understanding. Cinda Brady MA Faxed info to Dr Craig [facility]. Cinda Brady MA [facility] 12-31-2023 Miscellaneous Notes Patient notified and voiced understanding. Cinda Brady MA Faxed info to Dr Craig [facility]. Cinda Brady MA Please fax copie of EMG Ritu Craig at [facility]. Let patient know EMG study looks like issue is in lower back. We have faxed the results to Dr. Craig but want him to keep the appt with Neuromusclar documented in this encounter [facility] 12-31-2023 Telephone encounter Note Please fax copie of EMG toDr Christopher Craig at [facility]. Let patient know EMG study looks like issue is in lower back. We have faxed the results to Dr. Craig but want him to keep the appt with Neuromusclar [facility] 12-28-2023 History of Present illness Narrative UNIVERSAL PROTOCOL / SAFETY CHECKLIST Procedure to be Performed: EMG Sign In: A Moment of CARE was completed. Personnel directly involved with the procedure wore the appropriate PPE (Personal Protective Equipment). Patient/Surrogate Stated/Verified: PATIENT VERIFIED(optional for EMERGENT procedures): Patient name, Date of , Relevant allergies, and The intended procedure Time Out Communication: Intended patient and procedure match the source documents. Correct side/site marked and visible. Sign Out: SIGN OUT (optional for EMERGENT procedures): Post-procedure follow-up management communicated and Plan of Care Visit completed when applicable. Melissa Fowler R NCST Hernesto Colon MD Neuromuscular Medicine (NM) Staff [facility], [facility] [place] documented in this encounter [facility] 12-27-2023 Instructions Prabhjot Leung MD - 12/27/2023 3:58 PM EDT No meloxicam or ibuprofen while on the steroid packet. documented in this encounter [facility] 12-27-2023 Miscellaneous Notes Spoke with [employer] nurse for Alyse Corrigalll. He indicated that he is on Mobic so he would have to stop the mobic while on the medrol and once finished start the mobic the next day. He is faxing over the report and running that hector Craig just to make sure ok with instructions on mobic. Cinda Brady MA Left detailed message with [facility] nursing staff. Patient is here in the office today with Dr Leung and he had a recent MRI completed requested a copy. Also patient is here today with neuropathy in his feet. Dr. Leung would like to give a Medrol pack to help with this. Checking with their office to make sure that is ok. Cinda Brady MA documented in this encounter [facility] 12-27-2023 Telephone encounter Note Spoke with [employer] nurse for Alyse Cordonniel. He indicated that he is on Mobic so he would have to stop the mobic while on the medrol and once finished start the mobic the next day. He is faxing over the report and running that hector Craig just to make sure ok with instructions on mobic. Cinda Brady MA [facility] 12-27-2023 Telephone encounter Note Left detailed message with [facility] nursing staff. Patient is here in the office today with Dr Leung and he had a recent MRI completed requested a copy. Also patient is here today with neuropathy in his feet. Dr. Leung would like to give a Medrol pack to help with this. Checking with their office to make sure that is ok. Cinda Brady MA [facility] 12-27-2023 History of Present illness Narrative Chief Complaint Patient presents with: Blood Pressure HPI Mary Lucas is a 63 year old male who presents here today for blood pressure . Patient had surgery for lumbar stenosis in Aug involving the L3-L5 region. Had been doing well and then started to get neuropathy in the bilaterally feet. Has difficulty moving the right set of toes more then the left. Initially would just drag the right foot. His says this all started after he got the COVID vaccine in early September. He did see his spine surgeon and a MRI was completed and he was told the surgical area was ok but that there was some swelling at the L1 region. The use of steroids was never mentioned per patient. Per the incision looks healed and not inflamed. He started to noticing his blood pressure has been elevated 140-160's/82-100. No blurred vision. Slight headache at times. Gets dizzy sometimes. Past medical history, appointments, medications, allergies reviewed. Previous Medical History PAST MEDICAL HISTORY Diagnosis Date Advance directive discussed with patient 10/03/2023 Discussed 09/2023: Needs to bring in copies. 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 Benign prostatic hyperplasia without lower urinary tract symptoms 02/15/2010 Bilateral carotid artery stenosis 04/19/2022 US 03/2022: 20-40 b/l Bilateral renal cysts 08/16/2023 US 08/2023: benign BPV (benign positional vertigo) Chronic midline low back pain without sciatica 08/16/2023 Ectatic abdominal aorta (HCC) 11/18/2023 US 10/2023: Repeat in a year ED (erectile dysfunction) of organic origin 02/24/2021 Essential hypertension, benign 06/01/2013 Ex-smoker 04/05/2022 Hyperlipidemia, mixed 11/28/2015 Lumbar radiculopathy 08/16/2023 Spinal stenosis of lumbar region with neurogenic claudication 08/16/2023 Well adult exam 10/11/2022 Last done 10/11/2022 Previous Surgical History PAST SURGICAL HISTORY Procedure Laterality Date COLONOSCOPY FLX DX W/COLLJ SPEC WHEN PFRMD 04/13/2010 Colonoscopy COLONOSCOPY FLX DX W/COLLJ SPEC WHEN PFRMD 01/01/2020 Colonoscopy EGD 11/2004 removal FB (apple aspiration) EXCISION HYDROCELE UNILATERAL 08/2003 left PAST SURGICAL HISTORY OF 09/02/2023 bilateral laminectomy L2-L5 with decompression fusion with autogenous graft and fixation. per Dr. Dawood Craig VASECTOMY UNI/BI SPX W/POSTOP SEMEN EXAMS 1994 Family History FAMILY HISTORY Problem Relation Age of Onset Hypertension Mother Heart Father age 80, CHF Diabetes Father Heart disease Sister No Known Problems Sister other (Soft tissue cancer) Sister Breast Cancer Sister Diabetes Sister Patient Allergies ALLERGIES Allergen Reactions Venom-Honey Bee Anaphylaxis Current Medications Current Outpatient Medications on File Prior to Visit Medication Sig gabapentin (NEURONTIN) 300 mg capsule Take 300 mg by mouth once daily. meloxicam (MOBIC) 7.5 mg tablet Take 7.5 mg by mouth as needed. lisinopril (ZESTRIL) 20 mg tablet Take 1 tablet by mouth once daily. atorvastatin (LIPITOR) 40 mg tablet Take 1 tablet by mouth every other day. For cholesterol. EPINEPHrine (EPIPEN) 0.3 mg/0.3 mL auto-injector Inject 0.3 mL subcutaneously as needed. Magnesium 250 mg tab Take 250 mg by mouth. Take one tablet daily oxyCODONE IR (ROXICODONE) 5 mg immediate release tablet TAKE 1 TABLET BY MOUTH EVERY 6 HOURS NEEDED FOR PAIN. FOR 7 DAYS (Patient not taking: Reported on 12/27/2023) No current facility-administered medications on file prior to visit. Social History Social History Tobacco Use Smoking status: Former Types: Cigars Smokeless tobacco: Former Types: Chew Quit date: 2018 Tobacco comments: occasionally Vaping Use Vaping Use: Never used Substance Use Topics Alcohol use: Yes Comment: 1-2 per day Drug use: Not Currently Review of Symptoms REVIEW OF SYSTEMS RESPIRATORY: Negative for wheezing, COPD, dyspnea or shortness of breath CARDIOVASCULAR: Negative for chest pain, leg swelling, hypertension, CHF or palpitations EXAM: BP 140/100 (BP Site: Right Arm, BP Position: Sitting, BP Cuff Size: Large Adult) Pulse 80 Resp 16 Wt 106.1 kg (234 lb) BMI 30.87 kg/m BP 170/88 Pulse 80 Resp 16 Wt 106.1 kg (234 lb) BMI 30.87 kg/m General Appearance: Well appearing, alert, in no acute distress, well-hydrated, well nourished.. Lungs: Lungs clear to auscultation. No wheezing, rhonchi, rales.. Heart: RRR without murmur, gallop, or rubs. No ectopy. Abdomen: Normal abdominal exam, Abdomen soft, non-tender. Bowel sounds normal. No masses, organomegaly. Extremities: No deformities, edema, skin discoloration, Good capillary refill. . Musculoskeletal: dorsiflexion of the right foot was 2/5 and the left was 3/5. Peripheral Pulses: Normal. Neurologic: Gait needed the assistance of a walker. Reflexes were absent at the knees and achillis bilaterally. Sensation to light touch was decreased bilaterally below the knees. Health Maintenance List Covid-19 Vaccine() due on 02/02/2024 Annual PCP Team Chronic Disease Visit due on 10/02/2024 BP Controlled (<130/80) due on 10/02/2024 Diabetes Screening due on 09/30/2026 Lipid Screening due on 09/30/2028 Prostate Cancer Screening Discussion due on 10/02/2028 DTaP,Tdap,Td Vaccine(3 - Td or Tdap) due on 12/10/2029 Colorectal Cancer Screening due on 12/31/2029 Abdominal Aortic Aneurysm Screening Completed Influenza Vaccine Completed Advance Directive Discussion Completed Behavioral Health Screening Completed RSV Vaccine Completed Hepatitis C Screening Completed Shingrix Vaccine Completed Pneumococcal Vaccine: 65+ Completed HIV Screening Discontinued Data reviewed (Discussed case with local neurologist) A/P ASSESSMENT/PLAN: 1. Bilateral foot-drop - ICD9: 736.79, ICD10: M21.371, M21.372 (primary diagnosis) Check - EMG(NEURO/NI): STAT - CONSULT TO NEUROLOGY: Neuromuscular ASHELY for concern of chronic Meg barre syndrome. - will place on a medrol dose pack 2. Neuropathy of both feet - ICD9: 356.9, ICD10: G57.93 - as above - EMG(NEURO/NI) - CONSULT TO NEUROLOGY 3. Essential hypertension, benign - ICD9: 401.1, ICD10: I10 - Uncontrolled - Continue current medications - Increase lisinopril to 40 mg a day - Recommend home blood pressure monitoring, to bring results to next visit - Encouraged sodium restriction, DASH or Mediterranean diet - Recommend regular aerobic exercise - LISINOPRIL 40 MG TABLET Requested Prescriptions Signed Prescriptions Disp Refills lisinopril (ZESTRIL) 40 mg tablet 90 tablet 1 Sig: Take 1 tablet by mouth once daily. methylPREDNISolone (MEDROL, AKASH,) 4 mg Dose-Pack 21 tablet 0 Sig: Follow dosing instructions, take with food. to give me an update on home BP's in the next week. I spent a total of 50 minutes on the date of the service which included preparing to see the patient, [id number] patient care, completing clinical documentation, performing a medically appropriate examination, counseling and educating the patient/family/caregiver and ordering medications, tests, or procedures. Prabhjot Leung MD documented in this encounter [facility] 11-18-2023 Telephone encounter Note Spoke with patient. Given message from provider's office. Patient verbalizes understanding. Luz Lundy RN [facility] 11-18-2023 Miscellaneous Notes Spoke with patient. Given message from provider's office. Patient verbalizes understanding. Luz Lundy RN Called and left a voicemail for the Patient to call back and ask for a nurse to receive the providers message. Kathie Valderrama RN Let patient know his abdominal aorta shows a slight dilation but not an aneurysm. This should be monitored each year to make sure it is not increasing in size. documented in this encounter [facility] 11-18-2023 Telephone encounter Note Called and left a voicemail for the Patient to call back and ask for a nurse to receive the providers message. Kathie Valderrama RN [facility] 11-18-2023 Telephone encounter Note Let patient know his abdominal aorta shows a slight dilation but not an aneurysm. This should be monitored each year to make sure it is not increasing in size. [facility] 11-18-2023 History of Present illness Narrative Radiology Service Progress Note PATIENT NAME: Mary Lucas DATE OF SERVICE: November 18, 2023 TIME: 9:41 AM PATIENT IDENTITY VERIFICATION COMPLETED USING TWO (2) IDENTIFIERS: Name and Date of confirmed by patient verbally. FALL SCREENING: Has the patient had 2 falls in the last year or 1 fall with injury or currently using an Ambulatory Assistive Device (Walker, Cane, Wheelchair, Crutches, etc.)? No PATIENT GENDER DATA: Male PATIENT RELEVANT IMPLANT DATA REVIEWED: Not Applicable PATIENT PRESENTS WITH AN IMPLANTABLE OR ATTACHED SENIOR PASTOR: No RADIOLOGY DEPARTMENT: Ultrasound PERIPHERAL IV DATA: Not applicable SIGNED BY: Christiane Gordillo RDMS November 18, 2023 9:41 AM documented in this encounter [facility] 10-31-2023 History of Present illness Narrative Scan on 10/30/2023 2:36 PM by Provider, SHYANNE Lehman: Consultation - PT/OT/Speech documented in this encounter [facility] 10-03-2023 Instructions Prabhjot Leung MD - 10/03/2023 8:47 AM EST Please bring in copies of your power of embedded software design engineer for health care and living will. Please get labs done on or after 03/20/2024 prior to your next visit. Screening schedule The following prevention plan is recommended: Abdominal Aortic Aneurysm Screening Never done BP Controlled (<130/80) due on 09/01/2020 Covid-19 Vaccine(2022- season) due on 03/29/2023 Advance Directive Discussion Never done Depression Assessment due on 07/29/2023 WHAT YOU CAN DO TO PREVENT FALLS Many falls can be prevented. By making some changes, you can lower your chances of falling. Four things YOU can do to prevent falls for you* and your caregiver 1. Begin a regular exercise program Exercise is one of the most important ways to lower your chances of falling. It makes you stronger and helps you feel better. Exercises that improve balance and coordination (like Jose Raul Chi) are the most helpful. Lack of exercise leads to weakness and increases your chances of falling. Ask your doctor or health care provider about the best type of exercise program for you. 2. Have your health care provider review your medicines Have your doctor or pharmacist review all the medicines you take, even uvuo-jyw-skryqsg medicines. As you get older, the way medicines work in your body can change. Some medicines, or combinations of medicines, can make you sleepy or dizzy and can cause you to fall. 3. Have your vision checked Have your eyes checked by an eye doctor at least once a year. You may be wearing the wrong glasses or have a condition like glaucoma or cataracts that limits your vision. Poor vision can increase your chances of falling. 4. Make your home safer About half of all falls happen at home. To make your home safer: Remove things you can trip over (like papers, books, clothes, and shoes) from stairs and places where you walk. Remove small throw rugs or use double-sided tape to keep the rugs from slipping. Keep items you use often in cabinets you can reach easily without using a step stool. Have grab bars put in next to your toilet and in the tub or shower. Use non-slip mats in the bathtub and on shower floors. Improve the lighting in your home. As you get older, you need brighter lights to see well. Hang light-weight curtains or shades to reduce glare. Have handrails and lights put in on all staircases. Wear shoes both inside and outside the house. Avoid going barefoot or wearing slippers. For more information, contact: Centers for Disease Control and Prevention www.cdc.gov/injury * This information may not apply if you have certain medical conditions. documented in this encounter [facility] 10-03-2023 History of Present illness Narrative Mary Lucas is a 63 year old male here for a Medicare wellness visit. Medicare Health Risk Assessment General Health Very good Exercise: Minutes/Day 30 min Exercise: Days/Week 1 day Alcohol: Daily Use 2-3 times a week Alcohol: Drinks/Day 1 or 2 Alcohol: 6 or more drinks Never Feel off balance No Concerns: Teeth/Dentures No Concerns: Sexual function No Troubled by feelings None of the above Frequency: Eating healthy diet Nearly every day ADLs requiring help None of the above Safety precautions in home/vehicle Yes Smoke, vape, chews tobacco No Difficulty hearing No Difficulty seeing No Current Providers Specialists: I have reviewed specialist-related care of the patient in the medical record. Current care team: Patient Care Team: Prabhjot Leung MD as PCP - General (Family Medicine) Adriana Craig (Ortho, back) optho Medical/Family history review Reviewed and updated problem list, medical/surgical/family/social history, medications, and allergies. Opioid use review Opioid Medications (last 90 days) Some values may be hidden. Unless noted otherwise, only the newest values recorded on each date are displayed. Opioid Medications oxyCODONE IR (ROXICODONE) 5 mg immediate release tablet Dose: TAKE 1 TABLET BY MOUTH EVERY 6 HOURS NEEDED FOR PAIN. FOR 7 DAYS Starting date: 09/02/2023 (active) Prescribed No opioid use on file in the last 90 days Does patient have risk factors for opioid abuse? No Pain overview Current pain concerns and treatment plan reviewed. Patient stable on current treatment plan and under the care of a specialist. Depression screening Depression Screening PHQ-2 Score PHQ-9 Score 10/03/2023 0 - Depression screening tool completed and reviewed. Based on score and interview, patient is not at risk for depression. Screening tool discussed with patient, and I recommended no further intervention at this time. Cognitive screening Mini Cog Score: 5 Cognitive screening reviewed and no further action needed (score 3-5) Functional Observation Was the patient's Timed Up & Go test unsteady or ? 12 seconds? No Advance Care Planning Surrogate decision maker and/or advance care plan documented Measurements BP 126/84 Pulse 79 Ht 6' 1 (1.85m) Wt 232 lb (105.2kg) SpO2 98% BMI 30.62 kg/(m^2). Seeing optho Additional screenings: No results found. Assessment/Plan Welcome to Medicare preventive visit (Z00.00) - Counseled on healthy diet and regular exercise - Fall avoidance information provided - Personalized prevention plan provided See below Chief Complaint Patient presents with: Medicare Wellness Exam HPI Mary Lucas is a 63 year old male who presents here today for Chronic Medical Conditions. and Medicare Annual Visit. Patient with hx of HTN, hyperlipidemia, BPH, Carotid artery stenosis, ED and those as below. Any new concerns today? none Any recent ER/Hospital visits? Patient is seeing [facility] last visit 08/2023 Past medical history, appointments, medications, allergies reviewed. Previous Medical History PAST MEDICAL HISTORY Diagnosis Date 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 Benign prostatic hyperplasia without lower urinary tract symptoms 02/15/2010 Bilateral carotid artery stenosis 04/19/2022 US 03/2022: 20-40 b/l Bilateral renal cysts 08/16/2023 US 08/2023: benign BPV (benign positional vertigo) Chronic midline low back pain without sciatica 08/16/2023 ED (erectile dysfunction) of organic origin 02/24/2021 Essential hypertension, benign 06/01/2013 Ex-smoker 04/05/2022 Hyperlipidemia, mixed 11/28/2015 Lumbar radiculopathy 08/16/2023 Spinal stenosis of lumbar region with neurogenic claudication 08/16/2023 Well adult exam 10/11/2022 Last done 10/11/2022 Previous Surgical History PAST SURGICAL HISTORY Procedure Laterality Date COLONOSCOPY FLX DX W/COLLJ SPEC WHEN PFRMD 04/13/2010 Colonoscopy COLONOSCOPY FLX DX W/COLLJ SPEC WHEN PFRMD 01/01/2020 Colonoscopy EGD 11/2004 removal FB (apple aspiration) EXCISION HYDROCELE UNILATERAL 08/2003 left PAST SURGICAL HISTORY OF 09/02/2023 bilateral laminectomy L2-L5 with decompression fusion with autogenous graft and fixation. per Dr. Dawood Craig VASECTOMY UNI/BI SPX W/POSTOP SEMEN EXAMS 1994 Family History FAMILY HISTORY Problem Relation Age of Onset Hypertension Mother Heart Father age 80, CHF Diabetes Father Heart disease Sister No Known Problems Sister other (Soft tissue cancer) Sister Breast Cancer Sister Diabetes Sister Patient Allergies ALLERGIES Allergen Reactions Venom-Honey Bee Anaphylaxis Current Medications Current Outpatient Medications on File Prior to Visit Medication Sig lisinopril (ZESTRIL) 20 mg tablet Take 1 tablet by mouth once daily. atorvastatin (LIPITOR) 40 mg tablet Take 1 tablet by mouth every other day. For cholesterol. EPINEPHrine (EPIPEN) 0.3 mg/0.3 mL auto-injector Inject 0.3 mL subcutaneously as needed. Magnesium 250 mg tab Take 250 mg by mouth. Take one tablet daily ibuprofen 200 mg tablet Take 200 mg by mouth every 6 hours as needed. No current facility-administered medications on file prior to visit. Social History Social History Tobacco Use Smoking status: Former Types: Cigars Smokeless tobacco: Former Types: Chew Quit date: 2018 Tobacco comments: occasionally Vaping Use Vaping Use: Never used Substance Use Topics Alcohol use: Yes Comment: 1-2 per day Drug use: Not Currently Review of Symptoms REVIEW OF SYSTEMS GENERAL: No significant weight loss, malaise or fevers HEENT: Negative for frequent or significant headaches, No changes in hearing or vision, no nose bleeds or other nasal problems NECK: Negative for lumps, goiter, pain and significant neck swelling RESPIRATORY: Negative for cough, hemoptysis, wheezing, COPD, dyspnea or shortness of breath CARDIOVASCULAR: Negative for chest pain, leg swelling, hypertension, CHF or palpitations GI: No nausea, vomiting, or diarrhea, No heartburn or reflux symptoms, and no blood : No history of dysuria, frequency or blood MUSCULOSKELETAL: recovering form lumbar surgery. SKIN: Negative for lesions, rash, and itching PSYCH: Negative for sleep disturbance, mood disorder and recent psychosocial stressors HEMATOLOGY/LYMPHOLOGY: Negative for prolonged bleeding, bruising easily or swollen nodes ENDOCRINE: Negative for cold or heat intolerance, polyuria, polydipsia and goiter NEURO: No history of headaches, syncope, paralysis, seizures or tremors EXAM: BP 126/84 Pulse 79 Ht 185.4 cm (6' 1) Wt 105.2 kg (232 lb) SpO2 98% BMI 30.61 kg/m Last 4 Encounter Wt Readings: Date: Wt: 10/03/2023 105.2 kg (232 lb) 08/16/2023 106.6 kg (235 lb) 04/02/2023 103.4 kg (228 lb) 11/06/2022 103 kg (227 lb) General Appearance: Well appearing, alert, in no acute distress, well-hydrated, well nourished. and Overweight. Skin: Skin color, texture, turgor normal, no suspicious rashes or lesions. Head: Normocephalic, no masses, lesions, tenderness or abnormalities. Eyes: Anicteric sclera. Pupils are equally round and reactive to light. Extraocular movements are intact. . Ears: External ears, TM's normal, canals clear. Nose/Sinuses: Nares normal, septum midline, mucosa normal, no drainage or sinus tenderness. Oropharynx: Lips, mucosa, and tongue normal, teeth and gums normal, oropharynx normal. Neck: Supple, no adenopathy; thyroid symmetric, normal size, no bruits. Lungs: Lungs clear to auscultation. No wheezing, rhonchi, rales.. Heart: RRR without murmur, gallop, or rubs. No ectopy. Abdomen: Normal abdominal exam, Abdomen soft, non-tender. Bowel sounds normal. No masses, organomegaly. Extremities: No deformities, edema, skin discoloration, . Good capillary refill. . Musculoskeletal: No joint swelling, deformity, or tenderness. Peripheral Pulses: Normal. Neurologic: Gait normal. Reflexes normal and symmetric. Sensation to light touch and crainal nerves 2-12 intact.. Genitalia: Normal, Penis normal. No urethral discharge. Scrotum normal to palpation. No hernia.. Rectal: Deferred exam. Due to recent low back surgery. Health Maintenance List Abdominal Aortic Aneurysm Screening Never done BP Controlled (<130/80) due on 09/01/2020 Covid-19 Vaccine( season) due on 03/29/2023 Advance Directive Discussion Never done Depression Assessment due on 07/29/2023 Annual PCP Team Chronic Disease Visit due on 08/16/2024 Diabetes Screening due on 09/30/2026 Lipid Screening due on 09/30/2028 Prostate Cancer Screening Discussion due on 09/30/2028 DTaP,Tdap,Td Vaccine(3 - Td or Tdap) due on 12/10/2029 Colorectal Cancer Screening due on 12/31/2029 Influenza Vaccine Completed RSV Vaccine Completed Hepatitis C Screening Completed Shingrix Vaccine Completed Pneumococcal Vaccine: 65+ Completed HIV Screening Discontinued Data reviewed Component Latest Ref Rng & Units 10/03/2022 03/28/2023 10/01/2023 Color Yellow Light Yellow Yellow Clarity Clear Clear Clear Glucose, Urine Negative Negative Negative Bilirubin, Urine Negative Negative Negative Ketones, Urine Negative Negative Negative Specific [place], Ur 1.005 - 1.030 1.016 1.019 Hemoglobin/Blood,Ur Negative Negative Negative pH, Urine <8.5 6.5 6.0 Protein, Urine Negative Negative Negative Urobilinogen 0.2-1.0 EU/dL Negative 0.2 EU/dL Nitrites Negative Negative Negative Leukest Negative Negative Negative WBC, Urine 0-5 /HPF 0-5 /HPF 0-5 /HPF RBC, Urine 0-2 /HPF 0-3 /HPF 0-2 /HPF Bacteria Negative /HPF Negative Epithelial Cells /HPF Few None Seen Hyaline Cast 0 /LPF 1-3 /LPF (A) Protein, Total 6.3 - 8.0 g/dL 6.6 7.3 Albumin 3.9 - 4.9 g/dL 4.3 4.2 Calcium 8.5 - 10.2 mg/dL 10.0 Bilirubin, Total 0.2 - 1.3 mg/dL 0.6 0.5 Alkaline Phosphatase 38 - 113 U/L 54 99 AST 14 - 40 U/L 28 41 (H) ALT 10 - 54 U/L 25 32 Glucose 74 - 99 mg/dL 94 BUN 9 - 24 mg/dL 18 Creatinine 0.73 - 1.22 mg/dL 1.13 Sodium 136 - 144 mmol/L 141 Potassium 3.7 - 5.1 mmol/L 4.4 Chloride 97 - 105 mmol/L 104 CO2 22 - 30 mmol/L 27 Anion Gap 9 - 18 mmol/L 10 eGFR >=60 mL/min/1.73m 72 Total Cholesterol, Nonfasting <200 mg/dL 133 161 153 Triglycerides, Nonfasting <150 mg/dL 34 57 86 HDL Cholesterol, Nonfasting >39 mg/dL 49 51 44 LDL Cholesterol, Nonfasting <100 mg/dL 77 99 92 Non HDL Cholesterol, Nonfasting <130 mg/dL 84 110 109 VLDL Cholesterol, Nonfasting <30 mg/dL 7 11 17 Total Chol/HDL Ratio, Nonfasting <5.10 mg/dL 2.71 3.16 3.48 LDL/HDL Ratio, Nonfasting <2.54 mg/dL 1.57 1.94 2.09 Bilirubin, Conjug <0.2 mg/dL <0.2 PSA <2.60 ng/mL 0.44 0.78 A/P ASSESSMENT/PLAN: 1. Encounter for Medicare annual wellness exam - ICD9: V70.0, ICD10: Z00.00 (primary diagnosis) - Counseled on healthy diet and regular exercise - Discussed need for and benefit of weight loss. BMI 30.61 kg/(m^2) - Ultrasound screening for AAA - Patient was counseled [id number]-sqrm by myself (the billing provider) for the following immunizations and vaccine components, including side effects: COVID-19. Patient consents for immunization and understands risks and benefits. A VIS sheet on each immunization was given to the patient. - Follow up for annual exam in one year 2. Essential hypertension, benign - ICD9: 401.1, ICD10: I10 - Controlled - Continue current medications - Recommend home blood pressure monitoring, to bring results to next visit - Encouraged sodium restriction, DASH or Mediterranean diet - Recommend regular aerobic exercise 3. Hyperlipidemia, mixed - ICD9: 272.2, ICD10: E78.2 - Controlled - Continue current medications - Counseled on healthy diet and regular exercise 4. Bilateral carotid artery stenosis - ICD9: 433.10, 433.30, ICD10: I65.23 - cont current Tx. No changes. - check US in the fall 5. Benign paroxysmal positional vertigo of right ear - ICD9: 386.11, ICD10: H81.11 - stable no issues. 6. Benign prostatic hyperplasia without lower urinary tract symptoms - ICD9: 600.00, ICD10: N40.0 - stable no issues. 7. Ex-smoker - ICD9: V15.82, ICD10: Z87.891 Check - US SCREENING FOR AAA 8. Screening for AAA (abdominal aortic aneurysm) - ICD9: V81.2, ICD10: Z13.6 Check - US SCREENING FOR AAA 9. Chronic midline low back pain without sciatica - ICD9: 724.2, 338.29, ICD10: M54.50, G89.29 - seeing ortho spine and s/p surgery 10. Advance directive discussed with patient - ICD9: V65.49, ICD10: Z71.89 - patient to bring in copies. 11. Encounter for immunization - ICD9: V03.89, ICD10: Z23 - [facility] COVID-19 VACCINE (2022- SEASON) AGE 12+ YR: given F/u 6 months routine check lipid and LFT's prior I spent a total of 40 minutes on the date of the service which included preparing to see the patient, abic-qa-cnwm patient care, completing clinical documentation, performing a medically appropriate examination, counseling and educating the patient/family/caregiver and ordering medications, tests, or procedures. Prabhjot Leung MD documented in this encounter [facility] 09-02-2023 Miscellaneous Notes Patient active [facility] & reviewed results via [employer]. Patient notified via [employer] message. Maria Esther Hinkle MA Left message for pt to contact office. Alban Ott LPN Let patient know US of kidnies show a benign cyst in each kidney. No further F/u needed. documented in this encounter [facility] 08-30-2023 History of Present illness Narrative Radiology Service Progress Note PATIENT NAME: Mary Lucas DATE OF SERVICE: August 30, 2023 TIME: 11:43 AM PATIENT IDENTITY VERIFICATION COMPLETED USING TWO (2) IDENTIFIERS: Name and Date of confirmed by patient verbally. FALL SCREENING: Has the patient had 2 falls in the last year or 1 fall with injury or currently using an Ambulatory Assistive Device (Walker, Cane, Wheelchair, Crutches, etc.)? No PATIENT GENDER DATA: Male PATIENT RELEVANT IMPLANT DATA REVIEWED: Not Applicable PATIENT PRESENTS WITH AN IMPLANTABLE OR ATTACHED SENIOR PASTOR: No RADIOLOGY DEPARTMENT: Ultrasound PERIPHERAL IV DATA: Not applicable SIGNED BY: Ava Pena RDMS T August 30, 2023 11:43 AM documented in this encounter [facility] 04-02-2023 History of Present illness Narrative Chief Complaint Patient presents with: 6 Month Exam HPI Mary Lucas is a 63 year old male who presents here today for Chronic Medical Conditions.. Patient with hx of HTN, hyperlipidemia, BPH, Carotid artery stenosis, ED and those as below. No major concerns today. Past medical history, appointments, medications, allergies reviewed. Previous Medical History PAST MEDICAL HISTORY Diagnosis Date 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 Benign prostatic hyperplasia without lower urinary tract symptoms 02/15/2010 Bilateral carotid artery stenosis 04/19/2022 US 03/2022: 20-40 b/l BPV (benign positional vertigo) ED (erectile dysfunction) of organic origin 02/24/2021 Essential hypertension, benign 06/01/2013 Ex-smoker 04/05/2022 Hyperlipidemia, mixed 11/28/2015 Well adult exam 10/11/2022 Last done 10/11/2022 Previous Surgical History PAST SURGICAL HISTORY Procedure Laterality Date COLONOSCOPY FLX DX W/COLLJ SPEC WHEN PFRMD 04/13/2010 Colonoscopy COLONOSCOPY FLX DX W/COLLJ SPEC WHEN PFRMD 01/01/2020 Colonoscopy EGD 11/30 removal FB (apple aspiration) EXCISION HYDROCELE UNILATERAL 09/01 left VASECTOMY UNI/BI SPX W/POSTOP SEMEN EXAMS 1994 Family History FAMILY HISTORY Problem Relation Age of Onset Hypertension Mother Heart Father age 80, CHF Diabetes Father Heart disease Sister No Known Problems Sister other (Soft tissue cancer) Sister Breast Cancer Sister Diabetes Sister Patient Allergies ALLERGIES Allergen Reactions Bee [Other] Anaphylaxis Current Medications Current Outpatient Medications on File Prior to Visit Medication Sig lisinopril (ZESTRIL) 10 mg tablet Take 1 tablet by mouth once daily. atorvastatin (LIPITOR) 40 mg tablet Take 1 tablet by mouth every other day. For cholesterol. Magnesium 250 mg tab Take 250 mg by mouth. Take one tablet daily EPINEPHrine (EPIPEN) 0.3 mg/0.3 mL auto-injector Inject 0.3 mL subcutaneously as needed. ibuprofen 200 mg tablet Take 200 mg by mouth every 6 hours as needed. sildenafil (VIAGRA) 50 mg tablet Take 1 tablet by mouth 1 hour prior to sexual activity. No more than 1 tablet per 24 hours turmeric root extract 500 mg cap Take 500 mg by mouth once daily. (Patient not taking: Reported on 04/02/2023) No current facility-administered medications on file prior to visit. Social History Social History Tobacco Use Smoking status: Former Types: Cigars Smokeless tobacco: Former Types: Chew Quit date: 2018 Tobacco comments: occasionally Vaping Use Vaping Use: Never used Substance Use Topics Alcohol use: Yes Comment: 1-2 per day Drug use: Not Currently Review of Symptoms REVIEW OF SYSTEMS GENERAL: No weight loss, malaise or fevers NECK: Negative for lumps, goiter, pain and significant neck swelling RESPIRATORY: Negative for cough, hemoptysis, wheezing, COPD, dyspnea or shortness of breath CARDIOVASCULAR: Negative for chest pain, leg swelling, hypertension, CHF or palpitations NEURO: No history of headaches, syncope, paralysis, seizures or tremors EXAM: BP 118/86 (BP Site: Left Arm, BP Position: Sitting, BP Cuff Size: Large Adult) Pulse 74 Temp 36.6 C (97.9 F) Resp 18 Wt 103.4 kg (228 lb) BMI 30.92 kg/m General Appearance: Well appearing, alert, in no acute distress, well-hydrated, well nourished.. Neck: Supple, no adenopathy; thyroid symmetric, normal size, no bruits. Lungs: Lungs clear to auscultation. No wheezing, rhonchi, rales.. Heart: RRR without murmur, gallop, or rubs. No ectopy. Extremities: No deformities, edema, skin discoloration, clubbing or cyanosis. Good capillary refill. . Peripheral Pulses: Normal. Health Maintenance List ABDOMINAL AORTIC ANEURYSM SCREENING Never done ADVANCE DIRECTIVE DISCUSSION Never done PNEUMOCOCCAL: 65+(1 - PCV) Never done COVID-19 VACCINE(7 - Pfizer series) due on 02/10/2023 INFLUENZA(1) due on 03/29/2023 BP CONTROLLED (<130/80) due on 11/07/2023 ANNUAL PCP TEAM CHRONIC DISEASE VISIT due on 04/02/2024 DIABETES SCREEN due on 10/03/2025 PROSTATE CANCER SCREENING DISCUSSION due on 10/04/2027 LIPID SCREEN due on 03/28/2028 DTAP,TDAP,TD(3 - Td or Tdap) due on 12/10/2029 COLORECTAL CANCER SCREENING due on 12/31/2029 DEPRESSION ASSESSMENT Completed HEPATITIS C SCREENING Completed SHINGRIX VACCINE Completed HIV SCREENING Discontinued Data reviewed Component Latest Ref Rng & Units 03/28/2023 Total Cholesterol, Nonfasting <200 mg/dL 161 Triglycerides, Nonfasting <150 mg/dL 57 HDL Cholesterol, Nonfasting >39 mg/dL 51 LDL Cholesterol, Nonfasting <100 mg/dL 99 Non HDL Cholesterol, Nonfasting <130 mg/dL 110 VLDL Cholesterol, Nonfasting <30 mg/dL 11 Total Chol/HDL Ratio, Nonfasting <5.10 mg/dL 3.16 LDL/HDL Ratio, Nonfasting <2.54 mg/dL 1.94 Albumin 3.9 - 4.9 g/dL 4.3 Bilirubin, Total 0.2 - 1.3 mg/dL 0.6 Bilirubin, Conjug <0.2 mg/dL <0.2 Alkaline Phosphatase 38 - 113 U/L 54 AST 14 - 40 U/L 28 ALT 10 - 54 U/L 25 Protein, Total 6.3 - 8.0 g/dL 6.6 ASSESSMENT/PLAN: 1. Essential hypertension, benign - ICD9: 401.1, ICD10: I10 (primary diagnosis) - Controlled - Continue current medications - Recommend home blood pressure monitoring, to bring results to next visit - Encouraged sodium restriction, DASH or Mediterranean diet - Recommend regular aerobic exercise - LISINOPRIL 10 MG TABLET - URINALYSIS, WITH MICROSCOPIC - COMP METABOLIC PANEL 2. Hyperlipidemia, mixed - ICD9: 272.2, ICD10: E78.2 - Controlled - Continue current medications - Counseled on healthy diet and regular exercise - LIPID PANEL, NONFASTING 3. Bilateral carotid artery stenosis - ICD9: 433.10, 433.30, ICD10: I65.23 Asymptomatic. Repeat US in 2023 4. Benign prostatic hyperplasia without lower urinary tract symptoms - ICD9: 600.00, ICD10: N40.0 - PSA/PROSTSPECAG DIAG 5. Prostate disorder - ICD9: 602.9, ICD10: N42.9 - PSA/PROSTSPECAG DIAG 6. Ex-smoker - ICD9: V15.82, ICD10: Z87.891 Patient elects for screening AAA to be done in 2023. 7. Encounter for immunization - ICD9: V03.89, ICD10: Z23 - PNEUMOCOCCAL VACCINE (PREVNAR 20) - INFLUENZA VACCINE, PRSV FREE, AGE 65+ YR, HIGH DOSE, QUADRIVALENT (FLUZONE HIGH-DOSE) - COMP METABOLIC PANEL Micaela Martin PA-C documented in this encounter [facility] 10-11-2022 Instructions Prabhjot Leung MD - 10/11/2022 9:28 AM EDT Please get labs done on or after 03/29/2023 prior to your next visit. documented in this encounter [facility] 10-11-2022 History of Present illness Narrative Chief Complaint Patient presents with: Physical HPI Ruthann Lucas is a 62 year old male who presents here today for Physical. Patient has Hx of HTN, hyperlipidemia, BPH, ED, BPV, ex-smoker, colon polyps as well as those reviewed and addressed below and in ROS. Has been doing well no new issues or concerns. Past medical history, appointments, medications, allergies reviewed. Previous Medical History PAST MEDICAL HISTORY Diagnosis Date 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 Benign prostatic hyperplasia without lower urinary tract symptoms 02/15/2010 BPV (benign positional vertigo) ED (erectile dysfunction) of organic origin 02/24/2021 Essential hypertension, benign 06/01/2013 Ex-smoker 04/05/2022 Hyperlipidemia, mixed 11/28/2015 Previous Surgical History PAST SURGICAL HISTORY Procedure Laterality Date COLONOSCOPY FLX DX W/COLLJ SPEC WHEN PFRMD 04/13/2010 Colonoscopy COLONOSCOPY FLX DX W/COLLJ SPEC WHEN PFRMD 01/01/2020 Colonoscopy EGD 11/30 removal FB (apple aspiration) EXCISION HYDROCELE UNILATERAL 09/01 left VASECTOMY UNI/BI SPX W/POSTOP SEMEN EXAMS 1994 Family History FAMILY HISTORY Problem Relation Age of Onset Hypertension Mother Heart Father age 80, CHF Diabetes Father Heart disease Sister No Known Problems Sister other (Soft tissue cancer) Sister Breast Cancer Sister Diabetes Sister Patient Allergies ALLERGIES Allergen Reactions Bee [Other] Anaphylaxis Current Medications Current Outpatient Medications on File Prior to Visit Medication Sig atorvastatin (LIPITOR) 40 mg tablet Take 1 tablet by mouth every other day. For cholesterol. lisinopril (ZESTRIL, PRINIVIL) 10 mg tablet Take 1 tablet by mouth once daily. EPINEPHrine (EPIPEN) 0.3 mg/0.3 mL auto-injector Inject 0.3 mL subcutaneously as needed. sildenafil (VIAGRA) 50 mg tablet Take 1 tablet by mouth 1 hour prior to sexual activity. No more than 1 tablet per 24 hours turmeric root extract 500 mg cap Take 500 mg by mouth once daily. ibuprofen 200 mg tablet Take 200 mg by mouth every 6 hours as needed. meclizine (ANTIVERT) 25 mg tab Take 1 tablet by mouth three times daily as needed (dizziness). No current facility-administered medications on file prior to visit. Social History Social History Tobacco Use Smoking status: Former Types: Cigars Smokeless tobacco: Current Types: Chew Tobacco comments: occasionally Vaping Use Vaping Use: Never used Substance Use Topics Alcohol use: Yes Comment: 1-2 per day Drug use: Not Currently Review of Symptoms REVIEW OF SYSTEMS GENERAL: No weight loss, malaise or fevers HEENT: Negative for frequent or significant headaches, No changes in hearing or vision, no nose bleeds or other nasal problems NECK: Negative for lumps, goiter, pain and significant neck swelling RESPIRATORY: Negative for cough, hemoptysis, wheezing, COPD, dyspnea or shortness of breath CARDIOVASCULAR: Negative for chest pain, leg swelling, hypertension, CHF or palpitations GI: No nausea, vomiting, or diarrhea, No heartburn or reflux symptoms, and no blood : No history of dysuria, frequency or incontinence MUSCULOSKELETAL: Negative for joint pain or swelling, back pain or muscle pain SKIN: Negative for lesions, rash, and itching PSYCH: Negative for sleep disturbance, mood disorder and recent psychosocial stressors HEMATOLOGY/LYMPHOLOGY: Negative for prolonged bleeding, bruising easily or swollen nodes ENDOCRINE: Negative for cold or heat intolerance, polyuria, polydipsia and goiter NEURO: No history of headaches, syncope, paralysis, seizures or tremors EXAM: BP 148/94 (BP Site: Right Arm, BP Position: Sitting, BP Cuff Size: Regular Adult) Pulse 76 Resp 16 Ht 182.9 cm (6') Wt 101.6 kg (224 lb) BMI 30.38 kg/m Last 5 Encounter Wt Readings: Date: Wt: 10/11/2022 101.6 kg (224 lb) 04/05/2022 100.7 kg (222 lb) 11/29/2021 102.1 kg (225 lb) 02/24/2021 101.6 kg (224 lb) 12/01/2020 102.5 kg (226 lb) General Appearance: Well appearing, alert, in no acute distress, well-hydrated, well nourished. and Overweight. Skin: Skin color, texture, turgor normal, no suspicious rashes or lesions. Head: Normocephalic, no masses, lesions, tenderness or abnormalities. Eyes: Anicteric sclera. Pupils are equally round and reactive to light. Extraocular movements are intact. . Ears: External ears, TM's normal, canals clear. Neck: Supple, no adenopathy; thyroid symmetric, normal size, no bruits. Lungs: Lungs clear to auscultation. No wheezing, rhonchi, rales.. Heart: RRR without murmur, gallop, or rubs. No ectopy. Abdomen: Normal abdominal exam, Abdomen soft, non-tender. Bowel sounds normal. No masses, organomegaly. Extremities: No deformities, edema, skin discoloration, Good capillary refill. . Musculoskeletal: Spine range of motion normal. Muscular strength intact, No joint swelling, deformity, or tenderness. Peripheral Pulses: Normal. Neurologic: Gait normal. Reflexes normal and symmetric. Sensation to light touch and crainal nerves 2-12 intact.. Genitalia: Normal, Penis normal. No urethral discharge. Scrotum normal to palpation. No hernia.. Rectal: Normal exam. Prostate slightly enlarged but smooth firm capsule. Health Maintenance List COVID-19 VACCINE(5 - Booster for Pfizer series) due on 04/30/2022 DEPRESSION ASSESSMENT Never done ANNUAL PCP TEAM CHRONIC DISEASE VISIT due on 04/05/2023 BP CONTROLLED (<130/80) due on 04/10/2023 DIABETES SCREEN due on 10/03/2025 DTAP,TDAP,TD(2 - Td or Tdap) due on 03/12/2026 LIPID SCREEN due on 10/04/2027 PROSTATE CANCER SCREENING DISCUSSION due on 10/04/2027 COLORECTAL CANCER SCREENING due on 12/31/2029 INFLUENZA Completed HEPATITIS C SCREENING Completed SHINGRIX VACCINE Completed HIV SCREENING Discontinued Data reviewed Component Latest Ref Rng & Units 11/28/2020 11/22/2021 10/03/2022 WBC 3.70 - 11.00 k/uL 5.57 5.16 RBC 4.20 - 6.00 m/uL 4.71 4.87 Hemoglobin 13.0 - 17.0 g/dL 14.1 14.7 Hematocrit 39.0 - 51.0 % 44.3 44.3 MCV 80.0 - 100.0 fL 94.1 91.0 MCH 26.0 - 34.0 pg 29.9 30.2 MCHC 30.5 - 36.0 g/dL 31.8 33.2 RDW-CV 11.5 - 15.0 % 13.2 12.7 Platelet Count 150 - 400 k/uL 334 279 MPV 9.0 - 12.7 fL 9.8 10.0 Neut% % 51.6 46.5 Abs Neut (ANC) 1.45 - 7.50 k/uL 2.87 2.40 Lymph% % 33.8 36.8 Abs Lymph 1.00 - 4.00 k/uL 1.88 1.90 Bonner% % 11.7 13.0 Abs Bonner <0.87 k/uL 0.65 0.67 Eosin% % 2.2 2.5 Abs Eosin <0.46 k/uL 0.12 0.13 Baso% % 0.7 1.0 Abs Baso <0.11 k/uL 0.04 0.05 Immature Gran % % 0.2 IMMATURE GRANS (ABS) <0.10 k/uL <0.03 NRBC /100 WBC 0.0 Absolute nRBC <0.01 k/uL <0.01 <0.01 DTYPE Auto Nucleated Reds 0 /100 WBC 0.0 Diff Type Auto Diff Protein, Total 6.3 - 8.0 g/dL 6.9 6.9 7.3 Albumin 3.9 - 4.9 g/dL 4.6 4.2 4.4 Calcium 8.5 - 10.2 mg/dL 9.6 9.7 9.6 Bilirubin, Total 0.2 - 1.3 mg/dL 0.8 0.8 0.6 Alkaline Phosphatase 38 - 113 U/L 57 56 67 AST 14 - 40 U/L 23 29 36 Glucose 74 - 99 mg/dL 80 98 98 BUN 9 - 24 mg/dL 19 18 13 Creatinine 0.73 - 1.22 mg/dL 1.19 1.21 1.30 (H) Sodium 136 - 144 mmol/L 138 141 140 Potassium 3.7 - 5.1 mmol/L 3.8 4.4 4.6 Chloride 97 - 105 mmol/L 101 104 105 CO2 22 - 30 mmol/L 28 27 25 Anion Gap 9 - 18 mmol/L 9 10 10 ALT 10 - 54 U/L 23 28 32 eGFR- >60 eGFR-All Other Races . >60 eGFR >=60 mL/min/1.73m 67 61 Color Yellow Light Yellow Clarity Clear Clear Glucose, Urine Trace, Negative Negative Bilirubin, Urine Negative Negative Ketones, Urine Trace, Negative Negative Specific [place], Ur 1.005 - 1.030 1.016 Hemoglobin/Blood,Ur Negative, Trace Negative pH, Urine 5.0 - 8.0 6.5 Protein, Urine Trace, Negative Negative Urobilinogen Negative Negative Nitrites Negative Negative Leukest Negative, 25 Gerry/uL Negative WBC, Urine 0-5 /HPF 0-5 /HPF RBC, Urine 0-3 /HPF 0-3 /HPF Epithelial Cells /HPF Few Cholesterol, Total <200 mg/dL 132 202 (H) Triglyceride <150 mg/dL 57 103 HDL Cholesterol >39 mg/dL 48 40 LDL Cholesterol <100 mg/dL 73 141 (H) Non HDL Cholesterol <130 mg/dL 84 162 (H) Fasting Time hrs 12 12 VLDL Cholesterol <30 mg/dL 11 21 TC:HDL Ratio <5.10 2.75 5.05 LDL:HDL Ratio <2.54 1.52 3.53 (H) Total Cholesterol, Nonfasting <200 mg/dL 133 Triglycerides, Nonfasting <150 mg/dL 34 HDL Cholesterol, Nonfasting >39 mg/dL 49 LDL Cholesterol, Nonfasting <100 mg/dL 77 Non HDL Cholesterol, Nonfasting <130 mg/dL 84 VLDL Cholesterol, Nonfasting <30 mg/dL 7 Total Chol/HDL Ratio, Nonfasting <5.10 mg/dL 2.71 LDL/HDL Ratio, Nonfasting <2.54 mg/dL 1.57 Hemoglobin A1C 4.3 - 5.6 % 5.5 Estimated Average Glucose mg/dL 111 PSA Screening 0.00 - 2.59 ng/mL 0.31 Vitamin D 25 Hydroxy 31.0 - 80.0 ng/mL 35.5 PSA <2.60 ng/mL 0.44 A/P ASSESSMENT/PLAN: 1. Well adult exam - ICD9: V70.0, ICD10: Z00.00 (primary diagnosis) - Counseled on healthy diet and regular exercise - Discussed need for and benefit of weight loss. BMI 30.38 kg/(m^2) - Patient was counseled [id number] by myself (the billing provider) for the following immunizations and vaccine components, including side effects: COVID-19. Patient consents for immunization and understands risks and benefits. A VIS sheet on each immunization was given to the patient. - Follow up for annual exam in one year 2. Essential hypertension, benign - ICD9: 401.1, ICD10: I10 - suboptimal control - Continue current medication(s) - Recommended regular aerobic exercise. - Recommend home blood pressure monitoring, to bring results in on next visit - Recheck in 3 weeks, sooner should new symptoms or problems arise. - Goal of BP <130/80 - LISINOPRIL 10 MG TABLET 3. Hyperlipidemia, mixed - ICD9: 272.2, ICD10: E78.2 - good control and - improved control - Encouraged following a low fat, low cholesterol diet. - Discussed the benefits of regular aerobic exercise and weight loss. - Encouraged following a low carbohydrate, healthy oil intake diet. - Continue current therapy. 4. Bilateral carotid artery stenosis - ICD9: 433.10, 433.30, ICD10: I65.23 - cont current Tx. 5. Benign paroxysmal positional vertigo of right ear - ICD9: 386.11, ICD10: H81.11 - has npt had a recurrence. 6. Benign prostatic hyperplasia without lower urinary tract symptoms - ICD9: 600.00, ICD10: N40.0 - clinically stable 7. Encounter for immunization - ICD9: V03.89, ICD10: Z23 - [employer] COVID-19 BIVALENT BOOSTER VACCINE, AGE 12+ YR: given Requested Prescriptions Signed Prescriptions Disp Refills lisinopril (ZESTRIL) 10 mg tablet 90 tablet 1 Sig: Take 1 tablet by mouth once daily. atorvastatin (LIPITOR) 40 mg tablet 90 tablet 1 Sig: Take 1 tablet by mouth every other day. For cholesterol. F/u HTN check in 3 weeks. F/u 6 months routine. Check Lipid and LFT's prior. Prabhjot Leung MD documented in this encounter [facility] 04-10-2022 History of Present illness Narrative Episode Visit Count: 1 Therapist That Will Accept/Oversee The Plan Of Care: Dayna Hollis PT Start of Care Date: 04/10/22 Onset Date: 01/08/22 Plan of Care Certification Date: 04/10/22 Next Certification Due Date: 05/22/22 Patient Identified by Name and Date of : Yes REHABILITATION AND SPORTS THERAPY PHYSICAL THERAPY EVALUATION PLAN OF CARE: Assessment: Ruthann Lucas presents with chief complaint of BPPV dizziness that interferes with nothing . He presents with impairments in symptom management. . Prognosis for therapy is Excellent due to: current objective clinical presentation . He will benefit from skilled therapy services to meet the goals established for this plan of care as noted below. Goals for Episode of Care: created on 04/10/22 through 05/22/22 Patient will have negative positional testing for BPPV. Patient/family member will be independent in performing self PRT. Patient will verbalize the understanding of the diagnosis BPPV, how to recognize symptoms and what to do if they return. Patient will deny dizziness with rolling right and supine to sit. Patient Goals: alleviate dizziness Planned Interventions, Frequency, and Duration: Current Frequency: 1x/week Duration: 4 weeks Total Number of Visits Planned: 4 Planned Treatment Interventions: Patient/Family/Caregiver Education;Canalith Repositioning Maneuvers ([id number]);Self-detention management ([id number]) PLAN FOR NEXT VISIT: Will repeat Lion- hallpike as needed and CRP Patient demonstrates good understanding of plan of care and treatment. The above goals and plan of care were discussed and agreed upon by patient/family. SUBJECTIVE: Ruthann Lucas is a 62 year old male seen today for Dizziness with lying on right side and gets dizzy when he gets up. Goes away with being still . Other daily activities ok Patient Goals: alleviate dizziness Functional Limitations: nothing Prior Level of Function: Independent without limitations Relevant History Employment: Retired Recreation / Current Exercise: walking , biking Hobbies / Interests: travel Intake Information: Prescription present Previous Treatment: None Falls Interview: Fall without injury in the last year Concussion History of Concussion: No Vestibular Symptoms present for: months Symptom onset: sudden Dizziness: Yes Description: woozy Rating of current symptoms: 4/10 Frequency: Intermittent Duration: minutes Symptoms worsened by: rolling right;supine to sit Symptoms improved by: being still Nausea: no Motion Sickness: As a child Headache: No Neck Symptoms: Yes Description: (stiffness) Rating of current symptoms: 10/05 Location: posterior neck Frequency: Intermittent Jaw Symptoms: No Hearing Changes: No recent changes Tinnitus: No recent changes Sleeping Position: Side lying left Sleep Affected by Symptoms: not affected by pain;Not affected by dizziness History of Migraine: No Pain: Pain Pain Level: 3 Pain Location: Leg - Right;Leg - Left Description: Aching;Tightness Post Treatment Pain Post Treatment Pain Level: No Change PROMIS Scales Higher is Better 04/01/2022 GH Physical - Score 47.7 (Good) GH Physical - Percentile 41 % GH Mental - Score 56 (Excellent) GH Mental - Percentile 73 % T-scores: mean of general population = 50. 5 points is clinically meaningfully difference Percentiles provide an indication of how the patient's score ranks in relation to the general population. Higher percentile rankings indicate better function/quality of life. 50th percentile is the average of the general population and indicates half of respondents had a worse score. T-scores: mean of general population = 50. 5 points is clinically meaningfully difference Percentiles provide an indication of how the patient's score ranks in relation to the general population. Higher percentile rankings indicate better function/quality of life. 50th percentile is the average of the general population and indicates half of respondents had a worse score. OBJECTIVE MEASURES WITH LEVEL OF FUNCTION: Vision Vision Deficits: Wears corrective lenses Oculomotor Testing Fixation Present Ocular ROM: WNL Spontaneous Nystagmus: No nystagmus Gaze Evoked Nystagmus: Not Present Oculomotor Testing Fixation Removed Spontaneous Nystagmus: No nystagmus Gaze Evoked Nystagmus: Not present Positional Testing Right Roy-Hallpike: Symptomatic Left Lion-Hallpike: Asymptomatic Cervical Spine ROM Cervical ROM : Limitation AROM Cervical Flexion AROM: Normal Cervical Extension AROM: Moderate limitation Cervical Side-Bend Right AROM: Minimal limitation Cervical Side-Bend Left AROM: Normal Cervical Rotation Right AROM: Minimal limitation Cervical Rotation Left AROM: Moderate limitation Mobility Supine To Sit: Independent Sit to Supine: Independent Sit To Stand: Independent Gait Gait Observation: no deviations Balance Static Standing Balance: Tandem Stance Tandem Stance: 8 sec. Education: Education Learning Preferences: Demonstration;Explanation;Performa nce;Printed Materials Barriers: None Learning/educational needs: Home exercise program;Plan of Care Education Provided: Yes, see treatment interventions for education provided Education Provided To: Patient Education Mode/Type: Demonstration;Explanation/Discussi on;Literature/Printed Materials;Performance TREATMENT: PT Treatment Interventions: Canalith Repositioning Evaluation Canalith Repositionin: right posterior canal 4 stage 2: education on BPPV . and repositioning Skilled Intervention: Professional judgment was used to determine specific treatment interventions based on assessment of symptoms. Physically assisted patient through each step of repositioning. Verbal and tactile cues provided to patient to assist in moving between each position of maneuver in correct sequence. Patient education including handouts provided regarding self repostitioning techniques to be performed at home. Instructed patient in post repositioning procedures Home Exercise Program Assigned: 1: head level remainder of day 2: sleep left side 1-2 nights Billing * Evaluation Low Complexity: 1 Unit * Canalith Repositionin unit Total Treatment Time Minutes (timed/untimed): 40 Dayna Hollis PT documented in this encounter [facility] 04-05-2022 Instructions Prabhjot Leung MD - 04/05/2022 9:22 AM EDT Please get labs and urine test done on or after 09/21/2022 prior to your next visit. documented in this encounter [facility] 04-05-2022 History of Present illness Narrative Chief Complaint Patient presents with: Recheck HPI Ruthann Lucas is a 62 year old male who presents here today for Follow up/establish. Patient is a previous patient of Royce Jamison who has left our practice. Ot her to get established with a new provider. Patient has Hx of HTN, hyperlipidemia, BPH, ED, BPV, ex-smoker, colon polyps as well as those reviewed and addressed below and in ROS. Patient has been doing well. No new issues. If patient lays on his right side and sits up he still gets the vertigo. Past medical history, appointments, medications, allergies reviewed. Previous Medical History PAST MEDICAL HISTORY Diagnosis Date BPH (benign prostatic hyperplasia) 02/15/2010 Dysmetabolic syndrome X 02/15/2010 Essential hypertension, benign 06/01/2013 Hyperlipidemia LDL goal <130 11/28/2015 Snoring Previous Surgical History PAST SURGICAL HISTORY Procedure Laterality Date COLONOSCOPY FLX DX W/COLLJ SPEC WHEN PFRMD 04/13/2010 Colonoscopy COLONOSCOPY FLX DX W/COLLJ SPEC WHEN PFRMD 01/01/2020 Colonoscopy EGD 11/30 removal FB (apple aspiration) EXCISION HYDROCELE UNILATERAL 09/01 left VASECTOMY UNI/BI SPX W/POSTOP SEMEN EXAMS 1994 Family History FAMILY HISTORY Problem Relation Age of Onset Hypertension Mother Heart Father age 80, CHF Diabetes Father Heart disease Sister No Known Problems Sister other (Soft tissue cancer) Sister Breast Cancer Sister Diabetes Sister Patient Allergies ALLERGIES Allergen Reactions Bee [Other] Anaphylaxis Current Medications Current Outpatient Medications on File Prior to Visit Medication Sig atorvastatin (LIPITOR) 40 mg tablet Take 1 tablet by mouth every other day. For cholesterol. lisinopril (ZESTRIL, PRINIVIL) 10 mg tablet Take 1 tablet by mouth once daily. meclizine (ANTIVERT) 25 mg tab Take 1 tablet by mouth three times daily as needed (dizziness). EPINEPHrine (EPIPEN) 0.3 mg/0.3 mL auto-injector Inject 0.3 mL subcutaneously as needed. sildenafil (VIAGRA) 50 mg tablet Take 1 tablet by mouth 1 hour prior to sexual activity. No more than 1 tablet per 24 hours turmeric root extract 500 mg cap Take 500 mg by mouth once daily. ibuprofen 200 mg tablet Take 200 mg by mouth every 6 hours as needed. No current facility-administered medications on file prior to visit. Social History Social History Tobacco Use Smoking status: Former Types: Cigars Smokeless tobacco: Current Types: Chew Tobacco comments: occasionally Vaping Use Vaping Use: Never used Substance Use Topics Alcohol use: Yes Comment: 1-2 per day Drug use: Not Currently Review of Symptoms REVIEW OF SYSTEMS GENERAL: No weight loss, malaise or fevers NECK: Negative for lumps, goiter, pain and significant neck swelling RESPIRATORY: Negative for cough, hemoptysis, wheezing, COPD, dyspnea or shortness of breath CARDIOVASCULAR: Negative for chest pain, leg swelling, hypertension, CHF or palpitations : No history of dysuria, blood NEURO: No history of headaches, syncope, paralysis, seizures or tremors. Some dizziness/vertigo EXAM: BP 118/78 (BP Site: Left Arm, BP Position: Sitting, BP Cuff Size: Regular Adult) Pulse 76 Resp 14 Wt 100.7 kg (222 lb) BMI 29.29 kg/m Last 5 Encounter Wt Readings: Date: Wt: 04/05/2022 100.7 kg (222 lb) 11/29/2021 102.1 kg (225 lb) 02/24/2021 101.6 kg (224 lb) 12/01/2020 102.5 kg (226 lb) 11/25/2020 102.5 kg (226 lb) General Appearance: Well appearing, alert, in no acute distress, well-hydrated, well nourished.. Neck: Supple, no adenopathy; thyroid symmetric, normal size, no bruits. Lungs: Lungs clear to auscultation. No wheezing, rhonchi, rales.. Heart: RRR without murmur, gallop, or rubs. No ectopy. Abdomen: Normal abdominal exam, Abdomen soft, non-tender. Bowel sounds normal. No masses, organomegaly. Extremities: No deformities, edema, skin discoloration, Good capillary refill. . Musculoskeletal: Muscular strength intact. Peripheral Pulses: Normal. Health Maintenance List INFLUENZA(1) due on 03/29/2022 ANNUAL PCP TEAM CHRONIC DISEASE VISIT due on 11/29/2022 BP CONTROLLED (<130/80) due on 11/29/2022 DEPRESSION SCREENING due on 11/29/2022 DIABETES SCREEN due on 11/22/2024 PROSTATE CANCER SCREENING DISCUSSION due on 11/28/2025 DTAP,TDAP,TD(2 - Td or Tdap) due on 03/12/2026 LIPID SCREEN due on 03/05/2027 COLORECTAL CANCER SCREENING due on 12/31/2029 HEPATITIS C SCREENING Completed SHINGRIX VACCINE Completed COVID-19 VACCINE Completed HIV SCREENING Discontinued Data reviewed Component Latest Ref Rng & Units 11/22/2021 03/05/2022 WBC 3.70 - 11.00 k/uL 5.16 RBC 4.20 - 6.00 m/uL 4.87 Hemoglobin 13.0 - 17.0 g/dL 14.7 Hematocrit 39.0 - 51.0 % 44.3 MCV 80.0 - 100.0 fL 91.0 MCH 26.0 - 34.0 pg 30.2 MCHC 30.5 - 36.0 g/dL 33.2 RDW-CV 11.5 - 15.0 % 12.7 Platelet Count 150 - 400 k/uL 279 MPV 9.0 - 12.7 fL 10.0 Neut% % 46.5 Abs Neut (ANC) 1.45 - 7.50 k/uL 2.40 Lymph% % 36.8 Abs Lymph 1.00 - 4.00 k/uL 1.90 Bonner% % 13.0 Abs Bonner <0.87 k/uL 0.67 Eosin% % 2.5 Abs Eosin <0.46 k/uL 0.13 Baso% % 1.0 Abs Baso <0.11 k/uL 0.05 Immature Gran % % 0.2 IMMATURE GRANS (ABS) <0.10 k/uL <0.03 NRBC /100 WBC 0.0 Absolute nRBC <0.01 k/uL <0.01 DTYPE Auto Protein, Total 6.3 - 8.0 g/dL 6.9 Albumin 3.9 - 4.9 g/dL 4.2 Calcium 8.5 - 10.2 mg/dL 9.7 Bilirubin, Total 0.2 - 1.3 mg/dL 0.8 Alkaline Phosphatase 38 - 113 U/L 56 AST 14 - 40 U/L 29 ALT 10 - 54 U/L 28 Glucose 74 - 99 mg/dL 98 BUN 9 - 24 mg/dL 18 Creatinine 0.73 - 1.22 mg/dL 1.21 Sodium 136 - 144 mmol/L 141 Potassium 3.7 - 5.1 mmol/L 4.4 Chloride 97 - 105 mmol/L 104 CO2 22 - 30 mmol/L 27 Anion Gap 9 - 18 mmol/L 10 eGFR >=60 mL/min/1.73m 67 Cholesterol, Total <200 mg/dL 202 (H) 130 Triglyceride <150 mg/dL 103 72 HDL Cholesterol >39 mg/dL 40 42 Non HDL Cholesterol <130 mg/dL 162 (H) 88 Fasting Time hrs 12 14 VLDL Cholesterol <30 mg/dL 21 14 TC:HDL Ratio <5.10 5.05 3.10 LDL Cholesterol <100 mg/dL 141 (H) 74 LDL:HDL Ratio <2.54 3.53 (H) 1.76 A/P ASSESSMENT/PLAN: 1. Essential hypertension, benign - ICD9: 401.1, ICD10: I10 (primary diagnosis) - good control - Continue current medication(s) - Recommended regular aerobic exercise. - Recommend home blood pressure monitoring, to bring results in on next visit - Goal of BP <130/80 2. Hyperlipidemia, mixed - ICD9: 272.2, ICD10: E78.2 - good control and - improved control - Continue current medication. - Encouraged following a low fat, low cholesterol diet. - Discussed the benefits of regular aerobic exercise and weight loss. - Encouraged following a low carbohydrate, healthy oil intake diet. 3. Benign paroxysmal positional vertigo of right ear - ICD9: 386.11, ICD10: H81.11 - consult to PHYSICAL THERAPY. 4. Benign prostatic hyperplasia without lower urinary tract symptoms - ICD9: 600.00, ICD10: N40.0 - clinically stable 5. Dizziness - ICD9: 780.4, ICD10: R42 Check - US CAROTID ARTERIES [facility] Patient to f/u in September 2022 for complete PE check CMP, lipid, UA, A1c and PSA prior. Prabhjot Leung MD documented in this encounter [facility] 03-07-2022 Miscellaneous Notes Patient notified of results and provider's instructions. Patient verbalizes understanding. Mavis Avery RN Left message for patient to call office back Hellen Marino Ma Team - Inform patient his Cholesterol is improved after restarting Lipitor. Continue with every other day dosing with his current Lipitor dosing. Repeat lipid panel in 12 months. Continue to monitor and with a low fat/cholesterol diet. Uday Jamison APRN.PAINT MIXER, DNP Component Latest Ref Rng & Units 11/22/2021 03/05/2022 Cholesterol, Total <200 mg/dL 202 (H) 130 Triglyceride <150 mg/dL 103 72 HDL Cholesterol >39 mg/dL 40 42 Non HDL Cholesterol <130 mg/dL 162 (H) 88 Fasting Time hrs 12 14 VLDL Cholesterol <30 mg/dL 21 14 TC:HDL Ratio <5.10 5.05 3.10 LDL Cholesterol <100 mg/dL 141 (H) 74 LDL:HDL Ratio <2.54 3.53 (H) 1.76 documented in this encounter [facility] 11-29-2021 Instructions Uday Jamison APRN.CNP, DNP - 11/29/2021 9:45 AM EDT Follow up with Uday Jamison APRN.CNP, DNP in 1 year Medications refilled today and sent to your local pharmacy. Trial of meclizine for vertigo when needed Perform fasting lab work in 3 months to recheck Lipids. Clinic to call with results or will send through [facility]. You can schedule an appointment for lab work at our desk officer. Please fast 12 hours prior to blood work. You may have water, medications and black coffee during that fasting time. Lab hours are from 7:30 - 5:30 pm - and from 8:00 am -12:00pm Saturday. Return to the clinic or seek care at [facility] for any worsening signs or symptoms Healthy Habits: Recommend regular physical activity, nutrition and healthy eating habits. Consume a variety of foods every day focusing on fruits, vegetables and lean meats). Eat foods low in fat, saturated fat and cholesterol. Eat a limited amount of salt and sodium. Drink adequate amounts of water and limit sugary drinks. Exercise portion control in meal selection. Establish a mindset of a wellness approach to health. Thank you for allowing me to provide your care today. I look forward to seeing you again and maintaining your health. Uday Jamison APRN.CNP, DNP documented in this encounter [facility] 11-29-2021 History of Present illness Narrative Chief Complaint Patient presents with: Physical HPI Ruthann Lucas is a 61 year old male who presents here today for a well adult exam. This is an established patient of Uday Jamison APRN.GENESIS SAVAGE Denies any recent urgent care visits, ER visits or hospitalizations. Past medical history: BPH, metabolic syndrome, hypertension, hyperlipidemia, snoring Specialty providers: None HTN: Here for follow-up on blood pressure erectile dysfunction. Compliant with medications. Denies side effects. Denies chest pain, shortness of breath, difficulty breathing, lightheadedness or dizziness. Erectile dysfunction: Started on trial of Viagra. Takes 1/2-1 tab which works well for him. Denies side effects from the medication. Hyperlipidemia: Would like to discuss cholesterol lab work. Recently stopped taking his cholesterol medication over the past 1 to 2 months. Lipids were completed showing elevation in his total cholesterol, LDL and a decrease in his good cholesterol. Occasionally has some muscle aches and pains and feels it is related to the cholesterol medication. Past medical history, appointments, medications, allergies reviewed 11/29/2021 Previous Medical History PAST MEDICAL HISTORY Diagnosis Date BPH (benign prostatic hyperplasia) 02/15/2010 Dysmetabolic syndrome X 02/15/2010 Essential hypertension, benign 06/01/2013 Hyperlipidemia LDL goal <130 11/28/2015 Snoring Previous Surgical History PAST SURGICAL HISTORY Procedure Laterality Date COLONOSCOPY FLX DX W/COLLJ SPEC WHEN PFRMD 04/13/2010 Colonoscopy COLONOSCOPY FLX DX W/COLLJ SPEC WHEN PFRMD 01/01/2020 Colonoscopy EGD 11/30 removal FB (apple aspiration) EXCISION HYDROCELE UNILATERAL 09/01 left VASECTOMY UNI/BI SPX W/POSTOP SEMEN EXAMS 1994 Family History FAMILY HISTORY Problem Relation Age of Onset Hypertension Mother Heart Father age 80, CHF Diabetes Father Heart disease Sister No Known Problems Sister other (Soft tissue cancer) Sister Breast Cancer Sister Diabetes Sister Patient Allergies ALLERGIES Allergen Reactions Bee [Other] Anaphylaxis Current Medications Current Outpatient Medications on File Prior to Visit Medication Sig lisinopril (ZESTRIL, PRINIVIL) 10 mg tablet Take 1 tablet by mouth once daily. atorvastatin (LIPITOR) 40 mg tablet Take 1 tablet by mouth once daily. For cholesterol. turmeric root extract 500 mg cap Take 500 mg by mouth once daily. ibuprofen 200 mg tablet Take 200 mg by mouth every 6 hours as needed. EPINEPHrine 0.3 mg/0.3 mL INTRAMUSC. PnIj Inject 0.3 mL subcutaneously as needed. multivit with sec-SC-flmiaayu (ONE-A-DAY MEN'S MULTIVITAMIN) 400-300 mcg tab Take 1 tablet by mouth once daily. (Patient not taking: Reported on 09/17/2020 ) No current facility-administered medications on file prior to visit. Social History Social History Tobacco Use Smoking status: Former Smoker Years: 6.00 Types: Cigars Smokeless tobacco: Current User Types: Chew Tobacco comment: occasionally Vaping Use Vaping Use: Never used Substance Use Topics Alcohol use: Yes Comment: 1-2 per day Drug use: Not Currently Review of Symptoms GENERAL: No weight loss, malaise or fevers. RESPIRATORY: Negative for dyspnea or shortness of breath CARDIOVASCULAR: Negative for chest pain : No urinary symptoms. No burning, urgency or frequency. ED MUSCULOSKELETAL: Negative for generalized joint pain or muscle aches SKIN: Cyst on scalp. EXAM: BP 124/76 Pulse 80 Resp 16 Ht 185.4 cm (6' 1) Wt 102.1 kg (225 lb) SpO2 99% BMI 29.69 kg/m General Appearance: Well appearing, alert, in no acute distress, well-hydrated, well nourished. Skin: Skin color, texture, turgor normal Head: Normocephalic, no masses, lesions Eyes: Anicteric sclera. No redness or drainage. PERRLA Ears: External ears normal, TM's clear bilaterally, adequate light reflex Nose/Sinuses: Nares normal, septum midline, mucosa normal, no drainage or sinus tenderness. Oropharynx: Lips, mucosa, and tongue normal, teeth and gums normal, oropharynx normal. Neck: Supple, no mass or lumps. Lymph Nodes: No cervical, supraclavicular, pre/post-auricular, or submandibular lymphadenopathy Lungs: Lungs clear to auscultation. No wheezing, rhonchi, rales. Heart: RRR without murmur, gallop, or rubs. No ectopy. GI: Soft and round. Nontender in epigastric region. No upper or lower quadrant abdominal tenderness. No rebound tenderness. No CVA tenderness. Negative Rios sign . No organomegaly. Extremities: No deformities, edema, skin discoloration. Pulses: 2+ at radial. Psych: Attitude - cooperative, easily engaged in conversation Appearance - normal, hygiene and grooming appropriate Affect - euthymic, normal mood Mental status: Alert, attentive. Speech is clear and fluent with good repetition, comprehension Coordination: There are no abnormal or extraneous movements. Gait/Stance: Posture is normal. Gait is steady with normal steps Health Maintenance List HIV SCREENING Never done INFLUENZA(Season Ended) due on 03/29/2021 ANNUAL PCP TEAM CHRONIC DISEASE VISIT due on 09/17/2021 BP CONTROLLED (<130/80) due on 09/17/2021 DEPRESSION SCREENING due on 09/17/2021 DIABETES SCREEN due on 06/11/2023 PROSTATE CANCER SCREENING DISCUSSION due on 11/18/2023 LIPID SCREEN due on 06/11/2025 DTAP,TDAP,TD(2 - Td or Tdap) due on 03/12/2026 COLORECTAL CANCER SCREENING due on 12/31/2029 HEPATITIS C SCREENING Completed SHINGRIX VACCINE Completed COVID-19 VACCINE Completed MENINGOCOCCAL CONJUGATE Aged Out Data reviewed Last 5 Encounter BP Readings: Date: BP: 02/24/2021 122/70 12/01/2020 128/74 11/25/2020 122/78 09/17/2020 120/78 11/25/2019 104/73 BMI Readings from Last 5 Encounters: 11/29/21 : 29.69 kg/m 02/24/21 : 29.55 kg/m 12/01/20 : 29.82 kg/m 11/25/20 : 29.82 kg/m 09/17/20 : 30.11 kg/m Last 5 Encounter Wt Readings: Date: Wt: 02/24/2021 101.6 kg (224 lb) 12/01/2020 102.5 kg (226 lb) 11/25/2020 102.5 kg (226 lb) 09/17/2020 103.5 kg (228 lb 3.2 oz) 09/01/2019 103 kg (227 lb) Medication and allergy list reviewed, reconciled and updated 11/29/2021 Component Latest Ref Rng & Units 11/28/2020 11/22/2021 WBC 3.70 - 11.00 k/uL 5.16 RBC 4.20 - 6.00 m/uL 4.87 Hemoglobin 13.0 - 17.0 g/dL 14.7 Hematocrit 39.0 - 51.0 % 44.3 MCV 80.0 - 100.0 fL 91.0 MCH 26.0 - 34.0 pg 30.2 MCHC 30.5 - 36.0 g/dL 33.2 RDW-CV 11.5 - 15.0 % 12.7 Platelet Count 150 - 400 k/uL 279 MPV 9.0 - 12.7 fL 10.0 Neut% % 46.5 Abs Neut (ANC) 1.45 - 7.50 k/uL 2.40 Lymph% % 36.8 Abs Lymph 1.00 - 4.00 k/uL 1.90 Bonner% % 13.0 Abs Bonner <0.87 k/uL 0.67 Eosin% % 2.5 Abs Eosin <0.46 k/uL 0.13 Baso% % 1.0 Abs Baso <0.11 k/uL 0.05 Immature Gran % % 0.2 IMMATURE GRANS (ABS) <0.10 k/uL <0.03 NRBC /100 WBC 0.0 Absolute nRBC <0.01 k/uL <0.01 DTYPE Auto Protein, Total 6.3 - 8.0 g/dL 6.9 Albumin 3.9 - 4.9 g/dL 4.2 Calcium 8.5 - 10.2 mg/dL 9.7 Bilirubin, Total 0.2 - 1.3 mg/dL 0.8 Alkaline Phosphatase 38 - 113 U/L 56 AST 14 - 40 U/L 29 ALT 10 - 54 U/L 28 Glucose 74 - 99 mg/dL 98 BUN 9 - 24 mg/dL 18 Creatinine 0.73 - 1.22 mg/dL 1.21 Sodium 136 - 144 mmol/L 141 Potassium 3.7 - 5.1 mmol/L 4.4 Chloride 97 - 105 mmol/L 104 CO2 22 - 30 mmol/L 27 Anion Gap 9 - 18 mmol/L 10 eGFR >=60 mL/min/1.73m 67 Cholesterol, Total <200 mg/dL 132 202 (H) Triglyceride <150 mg/dL 57 103 HDL Cholesterol >39 mg/dL 48 40 LDL Cholesterol <100 mg/dL 73 141 (H) Non HDL Cholesterol <130 mg/dL 84 162 (H) Fasting Time hrs 12 12 VLDL Cholesterol <30 mg/dL 11 21 TC:HDL Ratio <5.10 2.75 5.05 LDL:HDL Ratio <2.54 1.52 3.53 (H) PSA Screening 0.00 - 2.59 ng/mL 0.31 Vitamin D 25 Hydroxy 31.0 - 80.0 ng/mL 35.5 The 10-year ASCVD risk score (Marlon FELTON Jr., et al., 2013) is: 13.9% Values used to calculate the score: Age: 61 years Sex: Male Is Non- : No Diabetic: No Tobacco smoker: No Systolic Blood Pressure: 124 mmHg Is BP treated: Yes HDL Cholesterol: 40 mg/dL Total Cholesterol: 202 mg/dL ASSESSMENT/PLAN: 1. Well adult exam - ICD9: V70.0, ICD10: Z00.00 (primary diagnosis) Performed a complete age, appropriate history and physical, along with risk factor reduction and counseling on preventive services. follow up in 1 year. 2. Essential hypertension, benign - ICD9: 401.1, ICD10: I10 - good control - Continue current medication(s) - Encouraged dietary sodium restriction/DASH diet - Recommended regular aerobic exercise. - Goal of BP <140/90 - Recommended no refined sugar, low refined starch, healthy oil intake (olive oil), healthy protein (fish) along the lines of the Mediterranean diet. - LISINOPRIL 10 MG TABLET 3. Hyperlipidemia LDL goal <130 - ICD9: 272.4, ICD10: E78.5 - poor control and - noncompliance: Reviewed ASCVD risk score with patient along with compliance with medication versus side effects. Shared decision making made to go to every other day dosing with his current Lipitor dosing. Repeat lipid panel in 3 months. Continue to monitor. - Continue current medication. - Encouraged following a low fat, low cholesterol diet. - Discussed the benefits of regular aerobic exercise and weight loss. - Check fasting lipid panel - Encouraged following a low carbohydrate, healthy oil intake diet. - Continue current therapy. - ATORVASTATIN 40 MG TABLET - LIPID PANEL BASIC 4. ED (erectile dysfunction) of organic origin - ICD9: 607.84, ICD10: N52.9 Clinically stable. Continue with current Viagra dosing 5. Benign prostatic hyperplasia without lower urinary tract symptoms - ICD9: 600.00, ICD10: N40.0 Clinically stable. Symptoms are 1-2 times per night of urination. No worsening of symptoms. Continue to monitor symptoms. 6. BPPV (benign paroxysmal positional vertigo), unspecified laterality - ICD9: 386.11, ICD10: H81.10 Clinically stable. No recent episodes. Trial of meclizine to use as needed when symptomatic Continue to monitor symptoms. - MECLIZINE 25 MG TABLET Uday Jamison APRN.PAINT MIXER, DNP This note was completed with [employer] dictation software. Note was reviewed for accuracy. There may be minor misspellings or grammar miscues with Dragon 360 Dictation. I spent a total of 35 minutes on the date of the service which included preparing to see the patient, [id number] patient care, completing clinical documentation, performing a medically appropriate examination, counseling and educating the patient/family/caregiver and ordering medications, tests, or procedures. [facility] [address] [id number] This note was copied from previous note and exam dated 11/25/20. Author is Uday Jamison APRN.GENESIS SAVAGE note reviewed and changes have been made or updates noted in the copy & paste portion of an encounter. documented in this encounter [facility] 11-24-2021 Miscellaneous Notes Patient returned call, states that he has not taken his cholesterol medication in about a month. States that he will restart it. Unable to reach patient. Left VM to return call to office. Please read below and advise. Beverly Moore ----- Message from Uday Jamison APRN.GENESIS SAVAGE sent at 11/24/2021 8:01 AM EDT ----- Inform patient their bad cholesterol levels are elevated. Otherwise the rest of his labs are in the normal range. Is the patient taking his cholesterol medication? Is he missing doses? Recommend adhere to a low-cholesterol, low-fat diet. Please ensure they are eating lots of fruits and vegetables, eat lean cuts of meat, and limit surgry drinks. Perform regular physical activity as tolerated and limit fast food. Recommend recheck labs in 12 months. Uday Jamison APRN.GENESIS SAVAGE documented in this encounter [facility] 04-13-2010 History of Past i llness Narrative Problem Noted Date Resolved Date Internal hemorrhoids without mention of complica tion 04/13/2010 01/31/2015 documented as of this encounter (statuses as of 11/29/2021) [address]16-[address] History of Past illness Narrative* Problem Noted Date Resolved Date Internal hemorrhoids without mention of complica tion 04/13/2010 01/31/2015 documented as of this encounter (statuses as of 12/01/2021) [address]16-2010 History of Past illness Narrative* Problem Noted Date Resolved Date Internal hemorrhoids without mention of complica tion 04/13/2010 01/31/2015 documented as of this encounter (statuses as of 03/07/2022) [facility] History of Past illness Narrative* Problem Noted Date Resolved Date Internal hemorrhoids without mention of complica tion 04/13/2010 01/31/2015 documented as of this encounter (statuses as of 04/05/2022) [facility] History of Past illness Narrative* Problem Noted Date Resolved Date Internal hemorrhoids without mention of complica tion 04/13/2010 01/31/2015 documented as of this encounter (statuses as of 04/10/2022) [facility] History of Past illness Narrative* Problem Noted Date Resolved Date Internal hemorrhoids without mention of complica tion 04/13/2010 01/31/2015 documented as of this encounter (statuses as of 10/11/2022) [address]2010 History of Past illness Narrative* Problem Noted Date Diagnosed Date Resolved Date Internal hemorrhoids without mention of complication 04/13/2010 01/31/2015 documented as of this encounter (statuses as of 04/02/2023) [address]16-2010 History of Past illness Narrative* Problem Noted Date Diagnosed Date Resolved Date Internal hemorrhoids without mention of complication 04/13/2010 01/31/2015 documented as of this encounter (statuses as of 08/31/2023) [address]16-2010 History of Past illness Narrative* Problem Noted Date Diagnosed Date Resolved Date Internal hemorrhoids without mention of complication 04/13/2010 01/31/2015 documented as of this encounter (statuses as of 09/03/2023) [address]16-2010 History of Past illness Narrative* Problem Noted Date Diagnosed Date Resolved Date Internal hemorrhoids without mention of complication 04/13/2010 01/31/2015 documented as of this encounter (statuses as of 10/03/2023) [facility] History of Past illness Narrative* Problem Noted Date Diagnosed Date Resolved Date Internal hemorrhoids without mention of complication 04/13/2010 01/31/2015 documented as of this encounter (statuses as of 11/01/2023) [facility] Diagnosis Well adult exam- Primary Routine general medical examination at a health care facility Essential hypertension, benign Hyperlipidemia LDL goal <130 Other and unspecified hyperlipidemia ED (erectile dysfunction) of organic origin Impotence of organic origin Benign prostatic hyperplasia without lower urinary tract symptoms BPPV (benign paroxysmal positional vertigo), unspecified laterality [facility] Diagnosis Essential hypertension, benign- Primary Hyperlipidemia, mixed Mixed hyperlipidemia Benign paroxysmal positional vertigo of right ear Benign prostatic hyperplasia without lower urinary tract symptoms Dizziness Dizziness and giddiness Encounter for screening for diabetes mellitus Screening for diabetes mellitus Prostate disorder Unspecified disorder of prostate [facility] Diagnosis Benign paroxysmal positional vertigo of right ear [facility] Diagnosis Well adult exam- Primary Routine general medical examination at a [facility] care facility Essential hypertension, benign Hyperlipidemia, mixed Mixed hyperlipidemia Bilateral carotid artery stenosis Occlusion and stenosis of carotid artery without mention of cerebral infarction Benign paroxysmal positional vertigo of right ear Benign prostatic hyperplasia without lower urinary tract symptoms Encounter for immunization Need for other specified prophylactic vaccination against single bacterial disease [facility] Diagnosis Essential hypertension, benign- Primary Hyperlipidemia, mixed Mixed hyperlipidemia Bilateral carotid artery stenosis Occlusion and stenosis of carotid artery without mention of cerebral infarction Benign prostatic hyperplasia without lower urinary tract symptoms Prostate disorder Unspecified disorder of prostate Ex-smoker Personal history of tobacco use, presenting hazards to health Encounter for immunization Need for other specified prophylactic vaccination against single bacterial disease [facility] Diagnosis Multiple renal cysts [facility] Diagnosis Bilateral renal cysts Unspecified congenital cystic kidney disease [facility] Diagnosis Encounter for Medicare annual wellness exam- Primary Routine general medical examination at a health care facility Essential hypertension, benign Hyperlipidemia, mixed Mixed hyperlipidemia Bilateral carotid artery stenosis Occlusion and stenosis of carotid artery without mention of cerebral infarction Benign paroxysmal positional vertigo of right ear Benign prostatic hyperplasia without lower urinary tract symptoms Ex-smoker Personal history of tobacco use, presenting hazards to health Screening for AAA (abdominal aortic aneurysm) Screening for other and unspecified cardiovascular conditions Chronic midline low back pain without sciatica Advance directive discussed with patient Other specified counseling Encounter for immunization Need for other specified prophylactic vaccination against single bacterial disease [facility] Diagnosis Ectatic abdominal aorta (HCC) Abdominal [facility] ect[facility] Diagnosis Ex-smoker Personal history of tobacco use, presenting hazards to health Screening for AAA (abdominal aortic aneurysm) Screening for other and unspecified cardiovascular conditions [facility] Diagnosis Bilateral foot-drop- Primary Other acquired deformity of ankle and foot Neuropathy of both feet Unspecified hereditary and idiopathic peripheral neuropathy Essential hypertension, benign Other disturbances of skin sensation- Primary Bilateral foot-drop Other acquired deformity of ankle and foot Neuropathy of both feet Unspecified hereditary and idiopathic peripheral neuropathy Other abnormalities of gait and mobility Weakness generalized Other malaise and fatigue [facility] Diagnosis Other disturbances of skin sensation- Primary Bilateral foot-drop Other acquired deformity of ankle and foot Neuropathy of both feet Unspecified hereditary and idiopathic peripheral neuropathy Other abnormalities of gait and mobility Weakness generalized Other malaise and fatigue [facility] Diagnosis Bilateral foot-drop- Primary Other acquired deformity of ankle and foot Neuropathy of both feet Unspecified hereditary and idiopathic peripheral neuropathy Essential hypertension, benign [facility] Diagnosis Essential hypertension, benign [facility] Diagnosis Bilateral foot-drop- Primary Other acquired deformity of ankle and foot Neuropathy of both feet Unspecified hereditary and idiopathic peripheral neuropathy [facility] Diagnosis Essential hypertension, benign- Primary [facility] Diagnosis Essential hypertension, benign- Primary Screening for depression Encounter for screening examination for other mental health and behavioral disorders Hyperlipidemia, mixed Mixed hyperlipidemia Prostate disorder Unspecified disorder of prostate [facility] Diagnosis Bilateral foot-drop- Primary Other acquired deformity of ankle and foot Neuropathy of both feet Unspecified hereditary and idiopathic peripheral neuropathy [facility] Diagnosis Encounter for Medicare annual wellness exam- Primary Routine general medical examination at a health care facility Essential hypertension, benign Hyperlipidemia, mixed Mixed hyperlipidemia Ectatic abdominal aorta (HCC) Abdominal aortic ectasia Bilateral carotid artery stenosis Occlusion and stenosis of carotid artery without mention of cerebral infarction Neuropathy of both feet Unspecified hereditary and idiopathic peripheral neuropathy Benign prostatic hyperplasia without lower urinary tract symptoms ED (erectile dysfunction) of organic origin Impotence of organic origin Advance directive discussed with patient Other specified counseling Screening for depression Encounter for screening examination for other mental health and behavioral disorders Acute left ankle pain [facility] Diagnosis Chronic pain of left ankle- Primary Acute left ankle pain [facility] Diagnosis Chronic pain of left ankle- Primary [facility] Diagnosis Chronic pain of left ankle- Primary [facility] Diagnosis Chronic pain of left ankle- Primary documented [facility] Diagnosis Ectatic abdominal aorta Abdominal aortic ectasia documented in this [facility]* Diagnosis Ectatic abdominal aorta- Primary Abdominal aortic ectasia documented in this encounter [facility]* Diagnosis Bilateral carotid artery stenosis- Primary Occlusion and stenosis of carotid artery without mention of cerebral infarction [facility] Diagnosis Urinary frequency- Primary Left flank pain Abdominal pain, unspecified site Right lateral abdominal pain Abdominal pain, unspecified site Right lower quadrant abdominal pain Abdominal pain, right lower quadrant Benign prostatic hyperplasia with urinary frequency Right lower quadrant abdominal pain Abdominal pain, right lower quadrant documented in this encounter [facility]* Diagnosis Right lower quadrant abdominal pain Abdominal pain, right lower quadrant documented in this encounter [facility] for referral (narrative)* Diagnostic Procedure Only (Routine) - Closed Specialty Diagnoses / Procedures Referred By Yaron ta Referred To Contact [facility] Diagnoses Multiple renal cysts Procedures US KIDNEY/BLADDER US RETROPERITONEAL REAL TIME W/IMAGE COMPLETE Prabhjot Leung MD [address] [place] [address] [place] [address] Referral ID Status Reason Start Date Expiration Date V isits Requested Visits Authorized [id number] Closed Auto-Generate d Referral 08/16/2023 09/14/2024 1 1 [facility] for referral (narrative)* Diagnostic Procedure Only (Routine) - Authorized Specialty Diagnoses / Procedures Referred By Yaron t Referred To Contact [facility] Diagnoses Ex-smoker Screening for AAA (abdominal aortic aneurysm) Procedures US SCREENING FOR AAA (2017) US ABDOMINAL AORTA REAL TIME SCREEN STUDY AAA Prabhjot Leung MD [address] [place] [address] [place] [address] Referral ID Status Reason Start Date Expiration Date Visits Requested Visits Authorized [id number] Authorized Auto-Generat ed Referral 10/03/2023 11/01/2024 1 1 [facility] for referral (narrative)* Diagnostic Procedure Only (Routine) - Closed Specialty Diagnoses / Procedures [facility] To [facility] Diagnoses Ex-smoker Screening for AAA (abdominal aortic aneurysm) Procedures US SCREENING FOR AAA (2017) US ABDOMINAL AORTA REAL TIME SCREEN STUDY AAA Prabhjot Leung MD [address] [place] [address] [place] [address] Referral ID Status Reason Start Date Expiration Date V isits Requested Visits Authorized [id number] Closed Auto-Generate d Referral 10/03/2023 11/01/2024 1 1 [facility] for visit Narrative* MRI/CT (Urgent) - Closed Specialty Diagnoses / Procedures Referred By Yaron ta Referred To Contact CT IMAGING Diagnoses Right lower quadrant abdominal pain Procedures CT ABD/PEL WO IVCON CT ABD & PELVIS W/O CONTRAST Prabhjot Leung MD [address] [place] [id number] Phone: tel: fax: [place] [address] Referral ID Status Reason Start Date Expiration Date V isits Requested Visits Authorized [id number] Closed Auto-Generate d Referral 03/11/2025 04/10/2026 2 2 [facility] for visit Narrative* MRI/CT (Urgent) - Closed Specialty Diagnoses / Procedures Referred By Contac t Referred To Contact CT IMAGING Diagnoses Right lower quadrant abdominal pain Procedures CT ABD/PEL WO IVCON CT ABD & PELVIS W/O CONTRAST Prabhjot Leung MD [address] [place] [address] Phone: tel: fax: [facility] [place] [address] Referral ID Status Reason Start Date Expiration Date V isits Requested Visits Authorized [id number] Closed Auto-Generate d Referral 03/11/2025 04/10/2026 2 2 [facility] Advance Directives No Advanced Directives Records FoundDocuments on File Type Date 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 Directive(s) 01/01/2020 8:01 AM Advance Directive(s) 12/22/2019 10:58 AM Advance Directive(s) 09/30/2019 3:59 PM Documents on File Type Date 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 Directive(s) 01/13/2025 10:49 AM Documents on File Type Date 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 Directive(s) 01/13/2025 10:49 AM Reason for Referral Specialty Diagnoses / Procedures Referred By Contac t Referred To Contact [facility] Diagnoses Benign paroxysmal positional vertigo of right ear Procedures CONSULT TO PHYSICAL THERAPY PHYSICAL THERAPY EVALUATION HIGH COMPLEX 45 MINS Prabhjot Leung MD [address] [place] [address] [facility] [address] [address] Referral ID Status Reason Start Date Expiration Date Visits Requested Visits Authorized [id number] Authorized Auto-Generat ed Referral 07/29/2021 07/28/2022 30 30 Specialty Diagnoses / Procedures Referred By Contac t Referred To Contact [facility] Diagnoses Dizziness Procedures US CAROTID ARTERIES SAAD VAS LAB DUPLEX SCAN EXTRACRANIAL ART COMPL BI STUDY Prabhjot Leung MD [address] [place] [address] [facility] [address] [address] Referral ID Status Reason Start Date Expiration Date Visits Requested Visits Authorized [id number] Authorized Auto-Generat ed Referral 04/05/2022 04/05/2023 1 1 Specialty Diagnoses / Procedures Referred By Contac t Referred To Contact Neurology Diagnoses Bilateral foot-drop Neuropathy of both feet Procedures CONSULT TO NEUROLOGY OFFICE/OUTPATIENT [facility] 60 MINUTES Prabhjot Leung MD [address] [place] [address] Referral ID Status Reason Start Date Expiration Date Visits Requested Visits Authorized [id number] Authorized PCP Requested Referral 12/27/2023 12/26/2024 1 1 Specialty Diagnoses / Procedures Referred By Contac t Referred To [facility] Diagnoses Bilateral foot-drop Neuropathy of both feet Procedures EMG(NEURO/NI) NERVE CONDUCTION STUDIES 9-10 STUDIES Prabhjot Leung MD [address] [place] [address] [facility] [place] [address] [place] [address] Referral ID Status Reason Start Date Expiration Date V isits Requested Visits Authorized [id number] Closed Auto-Generate d Referral 12/27/2023 12/26/2024 1 1 Summary Purpose Family History No Family History Records FoundNo Family History Records FoundNo Family History Records Found Additional Source Comments Source Comments (unrecognize d section and content) In the event this informatio n is protected by the Federal Confidentiality of Alcohol and Drug Abuse Patient Records regulations: The Federal rules restrict any use of the information to criminally investigate or prosecute any alcohol or drug abuse patient.[facility] event this information is protected by the Federal Confidentiality of Alcohol and Drug Abuse Patient Records regulations: The Federal rules restrict any use of the information to criminally investigate or prosecute any alcohol or drug abuse patient.[facility] event this information is protected by the Federal Confidentiality of Alcohol and Drug Abuse Patient Records regulations: The Federal rules restrict any use of the information to criminally investigate or prosecute any alcohol or drug abuse patient.[facility] event this information is protected by the Federal Confidentiality of Alcohol and Drug Abuse Patient Records regulations: The Federal rules restrict any use of the information to criminally investigate or prosecute any alcohol or drug abuse patient.[facility] the event this information is protected by the Federal Confidentiality of Alcohol and Drug Abuse Patient Records regulations: The Federal rules restrict any use of the information to criminally investigate or prosecute any alcohol or drug abuse patient.[facility] the event this information is protected by the Federal Confidentiality of Alcohol and Drug Abuse Patient Records regulations: The Federal rules restrict any use of the information to criminally investigate or prosecute any alcohol or drug abuse patient.[facility] the event this information is protected by the Federal Confidentiality of Alcohol and Drug Abuse Patient Records regulations: The Federal rules restrict any use of the information to criminally investigate or prosecute any alcohol or drug abuse patient.[facility] the event this information is protected by the Federal Confidentiality of Alcohol and Drug Abuse Patient Records regulations: The Federal rules restrict any use of the information to criminally investigate or prosecute any alcohol or drug abuse patient.[facility] the event this information is protected by the Federal Confidentiality of Alcohol and Drug Abuse Patient Records regulations: The Federal rules restrict any use of the information to criminally investigate or prosecute any alcohol or drug abuse patient.[facility] the event this information is protected by the Federal Confidentiality of Alcohol and Drug Abuse Patient Records regulations: The Federal rules restrict any use of the information to criminally investigate or prosecute any alcohol or drug abuse patient.[facility] event this information is protected by the Federal Confidentiality of Alcohol and Drug Abuse Patient Records regulations: The Federal rules restrict any use of the information to criminally investigate or prosecute any alcohol or drug abuse patient.[facility] the event this information is protected by the Federal Confidentiality of Alcohol and Drug Abuse Patient Records regulations: The Federal rules restrict any use of the information to criminally investigate or prosecute any alcohol or drug abuse patient.[facility] the event this information is protected by the Federal Confidentiality of Alcohol and Drug Abuse Patient Records regulations: The Federal rules restrict any use of the information to criminally investigate or prosecute any alcohol or drug abuse patient.[facility] the event this information is protected by the Federal Confidentiality of Alcohol and Drug Abuse Patient Records regulations: The Federal rules restrict any use of the information to criminally investigate or prosecute any alcohol or drug abuse patient.[facility] the event this information is protected by the Federal Confidentiality of Alcohol and Drug Abuse Patient Records regulations: The Federal rules restrict any use of the information to criminally investigate or prosecute any alcohol or drug abuse patient.[facility] the event this information is protected by the Federal Confidentiality of Alcohol and Drug Abuse Patient Records regulations: The Federal rules restrict any use of the information to criminally investigate or prosecute any alcohol or drug abuse patient.[facility] the event this information is protected by the Federal Confidentiality of Alcohol and Drug Abuse Patient Records regulations: The Federal rules restrict any use of the information to criminally investigate or prosecute any alcohol or drug abuse patient.[facility] event this information is protected by the Federal Confidentiality of Alcohol and Drug Abuse Patient Records regulations: The Federal rules restrict any use of the information to criminally investigate or prosecute any alcohol or drug abuse patient.[facility] the event this information is protected by the Federal Confidentiality of Alcohol and Drug Abuse Patient Records regulations: The Federal rules restrict any use of the information to criminally investigate or prosecute any alcohol or drug abuse patient.[facility] the event this information is protected by the Federal Confidentiality of Alcohol and Drug Abuse Patient Records regulations: The Federal rules restrict any use of the information to criminally investigate or prosecute any alcohol or drug abuse patient.[facility] event this information is protected by the Federal Confidentiality of Alcohol and Drug Abuse Patient Records regulations: The Federal rules restrict any use of the information to criminally investigate or prosecute any alcohol or drug abuse patient.[facility] event this information is protected by the Federal Confidentiality of Alcohol and Drug Abuse Patient Records regulations: The Federal rules restrict any use of the information to criminally investigate or prosecute any alcohol or drug abuse patient.[facility] the event this information is protected by the Federal Confidentiality of Alcohol and Drug Abuse Patient Records regulations: The Federal rules restrict any use of the information to criminally investigate or prosecute any alcohol or drug abuse patient.[facility] the event this information is protected by the Federal Confidentiality of Alcohol and Drug Abuse Patient Records regulations: The Federal rules restrict any use of the information to criminally investigate or prosecute any alcohol or drug abuse patient.[facility] the event this information is protected by the Federal Confidentiality of Alcohol and Drug Abuse Patient Records regulations: The Federal rules restrict any use of the information to criminally investigate or prosecute any alcohol or drug abuse patient.[facility] the event this information is protected by the Federal Confidentiality of Alcohol and Drug Abuse Patient Records regulations: The Federal rules restrict any use of the information to criminally investigate or prosecute any alcohol or drug abuse patient.[facility] the event this information is protected by the Federal Confidentiality of Alcohol and Drug Abuse Patient Records regulations: The Federal rules restrict any use of the information to criminally investigate or prosecute any alcohol or drug abuse patient.[facility] the event this information is protected by the Federal Confidentiality of Alcohol and Drug Abuse Patient Records regulations: The Federal rules restrict any use of the information to criminally investigate or prosecute any alcohol or drug abuse patient.[facility] the event this information is protected by the Federal Confidentiality of Alcohol and Drug Abuse Patient Records regulations: The Federal rules restrict any use of the information to criminally investigate or prosecute any alcohol or drug abuse patient.[facility] the event this information is protected by the Federal Confidentiality of Alcohol and Drug Abuse Patient Records regulations: The Federal rules restrict any use of the information to criminally investigate or prosecute any alcohol or drug abuse patient.[facility] the event this information is protected by the Federal Confidentiality of Alcohol and Drug Abuse Patient Records regulations: The Federal rules restrict any use of the information to criminally investigate or prosecute any alcohol or drug abuse patient.[facility] the event this information is protected by the Federal Confidentiality of Alcohol and Drug Abuse Patient Records regulations: The Federal rules restrict any use of the information to criminally investigate or prosecute any alcohol or drug abuse patient.[facility] the event this information is protected by the Federal Confidentiality of Alcohol and Drug Abuse Patient Records regulations: The Federal rules restrict any use of the information to criminally investigate or prosecute any alcohol or drug abuse patient.[facility] the event this information is protected by the Federal Confidentiality of Alcohol and Drug Abuse Patient Records regulations: The Federal rules restrict any use of the information to criminally investigate or prosecute any alcohol or drug abuse patient.[facility] the event this information is protected by the Federal Confidentiality of Alcohol and Drug Abuse Patient Records regulations: The Federal rules restrict any use of the information to criminally investigate or prosecute any alcohol or drug abuse patient.[facility] the event this information is protected by the Federal Confidentiality of Alcohol and Drug Abuse Patient Records regulations: The Federal rules restrict any use of the information to criminally investigate or prosecute any alcohol or drug abuse patient.[facility] the event this information is protected by the Federal Confidentiality of Alcohol and Drug Abuse Patient Records regulations: The Federal rules restrict any use of the information to criminally investigate or prosecute any alcohol or drug abuse patient.[facility] the event this information is protected by the Federal Confidentiality of Alcohol and Drug Abuse Patient Records regulations: The Federal rules restrict any use of the information to criminally investigate or prosecute any alcohol or drug abuse patient.[facility] the event this information is protected by the Federal Confidentiality of Alcohol and Drug Abuse Patient Records regulations: The Federal rules restrict any use of the information to criminally investigate or prosecute any alcohol or drug abuse patient.[facility] the event this information is protected by the Federal Confidentiality of Alcohol and Drug Abuse Patient Records regulations: The Federal rules restrict any use of the information to criminally investigate or prosecute any alcohol or drug abuse patient.[facility] the event this information is protected by the Federal Confidentiality of Alcohol and Drug Abuse Patient Records regulations: The Federal rules restrict any use of the information to criminally investigate or prosecute any alcohol or drug abuse patient.[facility] the event this information is protected by the Federal Confidentiality of Alcohol and Drug Abuse Patient Records regulations: The Federal rules restrict any use of the information to criminally investigate or prosecute any alcohol or drug abuse patient.[facility] the event this information is protected by the Federal Confidentiality of Alcohol and Drug Abuse Patient Records regulations: The Federal rules restrict any use of the information to criminally investigate or prosecute any alcohol or drug abuse patient.[facility] the event this information is protected by the Federal Confidentiality of Alcohol and Drug Abuse Patient Records regulations: The Federal rules restrict any use of the information to criminally investigate or prosecute any alcohol or drug abuse patient.[facility] the event this information is protected by the Federal Confidentiality of Alcohol and Drug Abuse Patient Records regulations: The Federal rules restrict any use of the information to criminally investigate or prosecute any alcohol or drug abuse patient.[facility] Reason for Visit (unrecogniz ed section and content) Reason Comments Physical Therapy PT Discharge Specialty Diagnoses / Procedures Referred By Contac t Referred To Contact PHYSICAL THERAPY Diagnoses Acute left ankle pain Procedures CONSULT TO PHYSICAL THERAPY PHYSICAL THERAPY EVALUATION HIGH COMPLEX 45 MINS Prabhjot Leung MD [address] [place] [address] Phone: tel: fax: [facility] [address] [place] [address] Phone: tel: fax: Referral ID Status Reason Start Date Expiration Date Visits Requested Visits Authorized [id number] Authorized PCP Requested Referral Auto-Generate d Referral 10/12/2024 10/12/2025 99 99 Reason Comments Physical Therapy Specialty Diagnoses / Procedures Referred By Contac t Referred To Contact PHYSICAL THERAPY Diagnoses Acute left ankle pain Procedures CONSULT TO PHYSICAL THERAPY PHYSICAL THERAPY EVALUATION HIGH COMPLEX 45 MINS Prabhjot Leung MD [address] [place] [address] Phone: tel: fax: [facility] [address] [place] [address] Phone: tel: fax: Referral ID Status Reason Start Date Expiration Date Visits Requested Visits Authorized [id number] Authorized PCP Requested Referral Auto-Generate d Referral 10/12/2024 10/12/2025 99 99 Reason Comments Physical Reason Comments Results Reason Comments Recheck Reason Comments PT Eval Specialty Diagnoses / Procedures Referred By Contac t Referred To Contact [facility] Diagnoses Benign paroxysmal positional vertigo of right ear Procedures CONSULT TO PHYSICAL THERAPY PHYSICAL THERAPY EVALUATION HIGH COMPLEX 45 MINS Prabhjot Leung MD [address] [place] [address] [facility] [place] [address] [place] [address] Referral ID Status Reason Start Date Expiration Date Visits Requested Visits Authorized [id number] Authorized Auto-Generat ed Referral 07/29/2021 07/28/2022 30 30 Reason Comments 6 Month Exam Reason Comments Radiology US Specialty Diagnoses / Procedures Referred By Contac t Referred To Contact US IMAGING Diagnoses Multiple renal cysts Procedures US KIDNEY/BLADDER US RETROPERITONEAL REAL TIME W/IMAGE COMPLETE Prabhjot Leung MD [facility] [place] [id number] Us Imaging [id number] Referral ID Status Reason Start Date Expiration Date V isits Requested Visits Authorized [id number] Closed Auto-Generate d Referral 08/16/2023 09/14/2024 1 1 Reason Comments Medicare Wellness Exam Reason Comments Outgoing PT Specialty Diagnoses / Procedures Referred By Contac t Referred To Contact US IMAGING Diagnoses Ex-smoker Screening for AAA (abdominal aortic aneurysm) Procedures US SCREENING FOR AAA (2017) US ABDOMINAL AORTA REAL TIME SCREEN STUDY AAA Prabhjot Leung MD [address] [place] [address] Us Imaging [id number] Referral ID Status Reason Start Date Expiration Date V isits Requested Visits Authorized [id number] Closed Auto-Generate d Referral 10/03/2023 11/01/2024 1 1 Reason Comments Patient Update Reason Comments Blood Pressure Reason Onset Date Comments EMG 12/30/2023 Specialty Diagnoses / Procedures Referred By Contac t Referred To Contact [facility] Diagnoses Bilateral foot-drop Neuropathy of both feet Procedures EMG(NEURO/NI) NERVE CONDUCTION STUDIES 9-10 STUDIES Prabhjot Leung MD [address] [place] [address] [facility] [place] [address] [place] [id number] Referral ID Status Reason Start Date Expiration Date V isits Requested Visits Authorized [id number] Closed Auto-Generate d Referral 12/27/2023 12/26/2024 1 1 Reason Comments Follow Up Reason Comments Blood Pressure Reason Comments New Patient Spinal fusion surger y Sep 02, still currently going to PT. Patient states has been using a landa Specialty Diagnoses / Procedures Referred By Contac t Referred To Contact Neurology Diagnoses Bilateral foot-drop Neuropathy of both feet Procedures CONSULT TO NEUROLOGY OFFICE/OUTPATIENT NEW HIGH MDM 60 MINUTES Prabhjot Leung MD [address] [place] [address] Referral ID Status Reason Start Date Expiration Date V isits Requested Visits Authorized [id number] Closed PCP Requested Referral 12/27/2023 12/26/2024 1 1 Reason Comments parametes for patient blood pressure Reason Comments Release Of Medical Records Annie gonzales Reason Comments Outside PT Reason Comments Medicare Wellness Exam Reason Comments bp readings Reason Comments Follow Up Patient states doing better since last visit. Reason Comments Medicare Wellness Exam Reason Comments PT Eval Physical Therapy Reason Comments Radiology US Specialty Diagnoses / Procedures Referred By Contac t Referred To Contact US IMAGING Diagnoses Ectatic abdominal aorta Procedures US ABD AORTA US RETROPERITONEAL REAL TIME W/IMAGE LIMITED Prabhjot Leung MD [address] [place] [address] Phone: tel: fax: [place] [id number] Referral ID Status Reason Start Date Expiration Date V isits Requested Visits Authorized [id number] Closed Auto-Generate d Referral 10/12/2024 11/11/2025 1 1 Reason Onset Date Comments Results 11/29/2024 Reason Comments Patient Update Appointment Orders Reason Comments Low Back Pain Abdominal Pain Care Teams (unrecognized sec tion and content) Retail Advertising Executive Relationship Specialty Start Date End Date Uday Jamison APRN.GENESIS SAVAGE [address] [place] [address] PCP - General Family Practice 11/25/20 Retail Advertising Executive Relationship Specialty Start Date End Date Uday Jamison APRN.CNP, DNP [address] [place], [place] [phone] PCP - General Family Practice 11/25/20 Retail Advertising Executive Relationship Specialty Start Date End Date Uday Jamison APRN.PAINT MIXER, DNP [address] [place] [address] PCP - General Family Practice 11/25/20 Retail Advertising Executive Relationship Specialty Start Date End Date Prabhjot Leung MD [address] [place] [address] PCP - General Family Practice 04/05/22 Retail Advertising Executive Relationship Specialty Start Date End Date Prabhjot Leung MD [address] [place] [address] PCP - General Family Practice 04/05/22 Retail Advertising Executive Relationship Specialty Start Date End Date Prabhjot Leung MD [address] [place] [address] PCP - General Family Medicine 04/05/22 Retail Advertising Executive Relationship Specialty Start Date End Date Prabhjot Leung MD [address] [place] [address] PCP - General Family Medicine 04/05/22 Retail Advertising Executive Relationship Specialty Start Date End Date Prabhjot Leung MD [address] [place] [address] PCP - General Family Medicine 04/05/22 Retail Advertising Executive Relationship Specialty Start Date End Date Prabhjot Leung MD [address] [place] [address] PCP - General Family Medicine 04/05/22 Retail Advertising Executive Relationship Specialty Start Date End Date Prabhjot Leung MD [address] [place] [address] PCP - General Family Medicine 04/05/22 Retail Advertising Executive Relationship Specialty Start Date End Date Prabhjot Leung MD [address] [place] [address] PCP - General Family Medicine 04/05/22 Retail Advertising Executive Relationship Specialty Start Date End Date Prabhjot Leung MD [address] [place] [address] PCP - General Family Medicine 04/05/22 Retail Advertising Executive Relationship Specialty Start Date End Date Prabhjot Leung MD [address] [place] [address] PCP - General Family Medicine 04/05/22 Retail Advertising Executive Relationship Specialty Start Date End Date Prabhjot Leung MD [address] [place] [address] PCP - General Family Medicine 04/05/22 Retail Advertising Executive Relationship Specialty Start Date End Date Prabhjot Leung MD [address] [place] [address] PCP - General Family Medicine 04/05/22 Retail Advertising Executive Relationship Specialty Start Date End Date Prabhjot Leung MD [address] [place] [address] PCP - General Family Medicine 04/05/22 Retail Advertising Executive Relationship Specialty Start Date End Date Prabhjot Leung MD [address] [place] [address] PCP - General Family Medicine 04/05/22 Retail Advertising Executive Relationship Specialty Start Date End Date Prabhjot Leung MD [address] [place] [address] PCP - General Family Medicine 04/05/22 Retail Advertising Executive Relationship Specialty Start Date End Date Prabhjot Leung MD [address] [place], [place] [address] [phone] PCP - General Family Medicine 04/05/22 Retail Advertising Executive Relationship Specialty Start Date End Date Prabhjot Leung MD [address] [place] [address] PCP - General Family Medicine 04/05/22 Retail Advertising Executive Relationship Specialty Start Date End Date Prabhjot Leung MD [address] [place] [address] PCP - General Family Medicine 04/05/22 Retail Advertising Executive Relationship Specialty Start Date End Date Prabhjot Leung MD [address] [place] [address] PCP - General Family Medicine 04/05/22 Retail Advertising Executive Relationship Specialty Start Date End Date Prabhjot Leung MD [address] [place] [address] [id number] [phone] PCP - General Family Medicine 04/05/22 Aundrea Durand APRN.CNP [address] [place] [phone] [employer] Family [facility] 07/04/24 Micaela Martin PA-C [address] [place] [address] [employer] [facility] 07/04/24 Retail Advertising Executive Relationship Specialty Start Date End Date Prabhjot Leung MD [address] [place], [place] [id number] [phone] PCP - General Family Medicine 04/05/22 Aundrea Durand, SUNG.PAINT MIXER [address] [place] [address] [employer] [facility] 07/04/24 Micaela Martin PA-C [address] [place] [address] [employer] [facility] 07/04/24 Retail Advertising Executive Relationship Specialty Start Date End Date Prabhjot Leung MD [address] [place] [address] PCP - General Family Medicine 11/02/24 Aundrea Durand APRN.PAINT MIXER [address] [place] [address] [employer] [facility] 07/04/24 Micaela Martin PA-C [address] [place] [address] [employer] [facility] 07/04/24 Retail Advertising Executive Relationship Specialty Start Date End Date Prabhjot Leung MD [address] [place] [address] PCP - General Family Medicine 11/02/24 Aundrea Durand QUALITY SPECIALIST.PAINT MIXER [facility] [place] [address] [employer] [facility] 07/04/24 Micaela Martin PA-C [address] [place] [address] [employer] [facility] 07/04/24 Retail Advertising Executive Relationship Specialty Start Date End Date Prabhjot Leung MD [address] [place] [address] PCP - General Family Medicine 11/02/24 Aundrea Durand APRN.PAINT MIXER [address] [place] [address] [employer] [facility] 07/04/24 Micaela Martin PA-C [address] [place] [address] [employer] [facility] 07/04/24 Retail Advertising Executive Relationship Specialty Start Date End Date Prabhjot Leung MD [address] [place] [address] PCP - General Family Medicine 11/02/24 Aundrea Durand APRN.PAINT MIXER [address] [place] [address] [employer] [facility] 07/04/24 Micaela Martin PA-C [address] [place] [address] [employer] [facility] 07/04/24 Retail Advertising Executive Relationship Specialty Start Date End Date Prabhjot Leung MD [address] [place] [address] PCP - General Family Medicine 11/02/24 Aundrea Durand APRN.PAINT MIXER [address] [place] [address] [employer] [facility] 07/04/24 Micaela Martin PA-C [address] [place] [address] [employer] [facility] 07/04/24 Retail Advertising Executive Relationship Specialty Start Date End Date Prabhjot Leung MD [address] [place] [address] PCP - General Family Medicine 11/02/24 Aundrea Durand, QUALITY SPECIALIST.PAINT MIXER [address] [place] [address] [facility] 07/04/24 12/13/24 Micaela Martin PA-C [address] [place] [address] [facility] 07/04/24 12/27/24 Aundrea Durand, QUALITY SPECIALIST.PAINT MIXER [address] [place] [address] [facility] 12/28/24 Micaela Martin PA-C [address] [place] [address] [facility] 12/28/24 Retail Advertising Executive Relationship Specialty Start Date End Date Prabhjot Leugn MD [address] [place] [address] PCP - General Family Medicine 11/02/24 Aundrea Durand, QUALITY SPECIALIST.PAINT MIXER [address] [place] [address] [facility] 12/28/24 Micaela Martin PA-C [address] [place] [address] [facility] 12/28/24 Retail Advertising Executive Relationship Specialty Start Date End Date Prabhjot Leung MD [address] [place] [address] PCP - General Family Medicine 11/02/24 Aundrea Durand APRN.PAINT MIXER [address] [place] [address] [employer] [facility] 12/28/24 Micaela Martin PA-C [address] [place] [address] [employer] [facility] 12/28/24 Retail Advertising Executive Relationship Specialty Start Date End Date Prabhjot Leung MD [address] [place] [address] PCP - General Family Medicine 11/02/24 Aundrea Durand APRN.PAINT MIXER [address] [place] [address] [employer] [facility] 12/28/24 Micaela Martin PA-C [facility] [place] [address] [employer] [facility] 12/28/24 Retail Advertising Executive Relationship Specialty Start Date End Date Prabhjot Leung MD [address] [place] [address] PCP - General Family Medicine 11/02/24 Aundrea Durand APRN.PAINT MIXER [facility] [place] [address] [employer] [facility] 12/28/24 Micaela Martin PA-C [address] [place] [address] [facility] 12/28/24 Retail Advertising Executive Relationship Specialty Start Date End Date Prabhjot Leung MD [address] [place], [place] [id number] PCP - General Family Medicine 11/02/24 Aundrea Durand APRN.PAINT MIXER [address] [place] [address] [facility] 12/28/24 Micaela Martin PA-C [address] [place] [address] [facility] 12/28/24 (unrecognized sect ion and content) No Status Records FoundNo Status Records FoundNo Status Records Found INFORMATION SOURCE (unrecogn ized section and content) DATE CREATED AUTHOR 08/19/2024 [facility] DATE CREATED AUTHOR AUTHOR'S ORGANIZ ATION 03/14/2025 [facility] DATE CREATED AUTHOR AUTHOR'S ORGANIZ ATION 04/16/2025 [facility] FOR RECORDS PERTAINING TO PATIENTS WHO ARE OR HAVE BEEN ENROLLED IN A CHEMICAL DEPENDENCY/SUBSTANCEABUSE PROGRAM, SOME INFORMATION MAY BE OMITTED. This clinical summary was aggregated from multiple sources. Caution should be exercised in using it in the provision of clinical care. This summary normalizes information from multiple sources, and as a consequence, information in this document may materially change the coding, format and clinical context of patient data. In addition, data may be omitted in some cases. CLINICAL DECISIONS SHOULD BE BASED ON THE PRIMARY CLINICAL RECORDS. [employer] provides no warranty or guarantee of the accuracy or completeness of information in this document.
[2025-07-20 06:39] VITALS: BP 87/69; PULSE 88; RESP 16; O2SAT 98
[2025-07-20 06:40] LABS: Anion Gap 13 (7-18); BUN 12 mg/dL (4-19); BUN/Creat Ratio 9.4 RATIO (10-20); Calcium,Total 9.5 mg/dL (7.6-11.0); Carbon Dioxide 25.1 mmol/L (20.0-29.0); Chloride 98 mmol/L (96-106); Estimated Creatinine Clearance 73.08 ml/min (50-250); Glucose 157 mg/dL (70-99); Potassium 3.8 mmol/L (3.5-5.1); Troponin T High Sensitivity 51 ng/L (<=22)
[2025-07-20 07:00] VITALS: BP 102/73; PULSE 84; RESP 18; O2SAT 95
[2025-07-20 08:07] VITALS: BP 126/80; PULSE 82; RESP 19; O2SAT 98
[2025-07-20 08:15] LABS: Troponin T High Sens 2 HR 57 ng/L (<=22)
[2025-07-20 08:39] VITALS: BP 130/90; PULSE 84; RESP 17; TEMP 37.1; O2SAT 98
== END 2025-07-20 08:46 | disposition home or self-care (01) ==
PROVIDERS: Emergency Provider Emergency Medicine; PCP Family Medicine; Visit Provider Emergency Medicine
DX: R00.2 Palpitations (principal); N28.9 Disorder of kidney and ureter, unspecified
CPT/HCPCS: 71045; 80048; 84484; 85025; 85379; 93005; 99283; A4216